=== PATIENT | male | born 1945 | race Caucasian/White ===

== ENCOUNTER 2016-10-17 07:16 | Day surgery (SDC) | payer MEDICARE, BC ==
[~2016-10-17 07:16] MED LIST: BUPIVACAINE HCL 0.75% INJ/PF (7.5 MG/1 ML) 10 ML SDV OD PRN; KETOROLAC TROMETHAMINE 0.45% 4 DROP/0.4 ML DROPERETTE OD PRN
[2016-10-17] MEDS ORDERED: EPINEPHRINE INJ/PF 1 MG/1 ML AMPULE ONE (07:52)
[2016-10-17] MEDS ORDERED: LIDOCAINE 1% INJ-PF (10 MG/ML) 30 ML SDV ONE (07:53)
[2016-10-17] MEDS ORDERED: CHONDR SU A NA/HYALUR INTRAOC KIT (SURGICARE) ONE (07:53)
[2016-10-17] MEDS ORDERED: TOBRAMYCIN SULFATE/DEXAMETH OPH OINTMENT 3.5 GM ONE (07:53)
[2016-10-17] MEDS: BESIFLOXACIN HCL 0.6% OPH SUSP 5 ML BOTTLE OD PRN ×3 (08:02→09:03)
[2016-10-17] MEDS: TETRACAINE HCL 0.5% OPH SOLN 0.6 ML DROPERETTE OD PRN ×3 (08:02→08:40)
[2016-10-17] MEDS: TROPICAMIDE 1% OPH SOLN 3 ML OD PRN ×3 (08:03→08:22)
[2016-10-17] MEDS: CYCLOPENTOLATE 0.2%/PHENYLEPHRINE 1% OPH SOLN 2 ML OD PRN ×3 (08:03→08:22)
[2016-10-17] MEDS ORDERED: FENTANYL CITRATE INJ/PF 100 MCG/2 ML AMPUL ONE (08:24)
[2016-10-17] MEDS ORDERED: MIDAZOLAM 2 MG/2 ML INJ ONE (08:24)
== END 2016-10-17 09:36 | disposition home or self-care (01) ==
LOC: SC 07:16
PROVIDERS: ATTEND Ophthalmology
PROC: 089230Z Drainage of Right Anterior Chamber with Drainage Device, Percutaneous Approach (ICD-10-PCS; 2016-10-17)
PROC: 08RJ3JZ Replacement of Right Lens with Synthetic Substitute, Percutaneous Approach (ICD-10-PCS; principal; 2016-10-17 08:30)
DX: H25.11 Age-related nuclear cataract, right eye (principal); H40.10X1 Unspecified open-angle glaucoma, mild stage; I10 Essential (primary) hypertension; K21.9 Gastro-esophageal reflux disease without esophagitis; Z79.82 Long term (current) use of aspirin; Z79.899 Other long term (current) drug therapy
CPT/HCPCS: 0191T; 66984; 142; C1783; J0171; J2250; J3010; J3490; V2632

== ENCOUNTER 2016-12-07 08:10 | Day surgery (SDC) | payer MEDICARE, BC ==
[~2016-12-07 08:10] MED LIST changes: -BUPIVACAINE HCL 0.75% INJ/PF (7.5 MG/1 ML) 10 ML SDV OD PRN; +DIPHENHYDRAMINE HCL 50 MG/ML VIAL ONE; +EPINEPHRINE INJ 1 MG/10 ML DISP.SYRIN ONE; +FLUMAZENIL INJ 0.5 MG/5 ML VIAL IV ONE; +GLUCAGON,HUMAN RECOMB 1 MG INJ ONE; -KETOROLAC TROMETHAMINE 0.45% 4 DROP/0.4 ML DROPERETTE OD PRN; +NALOXONE HCL INJ/PF 0.4 MG/1 ML SDV ONE; +ONDANSETRON HCL INJ/PF 4 MG/2 ML SDV ONE
[2016-12-07] MEDS: MIDAZOLAM 2 MG/2 ML INJ ONE ×2 (09:06→09:13)
[2016-12-07] MEDS: FENTANYL CITRATE INJ/PF 100 MCG/2 ML AMPUL ONE ×3 (09:08→09:16)
--- NOTE | 2016-12-07 09:26 | Operative Report ---
Operative Report DATE OF SURGERY: 12/07/16 Operative Report: The risks benefits and alternatives of the procedure explained to the patient in detail and informed consent is obtained. A GIF Olympus video scope was inserted into the patient's mouth and hypopharynx ,the esophagus is identified intubated and insufflated, the scope was then advanced through the esophagus stomach and duodenum ,retroflexion maneuver is done, the esophagus stomach and first and second portions of the duodenum examined PREOPERATIVE DIAGNOSIS: History of Terrell's esophagus for ablation POSTOPERATIVE DIAGNOSIS: Terrell's esophagus status post ablation OPERATION: EGD with ablation SURGEON: JANELLE SALES ANESTHESIA: Moderate Sedation - 6 mg of Versed, 100 mcg of fentanyl. Conscious sedation monitoring time 30 minutes. TISSUE REMOVED OR ALTERED: None. COMPLICATIONS: None. ESTIMATED BLOOD LOSS: None. INTRAOPERATIVE FINDINGS: As noted above. PROCEDURE: Patient tolerated the procedure well. No immediate postprocedure complications are noted. Patient discharged in good condition. Discharge date 12/07/2016. Discharge diet: Regular. Discharge activity: Regular. 2-3 week follow-up to discuss findings. Patient will need repeat EGD with ablation in 6 weeks. Patient is instructed to call the office or proceed to the emergency room should there be any further problems or questions.
[2016-12-07 11:04] VITALS: BP 113/57
== END 2016-12-07 10:35 | disposition home or self-care (01) ==
LOC: END 08:10
PROVIDERS: ATTEND Internal Medicine Gastroenterology
PROC: 0D558ZZ Destruction of Esophagus, Via Natural or Artificial Opening Endoscopic (ICD-10-PCS; principal; 2016-12-07 09:00)
DX: K22.70 Barrett's esophagus without dysplasia (principal); I10 Essential (primary) hypertension
CPT/HCPCS: 43270; J2250; J3010; J0171; J1200; J1610; J2310; J2405; J3490

== ENCOUNTER 2017-12-19 11:34 | Day surgery (SDC) | payer MEDICARE, BC ==
[~2017-12-19 11:34] MED LIST changes: -EPINEPHRINE INJ 1 MG/10 ML DISP.SYRIN ONE; -FLUMAZENIL INJ 0.5 MG/5 ML VIAL IV ONE; -GLUCAGON,HUMAN RECOMB 1 MG INJ ONE
[2017-12-19] MEDS ORDERED: EPINEPHRINE INJ 1 MG/10 ML DISP.SYRIN ONE (11:35)
[2017-12-19] MEDS ORDERED: GLUCAGON,HUMAN RECOMB 1 MG INJ ONE (11:35)
[2017-12-19] MEDS ORDERED: FLUMAZENIL INJ 0.5 MG/5 ML VIAL ONE (11:35)
[2017-12-19] MEDS: MIDAZOLAM 2 MG/2 ML INJ ONE ×3 (12:59→13:13)
[2017-12-19] MEDS: FENTANYL CITRATE INJ/PF 100 MCG/2 ML AMPUL ONE ×2 (13:01→13:03)
--- NOTE | 2017-12-19 13:19 | Operative Report ---
Operative Report DATE OF SURGERY: 12/19/17 Operative Report: The risks benefits and alternatives of the procedure explained to the patient in detail and informed consent is obtained.A GIF Olympus video scope was inserted into the patient's mouth and hypopharynx, the esophagus is identified intubated and insufflated ,the scope was then advanced through the esophagus stomach and duodenum. retroflexion maneuver is done, the esophagus stomach and first and second portions of the duodenum examined PREOPERATIVE DIAGNOSIS: History of Terrell's esophagus POSTOPERATIVE DIAGNOSIS: Several islands of Terrell's esophagus repeat ablation done OPERATION: EGD with radiofrequency ablation SURGEON: JANELLE SALES ANESTHESIA: Moderate Sedation - 5 mg of Versed, 75 mcg of fentanyl. Conscious sedation monitoring time 30 minutes. TISSUE REMOVED OR ALTERED: None. COMPLICATIONS: None. ESTIMATED BLOOD LOSS: None. INTRAOPERATIVE FINDINGS: As noted above. PROCEDURE: Patient tolerated procedure well. No immediate postprocedure complications are noted. Patient discharged in good condition. Discharge date 12/19/2017. Discharge diet: Regular. Discharge activity: Regular. 2-3 week follow-up to discuss findings. Patient is instructed to call the office or proceed to the emergency room should there be any further problems or questions.
[2017-12-19 14:30] VITALS: BP 125/60
== END 2017-12-19 14:30 | disposition home or self-care (01) ==
LOC: END 11:34
PROVIDERS: ATTEND Internal Medicine Gastroenterology
DX: K22.719 Barrett's esophagus with dysplasia, unspecified (principal); I51.9 Heart disease, unspecified; K21.9 Gastro-esophageal reflux disease without esophagitis; Z79.899 Other long term (current) drug therapy
CPT/HCPCS: 43270; J2250; J3010; J0171; J1200; J1610; J2310; J2405; J3490

== ENCOUNTER 2018-11-20 09:24 | Inpatient (IN) | payer MEDICARE, BC ==
[2018-11-20] MEDS ORDERED: PROPOFOL INJ 200 MG/20 ML VIAL IV ONE ×3 (10:31→17:46)
[2018-11-20] MEDS ORDERED: EPINEPHRINE INJ/PF 1 MG/1 ML AMPULE ONE (12:19)
[2018-11-20] MEDS ORDERED: EPINEPHRINE INJ 1 MG/10 ML DISP.SYRIN ONE (12:21)
--- NOTE | 2018-11-20 13:15 | Operative Report ---
Operative Report DATE OF SURGERY: 11/20/18 Operative Report: The risks benefits and alternatives of the procedure explained to the patient in detail and informed consent is obtained.A GIF Olympus video scope was inserted into the patient's mouth and hypopharynx, the esophagus is identified intubated and insufflated ,the scope was then advanced through the esophagus stomach and duodenum, retroflexion maneuver is done, the esophagus stomach and first and second portions of the duodenum examined. PREOPERATIVE DIAGNOSIS: Melena POSTOPERATIVE DIAGNOSIS: There is a clot in the second portion of the duodenum. When this was washed away there did appear to be an underlying AVM that was ablated. 4 cc of epinephrine I injected into the area as well. Terrell's esophagus that is ablated in situ OPERATION: EGD with submucosal injection and control of hemorrhage. EGD with ablation SURGEON: JANELLE SALES ANESTHESIA: LMAC TISSUE REMOVED OR ALTERED: None. COMPLICATIONS: None. ESTIMATED BLOOD LOSS: As noted above. INTRAOPERATIVE FINDINGS: As noted above. PROCEDURE: Patient tolerated the procedure well. No immediate postprocedure complications are noted. Patient is discharged in good condition. Discharge date 11/20/2018. Discharge diet: Regular. Discharge activity: Regular. 2 to 3-week follow-up to discuss findings. Patient is instructed to call the office or proceed to the emergency room should there be any further questions.
[2018-11-20] MEDS ORDERED: SIMETHICONE 80 MG TAB.CHEW ONE (13:22)
[2018-11-20] MEDS: SIMETHICONE 80 MG TAB.CHEW ONE ×2 (13:25→13:50)
[2018-11-20] MEDS ORDERED: ROCURONIUM BROMIDE INJ 50 MG/5 ML VIAL IV ONE (13:31)
[2018-11-20] MEDS ORDERED: SUCCINYLCHOLINE CHLORIDE INJ 200 MG/10 ML VIAL ONE (13:31)
[2018-11-20 14:06] LABS: HEMATOCRIT 31.5 % (37.9-51.0); HEMOGLOBIN 10.8 g/dL (13.5-17.0); MEAN CORPUSCULAR HGB CONC 34.3 g/dL (32.0-36.0); MEAN CORPUSCULAR VOLUME 88 fl (80-97); PLATELET COUNT 283 10^3/uL (150-450); RED CELL DISTRIBUTION WIDTH 14.4 % (11.5-14.0); WHITE BLOOD COUNT 10.8 10^3/uL (4.0-10.5)
[2018-11-20] MEDS ORDERED: ONDANSETRON HCL INJ/PF 4 MG/2 ML SDV ONE ×2 (14:10→17:46)
[2018-11-20 14:29] LABS: ANION GAP 11 (5-19); BLOOD UREA NITROGEN 45 mg/dL (7-20); CALCIUM 9.2 mg/dL (8.4-10.2); CARBON DIOXIDE 20 mmol/L (22-30); CHLORIDE 107 mmol/L (98-107); GLUCOSE 168 mg/dL (75-110); POTASSIUM 4.1 mmol/L (3.6-5.0); SODIUM 138.2 mmol/L (137-145)
--- NOTE | 2018-11-20 15:25 | RADIOLOGY REPORT (SQ) ---
EXAM DESCRIPTION: ABDOMEN 2 VIEWS COMPLETED DATE/TIME: 11/20/2018 3:04 pm REASON FOR STUDY: post op K92.1 MELENA COMPARISON: 04/01/2013. NUMBER OF VIEWS: Three views. TECHNIQUE: Frontal chest, supine abdomen and upright/decubitus abdomen radiographic images acquired. LIMITATIONS: None. FINDINGS: CHEST: There is pneumomediastinum outlining the right cardiac border and right side of the trachea. There is also subcutaneous gas in the right supraclavicular soft tissues. FREE AIR: There is an unusual collection of gas along the right side of the abdomen, outlining the in ferior margin of the liver and along the right flank as well as in the right paraspinal soft tissues. No free air under the diaphragm. BOWEL GAS PATTERN: Nonobstructive pattern. No dilated loops or air fluid levels. The stomach is dist ended with gas secondary to recent endoscopy. CALCIFICATIONS: No suspicious calcifications. HARDWARE: Surgical clips. Coronary artery bypass hardware in the chest. SOFT TISSUES: No gross mass or suggestion of organomegaly. BONES: No acute fracture. No worrisome bone lesions. OTHER: No other significant finding. IMPRESSION: ABNORMAL COLLECTION OF GAS IN THE ABDOMEN WHICH IS PROBABLY RETROPERITONEAL. THIS EXTEN DS INTO THE CHEST WITH RIGHT-SIDED PNEUMOMEDIASTINUM WELL EXTENSION INTO THE LOWER RIGHT SIDE O F THE NECK WITH SUBCUTANEOUS EMPHYSEMA IN THE RIGHT SUPRACLAVICULAR TISSUES. COMMENT: Pertinent findings on the imaging study reported as a CRITICAL RESULT to JANELLE SALES MD at1 5:10 on 11/20/2018. Category of Critical Result: Abnormal abdominal gas pattern, likely retroperitoneal, with extension i nto the mediastinum and supraclavicular soft tissues. TECHNICAL DOCUMENTATION: JOB ID: [id number] [employer]- All Rights Reserved Reading location - IP/workstation name: [email or web address]
--- NOTE | 2018-11-20 16:32 | PDOC CONSULTATION ---
Consultation Consult Date: 11/20/18 Provider Consulted: FAIZA VILLEDA Consult reason:: upper gastrointestinal perforation History of Present Illness Admission Date/PCP: ESTER ENCINAS MD History of Present Illness: INOCENTE MIJARES is a 73 year old male with hx of Chandler fundoplication, duodenal AVM, Terrell's esophagus, who is s/p EGD with Terrell's ablation and epinephrin duodenal (second portion) injection. The procedure was without complications, lasted about 25 min. Patient was transferred to PACU [postoperatively where he suddenly c/o lower abdominal pain and abdominal, distention. He was given antiemetics and Simethicone witjhout improvement. Because of the lack of improvement, a chest Xray was done and it demonstrated neck subcutaneous emphysema with pneumomediastinum down to the cardiac silhuette. Patient appears to be very uncomfortable. Vitals: 97/57, HR 85, 110 % sat at RA, RR 14) 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 Hematology: Denies: Anemia, Sickle Cell Disease Past Surgical History Past Surgical History: Denies: Pacemaker Social History Smoking Status: Former Smoker Frequency of Alcohol Use: None Hx Recreational Drug Use: No Hx Prescription Drug Abuse: No Family History Family History: Reviewed & Not Pertinent Parental Family History Reviewed: No Children Family History Reviewed: No Sibling(s) Family History Reviewed.: No Medication/Allergy Home Medications: Aspirin [Aspirin 81 mg Chewable Tablet] 81 mg PO DAILY 11/20/18 Cyanocobalamin (Vitamin B-12) [Vitamin B-12] 1,000 mcg PO DAILY 11/20/18 Dorzolamide HCl/Pf [Dorzolamide 2% Eye Drop] 10 ml OP ASDIR PRN 11/20/18 Fenofibrate 150 mg PO DAILY 11/20/18 Latanoprost [Xalatan] 2.5 ml OP DAILY 11/20/18 Losartan Potassium 100 mg PO DAILY 11/20/18 Metoprolol Succinate [Toprol Xl] 25 mg PO DAILY 11/20/18 Omeprazole 40 mg PO DAILY 11/20/18 Simvastatin 80 mg PO DAILY 11/20/18 Trazodone HCl 50 mg PO TID 11/20/18 Allergies/Adverse Reactions: No Known Allergies Allergy (Verified 12/19/17 11:49) Physical Exam Vital Signs: Temp Pulse Resp BP Pulse Ox 98.3 F 80 12 117/70 95 11/20/18 13:35 11/20/18 15:05 11/20/18 15:05 11/20/18 15:05 11/20/18 15:05 Intake & Output 11/19/18 11/20/18 11/21/18 06:59 06:59 06:59 Intake Total 675 Balance 675 Weight 93.44 kg General appearance: PRESENT: severe distress, other - pale, cooperative and uncomfortable Head exam: PRESENT: atraumatic Eye exam: PRESENT: EOMI Mouth exam: PRESENT: moist, neck supple, other - bilateral subcutaneous emphysema Neck exam: PRESENT: full ROM Respiratory exam: PRESENT: clear to auscultation yoana, decreased breath sounds - bilaterally Cardiovascular exam: PRESENT: RRR GI/Abdominal exam: PRESENT: distended, hypoactive bowel sounds, tenderness - mild, lower abdomen Rectal exam: PRESENT: deferred Extremities exam: PRESENT: full ROM Musculoskeletal exam: PRESENT: full ROM Neurological exam: PRESENT: awake, oriented to person, oriented to place Psychiatric exam: PRESENT: anxious Focused psych exam: PRESENT: restlessness Skin exam: PRESENT: warm Results Laboratory Results: 11/20/18 13:58 11/20/18 13:58 11/20/18 11/20/18 11/20/18 10:05 13:58 13:58 WBC 10.8 H RBC 3.60 L Hgb 10.8 L Hct 31.5 L MCV 88 MCH 30.0 MCHC 34.3 RDW 14.4 H Plt Count 283 Sodium 138.2 Potassium 4.1 4.1 Chloride 107 Carbon Dioxide 20 L Anion Gap 11 BUN 45 H Creatinine 1.19 Est GFR ( Amer) > 60 Est GFR (Non-Af Amer) > 60 Glucose 168 H Calcium 9.2 Impressions: Abdomen X-Ray 11/20/18 00:00 IMPRESSION: ABNORMAL COLLECTION OF GAS IN THE ABDOMEN WHICH IS PROBABLY RETROPERITONEAL. THIS EXTENDS INTO THE CHEST WITH RIGHT-SIDED PNEUMOMEDIASTINUM WELL EXTENSION INTO THE LOWER RIGHT SIDE OF THE NECK WITH SUBCUTANEOUS EMPHYSEMA IN THE RIGHT SUPRACLAVICULAR TISSUES. Assessment & Plan - Diagnosis (1) Bowel perforation Is this a current diagnosis for this admission?: Yes (2) Terrell esophagus Is this a current diagnosis for this admission?: Yes (3) AVM (arteriovenous malformation) of duodenum, acquired with hemorrhage Is this a current diagnosis for this admission?: Yes - Plan Summary Plan Summary: A/ S/P EGD with duodenal AVM neosynephrin injection today S/P EGD with Terrell's esophagus ablation today S/p Chandler fundoplication S/p multiple surgeries (CABG, cardiac stent, lap brigette, right TKA) Post-endoscopy right neck subcutaneuos emphysema, right pneumomediastinum, and right sided intraabdominal air without air under the diaphragm. According to the radiologist, this last finding could represent either retroperitoneal air or dissecting subcutaneous emphysema P/ Case discussed with endoscopic (Dr. Albarran) and Dr. Harvey Plan: Obtain gastrografin esophageal swallow with limited UGI; if no perforation is seen, will proceed with CT Chest/Abdomen/pelvis STAT ICU admission to follow Decision of disposition will depend on the location of the perforation, contained vs. free, and availability of services at this institution.
[2018-11-20] MEDS ORDERED: MORPHINE SULFATE 10 MG/ML INJ ONE ×2 (17:08→22:29)
--- NOTE | 2018-11-20 17:12 | RADIOLOGY REPORT (SQ) ---
EXAM DESCRIPTION: BARIUM SWALLOW ESOPHAGUS; UPPER GI/SM BOWEL COMPLETED DATE/TIME: 11/20/2018 4:52 pm REASON FOR STUDY: abdominal pain; abdomin pain K92.1 MELENA COMPARISON: None. TECHNIQUE: Under fluoroscopic guidance, patient ingested water soluble contrast. Fluoroscopic spot i mages and routine radiographic images acquired and stored on PACS. 12 MM BARIUM TABLET GIVEN: No. LIMITATIONS: None. FLUOROSCOPY TIME: FLUORO TIME: 3 minutes 37 seconds. 23 images saved to PACS. FINDINGS: NEUROMUSCULAR COORDINATION OF SWALLOW: Normal. No aspiration. ESOPHAGEAL MOTILITY: Normal peristalsis. No esophageal spasm. ESOPHAGEAL MUCOSA: Normal mucosa without masses or ulceration. No contrast extravasation. GASTRO-ESOPHAGEAL JUNCTION: No hiatal hernia or reflux. STOMACH: Distended with gas from recent endoscopy. No contrast extravasation. GASTRIC OUTLET: No delay in emptying. Normal pylorus. DUODENAL BULB: Normal distention. No spasm or ulceration. DUODENUM: There is contrast extravasation from the second portion of the duodenum. There is also a p robable duodenal diverticulum as well. PROXIMAL JEJUNUM: Normal mucosal pattern. No dilatation, segmentation, strictures or masses. NON-GI TRACT STRUCTURES: No significant finding. OTHER: No other significant finding. IMPRESSION: CONTRAST EXTRAVASATION FROM THE SECOND PORTION OF THE DUODENUM CONSISTENT WITH PERFORATI ON. NO EVIDENCE OF ESOPHAGEAL OR GASTRIC PERFORATION. OTHER INCIDENTAL FINDING IS A PROBABLE DUODEN AL DIVERTICULUM. COMMENT: The images were reviewed with Dr. Das. Quality ID [id number]: Final reports for procedures using fluoroscopy that document radiation exposure norman reno, or exposure time and number of fluorographic images (if radiation exposure indices are not avail able) TECHNICAL DOCUMENTATION: JOB ID: [id number] [employer]- All Rights Reserved Reading location - IP/workstation name: [email or web address]-
--- NOTE | 2018-11-20 17:12 | RADIOLOGY REPORT (SQ) ---
EXAM DESCRIPTION: BARIUM SWALLOW ESOPHAGUS; UPPER GI/SM BOWEL COMPLETED DATE/TIME: 11/20/2018 4:52 pm REASON FOR STUDY: abdominal pain; abdomin pain K92.1 MELENA COMPARISON: None. TECHNIQUE: Under fluoroscopic guidance, patient ingested water soluble contrast. Fluoroscopic spot i mages and routine radiographic images acquired and stored on PACS. 12 MM BARIUM TABLET GIVEN: No. LIMITATIONS: None. FLUOROSCOPY TIME: FLUORO TIME: 3 minutes 37 seconds. 23 images saved to PACS. FINDINGS: NEUROMUSCULAR COORDINATION OF SWALLOW: Normal. No aspiration. ESOPHAGEAL MOTILITY: Normal peristalsis. No esophageal spasm. ESOPHAGEAL MUCOSA: Normal mucosa without masses or ulceration. No contrast extravasation. GASTRO-ESOPHAGEAL JUNCTION: No hiatal hernia or reflux. STOMACH: Distended with gas from recent endoscopy. No contrast extravasation. GASTRIC OUTLET: No delay in emptying. Normal pylorus. DUODENAL BULB: Normal distention. No spasm or ulceration. DUODENUM: There is contrast extravasation from the second portion of the duodenum. There is also a p robable duodenal diverticulum as well. PROXIMAL JEJUNUM: Normal mucosal pattern. No dilatation, segmentation, strictures or masses. NON-GI TRACT STRUCTURES: No significant finding. OTHER: No other significant finding. IMPRESSION: CONTRAST EXTRAVASATION FROM THE SECOND PORTION OF THE DUODENUM CONSISTENT WITH PERFORATI ON. NO EVIDENCE OF ESOPHAGEAL OR GASTRIC PERFORATION. OTHER INCIDENTAL FINDING IS A PROBABLE DUODEN AL DIVERTICULUM. COMMENT: The images were reviewed with Dr. Das. Quality ID [id number]: Final reports for procedures using fluoroscopy that document radiation exposure norman reno, or exposure time and number of fluorographic images (if radiation exposure indices are not avail able) TECHNICAL DOCUMENTATION: JOB ID: [id number] [employer]- All Rights Reserved Reading location - IP/workstation name: [facility]-
--- NOTE | 2018-11-20 17:27 | Progress Note ---
Provider Note Provider Note: Events noted Gastrografin swallow and limited UGI demonstrated intact esophagus and perforation of the second portion of the duodenum with flowing contrast. PE: patient in moderate distress Abdomen distended Plan: emergent laparotomy, repair of duodenal perforation, piloric vs. duodenal exclusion, gastrojeunosotmy, feeding jejunostomy., and central venous line placement. Procedure, risks, benefitrs, alternatives explained to the patient and family (/daughter). The risks of this surgery, including leak of anastomosis, pneumonia, prolonged intubation, wound infection, cardiac events, stroke, and even were openly discussed with the family, their questions were answered to their satisfaction, and they decided to proceed with the above. NPO T&C 2 Units PRBC NS 2 L bolus then 150 ml/hr Zosyn 4.5 gr IV abx stat ICU admission to follow
[2018-11-20] MEDS: PIPERACILLIN SODIUM/TAZOBACTAM 4.5 GM in NORMAL SALINE 100 ML IV SCH ×2 (17:42→23:05)
[2018-11-20] MEDS ORDERED: NORMAL SALINE 1000 ML 1,000 ML IV ONE (17:45)
[2018-11-20] MEDS ORDERED: KETOROLAC TROMETHAMINE 60 MG/2 ML SDV ONE (17:46)
[2018-11-20] MEDS ORDERED: ACETAMINOPHEN 1,000 MG/100 ML RTUPB IV ONE (17:46)
[2018-11-20] MEDS ORDERED: FENTANYL CITRATE INJ/PF 100 MCG/2 ML AMPUL ONE (17:46)
[2018-11-20] MEDS ORDERED: EPHEDRINE SULFATE INJ 50 MG/1 ML AMPULE ONE (17:46)
[2018-11-20] MEDS ORDERED: MIDAZOLAM 2 MG/2 ML INJ ONE (17:46)
[2018-11-20] MEDS ORDERED: DEXAMETHASONE SOD PHOSPHATE INJ 4 MG/1 ML VIAL ONE (17:46)
[2018-11-20] MEDS ORDERED: LIDOCAINE 1% INJ-PF (10 MG/ML) 30 ML SDV ONE (17:47)
[2018-11-20] MEDS ORDERED: PIPERACILLIN/TAZOBACTAM 4.5 GM VIAL IV SCH (18:00)
--- NOTE | 2018-11-20 19:31 | PDOC CONSULTATION ---
Consultation Consult Date: 11/20/18 Provider Consulted: THERESA PIZANO History of Present Illness Admission Date/PCP: 11/20/18 18:10 ESTER ENCINAS MD History of Present Illness: INOCENTE MIJARES is a 73 year old male with hx of Chandler fundoplication, duodenal AVM, Terrell's esophagus, who is s/p EGD with Terrell's ablation and epinephrin duodenal (second portion) injection who underwent EGD today. Patient unfortunately sustained a possible perforated viscus. A chest x-ray done which showed significant subcutaneous emphysema with pneumomediastinum. Patient was promptly brought to the ER yesterday afternoon and was noted to have a perforated duodenum. He underwent repair of the perforation and was transferred to the ICU. Hospitalist service was consulted for medical co-management. 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 Hematology: Denies: Anemia, Sickle Cell Disease Past Surgical History Past Surgical History: Denies: Pacemaker Social History Smoking Status: Former Smoker Frequency of Alcohol Use: None Hx Recreational Drug Use: No Hx Prescription Drug Abuse: No - Advance Directive Resuscitation Status: Full Code Family History Family History: Reviewed & Not Pertinent Parental Family History Reviewed: Yes Children Family History Reviewed: Yes Sibling(s) Family History Reviewed.: Yes Medication/Allergy Home Medications: Aspirin [Aspirin 81 mg Chewable Tablet] 81 mg PO DAILY 11/20/18 Latanoprost [Xalatan] 2.5 ml OP DAILY 11/20/18 Losartan Potassium 100 mg PO DAILY 11/20/18 Omeprazole 40 mg PO DAILY 11/20/18 Simvastatin 80 mg PO DAILY 11/20/18 Trazodone HCl 50 mg PO HSP PRN 11/20/18 Fenofibrate Nanocrystallized [Tricor 145 mg Tablet] 145 mg PO DAILY 11/21/18 Hydrochlorothiazide [Hydrodiuril 25 mg Tablet] 25 mg PO QAM 11/21/18 Metoprolol Succinate [Toprol Xl 50 mg Tab.sr] 50 mg PO DAILY 11/21/18 Multivitamin [Tab-A-Dharmesh (Multiple Vitamin) Tablet] 1 tab PO DAILY 11/21/18 Nitroglycerin [Nitrostat 0.4 mg (1/150 Gr) Tabs 25/Bottle] 1 tab SL Q5MP PRN 11/21/18 [place]-3 Fatty Acids/Fish Oil [Fish Oil 1,000 Mg Capsule] 1 each PO QID 11/21/18 Allergies/Adverse Reactions: No Known Allergies Allergy (Verified 12/19/17 11:49) Physical Exam Vital Signs: Temp Pulse Resp BP Pulse Ox 97.8 F 89 0 L 118/60 98 11/20/18 17:27 11/20/18 17:27 11/20/18 17:31 11/20/18 17:31 11/20/18 17:31 Intake & Output 11/19/18 11/20/18 11/21/18 06:59 06:59 06:59 Intake Total 2100 Balance 2100 Weight 96.6 kg General appearance: PRESENT: mild distress Head exam: PRESENT: atraumatic, normocephalic Respiratory exam: PRESENT: clear to auscultation yoana, tachypnea. ABSENT: rales, rhonchi, wheezes Cardiovascular exam: PRESENT: RRR. ABSENT: diastolic murmur, rubs, systolic murmur GI/Abdominal exam: PRESENT: distended, guarding, hypoactive bowel sounds, tenderness. ABSENT: mass, organolmegaly, rebound Neurological exam: PRESENT: alert, awake, oriented to person, oriented to place, oriented to time, oriented to situation, CN II-XII grossly intact. ABSENT: motor sensory deficit Results Laboratory Results: 11/20/18 13:58 11/20/18 13:58 11/20/18 11/20/18 11/20/18 10:05 13:58 13:58 WBC 10.8 H RBC 3.60 L Hgb 10.8 L Hct 31.5 L MCV 88 MCH 30.0 MCHC 34.3 RDW 14.4 H Plt Count 283 Sodium 138.2 Potassium 4.1 4.1 Chloride 107 Carbon Dioxide 20 L Anion Gap 11 BUN 45 H Creatinine 1.19 Est GFR ( Amer) > 60 Est GFR (Non-Af Amer) > 60 Glucose 168 H Calcium 9.2 Blood Type Antibody Screen 11/20/18 17:43 WBC RBC Hgb Hct MCV MCH MCHC RDW Plt Count Sodium Potassium Chloride Carbon Dioxide Anion Gap BUN Creatinine Est GFR ( Amer) Est GFR (Non-Af Amer) Glucose Calcium Blood Type A POSITIVE Antibody Screen NEGATIVE Impressions: Abdomen X-Ray 11/20/18 00:00 IMPRESSION: ABNORMAL COLLECTION OF GAS IN THE ABDOMEN WHICH IS PROBABLY RETROPERITONEAL. THIS EXTENDS INTO THE CHEST WITH RIGHT-SIDED PNEUMOMEDIASTINUM WELL EXTENSION INTO THE LOWER RIGHT SIDE OF THE NECK WITH SUBCUTANEOUS EMPHYSEMA IN THE RIGHT SUPRACLAVICULAR TISSUES. Esophagus X-Ray 11/20/18 00:00 IMPRESSION: CONTRAST EXTRAVASATION FROM THE SECOND PORTION OF THE DUODENUM CONSISTENT WITH PERFORATION. NO EVIDENCE OF ESOPHAGEAL OR GASTRIC PERFORATION. OTHER INCIDENTAL FINDING IS A PROBABLE DUODENAL DIVERTICULUM. Upper GI and Small Bowel X-Ray 11/20/18 00:00 IMPRESSION: CONTRAST EXTRAVASATION FROM THE SECOND PORTION OF THE DUODENUM CONSISTENT WITH PERFORATION. NO EVIDENCE OF ESOPHAGEAL OR GASTRIC PERFORATION. OTHER INCIDENTAL FINDING IS A PROBABLE DUODENAL DIVERTICULUM. Assessment and Plan - Diagnosis (1) Essential hypertension Is this a current diagnosis for this admission?: No Plan: Restart home meds. Monitor vitals. Adjust meds as needed. (2) Dyslipidemia Is this a current diagnosis for this admission?: No Plan: Restart home meds. (3) History of TIA (transient ischemic attack) Is this a current diagnosis for this admission?: No Plan: Continue antiplatelets, high intensity statins. (4) Depression Is this a current diagnosis for this admission?: No Plan: Restart home meds.
[2018-11-20] MEDS ORDERED: PROPOFOL 1,000 MG/100 ML INFUS..BTL IV ONE (21:07)
[2018-11-20] MEDS: PROPOFOL 1,000 MG/100 ML INFUS..BTL IV PRN (21:30)
[2018-11-20] MEDS: NORMAL SALINE 1000 ML 1,000 ML IV PRN (21:30)
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
--- NOTE | 2018-11-20 21:57 | RADIOLOGY REPORT (SQ) ---
EXAM DESCRIPTION: XR CHEST 1 VIEW COMPLETED DATE/TME: 11/20/2018 00:00 CLINICAL HISTORY: 73 years, Male, ETT and CVC and NGT placement COMPARISON: Prior chest radiograph from earlier the same day NUMBER OF VIEWS: One TECHNIQUE: Single frontal view of the chest was obtained portably LIMITATIONS: None. FINDINGS: Status post median sternotomy. Enteric drainage tube tip is located within the gastric body. Left subclavian approach central venous catheter tip is located in the upper SVC. Endotracheal tube tip is located in the trachea, approximately 3.8 cm above the pinky. Cardiac and mediastinal contours are stable. Gas density is again evident about the mediastinum extending inferiorly into the upper abdomen, similar in configuration to the previous exam performed earlier the same day. Additional gas density is noted about the base of the neck, indicating subcutaneous emphysema. Otherwise, there is confluent left basilar opacity. No obvious pneumothorax. Surgical skin rachel are noted about the upper mid abdomen. IMPRESSION: Unchanged appearance of pneumomediastinum which extends into the upper abdomen as well as into the base of the neck. Confluent left basilar airspace disease. Consider atelectasis or pneumonia to include aspiration. Interval placement of endotracheal tube with its tip located 3.8 cm above the pinky. Left subclavian approach central venous catheter tip is located in the upper SVC. Enteric drainage tube tip is located within the gastric body. copyright 2010 [employer]- All Rights Reserved
[2018-11-20 22:01] LABS: ARTERIAL BLOOD BASE EXCESS -11.7 mmol/L; ARTERIAL BLOOD H2CO3 1.72 mmol/L (1.05-1.35); ARTERIAL BLOOD HCO3 17.8 mmol/L (20-24); ARTERIAL BLOOD O2 SATURATION 94.3 % (94-98); ARTERIAL BLOOD PCO2 57.2 mmHg (35-45); ARTERIAL BLOOD PO2 94.4 mmHg (80-100); ARTERIAL BLOOD TOTAL CO2 19.6 mmol/L (23-27)
[2018-11-20 22:02] LABS: ABSOLUTE LYMPHOCYTES (AUTO) 0.6 10^3/uL (0.5-4.7); ABSOLUTE MONOCYTES (AUTO) 0.3 10^3/uL (0.1-1.4); BASOPHILS % (AUTO) 0.3 % (0-2); EOSINOPHILS % (AUTO) 0.1 % (0-6); HEMATOCRIT 33.6 % (37.9-51.0); HEMOGLOBIN 11.2 g/dL (13.5-17.0); LYMPHOCYTES % (AUTO) 5.7 % (13-45); MEAN CORPUSCULAR HEMOGLOBIN 29.7 pg (27.0-33.4); MEAN CORPUSCULAR HGB CONC 33.2 g/dL (32.0-36.0); MEAN CORPUSCULAR VOLUME 90 fl (80-97); MONOCYTES % (AUTO) 3.4 % (3-13); PLATELET COUNT 294 10^3/uL (150-450); RED BLOOD COUNT 3.76 10^6/uL (4.35-5.55); RED CELL DISTRIBUTION WIDTH 14.4 % (11.5-14.0); SEGMENTED NEUTROPHILS % (AUTO) 90.5 % (42-78); TOTAL CELLS COUNTED % (AUTO) 100 %
[2018-11-20 22:15] LABS: ARTERIAL BLOOD FIO2 40%; ARTERIAL BLOOD PH 7.11 (7.35-7.45)
[2018-11-20 22:24] LABS: ALANINE AMINOTRANSFERASE 62 U/L (21-72); ALBUMIN 2.7 g/dL (3.5-5.0); ALKALINE PHOSPHATASE 30 U/L (38-126); ANION GAP 8 (5-19); ASPARTATE AMINO TRANSFERASE 68 U/L (17-59); BILIRUBIN,DIRECT 0.4 mg/dL (0.0-0.4); BILIRUBIN,TOTAL 0.7 mg/dL (0.2-1.3); BLOOD UREA NITROGEN 46 mg/dL (7-20); CARBON DIOXIDE 20 mmol/L (22-30); CHLORIDE 112 mmol/L (98-107); GLUCOSE 175 mg/dL (75-110); SODIUM 140.1 mmol/L (137-145); TOTAL PROTEIN 4.8 g/dL (6.3-8.2)
[2018-11-20] MEDS ORDERED: ENOXAPARIN SODIUM INJ 40 MG/0.4 ML DISP.SYRIN SUBCUT ONE (22:30)
[2018-11-20] MEDS ORDERED: PANTOPRAZOLE SODIUM 40 MG VIAL IV ONE (22:30)
[2018-11-20 22:36] LABS: LIPASE 2053.8 U/L (23-300)
[2018-11-20 22:41] LABS: CALCIUM 6.9 mg/dL (8.4-10.2); POTASSIUM 5.6 mmol/L (3.6-5.0)
[2018-11-20] MEDS: SIMVASTATIN 40 MG TABLET PO SCH (22:54)
[2018-11-20] MEDS: TRAZODONE HCL 50 MG TABLET PO SCH (22:54)
[2018-11-20] MEDS: MORPHINE SULFATE 10 MG/ML INJ IV PRN (22:58)
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
[2018-11-21] MEDS ORDERED: MIDAZOLAM HCL 50 MG/100 ML RTUINJ ONE (00:05)
[2018-11-21] MEDS: MIDAZOLAM HCL 50 MG/100 ML RTUINJ IV PRN ×4 (00:05→20:34)
[2018-11-21] MEDS ORDERED: NORMAL SALINE 1000 ML 1,000 ML IV ONE (00:30)
[2018-11-21 00:56] LABS: ARTERIAL BLOOD BASE EXCESS -10.7 mmol/L; ARTERIAL BLOOD H2CO3 0.98 mmol/L (1.05-1.35); ARTERIAL BLOOD O2 SATURATION 98.6 % (94-98); ARTERIAL BLOOD PCO2 32.7 mmHg (35-45); ARTERIAL BLOOD PH 7.28 (7.35-7.45); ARTERIAL BLOOD PO2 141.5 mmHg (80-100)
[2018-11-21 01:07] LABS: ARTERIAL BLOOD FIO2 40%
[2018-11-21] MEDS: NORMAL SALINE 1000 ML 1,000 ML IV PRN ×4 (02:11→16:47)
[2018-11-21] MEDS: MAGNESIUM SULFATE/D5W 1 GM/100 ML RTUPB IV SCH ×3 (02:18→04:41)
[2018-11-21] MEDS: PROPOFOL 1,000 MG/100 ML INFUS..BTL IV PRN (04:17)
[2018-11-21] MEDS: TRAZODONE HCL 50 MG TABLET PO SCH ×3 (05:32→21:13)
[2018-11-21] MEDS: PIPERACILLIN SODIUM/TAZOBACTAM 4.5 GM in NORMAL SALINE 100 ML IV SCH ×4 (05:32→23:05)
[2018-11-21 05:51] LABS: ABSOLUTE LYMPHOCYTES (AUTO) 0.3 10^3/uL (0.5-4.7); ABSOLUTE MONOCYTES (AUTO) 0.2 10^3/uL (0.1-1.4); ABSOLUTE NEUT (AUTO) 6.1 10^3/uL (1.7-8.2); BASOPHILS % (AUTO) 0.1 % (0-2); HEMATOCRIT 29.8 % (37.9-51.0); LYMPHOCYTES % (AUTO) 5.1 % (13-45); MEAN CORPUSCULAR HEMOGLOBIN 29.8 pg (27.0-33.4); MEAN CORPUSCULAR HGB CONC 33.5 g/dL (32.0-36.0); MEAN CORPUSCULAR VOLUME 89 fl (80-97); MONOCYTES % (AUTO) 3.4 % (3-13); PLATELET COUNT 238 10^3/uL (150-450); RED BLOOD COUNT 3.35 10^6/uL (4.35-5.55); RED CELL DISTRIBUTION WIDTH 14.7 % (11.5-14.0); SEGMENTED NEUTROPHILS % (AUTO) 91.4 % (42-78); TOTAL CELLS COUNTED % (AUTO) 100 %; WHITE BLOOD COUNT 6.6 10^3/uL (4.0-10.5)
[2018-11-21 05:57] LABS: ARTERIAL BLOOD BASE EXCESS -10.9 mmol/L; ARTERIAL BLOOD H2CO3 0.82 mmol/L (1.05-1.35); ARTERIAL BLOOD HCO3 13.7 mmol/L (20-24); ARTERIAL BLOOD O2 SATURATION 96.6 % (94-98); ARTERIAL BLOOD PCO2 27.1 mmHg (35-45); ARTERIAL BLOOD PH 7.32 (7.35-7.45); ARTERIAL BLOOD PO2 91.8 mmHg (80-100); ARTERIAL BLOOD TOTAL CO2 14.6 mmol/L (23-27)
[2018-11-21 05:58] LABS: ARTERIAL BLOOD FIO2 30%
[2018-11-21] MEDS: MORPHINE SULFATE 10 MG/ML INJ IV PRN ×5 (06:00→22:42)
[2018-11-21 06:01] LABS: ALANINE AMINOTRANSFERASE 49 U/L (21-72); ALBUMIN 2.3 g/dL (3.5-5.0); ALKALINE PHOSPHATASE 21 U/L (38-126); ANION GAP 10 (5-19); ASPARTATE AMINO TRANSFERASE 78 U/L (17-59); BILIRUBIN,DIRECT 0.3 mg/dL (0.0-0.4); BILIRUBIN,TOTAL 0.8 mg/dL (0.2-1.3); BLOOD UREA NITROGEN 44 mg/dL (7-20); CARBON DIOXIDE 16 mmol/L (22-30); CHLORIDE 115 mmol/L (98-107); GLUCOSE 161 mg/dL (75-110); SODIUM 140.8 mmol/L (137-145); TOTAL PROTEIN 4.3 g/dL (6.3-8.2)
[2018-11-21 06:07] LABS: POTASSIUM 4.2 mmol/L (3.6-5.0)
[2018-11-21 06:08] LABS: CALCIUM 6.5 mg/dL (8.4-10.2)
--- NOTE | 2018-11-21 07:24 | PDOC PROGRESS REPORT ---
Subjective Progress Note for:: 11/21/18 Reason For Visit: MELENA K92.1 duodenal perforation Physical Exam Vital Signs: Temp Pulse Resp BP Pulse Ox 99.5 F 89 19 139/47 H 98 11/21/18 06:01 11/20/18 17:27 11/21/18 06:01 11/21/18 06:01 11/21/18 06:01 Intake & Output 11/20/18 11/21/18 11/22/18 06:59 06:59 06:59 Intake Total 11155 Output Total 5605 Balance 5068 Weight 96.6 kg General appearance: PRESENT: no acute distress, other - intubated, sedated Head exam: PRESENT: atraumatic, normocephalic Eye exam: PRESENT: conjunctiva pink Ear exam: PRESENT: normal external ear exam Mouth exam: PRESENT: moist Respiratory exam: PRESENT: clear to auscultation yoana, symmetrical Cardiovascular exam: PRESENT: RRR Pulses: PRESENT: normal radial pulses, normal femoral pulses Vascular exam: PRESENT: normal capillary refill GI/Abdominal exam: PRESENT: soft, other - isabella's serous/sanguenious Rectal exam: PRESENT: deferred Gentrourinary exam: PRESENT: indwelling catheter Skin exam: PRESENT: dry Results Laboratory Results: 11/21/18 05:40 11/21/18 05:40 11/20/18 11/20/18 11/20/18 10:05 13:58 13:58 WBC 10.8 H RBC 3.60 L Hgb 10.8 L Hct 31.5 L MCV 88 MCH 30.0 MCHC 34.3 RDW 14.4 H Plt Count 283 Seg Neutrophils % Lymphocytes % Monocytes % Eosinophils % Basophils % Absolute Neutrophils Absolute Lymphocytes Absolute Monocytes Absolute Eosinophils Absolute Basophils Carbonic Acid HCO3/H2CO3 Ratio ABG pH ABG pCO2 ABG pO2 ABG HCO3 ABG O2 Saturation ABG Base Excess FiO2 Sodium 138.2 Potassium 4.1 4.1 Chloride 107 Carbon Dioxide 20 L Anion Gap 11 BUN 45 H Creatinine 1.19 Est GFR ( Amer) > 60 Est GFR (Non-Af Amer) > 60 Glucose 168 H Lactic Acid Calcium 9.2 Ionized Calcium Alpesh Magnesium Total Bilirubin AST ALT Alkaline Phosphatase Total Protein Albumin Lipase Blood Type Antibody Screen 11/20/18 11/20/18 11/20/18 17:43 21:45 21:45 WBC 10.0 RBC 3.76 L Hgb 11.2 L Hct 33.6 L MCV 90 MCH 29.7 MCHC 33.2 RDW 14.4 H Plt Count 294 Seg Neutrophils % 90.5 H Lymphocytes % 5.7 L Monocytes % 3.4 Eosinophils % 0.1 Basophils % 0.3 Absolute Neutrophils 9.0 H Absolute Lymphocytes 0.6 Absolute Monocytes 0.3 Absolute Eosinophils 0.0 Absolute Basophils 0.0 Carbonic Acid HCO3/H2CO3 Ratio ABG pH ABG pCO2 ABG pO2 ABG HCO3 ABG O2 Saturation ABG Base Excess FiO2 Sodium 140.1 Potassium 5.6 H D Chloride 112 H Carbon Dioxide 20 L Anion Gap 8 BUN 46 H Creatinine 1.37 H Est GFR ( Amer) > 60 Est GFR (Non-Af Amer) 51 L Glucose 175 H Lactic Acid Calcium 6.9 L* Ionized Calcium Alpesh Magnesium 1.2 L* Total Bilirubin 0.7 AST 68 H ALT 62 Alkaline Phosphatase 30 L Total Protein 4.8 L Albumin 2.7 L Lipase 2053.8 H Blood Type A POSITIVE Antibody Screen NEGATIVE 11/20/18 11/20/18 11/21/18 21:55 22:52 00:50 WBC RBC Hgb Hct MCV MCH MCHC RDW Plt Count Seg Neutrophils % Lymphocytes % Monocytes % Eosinophils % Basophils % Absolute Neutrophils Absolute Lymphocytes Absolute Monocytes Absolute Eosinophils Absolute Basophils Carbonic Acid 1.72 H 0.98 L HCO3/H2CO3 Ratio 10:1 15:1 ABG pH 7.11 L* 7.28 L ABG pCO2 57.2 H 32.7 L ABG pO2 94.4 141.5 H ABG HCO3 17.8 L 15.0 L ABG O2 Saturation 94.3 98.6 H ABG Base Excess -11.7 -10.7 FiO2 40% 40% Sodium Potassium Chloride Carbon Dioxide Anion Gap BUN Creatinine Est GFR ( Amer) Est GFR (Non-Af Amer) Glucose Lactic Acid 1.9 Calcium Ionized Calcium Alpesh Magnesium Total Bilirubin AST ALT Alkaline Phosphatase Total Protein Albumin Lipase Blood Type Antibody Screen 11/21/18 11/21/18 11/21/18 05:40 05:40 05:50 WBC 6.6 RBC 3.35 L Hgb 10.0 L Hct 29.8 L MCV 89 MCH 29.8 MCHC 33.5 RDW 14.7 H Plt Count 238 Seg Neutrophils % 91.4 H Lymphocytes % 5.1 L Monocytes % 3.4 Eosinophils % 0.0 Basophils % 0.1 Absolute Neutrophils 6.1 Absolute Lymphocytes 0.3 L Absolute Monocytes 0.2 Absolute Eosinophils 0.0 Absolute Basophils 0.0 Carbonic Acid 0.82 L HCO3/H2CO3 Ratio 16:1 ABG pH 7.32 L ABG pCO2 27.1 L ABG pO2 91.8 ABG HCO3 13.7 L ABG O2 Saturation 96.6 ABG Base Excess -10.9 FiO2 30% Sodium 140.8 Potassium 4.2 D Chloride 115 H Carbon Dioxide 16 L Anion Gap 10 BUN 44 H Creatinine 1.47 H Est GFR ( Amer) 57 L Est GFR (Non-Af Amer) 47 L Glucose 161 H Lactic Acid Calcium 6.5 L* Ionized Calcium Lapesh Magnesium 2.1 Total Bilirubin 0.8 AST 78 H ALT 49 Alkaline Phosphatase 21 L Total Protein 4.3 L Albumin 2.3 L Lipase Blood Type Antibody Screen 11/21/18 06:20 WBC RBC Hgb Hct MCV MCH MCHC RDW Plt Count Seg Neutrophils % Lymphocytes % Monocytes % Eosinophils % Basophils % Absolute Neutrophils Absolute Lymphocytes Absolute Monocytes Absolute Eosinophils Absolute Basophils Carbonic Acid HCO3/H2CO3 Ratio ABG pH ABG pCO2 ABG pO2 ABG HCO3 ABG O2 Saturation ABG Base Excess FiO2 Sodium Potassium Chloride Carbon Dioxide Anion Gap BUN Creatinine Est GFR ( Amer) Est GFR (Non-Af Amer) Glucose Lactic Acid Calcium Ionized Calcium Alpesh 0.96 L Magnesium Total Bilirubin AST ALT Alkaline Phosphatase Total Protein Albumin Lipase Blood Type Antibody Screen 11/20/18 21:45 NT-Pro-B Natriuret Pep 52 Impressions: Abdomen X-Ray 11/20/18 00:00 IMPRESSION: ABNORMAL COLLECTION OF GAS IN THE ABDOMEN WHICH IS PROBABLY RETROPERITONEAL. THIS EXTENDS INTO THE CHEST WITH RIGHT-SIDED PNEUMOMEDIASTINUM WELL EXTENSION INTO THE LOWER RIGHT SIDE OF THE NECK WITH SUBCUTANEOUS EMPHYSEMA IN THE RIGHT SUPRACLAVICULAR TISSUES. Esophagus X-Ray 11/20/18 00:00 IMPRESSION: CONTRAST EXTRAVASATION FROM THE SECOND PORTION OF THE DUODENUM CONSISTENT WITH PERFORATION. NO EVIDENCE OF ESOPHAGEAL OR GASTRIC PERFORATION. OTHER INCIDENTAL FINDING IS A PROBABLE DUODENAL DIVERTICULUM. Upper GI and Small Bowel X-Ray 11/20/18 00:00 IMPRESSION: CONTRAST EXTRAVASATION FROM THE SECOND PORTION OF THE DUODENUM CONSISTENT WITH PERFORATION. NO EVIDENCE OF ESOPHAGEAL OR GASTRIC PERFORATION. OTHER INCIDENTAL FINDING IS A PROBABLE DUODENAL DIVERTICULUM. Status: Image reviewed by me Assessment & Plan - Diagnosis (1) Bowel perforation Is this a current diagnosis for this admission?: Yes - Plan Summary Plan Summary: remains stable overnight acidosis improved with hydration bp remains stable off propofol now with versed for sedation on ventilator serum mag corrected calcium will be replaced per electrolyte protocol wbc and h/h stable lipase elevated. remains comfortable on vent plan- will decrease ivf rate to 150cc/hr cont vent support today will work towards extubation later this afternoon or in am trend lipase.
--- NOTE | 2018-11-21 07:35 | RADIOLOGY REPORT (SQ) ---
EXAM DESCRIPTION: XR CHEST 1 VIEW COMPLETED DATE/TME: 11/21/2018 06:00 CLINICAL HISTORY: 73 years Male, Resp Failure COMPARISON: One day prior. NUMBER OF VIEWS/TECHNIQUE: 1/AP FINDINGS: Moderate mixed interstitial and airspace opacity centrally. Moderate opacity-effusion of the left lower hemithorax. Moderate pneumomediastinum.Soft tissue emphysema of the thoracic wall and neck. Adequate appearing endotracheal tube. Adequate appearing enteric tube partially obscured. Sternotomy. Adequate appearing left subclavian central line. Cardiac/mediastinal hardware/clips. Mildly enlarged cardiac silhouette. No pneumothorax. Stable bony thorax. IMPRESSION: No significant change.
[2018-11-21] MEDS: ENOXAPARIN SODIUM INJ 40 MG/0.4 ML DISP.SYRIN SUBCUT SCH ×2 (09:20→21:14)
[2018-11-21] MEDS: PANTOPRAZOLE SODIUM 40 MG VIAL IV SCH ×2 (09:20→21:14)
[2018-11-21 09:23] LABS: ABSOLUTE LYMPHOCYTES (AUTO) 0.4 10^3/uL (0.5-4.7); ABSOLUTE MONOCYTES (AUTO) 0.3 10^3/uL (0.1-1.4); ABSOLUTE NEUT (AUTO) 6.6 10^3/uL (1.7-8.2); BASOPHILS % (AUTO) 0.1 % (0-2); HEMATOCRIT 29.8 % (37.9-51.0); HEMOGLOBIN 10.1 g/dL (13.5-17.0); LYMPHOCYTES % (AUTO) 5.6 % (13-45); MEAN CORPUSCULAR HEMOGLOBIN 30.1 pg (27.0-33.4); MEAN CORPUSCULAR HGB CONC 33.8 g/dL (32.0-36.0); MEAN CORPUSCULAR VOLUME 89 fl (80-97); MONOCYTES % (AUTO) 4.5 % (3-13); PLATELET COUNT 242 10^3/uL (150-450); RED BLOOD COUNT 3.34 10^6/uL (4.35-5.55); RED CELL DISTRIBUTION WIDTH 14.6 % (11.5-14.0); SEGMENTED NEUTROPHILS % (AUTO) 89.8 % (42-78); TOTAL CELLS COUNTED % (AUTO) 100 %; WHITE BLOOD COUNT 7.4 10^3/uL (4.0-10.5)
[2018-11-21 09:45] LABS: ANION GAP 8 (5-19); BLOOD UREA NITROGEN 45 mg/dL (7-20); CARBON DIOXIDE 17 mmol/L (22-30); CHLORIDE 115 mmol/L (98-107); GLUCOSE 131 mg/dL (75-110); POTASSIUM 4.2 mmol/L (3.6-5.0); SODIUM 139.8 mmol/L (137-145)
[2018-11-21] MEDS ORDERED: (PENDING PHARMACY ID) (Losartan Potassium [Losartan Potassium] 100 MG) PO SCH (10:00)
[2018-11-21] MEDS ORDERED: SIMVASTATIN 80 MG PO SCH (10:00)
[2018-11-21] MEDS ORDERED: FENOFIBRATE 150 MG PO SCH (10:00)
[2018-11-21 10:02] LABS: CALCIUM 6.6 mg/dL (8.4-10.2)
[2018-11-21] MEDS: ASPIRIN 81 MG TABLET, CHEWABLE PO SCH (10:56)
[2018-11-21] MEDS: METOPROLOL SUCCINATE 25 MG TAB.SR.24H PO SCH (10:56)
[2018-11-21] MEDS: LOSARTAN POTASSIUM 50 MG TABLET PO SCH (10:56)
[2018-11-21] MEDS: FENOFIBRATE NANOCRYSTALLIZED 145 MG TABLET PO SCH (10:56)
[2018-11-21] MEDS: CALCIUM GLUCONATE 1000 MG/10 ML INJ IV SCH ×5 (11:56→20:47)
[2018-11-21 17:39] LABS: ANION GAP 8 (5-19); BLOOD UREA NITROGEN 52 mg/dL (7-20); CALCIUM 7.2 mg/dL (8.4-10.2); CARBON DIOXIDE 17 mmol/L (22-30); CHLORIDE 115 mmol/L (98-107); GLUCOSE 117 mg/dL (75-110); POTASSIUM 4.6 mmol/L (3.6-5.0); SODIUM 139.8 mmol/L (137-145)
--- NOTE | 2018-11-21 17:40 | PDOC PROGRESS REPORT ---
Subjective Progress Note for:: 11/21/18 Subjective:: This is a 73 yr old male with a PMH of Chandler fundoplication, duodenal AVM, Terrell's esophagus who underwent EGD yesterday. Patient unfortunately sustained a possible perforated viscus. A chest x-ray done which showed significant subcutaneous emphysema with pneumomediastinum. Patient was promptly brought to the ER yesterday afternoon and was noted to have a perforated duodenum. He underwent repair of the perforation and was transferred to the ICU. Hospitalist service was consulted for medical co-management. Patient is currently intubated and sedated on Versed and propofol. He is saturating well on minimal vent settings. Currently getting IV fluids. S erosanguineous output on the surgical drains. Reason For Visit: MELENA K92.1 Physical Exam Vital Signs: Temp Pulse Resp BP Pulse Ox 99.3 F 77 15 95/50 L 95 11/21/18 14:31 11/21/18 14:00 11/21/18 14:31 11/21/18 14:31 11/21/18 16:18 Intake & Output 11/20/18 11/21/18 11/22/18 06:59 06:59 06:59 Intake Total 94394 1229 Output Total 5605 455 Balance 5068 774 Weight 212 lb 15.465 oz General appearance: PRESENT: other - Intubated sedated Head exam: PRESENT: atraumatic, normocephalic Eye exam: PRESENT: conjunctiva pink, EOMI, PERRLA. ABSENT: scleral icterus Ear exam: PRESENT: normal external ear exam Mouth exam: PRESENT: moist, tongue midline Neck exam: ABSENT: carotid bruit, JVD, lymphadenopathy, thyromegaly Respiratory exam: PRESENT: clear to auscultation yoana. ABSENT: rales, rhonchi, wheezes Cardiovascular exam: PRESENT: RRR. ABSENT: diastolic murmur, rubs, systolic murmur Pulses: PRESENT: normal dorsalis pedis pul GI/Abdominal exam: PRESENT: normal bowel sounds, soft, other - Serosanguineous discharge noted on surgical drains. ABSENT: distended, guarding, mass, organolmegaly, rebound, tenderness Rectal exam: PRESENT: deferred Neurological exam: PRESENT: other - Intubated sedated Results Laboratory Results: 11/21/18 09:08 11/21/18 09:08 11/20/18 11/20/18 11/20/18 17:43 21:45 21:45 WBC 10.0 RBC 3.76 L Hgb 11.2 L Hct 33.6 L MCV 90 MCH 29.7 MCHC 33.2 RDW 14.4 H Plt Count 294 Seg Neutrophils % 90.5 H Lymphocytes % 5.7 L Monocytes % 3.4 Eosinophils % 0.1 Basophils % 0.3 Absolute Neutrophils 9.0 H Absolute Lymphocytes 0.6 Absolute Monocytes 0.3 Absolute Eosinophils 0.0 Absolute Basophils 0.0 Carbonic Acid HCO3/H2CO3 Ratio ABG pH ABG pCO2 ABG pO2 ABG HCO3 ABG O2 Saturation ABG Base Excess FiO2 Sodium 140.1 Potassium 5.6 H D Chloride 112 H Carbon Dioxide 20 L Anion Gap 8 BUN 46 H Creatinine 1.37 H Est GFR ( Amer) > 60 Est GFR (Non-Af Amer) 51 L Glucose 175 H Lactic Acid Calcium 6.9 L* Ionized Calcium Alpesh Magnesium 1.2 L* Total Bilirubin 0.7 AST 68 H ALT 62 Alkaline Phosphatase 30 L Total Protein 4.8 L Albumin 2.7 L Lipase 2053.8 H Blood Type A POSITIVE Antibody Screen NEGATIVE 11/20/18 11/20/18 11/21/18 21:55 22:52 00:50 WBC RBC Hgb Hct MCV MCH MCHC RDW Plt Count Seg Neutrophils % Lymphocytes % Monocytes % Eosinophils % Basophils % Absolute Neutrophils Absolute Lymphocytes Absolute Monocytes Absolute Eosinophils Absolute Basophils Carbonic Acid 1.72 H 0.98 L HCO3/H2CO3 Ratio 10:1 15:1 ABG pH 7.11 L* 7.28 L ABG pCO2 57.2 H 32.7 L ABG pO2 94.4 141.5 H ABG HCO3 17.8 L 15.0 L ABG O2 Saturation 94.3 98.6 H ABG Base Excess -11.7 -10.7 FiO2 40% 40% Sodium Potassium Chloride Carbon Dioxide Anion Gap BUN Creatinine Est GFR ( Amer) Est GFR (Non-Af Amer) Glucose Lactic Acid 1.9 Calcium Ionized Calcium Alpesh Magnesium Total Bilirubin AST ALT Alkaline Phosphatase Total Protein Albumin Lipase Blood Type Antibody Screen 11/21/18 11/21/18 11/21/18 05:40 05:40 05:50 WBC 6.6 RBC 3.35 L Hgb 10.0 L Hct 29.8 L MCV 89 MCH 29.8 MCHC 33.5 RDW 14.7 H Plt Count 238 Seg Neutrophils % 91.4 H Lymphocytes % 5.1 L Monocytes % 3.4 Eosinophils % 0.0 Basophils % 0.1 Absolute Neutrophils 6.1 Absolute Lymphocytes 0.3 L Absolute Monocytes 0.2 Absolute Eosinophils 0.0 Absolute Basophils 0.0 Carbonic Acid 0.82 L HCO3/H2CO3 Ratio 16:1 ABG pH 7.32 L ABG pCO2 27.1 L ABG pO2 91.8 ABG HCO3 13.7 L ABG O2 Saturation 96.6 ABG Base Excess -10.9 FiO2 30% Sodium 140.8 Potassium 4.2 D Chloride 115 H Carbon Dioxide 16 L Anion Gap 10 BUN 44 H Creatinine 1.47 H Est GFR ( Amer) 57 L Est GFR (Non-Af Amer) 47 L Glucose 161 H Lactic Acid Calcium 6.5 L* Ionized Calcium Alpesh Magnesium 2.1 Total Bilirubin 0.8 AST 78 H ALT 49 Alkaline Phosphatase 21 L Total Protein 4.3 L Albumin 2.3 L Lipase Blood Type Antibody Screen 11/21/18 11/21/18 11/21/18 06:20 09:08 09:08 WBC 7.4 RBC 3.34 L Hgb 10.1 L Hct 29.8 L MCV 89 MCH 30.1 MCHC 33.8 RDW 14.6 H Plt Count 242 Seg Neutrophils % 89.8 H Lymphocytes % 5.6 L Monocytes % 4.5 Eosinophils % 0.0 Basophils % 0.1 Absolute Neutrophils 6.6 Absolute Lymphocytes 0.4 L Absolute Monocytes 0.3 Absolute Eosinophils 0.0 Absolute Basophils 0.0 Carbonic Acid HCO3/H2CO3 Ratio ABG pH ABG pCO2 ABG pO2 ABG HCO3 ABG O2 Saturation ABG Base Excess FiO2 Sodium 139.8 Potassium 4.2 Chloride 115 H Carbon Dioxide 17 L Anion Gap 8 BUN 45 H Creatinine 1.57 H Est GFR ( Amer) 53 L Est GFR (Non-Af Amer) 44 L Glucose 131 H Lactic Acid Calcium 6.6 L* Ionized Calcium Alpesh 0.96 L Magnesium Total Bilirubin AST ALT Alkaline Phosphatase Total Protein Albumin Lipase Blood Type Antibody Screen 11/20/18 21:45 NT-Pro-B Natriuret Pep 52 Impressions: Abdomen X-Ray 11/20/18 00:00 IMPRESSION: ABNORMAL COLLECTION OF GAS IN THE ABDOMEN WHICH IS PROBABLY RETROPERITONEAL. THIS EXTENDS INTO THE CHEST WITH RIGHT-SIDED PNEUMOMEDIASTINUM WELL EXTENSION INTO THE LOWER RIGHT SIDE OF THE NECK WITH SUBCUTANEOUS EMPHYSEMA IN THE RIGHT SUPRACLAVICULAR TISSUES. Esophagus X-Ray 11/20/18 00:00 IMPRESSION: CONTRAST EXTRAVASATION FROM THE SECOND PORTION OF THE DUODENUM CONSISTENT WITH PERFORATION. NO EVIDENCE OF ESOPHAGEAL OR GASTRIC PERFORATION. OTHER INCIDENTAL FINDING IS A PROBABLE DUODENAL DIVERTICULUM. Upper GI and Small Bowel X-Ray 11/20/18 00:00 IMPRESSION: CONTRAST EXTRAVASATION FROM THE SECOND PORTION OF THE DUODENUM CONSISTENT WITH PERFORATION. NO EVIDENCE OF ESOPHAGEAL OR GASTRIC PERFORATION. OTHER INCIDENTAL FINDING IS A PROBABLE DUODENAL DIVERTICULUM. Chest X-Ray 11/21/18 06:00 IMPRESSION: No significant change. Assessment and Plan - Diagnosis (1) Acute respiratory failure with hypoxia Is this a current diagnosis for this admission?: Yes Plan: Saturating well on minimal vent settings. Possible extubation tomorrow. Repeat ABG and chest x-ray tomorrow morning. (2) Duodenal perforation Is this a current diagnosis for this admission?: Yes Plan: Related to recent EGD. Status post surgical repair. (3) Essential hypertension Is this a current diagnosis for this admission?: Yes Plan: Blood pressures well controlled. (4) Acute kidney injury Is this a current diagnosis for this admission?: Yes Plan: Currently getting IV fluids. Repeat BMP tomorrow. - Time Time Spent with patient: 15-24 minutes
[2018-11-21] MEDS: SIMVASTATIN 40 MG TABLET PO SCH (21:13)
[2018-11-22] MEDS: MIDAZOLAM HCL 50 MG/100 ML RTUINJ IV PRN ×3 (00:28→09:30)
[2018-11-22] MEDS: NORMAL SALINE 1000 ML 1,000 ML IV PRN ×3 (00:30→21:28)
[2018-11-22] MEDS ORDERED: CALCIUM GLUCONATE 1000 MG/10 ML INJ IV ONE ×2 (03:43→03:57)
[2018-11-22] MEDS: CALCIUM GLUCONATE 1,000 MG in DEXTROSE 5%-WATER 50 ML IV SCH ×2 (03:48→04:38)
[2018-11-22 04:41] LABS: ANION GAP 7 (5-19); BLOOD UREA NITROGEN 56 mg/dL (7-20); CALCIUM 7.7 mg/dL (8.4-10.2); CARBON DIOXIDE 15 mmol/L (22-30); CHLORIDE 118 mmol/L (98-107); GLUCOSE 132 mg/dL (75-110); POTASSIUM 4.3 mmol/L (3.6-5.0); SODIUM 140.4 mmol/L (137-145)
[2018-11-22] MEDS: PIPERACILLIN SODIUM/TAZOBACTAM 4.5 GM in NORMAL SALINE 100 ML IV SCH ×3 (05:04→19:05)
[2018-11-22] MEDS: TRAZODONE HCL 50 MG TABLET PO SCH ×4 (05:04→21:27)
[2018-11-22 05:09] LABS: ARTERIAL BLOOD BASE EXCESS -10.6 mmol/L; ARTERIAL BLOOD H2CO3 0.89 mmol/L (1.05-1.35); ARTERIAL BLOOD HCO3 14.5 mmol/L (20-24); ARTERIAL BLOOD O2 SATURATION 94.9 % (94-98); ARTERIAL BLOOD PCO2 29.7 mmHg (35-45); ARTERIAL BLOOD PH 7.31 (7.35-7.45); ARTERIAL BLOOD PO2 79.9 mmHg (80-100); ARTERIAL BLOOD TOTAL CO2 15.4 mmol/L (23-27)
[2018-11-22 05:10] LABS: ARTERIAL BLOOD FIO2 30%
--- NOTE | 2018-11-22 07:20 | RADIOLOGY REPORT (SQ) ---
EXAM DESCRIPTION: XR CHEST 1 VIEW COMPLETED DATE/TME: 11/22/2018 06:00 CLINICAL HISTORY: Respiratory Distress. 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 NUMBER OF VIEWS/TECHNIQUE: 1/AP FINDINGS: Moderate patchy and streaky opacity of the left lower lung field. Moderate lung volume. Moderate pneumomediastinum.Soft tissue emphysema of the thoracic wall and neck. Sternotomy. Cardiac/mediastinal hardware/clips. Adequate appearing left subclavian central line. Normal cardiac silhouette size. No pneumothorax. Stable bony thorax. IMPRESSION: No significant change.
[2018-11-22 08:21] LABS: ABSOLUTE LYMPHOCYTES (AUTO) 0.4 10^3/uL (0.5-4.7); ABSOLUTE MONOCYTES (AUTO) 0.3 10^3/uL (0.1-1.4); ABSOLUTE NEUT (AUTO) 4.6 10^3/uL (1.7-8.2); BASOPHILS % (AUTO) 0.2 % (0-2); EOSINOPHILS % (AUTO) 0.2 % (0-6); HEMOGLOBIN 8.4 g/dL (13.5-17.0); LYMPHOCYTES % (AUTO) 7.4 % (13-45); MEAN CORPUSCULAR HEMOGLOBIN 29.8 pg (27.0-33.4); MEAN CORPUSCULAR HGB CONC 33.5 g/dL (32.0-36.0); MEAN CORPUSCULAR VOLUME 89 fl (80-97); MONOCYTES % (AUTO) 4.8 % (3-13); PLATELET COUNT 222 10^3/uL (150-450); RED BLOOD COUNT 2.82 10^6/uL (4.35-5.55); RED CELL DISTRIBUTION WIDTH 14.7 % (11.5-14.0); SEGMENTED NEUTROPHILS % (AUTO) 87.4 % (42-78); TOTAL CELLS COUNTED % (AUTO) 100 %; WHITE BLOOD COUNT 5.3 10^3/uL (4.0-10.5)
--- NOTE | 2018-11-22 08:43 | PDOC PROGRESS REPORT ---
Subjective Progress Note for:: 11/22/18 Subjective:: versed drip Reason For Visit: MELENA K92.1 Physical Exam Vital Signs: Temp Pulse Resp BP Pulse Ox 37.5 F L 85 10 L 138/41 H 96 11/22/18 08:00 11/22/18 08:00 11/22/18 08:00 11/22/18 08:00 11/22/18 08:00 Intake & Output 11/21/18 11/22/18 11/23/18 06:59 06:59 06:59 Intake Total 07622 3527 1018 Output Total 4462 1400 55 Balance 5065 0574 963 Weight 96.6 kg 106.7 kg General appearance: PRESENT: no acute distress Head exam: PRESENT: normocephalic Ear exam: PRESENT: normal external ear exam Mouth exam: PRESENT: moist Respiratory exam: PRESENT: clear to auscultation yoana Cardiovascular exam: PRESENT: RRR GI/Abdominal exam: PRESENT: hypoactive bowel sounds, soft, other - isabella's still sanguinous, non bilous Rectal exam: PRESENT: deferred Gentrourinary exam: PRESENT: indwelling catheter Extremities exam: PRESENT: +1 edema Neurological exam: PRESENT: other - sedated Results Laboratory Results: 11/22/18 08:12 11/21/18 11/21/18 11/21/18 09:08 09:08 16:51 WBC 7.4 RBC 3.34 L Hgb 10.1 L Hct 29.8 L MCV 89 MCH 30.1 MCHC 33.8 RDW 14.6 H Plt Count 242 Seg Neutrophils % 89.8 H Lymphocytes % 5.6 L Monocytes % 4.5 Eosinophils % 0.0 Basophils % 0.1 Absolute Neutrophils 6.6 Absolute Lymphocytes 0.4 L Absolute Monocytes 0.3 Absolute Eosinophils 0.0 Absolute Basophils 0.0 Carbonic Acid HCO3/H2CO3 Ratio ABG pH ABG pCO2 ABG pO2 ABG HCO3 ABG O2 Saturation ABG Base Excess FiO2 Sodium 139.8 139.8 Potassium 4.2 4.6 Chloride 115 H 115 H Carbon Dioxide 17 L 17 L Anion Gap 8 8 BUN 45 H 52 H Creatinine 1.57 H 2.10 H Est GFR ( Amer) 53 L 38 L Est GFR (Non-Af Amer) 44 L 31 L Glucose 131 H 117 H Calcium 6.6 L* 7.2 L Ionized Calcium Alpesh Magnesium 06/07/19 06/07/19 06/08/19 16:51 22:35 04:15 WBC RBC Hgb Hct MCV MCH MCHC RDW Plt Count Seg Neutrophils % Lymphocytes % Monocytes % Eosinophils % Basophils % Absolute Neutrophils Absolute Lymphocytes Absolute Monocytes Absolute Eosinophils Absolute Basophils Carbonic Acid Cancelled HCO3/H2CO3 Ratio Cancelled ABG pH Cancelled ABG pCO2 Cancelled ABG pO2 Cancelled ABG HCO3 Cancelled ABG O2 Saturation Cancelled ABG Base Excess Cancelled FiO2 Cancelled Sodium Potassium Chloride Carbon Dioxide Anion Gap BUN Creatinine Est GFR ( Amer) Est GFR (Non-Af Amer) Glucose Calcium Ionized Calcium Alpesh 1.04 L 1.06 L Magnesium 11/22/18 11/22/18 11/22/18 04:15 05:02 08:12 WBC 5.3 RBC 2.82 L Hgb 8.4 L Hct 25.0 L MCV 89 MCH 29.8 MCHC 33.5 RDW 14.7 H Plt Count 222 Seg Neutrophils % 87.4 H Lymphocytes % 7.4 L Monocytes % 4.8 Eosinophils % 0.2 Basophils % 0.2 Absolute Neutrophils 4.6 Absolute Lymphocytes 0.4 L Absolute Monocytes 0.3 Absolute Eosinophils 0.0 Absolute Basophils 0.0 Carbonic Acid 0.89 L HCO3/H2CO3 Ratio 16:1 ABG pH 7.31 L ABG pCO2 29.7 L ABG pO2 79.9 L ABG HCO3 14.5 L ABG O2 Saturation 94.9 ABG Base Excess -10.6 FiO2 30% Sodium 140.4 Potassium 4.3 Chloride 118 H Carbon Dioxide 15 L Anion Gap 7 BUN 56 H Creatinine 2.03 H Est GFR ( Amer) 39 L Est GFR (Non-Af Amer) 33 L Glucose 132 H Calcium 7.7 L Ionized Calcium Alpesh Magnesium 2.0 11/20/18 21:45 NT-Pro-B Natriuret Pep 52 Impressions: Abdomen X-Ray 11/20/18 00:00 IMPRESSION: ABNORMAL COLLECTION OF GAS IN THE ABDOMEN WHICH IS PROBABLY RETROPERITONEAL. THIS EXTENDS INTO THE CHEST WITH RIGHT-SIDED PNEUMOMEDIASTINUM WELL EXTENSION INTO THE LOWER RIGHT SIDE OF THE NECK WITH SUBCUTANEOUS EMPHYSEMA IN THE RIGHT SUPRACLAVICULAR TISSUES. Esophagus X-Ray 11/20/18 00:00 IMPRESSION: CONTRAST EXTRAVASATION FROM THE SECOND PORTION OF THE DUODENUM CONSISTENT WITH PERFORATION. NO EVIDENCE OF ESOPHAGEAL OR GASTRIC PERFORATION. OTHER INCIDENTAL FINDING IS A PROBABLE DUODENAL DIVERTICULUM. Upper GI and Small Bowel X-Ray 11/20/18 00:00 IMPRESSION: CONTRAST EXTRAVASATION FROM THE SECOND PORTION OF THE DUODENUM CONSISTENT WITH PERFORATION. NO EVIDENCE OF ESOPHAGEAL OR GASTRIC PERFORATION. OTHER INCIDENTAL FINDING IS A PROBABLE DUODENAL DIVERTICULUM. Chest X-Ray 11/22/18 06:00 IMPRESSION: No significant change. Assessment & Plan - Diagnosis (1) Bowel perforation Is this a current diagnosis for this admission?: Yes - Plan Summary Plan Summary: remains stable on versed drip still sl acidotic (metabolic) ph 7.31 pco2 -29 urine op adeq\ wbc wnl cvp 10-12 bp stable wbc wnl plan cont iv hydration awaiting lipase stll needs rehydration\ wheen off versed consider extubation later today or am fluid bolus.
[2018-11-22 08:45] LABS: ANION GAP 7 (5-19); BLOOD UREA NITROGEN 54 mg/dL (7-20); CALCIUM 7.9 mg/dL (8.4-10.2); CARBON DIOXIDE 16 mmol/L (22-30); CHLORIDE 118 mmol/L (98-107); GLUCOSE 123 mg/dL (75-110); LIPASE 210.6 U/L (23-300); POTASSIUM 4.2 mmol/L (3.6-5.0); SODIUM 140.8 mmol/L (137-145)
[2018-11-22] MEDS ORDERED: 1/2 NORMAL SALINE 1,000 ML IV ONE (09:30)
[2018-11-22] MEDS: LOSARTAN POTASSIUM 50 MG TABLET PO SCH (10:31)
[2018-11-22] MEDS: ASPIRIN 81 MG TABLET, CHEWABLE PO SCH (10:31)
[2018-11-22] MEDS: PANTOPRAZOLE SODIUM 40 MG VIAL IV SCH ×2 (10:32→21:26)
[2018-11-22] MEDS: METOPROLOL SUCCINATE 25 MG TAB.SR.24H PO SCH (10:32)
[2018-11-22] MEDS: FENOFIBRATE NANOCRYSTALLIZED 145 MG TABLET PO SCH (10:32)
[2018-11-22] MEDS: ENOXAPARIN SODIUM INJ 40 MG/0.4 ML DISP.SYRIN SUBCUT SCH ×3 (10:34→22:15)
--- NOTE | 2018-11-22 12:03 | PDOC PROGRESS REPORT ---
Subjective Progress Note for:: 11/22/18 Subjective:: This is a 73 yr old male with a PMH of [place] fundoplication, duodenal AVM, Terrell's esophagus who underwent EGD yesterday. Patient unfortunately sustained a possible perforated viscus. A chest x-ray done which showed significant subcutaneous emphysema with pneumomediastinum. Patient was promptly brought to the ER yesterday afternoon and was noted to have a perforated duodenum. He underwent repair of the perforation and was transferred to the ICU. Hospitalist service was consulted for medical co-management. 11/21: Patient is currently intubated and sedated on Versed and propofol. He is saturating well on minimal vent settings. Currently getting IV fluids. Serosanguineous output on the surgical drains. 11/22: No acute event overnight. On minimal dose of Versed drip. Saturating well on minimal vent settings. PO2 from ABG this morning slightly low at 79.9. Continue to wean off Versed drip. Will proceed with weaning trial. Reason For Visit: MELENA K92.1 Physical Exam Vital Signs: Temp Pulse Resp BP Pulse Ox 37.5 F L 81 10 L 138/41 H 94 11/22/18 08:00 11/22/18 08:00 11/22/18 08:00 11/22/18 08:00 11/22/18 09:02 Intake & Output 11/21/18 11/22/18 11/23/18 06:59 06:59 06:59 Intake Total 86106 3527 1043 Output Total 5605 1400 75 Balance 5068 2127 968 Weight 212 lb 15.465 oz 235 lb 3.732 oz General appearance: PRESENT: other - Intubated, sedated Head exam: PRESENT: atraumatic, normocephalic Eye exam: PRESENT: conjunctiva pink, EOMI, PERRLA. ABSENT: scleral icterus Ear exam: PRESENT: normal external ear exam Mouth exam: PRESENT: moist, tongue midline Neck exam: ABSENT: carotid bruit, JVD, lymphadenopathy, thyromegaly Respiratory exam: PRESENT: rhonchi. ABSENT: rales, wheezes Cardiovascular exam: PRESENT: RRR. ABSENT: diastolic murmur, rubs, systolic murmur Pulses: PRESENT: normal dorsalis pedis pul GI/Abdominal exam: PRESENT: normal bowel sounds, soft, other - Surgical drains in place. ABSENT: distended, guarding, mass, organolmegaly, rebound, tenderness Rectal exam: PRESENT: deferred Extremities exam: PRESENT: full ROM. ABSENT: calf tenderness, clubbing, pedal edema Neurological exam: PRESENT: other - Intubated, sedated Results Laboratory Results: 11/22/18 08:12 11/22/18 08:12 11/21/18 11/21/18 11/21/18 16:51 16:51 22:35 WBC RBC Hgb Hct MCV MCH MCHC RDW Plt Count Seg Neutrophils % Lymphocytes % Monocytes % Eosinophils % Basophils % Absolute Neutrophils Absolute Lymphocytes Absolute Monocytes Absolute Eosinophils Absolute Basophils Carbonic Acid HCO3/H2CO3 Ratio ABG pH ABG pCO2 ABG pO2 ABG HCO3 ABG O2 Saturation ABG Base Excess FiO2 Sodium 139.8 Potassium 4.6 Chloride 115 H Carbon Dioxide 17 L Anion Gap 8 BUN 52 H Creatinine 2.10 H Est GFR ( Amer) 38 L Est GFR (Non-Af Amer) 31 L Glucose 117 H Calcium 7.2 L Ionized Calcium Alpesh 1.04 L 1.06 L Magnesium Lipase 11/22/18 11/22/18 11/22/18 04:15 04:15 05:02 WBC RBC Hgb Hct MCV MCH MCHC RDW Plt Count Seg Neutrophils % Lymphocytes % Monocytes % Eosinophils % Basophils % Absolute Neutrophils Absolute Lymphocytes Absolute Monocytes Absolute Eosinophils Absolute Basophils Carbonic Acid Cancelled 0.89 L HCO3/H2CO3 Ratio Cancelled 16:1 ABG pH Cancelled 7.31 L ABG pCO2 Cancelled 29.7 L ABG pO2 Cancelled 79.9 L ABG HCO3 Cancelled 14.5 L ABG O2 Saturation Cancelled 94.9 ABG Base Excess Cancelled -10.6 FiO2 Cancelled 30% Sodium 140.4 Potassium 4.3 Chloride 118 H Carbon Dioxide 15 L Anion Gap 7 BUN 56 H Creatinine 2.03 H Est GFR ( Amer) 39 L Est GFR (Non-Af Amer) 33 L Glucose 132 H Calcium 7.7 L Ionized Calcium Alpesh Magnesium 2.0 Lipase 11/22/18 11/22/18 08:12 08:12 WBC 5.3 RBC 2.82 L Hgb 8.4 L Hct 25.0 L MCV 89 MCH 29.8 MCHC 33.5 RDW 14.7 H Plt Count 222 Seg Neutrophils % 87.4 H Lymphocytes % 7.4 L Monocytes % 4.8 Eosinophils % 0.2 Basophils % 0.2 Absolute Neutrophils 4.6 Absolute Lymphocytes 0.4 L Absolute Monocytes 0.3 Absolute Eosinophils 0.0 Absolute Basophils 0.0 Carbonic Acid HCO3/H2CO3 Ratio ABG pH ABG pCO2 ABG pO2 ABG HCO3 ABG O2 Saturation ABG Base Excess FiO2 Sodium 140.8 Potassium 4.2 Chloride 118 H Carbon Dioxide 16 L Anion Gap 7 BUN 54 H Creatinine 1.88 H Est GFR ( Amer) 43 L Est GFR (Non-Af Amer) 36 L Glucose 123 H Calcium 7.9 L Ionized Calcium Alpesh Magnesium Lipase 210.6 11/20/18 21:45 NT-Pro-B Natriuret Pep 52 Impressions: Abdomen X-Ray 11/20/18 00:00 IMPRESSION: ABNORMAL COLLECTION OF GAS IN THE ABDOMEN WHICH IS PROBABLY RETROPERITONEAL. THIS EXTENDS INTO THE CHEST WITH RIGHT-SIDED PNEUMOMEDIASTINUM WELL EXTENSION INTO THE LOWER RIGHT SIDE OF THE NECK WITH SUBCUTANEOUS EMPHYSEMA IN THE RIGHT SUPRACLAVICULAR TISSUES. Esophagus X-Ray 11/20/18 00:00 IMPRESSION: CONTRAST EXTRAVASATION FROM THE SECOND PORTION OF THE DUODENUM CONSISTENT WITH PERFORATION. NO EVIDENCE OF ESOPHAGEAL OR GASTRIC PERFORATION. OTHER INCIDENTAL FINDING IS A PROBABLE DUODENAL DIVERTICULUM. Upper GI and Small Bowel X-Ray 11/20/18 00:00 IMPRESSION: CONTRAST EXTRAVASATION FROM THE SECOND PORTION OF THE DUODENUM CONSISTENT WITH PERFORATION. NO EVIDENCE OF ESOPHAGEAL OR GASTRIC PERFORATION. OTHER INCIDENTAL FINDING IS A PROBABLE DUODENAL DIVERTICULUM. Chest X-Ray 11/22/18 06:00 IMPRESSION: No significant change. Assessment and Plan - Diagnosis (1) Acute respiratory failure with hypoxia Is this a current diagnosis for this admission?: Yes Plan: 11/22: On minimal dose of Versed drip. Saturating well on minimal vent settings. PO2 from ABG this morning slightly low at 79.9. Continue to wean off Versed drip. Will proceed with weaning trial. (2) Duodenal perforation Is this a current diagnosis for this admission?: Yes Plan: Related to recent EGD. Status post surgical repair. (3) Essential hypertension Is this a current diagnosis for this admission?: Yes Plan: Blood pressures well controlled. (4) Acute kidney injury Is this a current diagnosis for this admission?: Yes Plan: Currently getting IV fluids. Repeat BMP tomorrow. 11/22: Creatinine slightly better at 1.8. - Time Time Spent with patient: 25-34 minutes
[2018-11-22 12:23] LABS: ARTERIAL BLOOD BASE EXCESS -9.7 mmol/L; ARTERIAL BLOOD H2CO3 0.82 mmol/L (1.05-1.35); ARTERIAL BLOOD HCO3 14.4 mmol/L (20-24); ARTERIAL BLOOD PCO2 27.2 mmHg (35-45); ARTERIAL BLOOD PH 7.34 (7.35-7.45); ARTERIAL BLOOD PO2 84.1 mmHg (80-100); ARTERIAL BLOOD TOTAL CO2 15.2 mmol/L (23-27)
[2018-11-22 12:25] LABS: ARTERIAL BLOOD FIO2 30%
[2018-11-22] MEDS: MORPHINE SULFATE 10 MG/ML INJ IV PRN ×2 (13:05→19:45)
[2018-11-22] MEDS ORDERED: METOPROLOL TARTRATE PF/INJ 5 MG/5 ML SDV IV ONE ×2 (13:47→14:30)
[2018-11-22] MEDS ORDERED: DEXMEDETOMIDINE IN 0.9 % NACL 400 MCG/100 ML RTUPB IV PRN (14:02)
--- NOTE | 2018-11-22 16:20 | RADIOLOGY REPORT (SQ) ---
EXAM DESCRIPTION: CHEST SINGLE VIEW COMPLETED DATE/TIME: 11/22/2018 4:00 pm REASON FOR STUDY: ETT placement respiratory failure K92.1 MELENA COMPARISON: Earlier exam same date NUMBER OF VIEWS: One view. TECHNIQUE: Single frontal radiographic image of the chest acquired. LIMITATIONS: None. FINDINGS: ENDOTRACHEAL TUBE: Appropriate location. OTHER SUPPORT DEVICES: Left subclavian central venous catheter tip overlies the SVC above the level o f the pinky. CHANGES IN RADIOGRAPHIC FINDINGS: Similar appearing left basilar airspace disease-effusion. Similar postoperative appearance. HARDWARE: CABG. OTHER: Postsurgical changes over the upper abdomen. IMPRESSION: STABLE APPEARANCE OF THE CHEST. TECHNICAL DOCUMENTATION: JOB ID: [id number] [employer]- All Rights Reserved Reading location - IP/workstation name: [email or web address]
[2018-11-22 18:10] LABS: ABSOLUTE EOSINOPHILS # (AUTO) 0.1 10^3/uL (0.0-0.6); ABSOLUTE LYMPHOCYTES (AUTO) 0.4 10^3/uL (0.5-4.7); ABSOLUTE MONOCYTES (AUTO) 0.3 10^3/uL (0.1-1.4); ABSOLUTE NEUT (AUTO) 4.2 10^3/uL (1.7-8.2); BASOPHILS % (AUTO) 0.2 % (0-2); EOSINOPHILS % (AUTO) 1.1 % (0-6); HEMATOCRIT 22.5 % (37.9-51.0); LYMPHOCYTES % (AUTO) 7.9 % (13-45); MEAN CORPUSCULAR HGB CONC 33.8 g/dL (32.0-36.0); MEAN CORPUSCULAR VOLUME 89 fl (80-97); MONOCYTES % (AUTO) 5.4 % (3-13); PLATELET COUNT 218 10^3/uL (150-450); RED BLOOD COUNT 2.53 10^6/uL (4.35-5.55); RED CELL DISTRIBUTION WIDTH 15.1 % (11.5-14.0); SEGMENTED NEUTROPHILS % (AUTO) 85.4 % (42-78); TOTAL CELLS COUNTED % (AUTO) 100 %; WHITE BLOOD COUNT 4.9 10^3/uL (4.0-10.5)
[2018-11-22 18:14] LABS: HEMOGLOBIN 7.6 g/dL (13.5-17.0)
[2018-11-22 18:21] LABS: ANION GAP 6 (5-19); BLOOD UREA NITROGEN 47 mg/dL (7-20); CALCIUM 7.8 mg/dL (8.4-10.2); CARBON DIOXIDE 17 mmol/L (22-30); CHLORIDE 119 mmol/L (98-107); GLUCOSE 118 mg/dL (75-110); POTASSIUM 4.2 mmol/L (3.6-5.0)
[2018-11-22] MEDS: SIMVASTATIN 40 MG TABLET PO SCH ×2 (21:27→22:18)
[2018-11-23] MEDS: MORPHINE SULFATE 10 MG/ML INJ IV PRN ×7 (00:03→23:59)
[2018-11-23] MEDS: PIPERACILLIN SODIUM/TAZOBACTAM 4.5 GM in NORMAL SALINE 100 ML IV SCH ×4 (00:04→17:48)
[2018-11-23] MEDS: TRAZODONE HCL 50 MG TABLET PO SCH ×3 (05:02→21:58)
[2018-11-23 05:17] LABS: MEAN CORPUSCULAR HEMOGLOBIN 30.1 pg (27.0-33.4); MEAN CORPUSCULAR HGB CONC 33.8 g/dL (32.0-36.0); MEAN CORPUSCULAR VOLUME 89 fl (80-97); PLATELET COUNT 235 10^3/uL (150-450); RED BLOOD COUNT 2.48 10^6/uL (4.35-5.55); RED CELL DISTRIBUTION WIDTH 14.8 % (11.5-14.0); WHITE BLOOD COUNT 5.6 10^3/uL (4.0-10.5)
[2018-11-23 05:34] LABS: HEMOGLOBIN 7.5 g/dL (13.5-17.0)
[2018-11-23 05:50] LABS: ABSOLUTE LYMPHOCYTES# (MANUAL) 0.3 10^3/uL (0.5-4.7); ABSOLUTE MONOCYTES # (MANUAL) 0.3 10^3/uL (0.1-1.4); BAND NEUTROPHILS % (MANUAL) 4 % (3-5); BASOPHILS % (MANUAL) 0 % (0-2); EOSINOPHILS % (MANUAL) 0 % (0-6); LYMPHOCYTES % (MANUAL) 5 % (13-45); MONOCYTES % (MANUAL) 6 % (3-13); SEGMENTED NEUTROPHILS % (MAN) 85 % (42-78); TOTAL CELLS COUNTED 100
[2018-11-23 05:51] LABS: PLATELET CLUMPS PRESENT
[2018-11-23 05:52] LABS: HYPOCHROMASIA 1+; POLYCHROMASIA SLIGHT
[2018-11-23 05:53] LABS: ANISOCYTOSIS SLIGHT
[2018-11-23] MEDS: NORMAL SALINE 1000 ML 1,000 ML IV PRN ×3 (06:14→21:31)
[2018-11-23 07:10] LABS: ANION GAP 6 (5-19); BLOOD UREA NITROGEN 38 mg/dL (7-20); CALCIUM 7.8 mg/dL (8.4-10.2); CARBON DIOXIDE 18 mmol/L (22-30); CHLORIDE 121 mmol/L (98-107); GLUCOSE 112 mg/dL (75-110); POTASSIUM 3.9 mmol/L (3.6-5.0); SODIUM 145.4 mmol/L (137-145)
--- NOTE | 2018-11-23 08:16 | PDOC PROGRESS REPORT ---
Subjective Progress Note for:: 11/23/18 Subjective:: still sedated Reason For Visit: MELENA K92.1 Physical Exam Vital Signs: Temp Pulse Resp BP Pulse Ox 100.6 F H 124 H 16 120/58 L 97 11/23/18 07:50 11/23/18 07:50 11/23/18 07:50 11/23/18 07:50 11/23/18 07:50 Intake & Output 11/22/18 11/23/18 11/24/18 06:59 06:59 06:59 Intake Total 3527 3592 0 Output Total 1400 1765 220 Balance 2127 1827 -220 Weight 106.7 kg 110.8 kg General appearance: PRESENT: mild distress Head exam: PRESENT: normocephalic Eye exam: PRESENT: EOMI Ear exam: PRESENT: normal external ear exam Mouth exam: PRESENT: moist Neck exam: PRESENT: full ROM Respiratory exam: PRESENT: clear to auscultation yoana Pulses: PRESENT: +2 pedal pulses bilateral GI/Abdominal exam: PRESENT: hypoactive bowel sounds, soft, other - feeding tube clogged Rectal exam: PRESENT: deferred Gentrourinary exam: PRESENT: indwelling catheter Extremities exam: PRESENT: +1 edema Musculoskeletal exam: PRESENT: full ROM Results Laboratory Results: 11/23/18 05:00 11/23/18 05:00 11/20/18 11/22/18 11/22/18 17:43 08:12 08:12 WBC 5.3 RBC 2.82 L Hgb 8.4 L Hct 25.0 L MCV 89 MCH 29.8 MCHC 33.5 RDW 14.7 H Plt Count 222 Seg Neutrophils % 87.4 H Lymphocytes % 7.4 L Monocytes % 4.8 Eosinophils % 0.2 Basophils % 0.2 Absolute Neutrophils 4.6 Absolute Lymphocytes 0.4 L Absolute Monocytes 0.3 Absolute Eosinophils 0.0 Absolute Basophils 0.0 Carbonic Acid HCO3/H2CO3 Ratio ABG pH ABG pCO2 ABG pO2 ABG HCO3 ABG O2 Saturation ABG Base Excess FiO2 Sodium 140.8 Potassium 4.2 Chloride 118 H Carbon Dioxide 16 L Anion Gap 7 BUN 54 H Creatinine 1.88 H Est GFR ( Amer) 43 L Est GFR (Non-Af Amer) 36 L Glucose 123 H Lactic Acid Calcium 7.9 L Lipase 210.6 Blood Type A POSITIVE Antibody Screen NEGATIVE 11/22/18 11/22/18 11/22/18 11:58 17:45 17:45 WBC 4.9 RBC 2.53 L Hgb 7.6 L Hct 22.5 L MCV 89 MCH 30.0 MCHC 33.8 RDW 15.1 H Plt Count 218 Seg Neutrophils % 85.4 H Lymphocytes % 7.9 L Monocytes % 5.4 Eosinophils % 1.1 Basophils % 0.2 Absolute Neutrophils 4.2 Absolute Lymphocytes 0.4 L Absolute Monocytes 0.3 Absolute Eosinophils 0.1 Absolute Basophils 0.0 Carbonic Acid 0.82 L HCO3/H2CO3 Ratio 17:1 ABG pH 7.34 L ABG pCO2 27.2 L ABG pO2 84.1 ABG HCO3 14.4 L ABG O2 Saturation 96.0 ABG Base Excess -9.7 FiO2 30% Sodium Potassium Chloride Carbon Dioxide Anion Gap BUN Creatinine Est GFR ( Amer) Est GFR (Non-Af Amer) Glucose Lactic Acid 1.5 Calcium Lipase Blood Type Antibody Screen 11/22/18 11/23/18 11/23/18 17:45 05:00 05:00 WBC 5.6 RBC 2.48 L Hgb 7.5 L Hct 22.0 L MCV 89 MCH 30.1 MCHC 33.8 RDW 14.8 H Plt Count 235 Seg Neutrophils % Not Reportable Lymphocytes % Not Reportable Monocytes % Not Reportable Eosinophils % Not Reportable Basophils % Not Reportable Absolute Neutrophils Not Reportable Absolute Lymphocytes Not Reportable Absolute Monocytes Not Reportable Absolute Eosinophils Not Reportable Absolute Basophils Not Reportable Carbonic Acid HCO3/H2CO3 Ratio ABG pH ABG pCO2 ABG pO2 ABG HCO3 ABG O2 Saturation ABG Base Excess FiO2 Sodium 142.0 Potassium 4.2 Chloride 119 H Carbon Dioxide 17 L Anion Gap 6 BUN 47 H Creatinine 1.77 H Est GFR ( Amer) 46 L Est GFR (Non-Af Amer) 38 L Glucose 118 H Lactic Acid Calcium 7.8 L Lipase 97.9 Blood Type Antibody Screen 11/23/18 05:00 WBC RBC Hgb Hct MCV MCH MCHC RDW Plt Count Seg Neutrophils % Lymphocytes % Monocytes % Eosinophils % Basophils % Absolute Neutrophils Absolute Lymphocytes Absolute Monocytes Absolute Eosinophils Absolute Basophils Carbonic Acid HCO3/H2CO3 Ratio ABG pH ABG pCO2 ABG pO2 ABG HCO3 ABG O2 Saturation ABG Base Excess FiO2 Sodium 145.4 H Potassium 3.9 Chloride 121 H Carbon Dioxide 18 L Anion Gap 6 BUN 38 H Creatinine 1.46 H Est GFR ( Amer) 58 L Est GFR (Non-Af Amer) 48 L Glucose 112 H Lactic Acid Calcium 7.8 L Lipase Blood Type Antibody Screen 11/20/18 21:45 NT-Pro-B Natriuret Pep 52 Impressions: Abdomen X-Ray 11/20/18 00:00 IMPRESSION: ABNORMAL COLLECTION OF GAS IN THE ABDOMEN WHICH IS PROBABLY RETROPERITONEAL. THIS EXTENDS INTO THE CHEST WITH RIGHT-SIDED PNEUMOMEDIASTINUM WELL EXTENSION INTO THE LOWER RIGHT SIDE OF THE NECK WITH SUBCUTANEOUS EMPHYSEMA IN THE RIGHT SUPRACLAVICULAR TISSUES. Esophagus X-Ray 11/20/18 00:00 IMPRESSION: CONTRAST EXTRAVASATION FROM THE SECOND PORTION OF THE DUODENUM CONSISTENT WITH PERFORATION. NO EVIDENCE OF ESOPHAGEAL OR GASTRIC PERFORATION. OTHER INCIDENTAL FINDING IS A PROBABLE DUODENAL DIVERTICULUM. Upper GI and Small Bowel X-Ray 11/20/18 00:00 IMPRESSION: CONTRAST EXTRAVASATION FROM THE SECOND PORTION OF THE DUODENUM CONSISTENT WITH PERFORATION. NO EVIDENCE OF ESOPHAGEAL OR GASTRIC PERFORATION. OTHER INCIDENTAL FINDING IS A PROBABLE DUODENAL DIVERTICULUM. Chest X-Ray 11/22/18 15:39 IMPRESSION: STABLE APPEARANCE OF THE CHEST. Assessment & Plan - Diagnosis (1) Bowel perforation Is this a current diagnosis for this admission?: Yes - Plan Summary Plan Summary: still sedated labs reviewed hct decreased to 22 will tx 1 uprbc j-tube clogged, will attempt clearance cont to ween off sedation
--- NOTE | 2018-11-23 09:28 | RADIOLOGY REPORT (SQ) ---
EXAM DESCRIPTION: CHEST SINGLE VIEW COMPLETED DATE/TIME: 11/23/2018 8:40 am REASON FOR STUDY: ett placement COMPARISON: 11/22/2018 NUMBER OF VIEWS: One view. TECHNIQUE: Single frontal radiographic image of the chest acquired. LIMITATIONS: Low lung volumes. FINDINGS: LUNGS AND PLEURA: Small left effusion. No pneumothorax. MEDIASTINUM AND HEART: Stable heart size and mediastinal structures. SUPPORT DEVICES: Appropriate location without change. BONY STRUCTURES: No acute findings. HARDWARE: None. OTHER: No other significant finding. IMPRESSION: No significant change. No pneumothorax. Reading location - IP/workstation name: [email or web address]
[2018-11-23] MEDS ORDERED: FUROSEMIDE INJ/PF 20 MG/2 ML SDV IV ONE (10:00)
[2018-11-23] MEDS: ENOXAPARIN SODIUM INJ 40 MG/0.4 ML DISP.SYRIN SUBCUT SCH ×2 (10:04→21:57)
[2018-11-23] MEDS: METOPROLOL SUCCINATE 25 MG TAB.SR.24H PO SCH (10:04)
[2018-11-23] MEDS: ASPIRIN 81 MG TABLET, CHEWABLE PO SCH (10:04)
[2018-11-23] MEDS: FENOFIBRATE NANOCRYSTALLIZED 145 MG TABLET PO SCH (10:04)
[2018-11-23] MEDS: PANTOPRAZOLE SODIUM 40 MG VIAL IV SCH ×2 (10:04→21:57)
--- NOTE | 2018-11-23 11:27 | RADIOLOGY REPORT (SQ) ---
EXAM DESCRIPTION: CT CHEST WITHOUT COMPLETED DATE/TIME: 11/23/2018 11:14 am REASON FOR STUDY: reassess infiltrates,effusion,pnuemo K92.1 MELENA COMPARISON: None. TECHNIQUE: CT scan performed of the chest without intravenous contrast. Images reviewed with lung, soft tissue and bone windows. Reconstructed coronal and sagittal MPR images reviewed. All images st ored on PACS. All CT scanners at this facility use dose modulation, iterative reconstruction, and/or weight based d osing when appropriate to reduce radiation dose to as low as reasonably achievable (ALARA). [facility]: Dose Right [facility]: CareDose [facility]: Dose Right [facility]: Teradose 4D [facility]: Smart Polar RADIATION DOSE: CT Rad equipment meets quality standard of care and radiation dose reduction techniq ues were employed. CTDIvol: 14.4 mGy. DLP: 466 mGy-cm. mGy. LIMITATIONS: No technical limitations. FINDINGS: LUNGS AND PLEURA: Pneumomediastinum. No pneumothorax. Dependent airspace disease in both lower lobes, right greater than left. Small right pleural effusion. HILAR AND MEDIASTINAL STRUCTURES: No identified masses or abnormal nodes. No obvious aneurysm. HEART AND VASCULAR STRUCTURES: Prior CABG. No aneurysm. No pericardial effusion. UPPER ABDOMEN: Nasogastric tube in the stomach. THYROID AND OTHER SOFT TISSUES: Gas extends into the cervical soft tissues. Satisfactory position of endotracheal tube. Left-sided central line tip in the SVC. BONES: Old right posterior rib fractures. Nothing acute. HARDWARE: None in the chest. OTHER: No other significant findings. IMPRESSION: Pneumomediastinum. No significant pneumothorax. Bilateral lower lobe airspace disease, right greater than left consistent with pneumonia. TECHNICAL DOCUMENTATION: JOB ID: [id number] Quality ID # [id number]: Final reports with documentation of one or more dose reduction techniques (e.g., Au tomated exposure control, adjustment of the mA and/or kV according to patient size, use of iterative reconstruction technique) 2010 [employer]- All Rights Reserved Reading location - IP/workstation name: [email or web address]
--- NOTE | 2018-11-23 11:41 | RADIOLOGY REPORT (SQ) ---
EXAM DESCRIPTION: CT HEAD WITHOUT COMPLETED DATE/TIME: 11/23/2018 11:15 am REASON FOR STUDY: AMS K92.1 MELENA COMPARISON: None. TECHNIQUE: Axial images acquired through the brain without intravenous contrast. Images reviewed wi th bone, brain and subdural windows. Additional sagittal and coronal reconstructions were generated. Images stored on PACS. All CT scanners at this facility use dose modulation, iterative reconstruction, and/or weight based d osing when appropriate to reduce radiation dose to as low as reasonably achievable (ALARA). [facility]: Dose Right [facility]: CareDose [facility]: Dose Right [facility]: Teradose 4D [facility]: Smart 2Checkout RADIATION DOSE: CT Rad equipment meets quality standard of care and radiation dose reduction techniq ues were employed. CTDIvol: 53.2 mGy. DLP: 1044 mGy-cm. mGy. LIMITATIONS: None. FINDINGS: VENTRICLES: Normal size and contour. CEREBRUM: No masses. No hemorrhage. No midline shift. No evidence for acute infarction. Normal gra y/white matter differentiation. No areas of low density in the white matter. CEREBELLUM: No masses. No hemorrhage. No alteration of density. No evidence for acute infarction. EXTRAAXIAL SPACES: No fluid collections. No masses. ORBITS AND GLOBE: No intra- or extraconal masses. Normal contour of globe without masses. CALVARIUM: No fracture. PARANASAL SINUSES: No fluid or mucosal thickening. SOFT TISSUES: No mass or hematoma. OTHER: No other significant finding. IMPRESSION: NORMAL BRAIN CT WITHOUT CONTRAST. EVIDENCE OF ACUTE STROKE: NO. COMMENT: Quality ID # [id number]: Final reports with documentation of one or more dose reduction techniques (e.g., Automated exposure control, adjustment of the mA and/or kV according to patient size, use of iterative reconstruction technique) TECHNICAL DOCUMENTATION: JOB ID: [id number] [employer]- All Rights Reserved Reading location - IP/workstation name: [email or web address]
--- NOTE | 2018-11-23 17:36 | PDOC PROGRESS REPORT ---
Subjective Progress Note for:: 11/23/18 Subjective:: This is a 73 yr old male with a PMH of [place] fundoplication, duodenal AVM, Terrell's esophagus who underwent EGD yesterday. Patient unfortunately sustained a possible perforated viscus. A chest x-ray done which showed significant subcutaneous emphysema with pneumomediastinum. Patient was promptly brought to the ER yesterday afternoon and was noted to have a perforated duodenum. He underwent repair of the perforation and was transferred to the ICU. Hospitalist service was consulted for medical co-management. 11/22: Patient is currently intubated and sedated on Versed and propofol. He is saturating well on minimal vent settings. Currently getting IV fluids. Serosanguineous output on the surgical drains. 11/23: No acute event overnight. He is currently intubated and is saturating well on minimal vent settings. He is running fever with T-max at 100.6. Patient has been off Versed since 3 AM but is not easily arousable and is not following commands. CT of the head was done and came back negative. We will try to keep him off sedation today and see if there is any improvement in his mentation. Reason For Visit: MELENA K92.1 Physical Exam Vital Signs: Temp Pulse Resp BP Pulse Ox 100.2 F 121 H 20 142/65 H 96 11/23/18 16:00 11/23/18 16:00 11/23/18 16:00 11/23/18 16:00 11/23/18 17:08 Intake & Output 11/22/18 11/23/18 11/24/18 06:59 06:59 06:59 Intake Total 3527 3592 1700 Output Total 1400 1765 1395 Balance 2127 1827 305 Weight 235 lb 3.732 oz 244 lb 4.355 oz General appearance: PRESENT: no acute distress, other - Intubated Head exam: PRESENT: atraumatic, normocephalic Eye exam: PRESENT: conjunctiva pink, EOMI, PERRLA. ABSENT: scleral icterus Ear exam: PRESENT: normal external ear exam Mouth exam: PRESENT: moist, tongue midline Neck exam: ABSENT: carotid bruit, JVD, lymphadenopathy, thyromegaly Respiratory exam: PRESENT: decreased breath sounds, rhonchi. ABSENT: rales, wheezes Pulses: PRESENT: normal dorsalis pedis pul GI/Abdominal exam: PRESENT: normal bowel sounds, soft. ABSENT: distended, guarding, mass, organolmegaly, rebound, tenderness Rectal exam: PRESENT: deferred Extremities exam: PRESENT: full ROM. ABSENT: calf tenderness, clubbing, pedal edema Neurological exam: PRESENT: other - Intubated Results Laboratory Results: 11/23/18 05:00 11/23/18 05:00 11/20/18 11/22/18 11/22/18 17:43 17:45 17:45 WBC 4.9 RBC 2.53 L Hgb 7.6 L Hct 22.5 L MCV 89 MCH 30.0 MCHC 33.8 RDW 15.1 H Plt Count 218 Seg Neutrophils % 85.4 H Lymphocytes % 7.9 L Monocytes % 5.4 Eosinophils % 1.1 Basophils % 0.2 Absolute Neutrophils 4.2 Absolute Lymphocytes 0.4 L Absolute Monocytes 0.3 Absolute Eosinophils 0.1 Absolute Basophils 0.0 Sodium Potassium Chloride Carbon Dioxide Anion Gap BUN Creatinine Est GFR ( Amer) Est GFR (Non-Af Amer) Glucose Lactic Acid 1.5 Calcium Lipase Blood Type A POSITIVE Antibody Screen NEGATIVE 11/22/18 11/23/18 11/23/18 17:45 05:00 05:00 WBC 5.6 RBC 2.48 L Hgb 7.5 L Hct 22.0 L MCV 89 MCH 30.1 MCHC 33.8 RDW 14.8 H Plt Count 235 Seg Neutrophils % Not Reportable Lymphocytes % Not Reportable Monocytes % Not Reportable Eosinophils % Not Reportable Basophils % Not Reportable Absolute Neutrophils Not Reportable Absolute Lymphocytes Not Reportable Absolute Monocytes Not Reportable Absolute Eosinophils Not Reportable Absolute Basophils Not Reportable Sodium 142.0 Potassium 4.2 Chloride 119 H Carbon Dioxide 17 L Anion Gap 6 BUN 47 H Creatinine 1.77 H Est GFR ( Amer) 46 L Est GFR (Non-Af Amer) 38 L Glucose 118 H Lactic Acid Calcium 7.8 L Lipase 97.9 Blood Type Antibody Screen 11/23/18 05:00 WBC RBC Hgb Hct MCV MCH MCHC RDW Plt Count Seg Neutrophils % Lymphocytes % Monocytes % Eosinophils % Basophils % Absolute Neutrophils Absolute Lymphocytes Absolute Monocytes Absolute Eosinophils Absolute Basophils Sodium 145.4 H Potassium 3.9 Chloride 121 H Carbon Dioxide 18 L Anion Gap 6 BUN 38 H Creatinine 1.46 H Est GFR ( Amer) 58 L Est GFR (Non-Af Amer) 48 L Glucose 112 H Lactic Acid Calcium 7.8 L Lipase Blood Type Antibody Screen 11/20/18 19:10 Abdomen - Specimen From Or Gram Stain - Final 11/20/18 21:45 NT-Pro-B Natriuret Pep 52 Impressions: Abdomen X-Ray 11/20/18 00:00 IMPRESSION: ABNORMAL COLLECTION OF GAS IN THE ABDOMEN WHICH IS PROBABLY RETROPERITONEAL. THIS EXTENDS INTO THE CHEST WITH RIGHT-SIDED PNEUMOMEDIASTINUM WELL EXTENSION INTO THE LOWER RIGHT SIDE OF THE NECK WITH SUBCUTANEOUS EMPHYSEMA IN THE RIGHT SUPRACLAVICULAR TISSUES. Esophagus X-Ray 11/20/18 00:00 IMPRESSION: CONTRAST EXTRAVASATION FROM THE SECOND PORTION OF THE DUODENUM CONSISTENT WITH PERFORATION. NO EVIDENCE OF ESOPHAGEAL OR GASTRIC PERFORATION. OTHER INCIDENTAL FINDING IS A PROBABLE DUODENAL DIVERTICULUM. Upper GI and Small Bowel X-Ray 11/20/18 00:00 IMPRESSION: CONTRAST EXTRAVASATION FROM THE SECOND PORTION OF THE DUODENUM CONSISTENT WITH PERFORATION. NO EVIDENCE OF ESOPHAGEAL OR GASTRIC PERFORATION. OTHER INCIDENTAL FINDING IS A PROBABLE DUODENAL DIVERTICULUM. Chest X-Ray 11/23/18 06:00 IMPRESSION: No significant change. No pneumothorax. Head CT 11/23/18 09:33 IMPRESSION: NORMAL BRAIN CT WITHOUT CONTRAST. EVIDENCE OF ACUTE STROKE: NO. Chest CT 11/23/18 09:34 IMPRESSION: Pneumomediastinum. No significant pneumothorax. Bilateral lower lobe airspace disease, right greater than left consistent with pneumonia. Assessment and Plan - Diagnosis (1) Acute respiratory failure with hypoxia Is this a current diagnosis for this admission?: Yes Plan: Saturating well on minimal vent settings. 11/23: He is currently intubated and is saturating well on minimal vent settings. Patient has been off Versed since 3 AM but is not easily arousable and is not following commands. CT of the head was done and came back negative. We will try to keep him off sedation today and see if there is any improvement in his mentation. (2) Duodenal perforation Is this a current diagnosis for this admission?: Yes Plan: Related to recent EGD. Status post surgical repair. (3) Essential hypertension Is this a current diagnosis for this admission?: Yes Plan: Blood pressures well controlled. (4) Acute kidney injury Is this a current diagnosis for this admission?: Yes Plan: Currently getting IV fluids. Repeat BMP tomorrow. (5) Acute blood loss anemia Is this a current diagnosis for this admission?: Yes Plan: Possibly perioperative related. He is getting his second unit of packed RBC. - Time Time Spent with patient: 25-34 minutes
[2018-11-23 18:06] LABS: ABSOLUTE EOSINOPHILS # (AUTO) 0.1 10^3/uL (0.0-0.6); ABSOLUTE LYMPHOCYTES (AUTO) 0.4 10^3/uL (0.5-4.7); HEMOGLOBIN 9.5 g/dL (13.5-17.0); TOTAL CELLS COUNTED % (AUTO) 100 %; WHITE BLOOD COUNT 7.5 10^3/uL (4.0-10.5)
[2018-11-23 18:14] LABS: ABSOLUTE MONOCYTES (AUTO) 0.5 10^3/uL (0.1-1.4); ABSOLUTE NEUT (AUTO) 6.5 10^3/uL (1.7-8.2); BASOPHILS % (AUTO) 0.2 % (0-2); EOSINOPHILS % (AUTO) 1.6 % (0-6); HEMATOCRIT 27.4 % (37.9-51.0); LYMPHOCYTES % (AUTO) 5.6 % (13-45); MEAN CORPUSCULAR HEMOGLOBIN 30.5 pg (27.0-33.4); MEAN CORPUSCULAR HGB CONC 34.7 g/dL (32.0-36.0); MEAN CORPUSCULAR VOLUME 88 fl (80-97); MONOCYTES % (AUTO) 6.1 % (3-13); PLATELET COUNT 228 10^3/uL (150-450); RED BLOOD COUNT 3.12 10^6/uL (4.35-5.55); RED CELL DISTRIBUTION WIDTH 14.4 % (11.5-14.0); SEGMENTED NEUTROPHILS % (AUTO) 86.5 % (42-78)
[2018-11-23] MEDS: SIMVASTATIN 40 MG TABLET PO SCH (21:57)
[2018-11-24] MEDS: PIPERACILLIN SODIUM/TAZOBACTAM 4.5 GM in NORMAL SALINE 100 ML IV SCH ×5 (00:02→23:20)
[2018-11-24] MEDS: METOPROLOL TARTRATE PF/INJ 5 MG/5 ML SDV IV SCH ×6 (01:51→21:23)
[2018-11-24 04:40] LABS: HEMATOCRIT 27.2 % (37.9-51.0); HEMOGLOBIN 9.3 g/dL (13.5-17.0); MEAN CORPUSCULAR HGB CONC 34.3 g/dL (32.0-36.0); MEAN CORPUSCULAR VOLUME 88 fl (80-97); PLATELET COUNT 259 10^3/uL (150-450); RED BLOOD COUNT 3.11 10^6/uL (4.35-5.55); RED CELL DISTRIBUTION WIDTH 14.4 % (11.5-14.0); WHITE BLOOD COUNT 8.8 10^3/uL (4.0-10.5)
[2018-11-24 04:44] LABS: ARTERIAL BLOOD BASE EXCESS -6.4 mmol/L; ARTERIAL BLOOD H2CO3 0.93 mmol/L (1.05-1.35); ARTERIAL BLOOD HCO3 17.8 mmol/L (20-24); ARTERIAL BLOOD O2 SATURATION 96.8 % (94-98); ARTERIAL BLOOD PCO2 30.8 mmHg (35-45); ARTERIAL BLOOD PH 7.38 (7.35-7.45); ARTERIAL BLOOD PO2 89.7 mmHg (80-100); ARTERIAL BLOOD TOTAL CO2 18.8 mmol/L (23-27)
[2018-11-24 04:46] LABS: ARTERIAL BLOOD FIO2 30%
[2018-11-24 04:53] LABS: ABSOLUTE LYMPHOCYTES# (MANUAL) 0.4 10^3/uL (0.5-4.7); ABSOLUTE MONOCYTES # (MANUAL) 0.5 10^3/uL (0.1-1.4); BAND NEUTROPHILS % (MANUAL) 5 % (3-5); BASOPHILS % (MANUAL) 0 % (0-2); EOSINOPHILS % (MANUAL) 0 % (0-6); LYMPHOCYTES % (MANUAL) 5 % (13-45); MONOCYTES % (MANUAL) 6 % (3-13); PLATELET COMMENT ADEQUATE; SEGMENTED NEUTROPHILS % (MAN) 84 % (42-78); TOTAL CELLS COUNTED 100
[2018-11-24 04:55] LABS: ANISOCYTOSIS 1+; HYPOCHROMASIA SLIGHT; POLYCHROMASIA SLIGHT
[2018-11-24 05:08] LABS: ALANINE AMINOTRANSFERASE 35 U/L (21-72); ALBUMIN 2.2 g/dL (3.5-5.0); ALKALINE PHOSPHATASE 31 U/L (38-126); ANION GAP 6 (5-19); ASPARTATE AMINO TRANSFERASE 37 U/L (17-59); BILIRUBIN,DIRECT 0.5 mg/dL (0.0-0.4); BILIRUBIN,TOTAL 0.7 mg/dL (0.2-1.3); BLOOD UREA NITROGEN 23 mg/dL (7-20); CALCIUM 8.1 mg/dL (8.4-10.2); CARBON DIOXIDE 20 mmol/L (22-30); CHLORIDE 121 mmol/L (98-107); GLUCOSE 92 mg/dL (75-110); LIPASE 359.6 U/L (23-300); POTASSIUM 3.8 mmol/L (3.6-5.0); TOTAL PROTEIN 4.4 g/dL (6.3-8.2)
[2018-11-24] MEDS: NORMAL SALINE 1000 ML 1,000 ML IV PRN ×3 (05:41→21:24)
[2018-11-24] MEDS: TRAZODONE HCL 50 MG TABLET PO SCH ×2 (05:44→13:02)
--- NOTE | 2018-11-24 07:20 | RADIOLOGY REPORT (SQ) ---
EXAM DESCRIPTION: XR CHEST 1 VIEW COMPLETED DATE/TME: 11/24/2018 06:00 CLINICAL HISTORY: 73 years Male, ett placement COMPARISON: One day prior. NUMBER OF VIEWS/TECHNIQUE: 1/AP FINDINGS: Moderate mixed interstitial and airspace opacity centrally. Small obscuration/effusion of the left costophrenic angle. Adequate appearing endotracheal tube. Adequate appearing enteric tube partially obscured. Adequate appearing left subclavian central line. Soft tissue emphysema of the thoracic wall and neck. Small pneumomediastinum. Normal cardiac silhouette size. Low lung volume.Sternotomy. Cardiac/mediastinal hardware/clips. No pneumothorax. Stable bony thorax. IMPRESSION: No significant change.
--- NOTE | 2018-11-24 08:22 | PDOC PROGRESS REPORT ---
Subjective Progress Note for:: 11/24/18 Subjective:: still not responsive will not open eyes or follow commands moving all 4 ext no sedation since yesterday. Reason For Visit: MELENA K92.1 Physical Exam Vital Signs: Temp Pulse Resp BP Pulse Ox 100.9 F H 95 19 132/69 H 96 11/24/18 06:01 11/24/18 06:00 11/24/18 06:01 11/24/18 06:01 11/24/18 06:01 Intake & Output 11/23/18 11/24/18 11/25/18 06:59 06:59 06:59 Intake Total 3592 3900 100 Output Total 1765 3185 Balance 1827 715 100 Weight 110.8 kg 107.2 kg General appearance: PRESENT: no acute distress Head exam: PRESENT: normocephalic Eye exam: PRESENT: EOMI Mouth exam: PRESENT: dry mucosa, moist Neck exam: PRESENT: full ROM Respiratory exam: PRESENT: clear to auscultation yoana Cardiovascular exam: PRESENT: RRR Pulses: PRESENT: normal radial pulses, normal femoral pulses GI/Abdominal exam: PRESENT: hypoactive bowel sounds, soft Rectal exam: PRESENT: deferred Gentrourinary exam: PRESENT: indwelling catheter Extremities exam: PRESENT: full ROM Musculoskeletal exam: PRESENT: full ROM Neurological exam: PRESENT: other - does not follow commands Psychiatric exam: PRESENT: agitated Skin exam: PRESENT: dry Results Laboratory Results: 11/24/18 04:15 11/24/18 04:15 11/20/18 11/23/18 11/24/18 17:43 17:59 04:15 WBC 7.5 8.8 RBC 3.12 L 3.11 L Hgb 9.5 L 9.3 L Hct 27.4 L 27.2 L MCV 88 88 MCH 30.5 30.0 MCHC 34.7 34.3 RDW 14.4 H 14.4 H Plt Count 228 259 Seg Neutrophils % 86.5 H Not Reportable Lymphocytes % 5.6 L Not Reportable Monocytes % 6.1 Not Reportable Eosinophils % 1.6 Not Reportable Basophils % 0.2 Not Reportable Absolute Neutrophils 6.5 Not Reportable Absolute Lymphocytes 0.4 L Not Reportable Absolute Monocytes 0.5 Not Reportable Absolute Eosinophils 0.1 Not Reportable Absolute Basophils 0.0 Not Reportable Carbonic Acid HCO3/H2CO3 Ratio ABG pH ABG pCO2 ABG pO2 ABG HCO3 ABG O2 Saturation ABG Base Excess FiO2 Sodium Potassium Chloride Carbon Dioxide Anion Gap BUN Creatinine Est GFR ( Amer) Est GFR (Non-Af Amer) Glucose Calcium Total Bilirubin AST ALT Alkaline Phosphatase Total Protein Albumin Lipase Blood Type A POSITIVE Antibody Screen NEGATIVE 11/24/18 11/24/18 04:15 04:30 WBC RBC Hgb Hct MCV MCH MCHC RDW Plt Count Seg Neutrophils % Lymphocytes % Monocytes % Eosinophils % Basophils % Absolute Neutrophils Absolute Lymphocytes Absolute Monocytes Absolute Eosinophils Absolute Basophils Carbonic Acid 0.93 L HCO3/H2CO3 Ratio 19:1 ABG pH 7.38 ABG pCO2 30.8 L ABG pO2 89.7 ABG HCO3 17.8 L ABG O2 Saturation 96.8 ABG Base Excess -6.4 FiO2 30% Sodium 147.0 H Potassium 3.8 Chloride 121 H Carbon Dioxide 20 L Anion Gap 6 BUN 23 H Creatinine 1.08 Est GFR ( Amer) > 60 Est GFR (Non-Af Amer) > 60 Glucose 92 Calcium 8.1 L Total Bilirubin 0.7 AST 37 ALT 35 Alkaline Phosphatase 31 L Total Protein 4.4 L Albumin 2.2 L Lipase 359.6 H Blood Type Antibody Screen 11/20/18 19:10 Abdomen - Specimen From Or Gram Stain - Final 11/20/18 21:45 NT-Pro-B Natriuret Pep 52 Impressions: Abdomen X-Ray 11/20/18 00:00 IMPRESSION: ABNORMAL COLLECTION OF GAS IN THE ABDOMEN WHICH IS PROBABLY RETROPERITONEAL. THIS EXTENDS INTO THE CHEST WITH RIGHT-SIDED PNEUMOMEDIASTINUM WELL EXTENSION INTO THE LOWER RIGHT SIDE OF THE NECK WITH SUBCUTANEOUS EMPHYSEMA IN THE RIGHT SUPRACLAVICULAR TISSUES. Esophagus X-Ray 11/20/18 00:00 IMPRESSION: CONTRAST EXTRAVASATION FROM THE SECOND PORTION OF THE DUODENUM CONSISTENT WITH PERFORATION. NO EVIDENCE OF ESOPHAGEAL OR GASTRIC PERFORATION. OTHER INCIDENTAL FINDING IS A PROBABLE DUODENAL DIVERTICULUM. Upper GI and Small Bowel X-Ray 11/20/18 00:00 IMPRESSION: CONTRAST EXTRAVASATION FROM THE SECOND PORTION OF THE DUODENUM CONSISTENT WITH PERFORATION. NO EVIDENCE OF ESOPHAGEAL OR GASTRIC PERFORATION. OTHER INCIDENTAL FINDING IS A PROBABLE DUODENAL DIVERTICULUM. Head CT 11/23/18 09:33 IMPRESSION: NORMAL BRAIN CT WITHOUT CONTRAST. EVIDENCE OF ACUTE STROKE: NO. Chest CT 11/23/18 09:34 IMPRESSION: Pneumomediastinum. No significant pneumothorax. Bilateral lower lobe airspace disease, right greater than left consistent with pneumonia. Chest X-Ray 11/24/18 06:00 IMPRESSION: No significant change. Assessment & Plan - Diagnosis (1) Bowel perforation Is this a current diagnosis for this admission?: Yes - Plan Summary Plan Summary: eeg today will start tpn will discuss neuro status with internal medicine may need neurology consult.
[2018-11-24] MEDS: ASPIRIN 81 MG TABLET, CHEWABLE PO SCH (09:10)
[2018-11-24] MEDS: METOPROLOL SUCCINATE 25 MG TAB.SR.24H PO SCH (09:10)
[2018-11-24] MEDS: ENOXAPARIN SODIUM INJ 40 MG/0.4 ML DISP.SYRIN SUBCUT SCH ×2 (09:10→21:21)
[2018-11-24] MEDS: FENOFIBRATE NANOCRYSTALLIZED 145 MG TABLET PO SCH (09:10)
[2018-11-24] MEDS ORDERED: NALOXONE HCL INJ/PF 0.4 MG/1 ML SDV IV ONE (11:04)
[2018-11-24] MEDS: MORPHINE SULFATE 10 MG/ML INJ IV PRN (13:02)
--- NOTE | 2018-11-24 13:13 | NEURO WORKBENCH EEG REPORT ---
EEG Report Patient: Filiberto Campo ID: [id number] Referring Doctor: Jonathan Melgar Date: 11/24/2018 Reason for study: Evaluate for encephalopathy Medications: Lovenox, Tricor, Toprol XL, Lopressor, Morphine, Protonix, Piperacillin/Tazobactam, Zocor, Trazodone History: This is a 73 year old male with a history of glaucoma, CAD with stenting, CABG, HTN, prostate cancer who was intubated November 20, 2018. The patient was taken off of propofol November 23, 2018 at 3 AM and last morphine was November 23, 2018 at 23:59. This EEG was requested for evaluation of encephalopathy. EEG Interpretation This EEG was recorded in the ICU and patient is intubated. There were no spontaneous eye openings or closings, but the interventional tech manually opened and closed the patients eyes multiple times. The backgound EEG shows diffuse polymorphic 4-7 Hz theta activity with intermixed polymorphic 1-3 Hz delta activity. There were alternating periods lasting several seconds of global amplitude attenuation but this is not a burst- suppression pattern. With eye closure there is no occipital dominant rhythm present. There were no asymmetries in amplitude or frequencies. Photic stimulation was done and photic driving was not noted. There were very frequent Generalized Periodic Discharges (GPDs) with a frontal predominance and an anterior to posterior lag (consistent with triphasic waves). There was no normal sleep architecture present. There was frequent artifact from the C4 electrode prohibiting interpretation in that region. There was no epileptiform activity (meaning no sharp waves or spikes), and there were no seizures noted. The EKG showed a regular rhythm with rates typically in the 75-85 range. EEG Impression This is a markedly abnormal EEG due to the diffuse background slowing and the presence of GPDs, which are both non-specific findings. Diffuse background slowing is commonly seen with encephalopathies but is non-specific for etiology. GPDs are commonly seen in diffuse encephalopathy from various etiologies including (but not limited to) hypoxic-ischemic injury, drug intoxication, metabolic derangements (such as hepatic or renal encephalopathy), central nervous system infections, and rarely as the terminal EEG sign of generalized convulsive status epilepticus. Note that no seizures were noted on this EEG. Clinical correlation is needed. INTERPRETING NEUROLOGIST: Regulo Cuenca MD Board certified by the [place] in Neurology, Clinical Neurophysiology, and Sleep Medicine [facility]
--- NOTE | 2018-11-24 15:06 | PDOC PROGRESS REPORT ---
Subjective Progress Note for:: 11/24/18 Subjective:: This is a 73 yr old male with a PMH of [place] fundoplication, duodenal AVM, Terrell's esophagus who underwent EGD yesterday. Patient unfortunately sustained a possible perforated viscus. A chest x-ray done which showed significant subcutaneous emphysema with pneumomediastinum. Patient was promptly brought to the ER yesterday afternoon and was noted to have a perforated duodenum. He underwent repair of the perforation and was transferred to the ICU. Hospitalist service was consulted for medical co-management. 11/22: Patient is currently intubated and sedated on Versed and propofol. He is saturating well on minimal vent settings. Currently getting IV fluids. Serosanguineous output on the surgical drains. 11/23: He is currently intubated and is saturating well on minimal vent settings. He is running fever with T-max at 100.6. Patient has been off Versed since 3 AM but is not easily arousable and is not following commands. CT of the head was done and came back negative. We will try to keep him off sedation today and see if there is any improvement in his mentation. 11/24: No acute event overnight. Patient has been off sedation for 36 hrs now but still does not have spontaneous eye opening. He does have spontaneous movement and withdraws to pain equally with no noticeable gross weakness. Await EEG report. Will consult [facility] neurology for further recommendations. Discussed case, labs and diagnostic testing done so far in length with [place] neurologist, Dr. Gill recommended pursuing an MRI to rule out small CVAs although this will not significantly change current management. No other further neurodiagnostic testing recommended at this time. Also discussed with [facility] neurologist in length, Dr. Bhakta who has the same recommendation and insight. He did recommend repeating a plain head CT if MRI is not feasible at this time. No significant improvement with 2 doses of Narcan. See response with Flumazenil. Reason For Visit: MELENA K92.1 Physical Exam Vital Signs: Temp Pulse Resp BP Pulse Ox 100.9 F H 93 19 148/65 H 96 11/24/18 10:00 11/24/18 10:00 11/24/18 10:00 11/24/18 10:00 11/24/18 10:00 Intake & Output 11/23/18 11/24/18 11/25/18 06:59 06:59 06:59 Intake Total 3592 3900 100 Output Total 1765 3185 420 Balance 1827 715 -320 Weight 244 lb 4.355 oz 236 lb 5.369 oz General appearance: PRESENT: other - Intubated, off sedation Head exam: PRESENT: atraumatic, normocephalic Eye exam: PRESENT: conjunctiva pink, EOMI, PERRLA. ABSENT: scleral icterus Ear exam: PRESENT: normal external ear exam Mouth exam: PRESENT: moist, tongue midline Neck exam: ABSENT: carotid bruit, JVD, lymphadenopathy, thyromegaly Respiratory exam: PRESENT: decreased breath sounds. ABSENT: rales, rhonchi, wheezes Cardiovascular exam: PRESENT: RRR. ABSENT: diastolic murmur, rubs, systolic murmur Pulses: PRESENT: normal dorsalis pedis pul GI/Abdominal exam: PRESENT: normal bowel sounds, soft. ABSENT: distended, guarding, mass, organolmegaly, rebound, tenderness Rectal exam: PRESENT: deferred Neurological exam: PRESENT: other - Intubated, has spontaneous movement and withdraws to pain equally with no noticeable gross weakness. Results Laboratory Results: 11/24/18 04:15 11/24/18 04:15 11/20/18 11/23/18 11/24/18 17:43 17:59 04:15 WBC 7.5 8.8 RBC 3.12 L 3.11 L Hgb 9.5 L 9.3 L Hct 27.4 L 27.2 L MCV 88 88 MCH 30.5 30.0 MCHC 34.7 34.3 RDW 14.4 H 14.4 H Plt Count 228 259 Seg Neutrophils % 86.5 H Not Reportable Lymphocytes % 5.6 L Not Reportable Monocytes % 6.1 Not Reportable Eosinophils % 1.6 Not Reportable Basophils % 0.2 Not Reportable Absolute Neutrophils 6.5 Not Reportable Absolute Lymphocytes 0.4 L Not Reportable Absolute Monocytes 0.5 Not Reportable Absolute Eosinophils 0.1 Not Reportable Absolute Basophils 0.0 Not Reportable Carbonic Acid HCO3/H2CO3 Ratio ABG pH ABG pCO2 ABG pO2 ABG HCO3 ABG O2 Saturation ABG Base Excess FiO2 Sodium Potassium Chloride Carbon Dioxide Anion Gap BUN Creatinine Est GFR ( Amer) Est GFR (Non-Af Amer) Glucose Serum Osmolality Calcium Total Bilirubin AST ALT Alkaline Phosphatase Total Protein Albumin Lipase Blood Type A POSITIVE Antibody Screen NEGATIVE 11/24/18 11/24/18 11/24/18 04:15 04:30 09:53 WBC RBC Hgb Hct MCV MCH MCHC RDW Plt Count Seg Neutrophils % Lymphocytes % Monocytes % Eosinophils % Basophils % Absolute Neutrophils Absolute Lymphocytes Absolute Monocytes Absolute Eosinophils Absolute Basophils Carbonic Acid 0.93 L HCO3/H2CO3 Ratio 19:1 ABG pH 7.38 ABG pCO2 30.8 L ABG pO2 89.7 ABG HCO3 17.8 L ABG O2 Saturation 96.8 ABG Base Excess -6.4 FiO2 30% Sodium 147.0 H Potassium 3.8 Chloride 121 H Carbon Dioxide 20 L Anion Gap 6 BUN 23 H Creatinine 1.08 Est GFR ( Amer) > 60 Est GFR (Non-Af Amer) > 60 Glucose 92 Serum Osmolality 305 H Calcium 8.1 L Total Bilirubin 0.7 AST 37 ALT 35 Alkaline Phosphatase 31 L Total Protein 4.4 L Albumin 2.2 L Lipase 359.6 H Blood Type Antibody Screen 11/20/18 19:10 Abdomen - Specimen From Or Gram Stain - Final 11/20/18 19:10 Abdomen - Specimen From Or Wound Culture - Final Escherichia Coli Streptococcus Mitis Streptococcus Bovis Grp Peptostreptococcus Species 11/20/18 11/24/18 21:45 09:53 Creatine Kinase 224 H NT-Pro-B Natriuret Pep 52 Impressions: Abdomen X-Ray 11/20/18 00:00 IMPRESSION: ABNORMAL COLLECTION OF GAS IN THE ABDOMEN WHICH IS PROBABLY RETROPERITONEAL. THIS EXTENDS INTO THE CHEST WITH RIGHT-SIDED PNEUMOMEDIASTINUM WELL EXTENSION INTO THE LOWER RIGHT SIDE OF THE NECK WITH SUBCUTANEOUS EMPHYSEMA IN THE RIGHT SUPRACLAVICULAR TISSUES. Esophagus X-Ray 11/20/18 00:00 IMPRESSION: CONTRAST EXTRAVASATION FROM THE SECOND PORTION OF THE DUODENUM CONSISTENT WITH PERFORATION. NO EVIDENCE OF ESOPHAGEAL OR GASTRIC PERFORATION. OTHER INCIDENTAL FINDING IS A PROBABLE DUODENAL DIVERTICULUM. Upper GI and Small Bowel X-Ray 11/20/18 00:00 IMPRESSION: CONTRAST EXTRAVASATION FROM THE SECOND PORTION OF THE DUODENUM CONSISTENT WITH PERFORATION. NO EVIDENCE OF ESOPHAGEAL OR GASTRIC PERFORATION. OTHER INCIDENTAL FINDING IS A PROBABLE DUODENAL DIVERTICULUM. Head CT 11/23/18 09:33 IMPRESSION: NORMAL BRAIN CT WITHOUT CONTRAST. EVIDENCE OF ACUTE STROKE: NO. Chest CT 11/23/18 09:34 IMPRESSION: Pneumomediastinum. No significant pneumothorax. Bilateral lower lobe airspace disease, right greater than left consistent with pneumonia. Chest X-Ray 11/24/18 06:00 IMPRESSION: No significant change. Assessment and Plan - Diagnosis (1) Acute respiratory failure with hypoxia Is this a current diagnosis for this admission?: Yes Plan: Saturating well on minimal vent settings. 11/23: He is currently intubated and is saturating well on minimal vent settings. Patient has been off Versed since 3 AM but is not easily arousable and is not following commands. CT of the head was done and came back negative. We will try to keep him off sedation today and see if there is any improvement in his mentation. EEG ordered. 11/24: Patient has been off sedation for 36 hrs now but still does not have spontaneous eye opening. He does have spontaneous movement and withdraws to pain equally with no noticeable gross weakness. Await EEG report. Will consult [facility] neurology for further recommendations. (2) Duodenal perforation Is this a current diagnosis for this admission?: Yes Plan: Related to recent EGD. Status post surgical repair. (3) Essential hypertension Is this a current diagnosis for this admission?: Yes Plan: Blood pressures well controlled. (4) Acute kidney injury Is this a current diagnosis for this admission?: Yes Plan: Resolved. (5) Acute blood loss anemia Is this a current diagnosis for this admission?: Yes Plan: Possibly perioperative related. S/P 2 units of packed RBC. - Time Time Spent with patient: 25-34 minutes
[2018-11-24] MEDS ORDERED: FLUMAZENIL INJ 0.5 MG/5 ML VIAL IV ONE (17:02)
[2018-11-24] MEDS: FENTANYL CITRATE INJ/PF 100 MCG/2 ML AMPUL IV PRN (21:23)
[2018-11-24] MEDS: SIMVASTATIN 40 MG TABLET PO SCH (21:23)
[2018-11-25] MEDS: ACETAMINOPHEN 650 MG SUPP.RECT PR PRN (00:13)
[2018-11-25] MEDS: METOPROLOL TARTRATE PF/INJ 5 MG/5 ML SDV IV SCH ×6 (01:35→21:16)
[2018-11-25] MEDS: NORMAL SALINE 1000 ML 1,000 ML IV PRN ×3 (04:05→18:36)
[2018-11-25 04:20] LABS: ABSOLUTE EOSINOPHILS # (AUTO) 0.1 10^3/uL (0.0-0.6); ABSOLUTE LYMPHOCYTES (AUTO) 0.4 10^3/uL (0.5-4.7); ABSOLUTE MONOCYTES (AUTO) 0.8 10^3/uL (0.1-1.4); BASOPHILS % (AUTO) 0.2 % (0-2); EOSINOPHILS % (AUTO) 1.7 % (0-6); HEMATOCRIT 24.8 % (37.9-51.0); HEMOGLOBIN 8.3 g/dL (13.5-17.0); LYMPHOCYTES % (AUTO) 5.2 % (13-45); MEAN CORPUSCULAR HEMOGLOBIN 29.2 pg (27.0-33.4); MEAN CORPUSCULAR HGB CONC 33.5 g/dL (32.0-36.0); MEAN CORPUSCULAR VOLUME 87 fl (80-97); PLATELET COUNT 262 10^3/uL (150-450); RED BLOOD COUNT 2.84 10^6/uL (4.35-5.55); RED CELL DISTRIBUTION WIDTH 14.4 % (11.5-14.0); SEGMENTED NEUTROPHILS % (AUTO) 83.9 % (42-78); TOTAL CELLS COUNTED % (AUTO) 100 %; WHITE BLOOD COUNT 8.4 10^3/uL (4.0-10.5)
[2018-11-25 04:34] LABS: ARTERIAL BLOOD BASE EXCESS -3.8 mmol/L; ARTERIAL BLOOD H2CO3 0.91 mmol/L (1.05-1.35); ARTERIAL BLOOD HCO3 19.8 mmol/L (20-24); ARTERIAL BLOOD O2 SATURATION 96.1 % (94-98); ARTERIAL BLOOD PCO2 30.3 mmHg (35-45); ARTERIAL BLOOD PH 7.43 (7.35-7.45); ARTERIAL BLOOD PO2 78.1 mmHg (80-100); ARTERIAL BLOOD TOTAL CO2 20.7 mmol/L (23-27)
[2018-11-25 04:40] LABS: ANION GAP 5 (5-19); BLOOD UREA NITROGEN 21 mg/dL (7-20); CARBON DIOXIDE 21 mmol/L (22-30); CHLORIDE 122 mmol/L (98-107); GLUCOSE 96 mg/dL (75-110); POTASSIUM 3.3 mmol/L (3.6-5.0); SODIUM 147.9 mmol/L (137-145)
[2018-11-25 04:42] LABS: ARTERIAL BLOOD FIO2 30%
[2018-11-25] MEDS: PIPERACILLIN SODIUM/TAZOBACTAM 4.5 GM in NORMAL SALINE 100 ML IV SCH ×4 (05:15→23:32)
[2018-11-25] MEDS: POTASSIUM CHLORIDE 20 MEQ/50 ML RTU IV SCH ×2 (05:16→07:00)
--- NOTE | 2018-11-25 08:12 | PDOC PROGRESS REPORT ---
Subjective Progress Note for:: 11/25/18 Subjective:: min neuro changes reviewd discussion with neurology reviewd eeg Reason For Visit: MELENA K92.1 Physical Exam Vital Signs: Temp Pulse Resp BP Pulse Ox 100.0 F 83 20 141/65 H 96 11/25/18 06:02 11/24/18 20:00 11/25/18 06:02 11/25/18 06:02 11/25/18 08:06 Intake & Output 11/24/18 11/25/18 11/26/18 06:59 06:59 06:59 Intake Total 3900 3375 100 Output Total 3185 1535 Balance 715 1840 100 Weight 107.2 kg 107.5 kg General appearance: PRESENT: no acute distress Head exam: PRESENT: atraumatic Eye exam: PRESENT: PERRLA, other Ear exam: PRESENT: normal external ear exam Mouth exam: PRESENT: moist Neck exam: PRESENT: carotid bruit, full ROM Respiratory exam: PRESENT: clear to auscultation yoana Cardiovascular exam: PRESENT: RRR Pulses: PRESENT: normal radial pulses, normal femoral pulses Vascular exam: PRESENT: normal capillary refill GI/Abdominal exam: PRESENT: soft Rectal exam: PRESENT: deferred Gentrourinary exam: PRESENT: indwelling catheter Extremities exam: PRESENT: full ROM Musculoskeletal exam: PRESENT: full ROM Neurological exam: PRESENT: other - no response to commands now with spont eye opening. min sedation Skin exam: PRESENT: dry Results Laboratory Results: 11/25/18 04:03 11/25/18 04:03 11/24/18 11/24/18 11/25/18 09:53 11:35 04:03 WBC RBC Hgb Hct MCV MCH MCHC RDW Plt Count Seg Neutrophils % Lymphocytes % Monocytes % Eosinophils % Basophils % Absolute Neutrophils Absolute Lymphocytes Absolute Monocytes Absolute Eosinophils Absolute Basophils Carbonic Acid 0.91 L HCO3/H2CO3 Ratio 21:1 ABG pH 7.43 ABG pCO2 30.3 L ABG pO2 78.1 L ABG HCO3 19.8 L ABG O2 Saturation 96.1 ABG Base Excess -3.8 FiO2 30% Sodium Potassium Chloride Carbon Dioxide Anion Gap BUN Creatinine Est GFR ( Amer) Est GFR (Non-Af Amer) Glucose Serum Osmolality 305 H Calcium Ammonia < 8.7 L 11/25/18 11/25/18 04:03 04:03 WBC 8.4 RBC 2.84 L Hgb 8.3 L Hct 24.8 L MCV 87 MCH 29.2 MCHC 33.5 RDW 14.4 H Plt Count 262 Seg Neutrophils % 83.9 H Lymphocytes % 5.2 L Monocytes % 9.0 Eosinophils % 1.7 Basophils % 0.2 Absolute Neutrophils 7.0 Absolute Lymphocytes 0.4 L Absolute Monocytes 0.8 Absolute Eosinophils 0.1 Absolute Basophils 0.0 Carbonic Acid HCO3/H2CO3 Ratio ABG pH ABG pCO2 ABG pO2 ABG HCO3 ABG O2 Saturation ABG Base Excess FiO2 Sodium 147.9 H Potassium 3.3 L Chloride 122 H Carbon Dioxide 21 L Anion Gap 5 BUN 21 H Creatinine 0.94 Est GFR ( Amer) > 60 Est GFR (Non-Af Amer) > 60 Glucose 96 Serum Osmolality Calcium 8.0 L Ammonia 11/20/18 19:10 Abdomen - Specimen From Or Gram Stain - Final 11/20/18 19:10 Abdomen - Specimen From Or Wound Culture - Final Escherichia Coli Streptococcus Mitis Streptococcus Bovis Grp Peptostreptococcus Species 11/20/18 11/24/18 21:45 09:53 Creatine Kinase 224 H NT-Pro-B Natriuret Pep 52 Impressions: Abdomen X-Ray 11/20/18 00:00 IMPRESSION: ABNORMAL COLLECTION OF GAS IN THE ABDOMEN WHICH IS PROBABLY RETROPERITONEAL. THIS EXTENDS INTO THE CHEST WITH RIGHT-SIDED PNEUMOMEDIASTINUM WELL EXTENSION INTO THE LOWER RIGHT SIDE OF THE NECK WITH SUBCUTANEOUS EMPHYSEMA IN THE RIGHT SUPRACLAVICULAR TISSUES. Esophagus X-Ray 11/20/18 00:00 IMPRESSION: CONTRAST EXTRAVASATION FROM THE SECOND PORTION OF THE DUODENUM C ONSISTENT WITH PERFORATION. NO EVIDENCE OF ESOPHAGEAL OR GASTRIC PERFORATION. OTHER INCIDENTAL FINDING IS A PROBABLE DUODENAL DIVERTICULUM. Upper GI and Small Bowel X-Ray 11/20/18 00:00 IMPRESSION: CONTRAST EXTRAVASATION FROM THE SECOND PORTION OF THE DUODENUM CONSISTENT WITH PERFORATION. NO EVIDENCE OF ESOPHAGEAL OR GASTRIC PERFORATION. OTHER INCIDENTAL FINDING IS A PROBABLE DUODENAL DIVERTICULUM. Head CT 11/23/18 09:33 IMPRESSION: NORMAL BRAIN CT WITHOUT CONTRAST. EVIDENCE OF ACUTE STROKE: NO. Chest CT 11/23/18 09:34 IMPRESSION: Pneumomediastinum. No significant pneumothorax. Bilateral lower lobe airspace disease, right greater than left consistent with pneumonia. Chest X-Ray 11/24/18 06:00 IMPRESSION: No significant change. Assessment & Plan - Diagnosis (1) Bowel perforation Is this a current diagnosis for this admission?: Yes - Plan Summary Plan Summary: remains physiologically stable on vent nl vitals wbc and lytes remain normal I reviewed eeg and neuro recommendation will start tpn today repeat ct brain.
[2018-11-25 08:56] LABS: HEMATOCRIT 24.8 % (37.9-51.0); HEMOGLOBIN 8.5 g/dL (13.5-17.0); MEAN CORPUSCULAR HEMOGLOBIN 29.8 pg (27.0-33.4); MEAN CORPUSCULAR HGB CONC 34.3 g/dL (32.0-36.0); MEAN CORPUSCULAR VOLUME 87 fl (80-97); PLATELET COUNT 272 10^3/uL (150-450); RED BLOOD COUNT 2.85 10^6/uL (4.35-5.55); RED CELL DISTRIBUTION WIDTH 14.8 % (11.5-14.0); WHITE BLOOD COUNT 8.8 10^3/uL (4.0-10.5)
[2018-11-25 09:19] LABS: INTERNATIONAL RATION (INR) 1.48; PROTHROMBIN TIME 18.6 SEC (11.4-15.4)
[2018-11-25] MEDS ORDERED: DEXTROSE 40% GEL 15 GM TUBE PO PRN (09:30)
[2018-11-25] MEDS ORDERED: DEXTROSE 50%-WATER SYRINGE 12.5 GM/25 ML DOSE IV PRN (09:30)
[2018-11-25] MEDS ORDERED: DEXTROSE 40% GEL 15 GM TUBE X 2 PO PRN (09:30)
[2018-11-25] MEDS ORDERED: GLUCAGON,HUMAN RECOMB 1 MG INJ IM PRN (09:30)
[2018-11-25] MEDS ORDERED: DEXTROSE 50%-WATER SYRINGE 25 GM/50 ML DOSE IV PRN (09:30)
--- NOTE | 2018-11-25 10:34 | RADIOLOGY REPORT (SQ) ---
EXAM DESCRIPTION: CT HEAD WITHOUT COMPLETED DATE/TIME: 11/25/2018 10:17 am REASON FOR STUDY: AMS K92.1 MELENA altered level of consciousness COMPARISON: CT brain 11/23/2018 TECHNIQUE: Axial images acquired through the brain without intravenous contrast. Images reviewed wi th bone, brain and subdural windows. Additional sagittal and coronal reconstructions were generated. Images stored on PACS. All CT scanners at this facility use dose modulation, iterative reconstruction, and/or weight based d osing when appropriate to reduce radiation dose to as low as reasonably achievable (ALARA). [facility]: Dose Right [facility]: CareDose [facility]: Dose Right [facility]: Teradose 4D [facility]: Cognitive Security RADIATION DOSE: CT Rad equipment meets quality standard of care and radiation dose reduction techniq ues were employed. CTDIvol: 48.6 - 48.6 mGy. DLP: 2789 mGy-cm. mGy. LIMITATIONS: Patient was scanned 3 times, right occipital region partially cropped from the field of view on the initial scans. FINDINGS: VENTRICLES: Normal size and contour. CEREBRUM: No masses. No hemorrhage. No midline shift. No evidence for acute infarction. Normal gra y/white matter differentiation. No areas of low density in the white matter. CEREBELLUM: No masses. No hemorrhage. No alteration of density. No evidence for acute infarction. EXTRAAXIAL SPACES: No fluid collections. No masses. ORBITS AND GLOBE: No intra- or extraconal masses. Normal contour of globe without masses. CALVARIUM: No fracture. PARANASAL SINUSES: No fluid or mucosal thickening. SOFT TISSUES: No mass or hematoma. OTHER: Report discussed with Dr. Harvey IMPRESSION: No acute intracranial changes. Findings discussed with Dr Harvey EVIDENCE OF ACUTE STROKE: NO. COMMENT: Quality ID # [id number]: Final reports with documentation of one or more dose reduction techniques (e.g., Automated exposure control, adjustment of the mA and/or kV according to patient size, use of iterative reconstruction technique) TECHNICAL DOCUMENTATION: JOB ID: [id number] [employer]- All Rights Reserved Reading location - IP/workstation name: [email or web address]
[2018-11-25] MEDS: FENOFIBRATE NANOCRYSTALLIZED 145 MG TABLET PO SCH (10:59)
[2018-11-25] MEDS: ENOXAPARIN SODIUM INJ 40 MG/0.4 ML DISP.SYRIN SUBCUT SCH ×2 (10:59→21:16)
[2018-11-25] MEDS: METOPROLOL SUCCINATE 25 MG TAB.SR.24H PO SCH (10:59)
[2018-11-25] MEDS: ASPIRIN 81 MG TABLET, CHEWABLE PO SCH (10:59)
[2018-11-25] MEDS: FENTANYL CITRATE INJ/PF 100 MCG/2 ML AMPUL IV PRN ×2 (11:09→15:47)
[2018-11-25 12:03] LABS: ANION GAP 8 (5-19); BLOOD UREA NITROGEN 22 mg/dL (7-20); CARBON DIOXIDE 22 mmol/L (22-30); CHLORIDE 121 mmol/L (98-107); GLUCOSE 101 mg/dL (75-110); POTASSIUM 3.5 mmol/L (3.6-5.0); SODIUM 150.9 mmol/L (137-145)
[2018-11-25] MEDS: INSULIN REG, HUMAN 100 UNIT/ML 3 ML VIAL (PYX) SUBCUT SCH ×3 (12:07→23:40)
--- NOTE | 2018-11-25 14:22 | PDOC PROGRESS REPORT ---
Subjective Progress Note for:: 11/25/18 Subjective:: 73 yr old male with a PMH of Chandler fundoplication, duodenal AVM, Terrell's esophagus who underwent EGD yesterday. Patient unfortunately sustained a possible perforated viscus. A chest x-ray done which showed significant subcutaneous emphysema with pneumomediastinum. Patient was promptly brought to the ER yesterday afternoon and was noted to have a perforated duodenum. He underwent repair of the perforation and was transferred to the ICU. Hospitalist service was consulted for medical co-management. 11/22: Patient is currently intubated and sedated on Versed and propofol. He is saturating well on minimal vent settings. Currently getting IV fluids. Seros anguineous output on the surgical drains. 11/23: He is currently intubated and is saturating well on minimal vent settings. He is running fever with T-max at 100.6. Patient has been off Versed since 3 AM but is not easily arousable and is not following commands. CT of the head was done and came back negative. We will try to keep him off sedation today and see if there is any improvement in his mentation. 11/24: No acute event overnight. Patient has been off sedation for 36 hrs now but still does not have spontaneous eye opening. He does have spontaneous movement and withdraws to pain equally with no noticeable gross weakness. Await EEG report. Will consult [facility] neurology for further recommendations. Discussed case, labs and diagnostic testing done so far in length with [facility] neurologist, Dr. Gill recommended pursuing an MRI to rule out small CVAs although this will not significantly change current management. No other further neurodiagnostic testing recommended at this time. Also discussed with [facility] neurologist in length, Dr. Bhakta who has the same recommendation and insight. He did recommend repeating a plain head CT if MRI is not feasible at this time. 11/25/[id number]-vaws-old male with past medical history of Chandler fundoplication, duodenal AV malformations, Terrell's esophagus underwent EGD on 11/21/2018 unfortunately sustained a possible perforated viscus. Chest x-ray done suggestive of subcutaneous emphysema with pneumomediastinum. Status post repair of the perforation and patient was transferred to ICU. Presently he was intubated off the sedation for the last 48 hours. Today he responding to verbal commands by wiggling his toes and nodding his head. He is only on pressure support. Reason For Visit: MELENA K92.1 Physical Exam Vital Signs: Temp Pulse Resp BP Pulse Ox 100.6 F H 82 18 133/73 H 96 11/25/18 14:01 11/25/18 13:18 11/25/18 14:01 11/25/18 14:01 11/25/18 14:01 Intake & Output 11/24/18 11/25/18 11/26/18 06:59 06:59 06:59 Intake Total 3900 3375 1200 Output Total 3185 1535 500 Balance 715 1840 700 Weight 107.2 kg 107.5 kg General appearance: PRESENT: no acute distress, other - Patient off the sedation but still on mechanical ventilation. Head exam: PRESENT: atraumatic Eye exam: PRESENT: PERRLA Mouth exam: PRESENT: moist, tongue midline Neck exam: ABSENT: carotid bruit, JVD, lymphadenopathy, thyromegaly Respiratory exam: PRESENT: decreased breath sounds Cardiovascular exam: PRESENT: RRR. ABSENT: diastolic murmur, rubs, systolic murmur GI/Abdominal exam: PRESENT: normal bowel sounds, soft. ABSENT: distended, guarding, mass, organolmegaly, rebound, tenderness Rectal exam: PRESENT: deferred Extremities exam: PRESENT: full ROM. ABSENT: calf tenderness, clubbing, pedal edema Neurological exam: PRESENT: other - Patient is off the sedation responding to verbal commands by nodding his head and wiggling his toes. Psychiatric exam: PRESENT: appropriate affect, normal mood. ABSENT: homicidal ideation, suicidal ideation Results Laboratory Results: 11/25/18 08:45 11/25/18 11:33 11/25/18 11/25/18 11/25/18 04:03 04:03 04:03 WBC 8.4 RBC 2.84 L Hgb 8.3 L Hct 24.8 L MCV 87 MCH 29.2 MCHC 33.5 RDW 14.4 H Plt Count 262 Seg Neutrophils % 83.9 H Lymphocytes % 5.2 L Monocytes % 9.0 Eosinophils % 1.7 Basophils % 0.2 Absolute Neutrophils 7.0 Absolute Lymphocytes 0.4 L Absolute Monocytes 0.8 Absolute Eosinophils 0.1 Absolute Basophils 0.0 Carbonic Acid 0.91 L HCO3/H2CO3 Ratio 21:1 ABG pH 7.43 ABG pCO2 30.3 L ABG pO2 78.1 L ABG HCO3 19.8 L ABG O2 Saturation 96.1 ABG Base Excess -3.8 FiO2 30% Sodium 147.9 H Potassium 3.3 L Chloride 122 H Carbon Dioxide 21 L Anion Gap 5 BUN 21 H Creatinine 0.94 Est GFR ( Amer) > 60 Est GFR (Non-Af Amer) > 60 Glucose 96 Calcium 8.0 L Magnesium 11/25/18 11/25/18 11/25/18 08:45 08:45 11:33 WBC 8.8 RBC 2.85 L Hgb 8.5 L Hct 24.8 L MCV 87 MCH 29.8 MCHC 34.3 RDW 14.8 H Plt Count 272 Seg Neutrophils % Lymphocytes % Monocytes % Eosinophils % Basophils % Absolute Neutrophils Absolute Lymphocytes Absolute Monocytes Absolute Eosinophils Absolute Basophils Carbonic Acid HCO3/H2CO3 Ratio ABG pH ABG pCO2 ABG pO2 ABG HCO3 ABG O2 Saturation ABG Base Excess FiO2 Sodium 150.9 H Potassium 3.5 L Chloride 121 H Carbon Dioxide 22 Anion Gap 8 BUN 22 H Creatinine 0.95 Est GFR ( Amer) > 60 Est GFR (Non-Af Amer) > 60 Glucose 101 Calcium 8.0 L Magnesium 2.0 11/23/18 15:25 Tracheal Aspirate Gram Stain - Final 11/23/18 15:25 Tracheal Aspirate Sputum Culture - Final C.albicans/C.dubliniensis Normal Kira Absent 11/20/18 11/24/18 21:45 09:53 Creatine Kinase 224 H NT-Pro-B Natriuret Pep 52 Impressions: Abdomen X-Ray 11/20/18 00:00 IMPRESSION: ABNORMAL COLLECTION OF GAS IN THE ABDOMEN WHICH IS PROBABLY RETROPERITONEAL. THIS EXTENDS INTO THE CHEST WITH RIGHT-SIDED PNEUMOMEDIASTINUM WELL EXTENSION INTO THE LOWER RIGHT SIDE OF THE NECK WITH SUBCUTANEOUS EMPHYSEMA IN THE RIGHT SUPRACLAVICULAR TISSUES. Esophagus X-Ray 11/20/18 00:00 IMPRESSION: CONTRAST EXTRAVASATION FROM THE SECOND PORTION OF THE DUODENUM CONSISTENT WITH PERFORATION. NO EVIDENCE OF ESOPHAGEAL OR GASTRIC PERFORATION. OTHER INCIDENTAL FINDING IS A PROBABLE DUODENAL DIVERTICULUM. Upper GI and Small Bowel X-Ray 11/20/18 00:00 IMPRESSION: CONTRAST EXTRAVASATION FROM THE SECOND PORTION OF THE DUODENUM CONSISTENT WITH PERFORATION. NO EVIDENCE OF ESOPHAGEAL OR GASTRIC PERFORATION. OTHER INCIDENTAL FINDING IS A PROBABLE DUODENAL DIVERTICULUM. Chest CT 11/23/18 09:34 IMPRESSION: Pneumomediastinum. No significant pneumothorax. Bilateral lower lobe airspace disease, right greater than left consistent with pneumonia. Chest X-Ray 11/24/18 06:00 IMPRESSION: No significant change. Head CT 11/25/18 08:37 IMPRESSION: No acute intracranial changes. Findings discussed with Dr Harvey EVIDENCE OF ACUTE STROKE: NO. Assessment and Plan - Diagnosis (1) Acute respiratory failure with hypoxia Is this a current diagnosis for this admission?: Yes Plan: Saturating well on minimal vent settings. 11/23: He is currently intubated and is saturating well on minimal vent settings. Patient has been off Versed since 3 AM but is not easily arousable and is not following commands. CT of the head was done and came back negative. We will try to keep him off sedation today and see if there is any improvement in his me ntation. EEG ordered. 11/24: Patient has been off sedation for 36 hrs now but still does not have sp ontaneous eye opening. He does have spontaneous movement and withdraws to pain equally with no noticeable gross weakness. Await EEG report. Will consult [facility] neurology for further recommendations. 11/25/2018-patient is off the sedation for the last 48 hours now is responding to verbal commands by nodding his head and reaching his toes opening his eyes. No focal neurological deficits. Spontaneous movement and withdrawal to pain is present. EKG is nonspecific. CT head done this morning acute you for stroke. Patient is presently on pressure support only. Pulse ox is around 96%. (2) Duodenal perforation Is this a current diagnosis for this admission?: Yes Plan: Related to recent EGD. Status post surgical repair. 11/25/2018-duodenal perforation after EGD. Status post surgical repair. Surgical team is following the patient. (3) Essential hypertension Is this a current diagnosis for this admission?: Yes Plan: Blood pressures well controlled. 11/25/2018-patient has history of essential hypertension blood pressure today's 133/73. Plan is to continue the present management. (4) Acute kidney injury Is this a current diagnosis for this admission?: Yes Plan: Resolved. 11/25/2018-patient admitted with a CHRISTIANO which was resolved. Admission creatinine is 1.37 and it peaked to 2.1 came down to 0.95 now. CHRISTIANO due to prerenal causes resolved. Patient's baseline creatinine is around 0.88. (5) Acute blood loss anemia Is this a current diagnosis for this admission?: Yes Plan: Possibly perioperative related. S/P 2 units of packed RBC. 11/25/2018-patient has acute blood loss anemia most likely related to perioperative state status post 2 units of blood transfusion during the hospital stay latest hemoglobin is 8.5 stable. - Time Time Spent with patient: 35 or more minutes Medications reviewed and adjusted accordingly: Yes Anticipated discharge: Home
--- NOTE | 2018-11-25 15:44 | Progress Note ---
Provider Note Provider Note: I have been in contact with family. they relate to me that patient had a previous procedure, TKR done in [place] t 2017 while there were no reported problems with sedation, there appeared to be a prolonged issue with recovery ofr neurological sensation, bilaterally in the lower extremities for a few days following the surgery which apparently resolved Also of note he has had multiple surgeries up to now and his requirement for sedation has increased in the past few years I have asked MICU RN to get copy of of the previous anesthesia records to see if there is anything that will give us a clue to his present problem. hopefully will be received soon, will review and perhaps have anesthesia review as well.
[2018-11-25] MEDS: AMINO ACIDS 5 %/DEXTROSE 20 % 1,000 ML IV PRN (18:36)
[2018-11-25] MEDS: SIMVASTATIN 40 MG TABLET PO SCH (21:15)
[2018-11-26] MEDS: METOPROLOL TARTRATE PF/INJ 5 MG/5 ML SDV IV SCH ×6 (01:50→21:36)
[2018-11-26] MEDS: ACETAMINOPHEN 650 MG SUPP.RECT PR PRN ×2 (02:42→23:00)
[2018-11-26] MEDS: NORMAL SALINE 1000 ML 1,000 ML IV PRN ×3 (02:42→23:00)
[2018-11-26] MEDS: FENTANYL CITRATE INJ/PF 100 MCG/2 ML AMPUL IV PRN ×4 (03:28→21:37)
[2018-11-26] MEDS ORDERED: METOPROLOL TARTRATE PF/INJ 5 MG/5 ML SDV IV ONE (03:43)
[2018-11-26 05:09] LABS: ARTERIAL BLOOD BASE EXCESS -2.4 mmol/L; ARTERIAL BLOOD H2CO3 0.82 mmol/L (1.05-1.35); ARTERIAL BLOOD HCO3 20.2 mmol/L (20-24); ARTERIAL BLOOD O2 SATURATION 95.3 % (94-98); ARTERIAL BLOOD PCO2 27.4 mmHg (35-45); ARTERIAL BLOOD PH 7.49 (7.35-7.45); ARTERIAL BLOOD PO2 69.2 mmHg (80-100)
[2018-11-26 05:14] LABS: ABSOLUTE EOSINOPHILS # (AUTO) 0.2 10^3/uL (0.0-0.6); ABSOLUTE LYMPHOCYTES (AUTO) 0.5 10^3/uL (0.5-4.7); ABSOLUTE MONOCYTES (AUTO) 0.8 10^3/uL (0.1-1.4); ABSOLUTE NEUT (AUTO) 8.2 10^3/uL (1.7-8.2); BASOPHILS % (AUTO) 0.2 % (0-2); EOSINOPHILS % (AUTO) 1.6 % (0-6); HEMATOCRIT 25.6 % (37.9-51.0); HEMOGLOBIN 8.8 g/dL (13.5-17.0); LYMPHOCYTES % (AUTO) 5.2 % (13-45); MEAN CORPUSCULAR HEMOGLOBIN 29.8 pg (27.0-33.4); MEAN CORPUSCULAR HGB CONC 34.3 g/dL (32.0-36.0); MEAN CORPUSCULAR VOLUME 87 fl (80-97); MONOCYTES % (AUTO) 8.3 % (3-13); PLATELET COUNT 301 10^3/uL (150-450); RED BLOOD COUNT 2.94 10^6/uL (4.35-5.55); SEGMENTED NEUTROPHILS % (AUTO) 84.7 % (42-78); TOTAL CELLS COUNTED % (AUTO) 100 %; WHITE BLOOD COUNT 9.7 10^3/uL (4.0-10.5)
[2018-11-26] MEDS: PIPERACILLIN SODIUM/TAZOBACTAM 4.5 GM in NORMAL SALINE 100 ML IV SCH ×3 (05:20→17:04)
[2018-11-26 05:21] LABS: ARTERIAL BLOOD FIO2 21%
[2018-11-26 05:37] LABS: ALANINE AMINOTRANSFERASE 27 U/L (21-72); ALKALINE PHOSPHATASE 37 U/L (38-126); ASPARTATE AMINO TRANSFERASE 29 U/L (17-59); BILIRUBIN,DIRECT 0.3 mg/dL (0.0-0.4); BILIRUBIN,TOTAL 0.5 mg/dL (0.2-1.3); BLOOD UREA NITROGEN 23 mg/dL (7-20); CALCIUM 8.1 mg/dL (8.4-10.2); CARBON DIOXIDE 23 mmol/L (22-30); CHLORIDE 122 mmol/L (98-107); GLUCOSE 158 mg/dL (75-110); PHOSPHORUS 1.9 mg/dL (2.5-4.5); POTASSIUM 3.4 mmol/L (3.6-5.0); TOTAL PROTEIN 4.2 g/dL (6.3-8.2)
[2018-11-26 05:42] LABS: SODIUM 148.7 mmol/L (137-145)
[2018-11-26 05:44] LABS: PREALBUMIN 4.3 mg/dL (17.6-36.0)
[2018-11-26 05:45] LABS: ANION GAP 4 (5-19)
[2018-11-26] MEDS: INSULIN REG, HUMAN 100 UNIT/ML 3 ML VIAL (PYX) SUBCUT SCH ×3 (06:20→17:05)
[2018-11-26] MEDS: POTASSIUM CHLORIDE 20 MEQ/50 ML RTU IV SCH ×2 (06:21→08:26)
--- NOTE | 2018-11-26 07:47 | PDOC PROGRESS REPORT ---
Subjective Progress Note for:: 11/26/18 Subjective:: now following simple commands still appears sedated Reason For Visit: MELENA K92.1 Physical Exam Vital Signs: Temp Pulse Resp BP Pulse Ox 100.6 F H 78 0 L 122/70 94 11/26/18 06:01 11/25/18 20:00 11/26/18 06:01 11/26/18 06:01 11/26/18 06:01 Intake & Output 11/25/18 11/26/18 11/27/18 06:59 06:59 06:59 Intake Total 3375 3400 847 Output Total 1535 2540 Balance 1840 860 847 Weight 107.5 kg 108.3 kg General appearance: PRESENT: no acute distress Head exam: PRESENT: normocephalic Eye exam: PRESENT: EOMI Ear exam: PRESENT: normal external ear exam Mouth exam: PRESENT: moist Neck exam: PRESENT: full ROM Respiratory exam: PRESENT: clear to auscultation yoana, other - ventilator Cardiovascular exam: PRESENT: RRR Pulses: PRESENT: normal radial pulses, normal femoral pulses Vascular exam: PRESENT: normal capillary refill GI/Abdominal exam: PRESENT: soft Rectal exam: PRESENT: deferred, other - passing stool Gentrourinary exam: PRESENT: indwelling catheter Extremities exam: PRESENT: full ROM Musculoskeletal exam: PRESENT: full ROM Neurological exam: PRESENT: other - still intubated Psychiatric exam: PRESENT: other Focused psych exam: PRESENT: other - sedated on vent Results Laboratory Results: 11/26/18 04:37 11/26/18 04:37 11/25/18 11/25/18 11/25/18 08:45 08:45 11:33 WBC 8.8 RBC 2.85 L Hgb 8.5 L Hct 24.8 L MCV 87 MCH 29.8 MCHC 34.3 RDW 14.8 H Plt Count 272 Seg Neutrophils % Lymphocytes % Monocytes % Eosinophils % Basophils % Absolute Neutrophils Absolute Lymphocytes Absolute Monocytes Absolute Eosinophils Absolute Basophils Carbonic Acid HCO3/H2CO3 Ratio ABG pH ABG pCO2 ABG pO2 ABG HCO3 ABG O2 Saturation ABG Base Excess FiO2 Sodium 150.9 H Potassium 3.5 L Chloride 121 H Carbon Dioxide 22 Anion Gap 8 BUN 22 H Creatinine 0.95 Est GFR ( Amer) > 60 Est GFR (Non-Af Amer) > 60 Glucose 101 Calcium 8.0 L Phosphorus Magnesium 2.0 Total Bilirubin AST ALT Alkaline Phosphatase Total Protein Albumin Prealbumin 11/26/18 11/26/18 11/26/18 04:37 04:37 04:37 WBC RBC Hgb Hct MCV MCH MCHC RDW Plt Count Seg Neutrophils % Lymphocytes % Monocytes % Eosinophils % Basophils % Absolute Neutrophils Absolute Lymphocytes Absolute Monocytes Absolute Eosinophils Absolute Basophils Carbonic Acid 0.82 L HCO3/H2CO3 Ratio 24:1 ABG pH 7.49 H ABG pCO2 27.4 L ABG pO2 69.2 L ABG HCO3 20.2 ABG O2 Saturation 95.3 ABG Base Excess -2.4 FiO2 21% Sodium Cancelled 148.7 H Potassium Cancelled 3.4 L Chloride Cancelled 122 H Carbon Dioxide Cancelled 23 Anion Gap Cancelled 4 L BUN Cancelled 23 H Creatinine Cancelled 0.84 Est GFR ( Amer) Cancelled > 60 Est GFR (Non-Af Amer) Cancelled > 60 Glucose Cancelled 158 H Calcium Cancelled 8.1 L Phosphorus 1.9 L Magnesium Total Bilirubin 0.5 AST 29 ALT 27 Alkaline Phosphatase 37 L Total Protein 4.2 L Albumin 2.0 L Prealbumin 4.3 L 11/26/18 04:37 WBC 9.7 RBC 2.94 L Hgb 8.8 L Hct 25.6 L MCV 87 MCH 29.8 MCHC 34.3 RDW 15.0 H Plt Count 301 Seg Neutrophils % 84.7 H Lymphocytes % 5.2 L Monocytes % 8.3 Eosinophils % 1.6 Basophils % 0.2 Absolute Neutrophils 8.2 Absolute Lymphocytes 0.5 Absolute Monocytes 0.8 Absolute Eosinophils 0.2 Absolute Basophils 0.0 Carbonic Acid HCO3/H2CO3 Ratio ABG pH ABG pCO2 ABG pO2 ABG HCO3 ABG O2 Saturation ABG Base Excess FiO2 Sodium Potassium Chloride Carbon Dioxide Anion Gap BUN Creatinine Est GFR ( Amer) Est GFR (Non-Af Amer) Glucose Calcium Phosphorus Magnesium Total Bilirubin AST ALT Alkaline Phosphatase Total Protein Albumin Prealbumin 11/23/18 15:25 Tracheal Aspirate Gram Stain - Final 11/23/18 15:25 Tracheal Aspirate Sputum Culture - Final C.albicans/C.dubliniensis Normal Kira Absent 11/20/18 11/24/18 21:45 09:53 Creatine Kinase 224 H NT-Pro-B Natriuret Pep 52 Impressions: Abdomen X-Ray 11/20/18 00:00 IMPRESSION: ABNORMAL COLLECTION OF GAS IN THE ABDOMEN WHICH IS PROBABLY RETROPERITONEAL. THIS EXTENDS INTO THE CHEST WITH RIGHT-SIDED PNEUMOMEDIASTINUM WELL EXTENSION INTO THE LOWER RIGHT SIDE OF THE NECK WITH SUBCUTANEOUS EMPHYSEMA IN THE RIGHT SUPRACLAVICULAR TISSUES. Esophagus X-Ray 11/20/18 00:00 IMPRESSION: CONTRAST EXTRAVASATION FROM THE SECOND PORTION OF THE DUODENUM CONSISTENT WITH PERFORATION. NO EVIDENCE OF ESOPHAGEAL OR GASTRIC PERFORATION. OTHER INCIDENTAL FINDING IS A PROBABLE DUODENAL DIVERTICULUM. Upper GI and Small Bowel X-Ray 11/20/18 00:00 IMPRESSION: CONTRAST EXTRAVASATION FROM THE SECOND PORTION OF THE DUODENUM CONSISTENT WITH PERFORATION. NO EVIDENCE OF ESOPHAGEAL OR GASTRIC PERFORATION. OTHER INCIDENTAL FINDING IS A PROBABLE DUODENAL DIVERTICULUM. Chest CT 11/23/18 09:34 IMPRESSION: Pneumomediastinum. No significant pneumothorax. Bilateral lower lobe airspace disease, right greater than left consistent with pneumonia. Chest X-Ray 11/24/18 06:00 IMPRESSION: No significant change. Head CT 11/25/18 08:37 IMPRESSION: No acute intracranial changes. Findings discussed with Dr Harvey EVIDENCE OF ACUTE STROKE: NO. Assessment & Plan - Diagnosis (1) Bowel perforation Is this a current diagnosis for this admission?: Yes - Plan Summary Plan Summary: pt now with improved mental status now following commands passing stool wbc remains stable lytes ok will cont vent management as he improves his mental status, will begin \ wheening vent. cont tpn for now.
[2018-11-26] MEDS ORDERED: POTASSI CL 20 MEQ/50 ML RIDER 20 MEQ/50 ML RTUPB IV SCH (08:11)
--- NOTE | 2018-11-26 09:32 | RADIOLOGY REPORT (SQ) ---
EXAM DESCRIPTION: CHEST SINGLE VIEW COMPLETED DATE/TIME: 11/26/2018 8:59 am REASON FOR STUDY: resp failure COMPARISON: 11/24/2018 NUMBER OF VIEWS: One view. TECHNIQUE: Single frontal radiographic image of the chest acquired. LIMITATIONS: None. FINDINGS: LUNGS AND PLEURA: Low lung volumes. Improved aeration in the left base. No pneumothorax. MEDIASTINUM AND HEART: Stable heart size and mediastinal structures. SUPPORT DEVICES: Appropriate location without change. BONY STRUCTURES: No acute findings. HARDWARE: None. OTHER: No other significant finding. IMPRESSION: Improved aeration left lower lobe. No pneumothorax. Reading location - IP/workstation name: [email or web address]
[2018-11-26] MEDS: FENOFIBRATE NANOCRYSTALLIZED 145 MG TABLET PO SCH (09:39)
[2018-11-26] MEDS: ENOXAPARIN SODIUM INJ 40 MG/0.4 ML DISP.SYRIN SUBCUT SCH ×2 (09:39→21:36)
[2018-11-26] MEDS: ASPIRIN 81 MG TABLET, CHEWABLE PO SCH (09:39)
[2018-11-26] MEDS: METOPROLOL SUCCINATE 25 MG TAB.SR.24H PO SCH (09:41)
--- NOTE | 2018-11-26 10:39 | PDOC PROGRESS REPORT ---
Subjective Progress Note for:: 11/26/18 Subjective:: 73 yr old male with a PMH of Chandler fundoplication, duodenal AVM, Terrell's esophagus who underwent EGD yesterday. Patient unfortunately sustained a possible perforated viscus. A chest x-ray done which showed significant subcutaneous emphysema with pneumomediastinum. Patient was promptly brought to the ER yesterday afternoon and was noted to have a perforated duodenum. He underwent repair of the perforation and was transferred to the ICU. Hospitalist service was consulted for medical co-management. 11/22: Patient is currently intubated and sedated on Versed and propofol. He is saturating well on minimal vent settings. Currently getting IV fluids. Seros anguineous output on the surgical drains. 11/23: He is currently intubated and is saturating well on minimal vent settings. He is running fever with T-max at 100.6. Patient has been off Versed since 3 AM but is not easily arousable and is not following commands. CT of the head was done and came back negative. We will try to keep him off sedation today and see if there is any improvement in his mentation. 11/24: No acute event overnight. Patient has been off sedation for 36 hrs now but still does not have spontaneous eye opening. He does have spontaneous movement and withdraws to pain equally with no noticeable gross weakness. Await EEG report. Will consult [facility] neurology for further recommendations. Discussed case, labs and diagnostic testing done so far in length with [facility] neurologist, Dr. Gill recommended pursuing an MRI to rule out small CVAs although this will not significantly change current management. No other further neurodiagnostic testing recommended at this time. Also discussed with [facility] neurologist in length, Dr. Bhakta who has the same recommendation and insight. He did recommend repeating a plain head CT if MRI is not feasible at this time. 11/25/[id number]-vhfm-old male with past medical history of Chandler fundoplication, duodenal AV malformations, Terrell's esophagus underwent EGD on 11/21/2018 unfortunately sustained a possible perforated viscus. Chest x-ray done suggestive of subcutaneous emphysema with pneumomediastinum. Status post repair of the perforation and patient was transferred to ICU. Presently he was intubated off the sedation for the last 48 hours. Today he responding to verbal commands by wiggling his toes and nodding his head. He is only on pressure support. 11/26/2018-no acute events in the last 24 hours. T-max is 100.6. Patient is presently on Zosyn. Chest x-ray done this morning shows improvement in the left lower lobe aeration. Patient is off the sedation for the last several days presently on 30% oxygen PEEP of 5 with pressure support of 22 above PEEP. Oxygen saturation is 96 to 98%. Reason For Visit: MELENA K92.1 Physical Exam Vital Signs: Temp Pulse Resp BP Pulse Ox 100.4 F 65 20 143/71 H 99 11/26/18 10:01 11/26/18 10:00 11/26/18 10:01 11/26/18 10:01 11/26/18 10:01 Intake & Output 11/25/18 11/26/18 11/27/18 06:59 06:59 06:59 Intake Total 3375 3400 847 Output Total 1535 2540 100 Balance 1840 860 747 Weight 107.5 kg 108.3 kg General appearance: PRESENT: no acute distress, obese Head exam: PRESENT: atraumatic Eye exam: PRESENT: PERRLA Neck exam: ABSENT: carotid bruit, JVD, lymphadenopathy, thyromegaly Respiratory exam: PRESENT: decreased breath sounds Cardiovascular exam: PRESENT: RRR. ABSENT: diastolic murmur, rubs, systolic murmur GI/Abdominal exam: PRESENT: normal bowel sounds, soft, other Rectal exam: PRESENT: deferred Gentrourinary exam: PRESENT: indwelling catheter Extremities exam: PRESENT: full ROM. ABSENT: calf tenderness, clubbing, pedal edema Neurological exam: PRESENT: alert, awake, other - Is not responding better today nodding his head on calling his name and voluntarily moving his arms and legs. Psychiatric exam: PRESENT: appropriate affect, normal mood. ABSENT: homicidal ideation, suicidal ideation Results Laboratory Results: 11/26/18 04:37 11/26/18 04:37 11/25/18 11/26/18 11/26/18 11:33 04:37 04:37 WBC RBC Hgb Hct MCV MCH MCHC RDW Plt Count Seg Neutrophils % Lymphocytes % Monocytes % Eosinophils % Basophils % Absolute Neutrophils Absolute Lymphocytes Absolute Monocytes Absolute Eosinophils Absolute Basophils Carbonic Acid 0.82 L HCO3/H2CO3 Ratio 24:1 ABG pH 7.49 H ABG pCO2 27.4 L ABG pO2 69.2 L ABG HCO3 20.2 ABG O2 Saturation 95.3 ABG Base Excess -2.4 FiO2 21% Sodium 150.9 H Cancelled Potassium 3.5 L Cancelled Chloride 121 H Cancelled Carbon Dioxide 22 Cancelled Anion Gap 8 Cancelled BUN 22 H Cancelled Creatinine 0.95 Cancelled Est GFR ( Amer) > 60 Cancelled Est GFR (Non-Af Amer) > 60 Cancelled Glucose 101 Cancelled Calcium 8.0 L Cancelled Phosphorus Total Bilirubin AST ALT Alkaline Phosphatase Total Protein Albumin Prealbumin 11/26/18 11/26/18 04:37 04:37 WBC 9.7 RBC 2.94 L Hgb 8.8 L Hct 25.6 L MCV 87 MCH 29.8 MCHC 34.3 RDW 15.0 H Plt Count 301 Seg Neutrophils % 84.7 H Lymphocytes % 5.2 L Monocytes % 8.3 Eosinophils % 1.6 Basophils % 0.2 Absolute Neutrophils 8.2 Absolute Lymphocytes 0.5 Absolute Monocytes 0.8 Absolute Eosinophils 0.2 Absolute Basophils 0.0 Carbonic Acid HCO3/H2CO3 Ratio ABG pH ABG pCO2 ABG pO2 ABG HCO3 ABG O2 Saturation ABG Base Excess FiO2 Sodium 148.7 H Potassium 3.4 L Chloride 122 H Carbon Dioxide 23 Anion Gap 4 L BUN 23 H Creatinine 0.84 Est GFR ( Amer) > 60 Est GFR (Non-Af Amer) > 60 Glucose 158 H Calcium 8.1 L Phosphorus 1.9 L Total Bilirubin 0.5 AST 29 ALT 27 Alkaline Phosphatase 37 L Total Protein 4.2 L Albumin 2.0 L Prealbumin 4.3 L 11/23/18 15:25 Tracheal Aspirate Gram Stain - Final 11/23/18 15:25 Tracheal Aspirate Sputum Culture - Final C.albicans/C.dubliniensis Normal Kira Absent 11/20/18 11/24/18 21:45 09:53 Creatine Kinase 224 H NT-Pro-B Natriuret Pep 52 Impressions: Abdomen X-Ray 11/20/18 00:00 IMPRESSION: ABNORMAL COLLECTION OF GAS IN THE ABDOMEN WHICH IS PROBABLY RETROPERITONEAL. THIS EXTENDS INTO THE CHEST WITH RIGHT-SIDED PNEUMOMEDIASTINUM WELL EXTENSION INTO THE LOWER RIGHT SIDE OF THE NECK WITH SUBCUTANEOUS EMPHYSEMA IN THE RIGHT SUPRACLAVICULAR TISSUES. Esophagus X-Ray 11/20/18 00:00 IMPRESSION: CONTRAST EXTRAVASATION FROM THE SECOND PORTION OF THE DUODENUM CONSISTENT WITH PERFORATION. NO EVIDENCE OF ESOPHAGEAL OR GASTRIC PERFORATION. OTHER INCIDENTAL FINDING IS A PROBABLE DUODENAL DIVERTICULUM. Upper GI and Small Bowel X-Ray 11/20/18 00:00 IMPRESSION: CONTRAST EXTRAVASATION FROM THE SECOND PORTION OF THE DUODENUM CONSISTENT WITH PERFORATION. NO EVIDENCE OF ESOPHAGEAL OR GASTRIC PERFORATION. OTHER INCIDENTAL FINDING IS A PROBABLE DUODENAL DIVERTICULUM. Chest CT 11/23/18 09:34 IMPRESSION: Pneumomediastinum. No significant pneumothorax. Bilateral lower lobe airspace disease, right greater than left consistent with pneumonia. Head CT 11/25/18 08:37 IMPRESSION: No acute intracranial changes. Findings discussed with Dr Harvey EVIDENCE OF ACUTE STROKE: NO. Chest X-Ray 11/26/18 00:00 IMPRESSION: Improved aeration left lower lobe. No pneumothorax. Assessment and Plan - Diagnosis (1) Acute respiratory failure with hypoxia Is this a current diagnosis for this admission?: Yes Plan: Saturating well on minimal vent settings. 11/23: He is currently intubated and is saturating well on minimal vent settings. Patient has been off Versed since 3 AM but is not easily arousable and is not following commands. CT of the head was done and came back negative. We will try to keep him off sedation today and see if there is any improvement in his mentation. EEG ordered. 11/24: Patient has been off sedation for 36 hrs now but still does not have spontaneous eye opening. He does have spontaneous movement and withdraws to pain equally with no noticeable gross weakness. Await EEG report. Will consult da neurology for further recommendations. 11/25/2018-patient is off the sedation for the last 48 hours now is responding to verbal commands by nodding his head and reaching his toes opening his eyes. No focal neurological deficits. Spontaneous movement and withdrawal to pain is present. EKG is nonspecific. CT head done this morning acute you for stroke. Patient is presently on pressure support only. Pulse ox is around 96%. 11/26/2018-patient is off the sedation for the last [address] head was negative for acute changes. Presently on 30% oxygen with PEEP of 5 and pressure support of more than 22. Oxygen saturation is around 96%. Weaning process was initiated and if possible we may extubate him today. EEG done this morning on room air pH is 7.49/PCO2 27.4/PO2 69 oxygen saturation is 95%. presently on IV Zosyn. (2) Duodenal perforation Is this a current diagnosis for this admission?: Yes Plan: Related to recent EGD. Status post surgical repair. 11/25/2018-duodenal perforation after EGD. Status post surgical repair. Surgical team is following the patient. 11/26/2018-management as per the surgical recommendations. (3) Essential hypertension Is this a current diagnosis for this admission?: Yes Plan: Blood pressures well controlled. 11/25/2018-patient has history of essential hypertension blood pressure today's 133/73. Plan is to continue the present management. 11/26/2018-patient has history of hypertension latest blood pressure is 122/70. Relative control. Presently on normal saline at 100 cc/h plan is to discontinue IV fluids from today. (4) Acute kidney injury Is this a current diagnosis for this admission?: Yes Plan: Resolved. 11/25/2018-patient admitted with a CHRISTIANO which was resolved. Admission creatinine is 1.37 and it peaked to 2.1 came down to 0.95 now. CHRISTIANO due to prerenal causes resolved. Patient's baseline creatinine is around 0.88. 11/26/2018-patient was admitted with CHRISTIANO today's creatinine is 0.84 acute kidney injury is resolved. (5) Acute blood loss anemia Is this a current diagnosis for this admission?: Yes Plan: Possibly perioperative related. S/P 2 units of packed RBC. 11/25/2018-patient has acute blood loss anemia most likely related to perioperative state status post 2 units of blood transfusion during the hospital stay latest hemoglobin is 8.5 stable. 11/26/2018-patient's hemoglobin is 8.8 today stable. During this hospital stay he received 2 units of PRBC. - Time Time Spent with patient: 35 or more minutes Medications reviewed and adjusted accordingly: Yes Anticipated discharge: SNF
[2018-11-26] MEDS: POTASSI CL 20 MEQ/50 ML RIDER 20 MEQ/50 ML RTUPB IV SCH ×2 (15:08→16:34)
[2018-11-26] MEDS: AMINO ACIDS 5 %/DEXTROSE 20 % 1,000 ML IV PRN (16:38)
[2018-11-26] MEDS: SIMVASTATIN 40 MG TABLET PO SCH (21:36)
[2018-11-27] MEDS: INSULIN REG, HUMAN 100 UNIT/ML 3 ML VIAL (PYX) SUBCUT SCH ×4 (00:20→17:14)
[2018-11-27] MEDS: PIPERACILLIN SODIUM/TAZOBACTAM 4.5 GM in NORMAL SALINE 100 ML IV SCH ×5 (00:21→23:46)
[2018-11-27] MEDS: METOPROLOL TARTRATE PF/INJ 5 MG/5 ML SDV IV SCH ×6 (04:25→21:34)
[2018-11-27 04:55] LABS: ALANINE AMINOTRANSFERASE 46 U/L (21-72); ALBUMIN 1.9 g/dL (3.5-5.0); ALKALINE PHOSPHATASE 40 U/L (38-126); ASPARTATE AMINO TRANSFERASE 47 U/L (17-59); BILIRUBIN,DIRECT 0.4 mg/dL (0.0-0.4); BILIRUBIN,TOTAL 0.6 mg/dL (0.2-1.3); BLOOD UREA NITROGEN 20 mg/dL (7-20); CALCIUM 7.9 mg/dL (8.4-10.2); GLUCOSE 151 mg/dL (75-110); PHOSPHORUS 2.2 mg/dL (2.5-4.5); POTASSIUM 3.4 mmol/L (3.6-5.0)
[2018-11-27 05:01] LABS: CARBON DIOXIDE 22 mmol/L (22-30); CHLORIDE 123 mmol/L (98-107); SODIUM 148.9 mmol/L (137-145)
[2018-11-27 05:05] LABS: PREALBUMIN 4.8 mg/dL (17.6-36.0)
[2018-11-27 05:07] LABS: ANION GAP 4 (5-19)
[2018-11-27] MEDS: POTASSIUM CHLORIDE 20 MEQ/50 ML RTU IV SCH ×2 (06:12→07:59)
[2018-11-27] MEDS: MORPHINE SULFATE 10 MG/ML INJ IV PRN (06:56)
[2018-11-27] MEDS: NORMAL SALINE 1000 ML 1,000 ML IV PRN ×2 (07:59→10:12)
[2018-11-27 08:14] LABS: HEMATOCRIT 24.9 % (37.9-51.0); HEMOGLOBIN 8.4 g/dL (13.5-17.0); MEAN CORPUSCULAR HEMOGLOBIN 29.2 pg (27.0-33.4); MEAN CORPUSCULAR HGB CONC 33.6 g/dL (32.0-36.0); MEAN CORPUSCULAR VOLUME 87 fl (80-97); PLATELET COUNT 329 10^3/uL (150-450); RED BLOOD COUNT 2.86 10^6/uL (4.35-5.55); RED CELL DISTRIBUTION WIDTH 15.1 % (11.5-14.0); WHITE BLOOD COUNT 11.8 10^3/uL (4.0-10.5)
[2018-11-27] MEDS: ALBUMIN HUMAN 12.5 GM/50 ML RTUINJ IV SCH ×4 (08:18→10:10)
[2018-11-27 08:59] LABS: ABSOLUTE LYMPHOCYTES# (MANUAL) 0.7 10^3/uL (0.5-4.7); ABSOLUTE MONOCYTES # (MANUAL) 0.4 10^3/uL (0.1-1.4); BASOPHILS % (MANUAL) 0 % (0-2); EOSINOPHILS % (MANUAL) 1 % (0-6); LYMPHOCYTES % (MANUAL) 6 % (13-45); MONOCYTES % (MANUAL) 3 % (3-13); SEGMENTED NEUTROPHILS % (MAN) 90 % (42-78); TOTAL CELLS COUNTED 100
[2018-11-27 09:00] LABS: ANISOCYTOSIS SLIGHT; PLATELET COMMENT ADEQUATE; POLYCHROMASIA SLIGHT
[2018-11-27] MEDS: METOPROLOL SUCCINATE 25 MG TAB.SR.24H PO SCH (09:25)
[2018-11-27] MEDS: FAT EMULSIONS 250 ML IV SCH (09:25)
[2018-11-27] MEDS: LOSARTAN POTASSIUM 50 MG TABLET PO SCH (09:26)
[2018-11-27] MEDS: ENOXAPARIN SODIUM INJ 40 MG/0.4 ML DISP.SYRIN SUBCUT SCH ×2 (09:26→21:37)
[2018-11-27] MEDS: FENOFIBRATE NANOCRYSTALLIZED 145 MG TABLET PO SCH (09:26)
[2018-11-27] MEDS: ASPIRIN 81 MG TABLET, CHEWABLE PO SCH (09:26)
[2018-11-27] MEDS ORDERED: LEVOFLOXACIN 500 MG/D5W RTU 500 MG/100 ML RTUPB IV ONE (09:28)
--- NOTE | 2018-11-27 09:56 | PDOC PROGRESS REPORT ---
Subjective Progress Note for:: 11/27/18 Subjective:: 73 yr old male with a PMH of Chandler fundoplication, duodenal AVM, Terrell's esophagus who underwent EGD yesterday. Patient unfortunately sustained a possible perforated viscus. A chest x-ray done which showed significant subcutaneous emphysema with pneumomediastinum. Patient was promptly brought to the ER yesterday afternoon and was noted to have a perforated duodenum. He underwent repair of the perforation and was transferred to the ICU. Hospitalist service was consulted for medical co-management. 11/22: Patient is currently intubated and sedated on Versed and propofol. He is saturating well on minimal vent settings. Currently getting IV fluids. Seros anguineous output on the surgical drains. 11/23: He is currently intubated and is saturating well on minimal vent settings. He is running fever with T-max at 100.6. Patient has been off Versed since 3 AM but is not easily arousable and is not following commands. CT of the head was done and came back negative. We will try to keep him off sedation today and see if there is any improvement in his mentation. 11/24: No acute event overnight. Patient has been off sedation for 36 hrs now but still does not have spontaneous eye opening. He does have spontaneous movement and withdraws to pain equally with no noticeable gross weakness. Await EEG report. Will consult [facility] neurology for further recommendations. Discussed case, labs and diagnostic testing done so far in length with [facility] neurologist, Dr. Gill recommended pursuing an MRI to rule out small CVAs although this will not significantly change current management. No other further neurodiagnostic testing recommended at this time. Also discussed with [facility] neurologist in length, Dr. Bhakta who has the same recommendation and insight. He did recommend repeating a plain head CT if MRI is not feasible at this time. 11/25/[id number]-tpli-old male with past medical history of Chandler fundoplication, duodenal AV malformations, Terrell's esophagus underwent EGD on 11/21/2018 unfortunately sustained a possible perforated viscus. Chest x-ray done suggestive of subcutaneous emphysema with pneumomediastinum. Status post repair of the perforation and patient was transferred to ICU. Presently he was intubated off the sedation for the last 48 hours. Today he responding to verbal commands by wiggling his toes and nodding his head. He is only on pressure support. 11/26/2018-no acute events in the last 24 hours. T-max is 100.6. Patient is presently on Zosyn. Chest x-ray done this morning shows improvement in the left lower lobe aeration. Patient is off the sedation for the last several days presently on 30% oxygen PEEP of 5 with pressure support of 22 above PEEP. Oxygen saturation is 96 to 98%. 11/27/2018-patient was successfully extubated this morning. T-max is 100.8 today. Presently on IV Zosyn started on IV levo floxacillin. Culture from the abdomen at the time of surgery came back positive for E. coli and Peptostreptococcus. Patient is alert awake responding reasonably. Still slightly confused. Surgical team came this morning they want to continue TPN at this point. Reason For Visit: MELENA K92.1 Physical Exam Vital Signs: Temp Pulse Resp BP Pulse Ox 100.8 F H 69 16 129/59 H 99 11/27/18 06:01 11/27/18 08:00 11/27/18 06:01 11/27/18 06:01 11/27/18 08:04 Intake & Output 11/26/18 11/27/18 11/28/18 06:59 06:59 06:59 Intake Total 3400 2400 956 Output Total 2540 2375 175 Balance 860 25 781 Weight 108.3 kg 111.6 kg General appearance: PRESENT: no acute distress, obese Head exam: PRESENT: atraumatic Eye exam: PRESENT: PERRLA Teeth exam: PRESENT: poor dentation Neck exam: ABSENT: carotid bruit, JVD, lymphadenopathy, thyromegaly Respiratory exam: PRESENT: decreased breath sounds Cardiovascular exam: PRESENT: RRR. ABSENT: diastolic murmur, rubs, systolic murmur GI/Abdominal exam: PRESENT: normal bowel sounds, soft. ABSENT: distended, guarding, mass, organolmegaly, rebound, tenderness Rectal exam: PRESENT: deferred Gentrourinary exam: PRESENT: indwelling catheter Neurological exam: PRESENT: alert, awake, oriented to person, oriented to place, oriented to time, oriented to situation, CN II-XII grossly intact. ABSENT: motor sensory deficit Psychiatric exam: PRESENT: appropriate affect, normal mood. ABSENT: homicidal ideation, suicidal ideation Results Laboratory Results: 11/27/18 07:37 11/27/18 04:15 11/26/18 11/27/18 11/27/18 12:58 04:15 07:37 WBC 11.8 H RBC 2.86 L Hgb 8.4 L Hct 24.9 L MCV 87 MCH 29.2 MCHC 33.6 RDW 15.1 H Plt Count 329 Seg Neutrophils % Not Reportable Lymphocytes % Not Reportable Monocytes % Not Reportable Eosinophils % Not Reportable Basophils % Not Reportable Absolute Neutrophils Not Reportable Absolute Lymphocytes Not Reportable Absolute Monocytes Not Reportable Absolute Eosinophils Not Reportable Absolute Basophils Not Reportable Sodium 148.9 H Potassium 3.4 L 3.4 L Chloride 123 H Carbon Dioxide 22 Anion Gap 4 L BUN 20 Creatinine 0.84 Est GFR ( Amer) > 60 Est GFR (Non-Af Amer) > 60 Glucose 151 H Calcium 7.9 L Phosphorus 2.2 L Total Bilirubin 0.6 AST 47 ALT 46 Alkaline Phosphatase 40 Total Protein 4.0 L Albumin 1.9 L Prealbumin 4.8 L 11/20/18 11/24/18 21:45 09:53 Creatine Kinase 224 H NT-Pro-B Natriuret Pep 52 Impressions: Abdomen X-Ray 11/20/18 00:00 IMPRESSION: ABNORMAL COLLECTION OF GAS IN THE ABDOMEN WHICH IS PROBABLY RETROPERITONEAL. THIS EXTENDS INTO THE CHEST WITH RIGHT-SIDED PNEUMOMEDIASTINUM WELL EXTENSION INTO THE LOWER RIGHT SIDE OF THE NECK WITH SUBCUTANEOUS EMPHYSEMA IN THE RIGHT SUPRACLAVICULAR TISSUES. Esophagus X-Ray 11/20/18 00:00 IMPRESSION: CONTRAST EXTRAVASATION FROM THE SECOND PORTION OF THE DUODENUM CONSISTENT WITH PERFORATION. NO EVIDENCE OF ESOPHAGEAL OR GASTRIC PERFORATION. OTHER INCIDENTAL FINDING IS A PROBABLE DUODENAL DIVERTICULUM. Upper GI and Small Bowel X-Ray 11/20/18 00:00 IMPRESSION: CONTRAST EXTRAVASATION FROM THE SECOND PORTION OF THE DUODENUM CONSISTENT WITH PERFORATION. NO EVIDENCE OF ESOPHAGEAL OR GASTRIC PERFORATION. OTHER INCIDENTAL FINDING IS A PROBABLE DUODENAL DIVERTICULUM. Chest CT 11/23/18 09:34 IMPRESSION: Pneumomediastinum. No significant pneumothorax. Bilateral lower lobe airspace disease, right greater than left consistent with pneumonia. Head CT 11/25/18 08:37 IMPRESSION: No acute intracranial changes. Findings discussed with Dr Harvey EVIDENCE OF ACUTE STROKE: NO. Chest X-Ray 11/26/18 00:00 IMPRESSION: Improved aeration left lower lobe. No pneumothorax. Assessment and Plan - Diagnosis (1) Acute respiratory failure with hypoxia Is this a current diagnosis for this admission?: Yes Plan: Saturating well on minimal vent settings. 11/23: He is currently intubated and is saturating well on minimal vent settings. Patient has been off Versed since 3 AM but is not easily arousable and is not following commands. CT of the head was done and came back negative. We will try to keep him off sedation today and see if there is any improvement in his mentation. EEG ordered. 11/24: Patient has been off sedation for 36 hrs now but still does not have spontaneous eye opening. He does have spontaneous movement and withdraws to pain equally with no noticeable gross weakness. Await EEG report. Will consult [facility] neurology for further recommendations. 11/25/2018-patient is off the sedation for the last 48 hours now is responding to verbal commands by nodding his head and reaching his toes opening his eyes. No focal neurological deficits. Spontaneous movement and withdrawal to pain is present. EKG is nonspecific. CT head done this morning acute you for stroke. Patient is presently on pressure support only. Pulse ox is around 96%. 11/26/2018-patient is off the sedation for the last [address] head was negative for acute changes. Presently on 30% oxygen with PEEP of 5 and pressure support of more than 22. Oxygen saturation is around 96%. Weaning process was initiated and if possible we may extubate him today. EEG done this morning on room air pH is 7.49/PCO2 27.4/PO2 69 oxygen saturation is 95%. presently on IV Zosyn. 11/27/2018-patient was successfully extubated this morning. Still have a running low-grade fever 100.8. Presently on IV Zosyn and IV levo floxacillin added to the medication. Wound cultures came back positive for E. coli and Peptostreptococcus. Chest x-ray is pending today. Yesterday's chest x-ray suggestive of improving aeration in the left left lower lobe. (2) Duodenal perforation Is this a current diagnosis for this admission?: Yes Plan: Related to recent EGD. Status post surgical repair. 11/25/2018-duodenal perforation after EGD. Status post surgical repair. Surgical team is following the patient. 11/26/2018-management as per the surgical recommendations. 11/27/2018-management as per surgical team. Patient has NG tube to low bile colored drainage seen in the NG tube. (3) Essential hypertension Is this a current diagnosis for this admission?: Yes Plan: Blood pressures well controlled. 11/25/2018-patient has history of essential hypertension blood pressure today's 133/73. Plan is to continue the present management. 11/26/2018-patient has history of hypertension latest blood pressure is 122/70. Relative control. Presently on normal saline at 100 cc/h plan is to discontinue IV fluids from today. 11/27/2018-patient blood pressure today is 129/60. Relatively controlled. Presently on normal saline 100 cc/h plan is to cut it down to 50 from today. (4) Acute kidney injury Is this a current diagnosis for this admission?: Yes Plan: Resolved. 11/25/2018-patient admitted with a CHRISTIANO which was resolved. Admission creatinine is 1.37 and it peaked to 2.1 came down to 0.95 now. CHRISTIANO due to prerenal causes resolved. Patient's baseline creatinine is around 0.88. 11/26/2018-patient was admitted with CHRISTIANO today's creatinine is 0.84 acute kidney injury is resolved. 11/27/2018-this elderly male with a CHRISTIANO during the hospital stay latest creatinin e 0.84. Acute kidney injury is resolved. (5) Acute blood loss anemia Is this a current diagnosis for this admission?: Yes Plan: Possibly perioperative related. S/P 2 units of packed RBC. 11/25/2018-patient has acute blood loss anemia most likely related to perioperative state status post 2 units of blood transfusion during the hospital stay latest hemoglobin is 8.5 stable. 11/26/2018-patient's hemoglobin is 8.8 today stable. During this hospital stay he received 2 units of PRBC. 11/27/2018-patient hemoglobin is 8.4 stable. During the hospital stay he received 2 units of PRBC. - Time Time Spent with patient: 35 or more minutes Medications reviewed and adjusted accordingly: Yes Anticipated discharge: SNF
[2018-11-27] MEDS: LEVOFLOXACIN 500 MG/D5W RTU 500 MG/100 ML RTUPB IV SCH (10:09)
[2018-11-27 10:34] LABS: ARTERIAL BLOOD BASE EXCESS -3.1 mmol/L; ARTERIAL BLOOD FIO2 40%; ARTERIAL BLOOD H2CO3 0.85 mmol/L (1.05-1.35); ARTERIAL BLOOD O2 SATURATION 98.4 % (94-98); ARTERIAL BLOOD PCO2 28.4 mmHg (35-45); ARTERIAL BLOOD PH 7.47 (7.35-7.45); ARTERIAL BLOOD PO2 111.6 mmHg (80-100); ARTERIAL BLOOD TOTAL CO2 20.8 mmol/L (23-27)
[2018-11-27] MEDS: AMINO ACIDS 5 %/DEXTROSE 20 % 1,000 ML IV PRN (14:40)
--- NOTE | 2018-11-27 16:10 | RADIOLOGY REPORT (SQ) ---
EXAM DESCRIPTION: KNEE RIGHT 2 VIEWS COMPLETED DATE/TIME: 11/27/2018 10:17 am REASON FOR STUDY: knee pain K92.1 MELENA COMPARISON: AP chest 11/26/2018 NUMBER OF VIEWS: Portable two-view right knee TECHNIQUE: AP and lateral radiographic images acquired of the right knee. LIMITATIONS: None. FINDINGS: MINERALIZATION: Normal. BONES: No acute fracture. Right knee total knee replacement with patellar resurfacing. No lucency a round the hardware worrisome for loosening. JOINT: Moderate size suprapatellar knee joint effusion, nonspecific. SOFT TISSUES: Mild diffuse soft tissue swelling. Medial right calf vascular surgery clips. OTHER: Findings were discussed with Dr. Jhaveri IMPRESSION: Suprapatellar knee joint effusion. Mild diffuse soft tissue swelling. Correlate clinic ally for infection with cellulitis No acute fracture or malalignment. No lucency around the right knee prosthesis worrisome for looseni ng. TECHNICAL DOCUMENTATION: JOB ID: [id number] [employer]- All Rights Reserved Reading location - IP/workstation name: [email or web address]
[2018-11-27 16:17] LABS: FLUID SOURCE KNEE; FLUID TYPE SYNOVIAL
[2018-11-27 16:18] LABS: FLUID APPEARANCE SLIGHTLY HAZY; FLUID COLOR YELLOW; FLUID VISCOSITY SLIGHTLY VISCOUS
[2018-11-27] MEDS: ACETAMINOPHEN SOLN 325 MG/10.15 ML UDCUP ONE ×2 (17:21→18:20)
--- NOTE | 2018-11-27 17:34 | CONSULTATION REPORT E ---
Consultation Report NAME: INOCENTE MIJARES : 1945 AGE: 73Y DATE: 11/27/2018 610 A CONSULTING PHYSICIAN: VILMA RIVERA M.D. REFERRING PHYSICIAN: APRIL SALES M.D. Requesting Physician REASON FOR CONSULTATION: Evaluate for infected right total knee arthroplasty. HISTORY OF PRESENT ILLNESS: The patient is a pleasant 73-year-old man accompanied by his family in the intensive care unit. The patient had undergone an EGD, which was complicated by a perforated viscus requiring a return to the operating room for an emergent repair. He has been in the ICU since his surgery and was recently extubated. This morning on rounds, it was noted that his right knee appeared to be swollen and tender to palpation. PAST SURGICAL HISTORY: The patient had undergone a right total knee arthroplasty on 04/16/[address] Van at [facility]. Notes from the office have been reviewed. 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 PHYSICAL EXAMINATION: GENERAL: He is a pleasant man in no acute distress. He is answering questions appropriately. Family is at the bedside. VITAL SIGNS: Temperature 100.8, blood pressure 134/58, pulse 69, oxygen 98% on 40% O2. EXTREMITIES: To examination, the right knee is nonerythematous. It is not particularly swollen. The tissues are stiff, compatible with the prior diagnosis of arthrofibrosis. There is some discomfort with movement of the knee, but not a level consistent with an infection of a joint with a tense joint capsule. He is able to dorsiflex and plantar flex the foot. He has 2+ posterior tibial and dorsalis pedis pulses. MEDICATION HISTORY: Comprehensively reviewed. He is currently takin. Levofloxacin. 2. Piperacillin/tazobactam. LABORATORY RESULTS: Today, his white count is 11.8, hemoglobin 8.4, platelets 329 with 90% neutrophils. Microbiology is reviewed. The wound culture had grown out E. coli and multiple streptococcal species. Blood cultures obtained on 11/22/2018 have been negative to date. RADIOGRAPHS: Radiographs of the knee independently reviewed. Two views of the knee demonstrate a total knee arthroplasty with good alignment. There is no evidence of loosening. IMPRESSION: THE PATIENT IS STATUS POST KNEE ARTHROPLASTY. CONCERN IS FOR FOR POSSIBLE KNEE INFECTION, GIVEN THE CURRENT HISTORY OF SEPSIS DUE TO DUODENAL PERFORATION WELL PERSISTENT FEVERS. RECOMMENDATIONS: Clinically, this total knee arthroplasty does not appear infected. There is no significant joint effusion or erythema or warmth of the knee. I have discussed this with the family. I have also recommended a knee aspiration just to be cautious. The family agreed to this procedure. The knee was then sterilely prepped with Betadine preparatory solution and alcohol. An 18-gauge needle was placed through the knee and 5 mL of joint fluid was obtained. The joint fluid was completely clear with no evidence of purulence. The joint fluid was sent to the laboratory for gram stain, culture and cell count. I will follow the labs, although the index for suspicion for an infected total knee arthroplasty at this point is extremely low. DICTATING PHYSICIAN: VILMA RIVERA M.D. [id number] PHY#: [id number] ID: [id number] JOB#: [id number] ACCT: [id number] cc:VILMA RIVERA M.D. > MTDD
[2018-11-27] MEDS ORDERED: ACETAMINOPHEN SOLN 325 MG/10.15 ML UDCUP NG ONE (18:00)
[2018-11-27] MEDS: ACETAMINOPHEN 650 MG SUPP.RECT PR PRN (18:18)
[2018-11-27] MEDS: SIMVASTATIN 40 MG TABLET PO SCH (21:36)
[2018-11-28] MEDS: INSULIN REG, HUMAN 100 UNIT/ML 3 ML VIAL (PYX) SUBCUT SCH ×5 (00:14→23:00)
[2018-11-28] MEDS: ACETAMINOPHEN 650 MG SUPP.RECT PR PRN ×2 (00:23→22:40)
[2018-11-28] MEDS: METOPROLOL TARTRATE PF/INJ 5 MG/5 ML SDV IV SCH ×6 (02:09→21:20)
--- NOTE | 2018-11-28 02:40 | RADIOLOGY REPORT (SQ) ---
EXAM DESCRIPTION: XR CHEST 1 VIEW COMPLETED DATE/TME: 11/28/2018 00:00 CLINICAL HISTORY: 73 years, Male, NG tube placement COMPARISON: 11/26/2018 chest NUMBER OF VIEWS: 1 TECHNIQUE: Portable chest LIMITATIONS: None. FINDINGS: Cardiomegaly with sternotomy wires valve replacement in mediastinal clips. Central venous catheter with the tip in the SVC. Endotracheal tube with the tip at the level of the thoracic inlet. Enteric tube, the distal tip is near the GE junction. Advancement recommended. Subsegmental atelectasis left lung base. IMPRESSION: Tip of the enteric tube near the GE junction. Advancement recommended. copyright 2010 [employer]- All Rights Reserved
--- NOTE | 2018-11-28 04:04 | RADIOLOGY REPORT (SQ) ---
EXAM DESCRIPTION: XR CHEST 1 VIEW COMPLETED DATE/TME: 11/28/2018 00:00 CLINICAL HISTORY: 73 years, Male, NG tube placement COMPARISON: Prior chest x-ray from today's date NUMBER OF VIEWS: 1 TECHNIQUE: Portable chest LIMITATIONS: None. FINDINGS: The enteric tube tip is now in the left upper quadrant, likely body of the stomach. Other findings are stable IMPRESSION: Tip of the enteric tube now in the body of the stomach copyright 2010 [employer]- All Rights Reserved
[2018-11-28] MEDS: LEVALBUTEROL HCL NEB 1.25 MG/3 ML AMPUL NEB PRN ×2 (04:24→16:11)
[2018-11-28] MEDS: NORMAL SALINE 1000 ML 1,000 ML IV PRN (04:40)
[2018-11-28] MEDS: PIPERACILLIN SODIUM/TAZOBACTAM 4.5 GM in NORMAL SALINE 100 ML IV SCH ×4 (06:07→23:00)
[2018-11-28 06:45] LABS: HEMATOCRIT 24.9 % (37.9-51.0); HEMOGLOBIN 8.3 g/dL (13.5-17.0); MEAN CORPUSCULAR HEMOGLOBIN 29.3 pg (27.0-33.4); MEAN CORPUSCULAR HGB CONC 33.5 g/dL (32.0-36.0); MEAN CORPUSCULAR VOLUME 88 fl (80-97); PLATELET COUNT 332 10^3/uL (150-450); RED BLOOD COUNT 2.85 10^6/uL (4.35-5.55); RED CELL DISTRIBUTION WIDTH 15.3 % (11.5-14.0); WHITE BLOOD COUNT 13.9 10^3/uL (4.0-10.5)
[2018-11-28 07:00] LABS: ARTERIAL BLOOD BASE EXCESS -0.8 mmol/L; ARTERIAL BLOOD H2CO3 0.95 mmol/L (1.05-1.35); ARTERIAL BLOOD HCO3 22.3 mmol/L (20-24); ARTERIAL BLOOD O2 SATURATION 98.4 % (94-98); ARTERIAL BLOOD PCO2 31.4 mmHg (35-45); ARTERIAL BLOOD PH 7.47 (7.35-7.45); ARTERIAL BLOOD PO2 111.1 mmHg (80-100); ARTERIAL BLOOD TOTAL CO2 23.3 mmol/L (23-27)
[2018-11-28 07:05] LABS: ARTERIAL BLOOD FIO2 4L
[2018-11-28 07:08] LABS: ALANINE AMINOTRANSFERASE 70 U/L (21-72); ALBUMIN 2.1 g/dL (3.5-5.0); ALKALINE PHOSPHATASE 47 U/L (38-126); ANION GAP 6 (5-19); ASPARTATE AMINO TRANSFERASE 68 U/L (17-59); BILIRUBIN,DIRECT 0.6 mg/dL (0.0-0.4); BILIRUBIN,TOTAL 0.9 mg/dL (0.2-1.3); BLOOD UREA NITROGEN 18 mg/dL (7-20); CALCIUM 8.1 mg/dL (8.4-10.2); CARBON DIOXIDE 23 mmol/L (22-30); CHLORIDE 120 mmol/L (98-107); GLUCOSE 134 mg/dL (75-110); PHOSPHORUS 3.1 mg/dL (2.5-4.5); POTASSIUM 3.8 mmol/L (3.6-5.0); SODIUM 148.6 mmol/L (137-145); TOTAL PROTEIN 4.3 g/dL (6.3-8.2)
[2018-11-28 07:15] LABS: PREALBUMIN 5.4 mg/dL (17.6-36.0)
--- NOTE | 2018-11-28 07:49 | PDOC PROGRESS REPORT ---
Subjective Progress Note for:: 11/28/18 Subjective:: awake sl confused states he feels better min abd pain Reason For Visit: MELENA K92.1 Physical Exam Vital Signs: Temp Pulse Resp BP Pulse Ox 100.8 F H 83 25 H 129/52 H 99 11/28/18 06:01 11/28/18 04:27 11/28/18 06:01 11/28/18 06:01 11/28/18 06:01 Intake & Output 11/27/18 11/28/18 11/29/18 06:59 06:59 06:59 Intake Total 2400 2909 Output Total 3523 1335 Balance 25 524 Weight 111.6 kg 112.2 kg General appearance: PRESENT: no acute distress Head exam: PRESENT: normocephalic Eye exam: PRESENT: EOMI, periorbital swelling Ear exam: PRESENT: normal external ear exam Mouth exam: PRESENT: moist Neck exam: PRESENT: full ROM Respiratory exam: PRESENT: clear to auscultation yoana Cardiovascular exam: PRESENT: RRR Pulses: PRESENT: normal radial pulses, normal femoral pulses GI/Abdominal exam: PRESENT: hypoactive bowel sounds, soft, other - isabella's serous Gentrourinary exam: PRESENT: indwelling catheter Extremities exam: PRESENT: joint swelling, +2 edema Musculoskeletal exam: PRESENT: full ROM Neurological exam: PRESENT: alert, awake Psychiatric exam: PRESENT: appropriate affect Skin exam: PRESENT: dry Results Laboratory Results: 11/28/18 05:37 11/27/18 11/27/18 11/27/18 07:37 10:25 14:50 WBC 11.8 H RBC 2.86 L Hgb 8.4 L Hct 24.9 L MCV 87 MCH 29.2 MCHC 33.6 RDW 15.1 H Plt Count 329 Seg Neutrophils % Not Reportable Lymphocytes % Not Reportable Monocytes % Not Reportable Eosinophils % Not Reportable Basophils % Not Reportable Absolute Neutrophils Not Reportable Absolute Lymphocytes Not Reportable Absolute Monocytes Not Reportable Absolute Eosinophils Not Reportable Absolute Basophils Not Reportable Carbonic Acid 0.85 L HCO3/H2CO3 Ratio 23:1 ABG pH 7.47 H ABG pCO2 28.4 L ABG pO2 111.6 H ABG HCO3 20.0 ABG O2 Saturation 98.4 H ABG Base Excess -3.1 FiO2 40% Sodium Potassium 3.6 Chloride Carbon Dioxide Anion Gap BUN Creatinine Est GFR ( Amer) Est GFR (Non-Af Amer) Glucose Calcium Phosphorus Magnesium Total Bilirubin AST ALT Alkaline Phosphatase Total Protein Albumin Prealbumin Fluid Type Fluid Source Fluid Color Fluid Appearance Fluid Viscosity Fluid WBC Fluid RBC 11/27/18 11/28/18 11/28/18 15:51 05:37 05:37 WBC RBC Hgb Hct MCV MCH MCHC RDW Plt Count Seg Neutrophils % Not Reportable Lymphocytes % Not Reportable Monocytes % Not Reportable Eosinophils % Not Reportable Basophils % Not Reportable Absolute Neutrophils Not Reportable Absolute Lymphocytes Not Reportable Absolute Monocytes Not Reportable Absolute Eosinophils Not Reportable Absolute Basophils Not Reportable Carbonic Acid HCO3/H2CO3 Ratio ABG pH ABG pCO2 ABG pO2 ABG HCO3 ABG O2 Saturation ABG Base Excess FiO2 Sodium 148.6 H Potassium 3.8 Chloride 120 H Carbon Dioxide 23 Anion Gap 6 BUN 18 Creatinine 0.86 Est GFR ( Amer) > 60 Est GFR (Non-Af Amer) > 60 Glucose 134 H Calcium 8.1 L Phosphorus 3.1 Magnesium 2.2 Total Bilirubin 0.9 AST 68 H ALT 70 Alkaline Phosphatase 47 Total Protein 4.3 L Albumin 2.1 L Prealbumin 5.4 L Fluid Type SYNOVIAL Fluid Source KNEE Fluid Color YELLOW Fluid Appearance SLIGHTLY HAZY Fluid Viscosity SLIGHTLY VISCOUS Fluid WBC 2 Fluid RBC 1365 11/28/18 06:35 WBC RBC Hgb Hct MCV MCH MCHC RDW Plt Count Seg Neutrophils % Lymphocytes % Monocytes % Eosinophils % Basophils % Absolute Neutrophils Absolute Lymphocytes Absolute Monocytes Absolute Eosinophils Absolute Basophils Carbonic Acid 0.95 L HCO3/H2CO3 Ratio 23:1 ABG pH 7.47 H ABG pCO2 31.4 L ABG pO2 111.1 H ABG HCO3 22.3 ABG O2 Saturation 98.4 H ABG Base Excess -0.8 FiO2 4L Sodium Potassium Chloride Carbon Dioxide Anion Gap BUN Creatinine Est GFR ( Amer) Est GFR (Non-Af Amer) Glucose Calcium Phosphorus Magnesium Total Bilirubin AST ALT Alkaline Phosphatase Total Protein Albumin Prealbumin Fluid Type Fluid Source Fluid Color Fluid Appearance Fluid Viscosity Fluid WBC Fluid RBC 11/22/18 17:35 Blood Blood Culture - Final NO GROWTH IN 5 DAYS 11/22/18 17:45 Blood Blood Culture - Final NO GROWTH IN 5 DAYS 11/20/18 11/24/18 21:45 09:53 Creatine Kinase 224 H NT-Pro-B Natriuret Pep 52 Impressions: Abdomen X-Ray 11/20/18 00:00 IMPRESSION: ABNORMAL COLLECTION OF GAS IN THE ABDOMEN WHICH IS PROBABLY RETROPERITONEAL. THIS EXTENDS INTO THE CHEST WITH RIGHT-SIDED PNEUMOMEDIASTINUM WELL EXTENSION INTO THE LOWER RIGHT SIDE OF THE NECK WITH SUBCUTANEOUS EMPHYSEMA IN THE RIGHT SUPRACLAVICULAR TISSUES. Esophagus X-Ray 11/20/18 00:00 IMPRESSION: CONTRAST EXTRAVASATION FROM THE SECOND PORTION OF THE DUODENUM CONSISTENT WITH PERFORATION. NO EVIDENCE OF ESOPHAGEAL OR GASTRIC PERFORATION. OTHER INCIDENTAL FINDING IS A PROBABLE DUODENAL DIVERTICULUM. Upper GI and Small Bowel X-Ray 11/20/18 00:00 IMPRESSION: CONTRAST EXTRAVASATION FROM THE SECOND PORTION OF THE DUODENUM CONSISTENT WITH PERFORATION. NO EVIDENCE OF ESOPHAGEAL OR GASTRIC PERFORATION. OTHER INCIDENTAL FINDING IS A PROBABLE DUODENAL DIVERTICULUM. Chest CT 11/23/18 09:34 IMPRESSION: Pneumomediastinum. No significant pneumothorax. Bilateral lower lobe airspace disease, right greater than left consistent with pneumonia. Head CT 11/25/18 08:37 IMPRESSION: No acute intracranial changes. Findings discussed with Dr Harvey EVIDENCE OF ACUTE STROKE: NO. Knee X-Ray 11/27/18 00:00 IMPRESSION: Suprapatellar knee joint effusion. Mild diffuse soft tissue swelling. Correlate clinically for infection with cellulitis No acute fracture or malalignment. No lucency around the right knee prosthesis worrisome for loosening. Chest X-Ray 11/28/18 00:00 IMPRESSION: Tip of the enteric tube now in the body of the stomach copyright 2011 [email or web address]- All Rights Reserved Assessment & Plan - Diagnosis (1) Bowel perforation Is this a current diagnosis for this admission?: Yes - Plan Summary Plan Summary: low grade temp to 101 responded to tylenol rt knee was aspirated yesterdy,cults pending now extubated, sl confused but generally alert abd soft, isabella's serous ng functioning well with bilous op about 550 cc yesterday plan- start physical therapy, up to chair today lasix 20mg bid will start ng clamping trial today ice chips ok cont iv abx for now awaiting knee asp cultures
[2018-11-28 07:52] LABS: ABSOLUTE LYMPHOCYTES# (MANUAL) 0.3 10^3/uL (0.5-4.7); ABSOLUTE MONOCYTES # (MANUAL) 0.7 10^3/uL (0.1-1.4); BASOPHILS % (MANUAL) 0 % (0-2); EOSINOPHILS % (MANUAL) 1 % (0-6); LYMPHOCYTES % (MANUAL) 2 % (13-45); MONOCYTES % (MANUAL) 5 % (3-13); SEGMENTED NEUTROPHILS % (MAN) 92 % (42-78); TOTAL CELLS COUNTED 100
[2018-11-28 07:53] LABS: OVALOCYTES SLIGHT; PLATELET COMMENT ADEQUATE; POIKILOCYTOSIS SLIGHT
[2018-11-28] MEDS ORDERED: FUROSEMIDE INJ/PF 20 MG/2 ML SDV IV SCH (08:00)
--- NOTE | 2018-11-28 08:24 | RADIOLOGY REPORT (SQ) ---
EXAM DESCRIPTION: CHEST SINGLE VIEW COMPLETED DATE/TIME: 11/28/2018 8:12 am REASON FOR STUDY: r/o pneumonia K92.1 MELENA COMPARISON: Earlier the same day. NUMBER OF VIEWS: One view. TECHNIQUE: Single frontal radiographic image of the chest acquired. LIMITATIONS: None. FINDINGS: LUNGS AND PLEURA: Stable appearance. MEDIASTINUM AND HILAR STRUCTURES: Stable heart size and mediastinal structures. HEART AND VASCULAR STRUCTURES: Stable appearance. BONES: No acute findings. HARDWARE: Sternotomy wires in place. Central line and NG tube remain in place. OTHER: No other significant finding. IMPRESSION: STABLE APPEARANCE OF THE CHEST. TECHNICAL DOCUMENTATION: JOB ID: [id number] [employer]- All Rights Reserved Reading location - IP/workstation name: [email or web address]
--- NOTE | 2018-11-28 09:18 | PDOC PROGRESS REPORT ---
Subjective Progress Note for:: 11/28/18 Subjective:: 73 yr old male with a PMH of Chandler fundoplication, duodenal AVM, Terrell's esophagus who underwent EGD yesterday. Patient unfortunately sustained a possible perforated viscus. A chest x-ray done which showed significant subcutaneous emphysema with pneumomediastinum. Patient was promptly brought to the ER yesterday afternoon and was noted to have a perforated duodenum. He underwent repair of the perforation and was transferred to the ICU. Hospitalist service was consulted for medical co-management. 11/22: Patient is currently intubated and sedated on Versed and propofol. He is saturating well on minimal vent settings. Currently getting IV fluids. Seros anguineous output on the surgical drains. 11/23: He is currently intubated and is saturating well on minimal vent settings. He is running fever with T-max at 100.6. Patient has been off Versed since 3 AM but is not easily arousable and is not following commands. CT of the head was done and came back negative. We will try to keep him off sedation today and see if there is any improvement in his mentation. 11/24: No acute event overnight. Patient has been off sedation for 36 hrs now but still does not have spontaneous eye opening. He does have spontaneous movement and withdraws to pain equally with no noticeable gross weakness. Await EEG report. Will consult [facility] neurology for further recommendations. Discussed case, labs and diagnostic testing done so far in length with [facility] neurologist, Dr. Gill recommended pursuing an MRI to rule out small CVAs although this will not significantly change current management. No other further neurodiagnostic testing recommended at this time. Also discussed with [facility] neurologist in length, Dr. Bhakta who has the same recommendation and insight. He did recommend repeating a plain head CT if MRI is not feasible at this time. 11/25/[id number]-qcjd-old male with past medical history of Chandler fundoplication, duodenal AV malformations, Terrell's esophagus underwent EGD on 11/21/2018 unfortunately sustained a possible perforated viscus. Chest x-ray done suggestive of subcutaneous emphysema with pneumomediastinum. Status post repair of the perforation and patient was transferred to ICU. Presently he was intubated off the sedation for the last 48 hours. Today he responding to verbal commands by wiggling his toes and nodding his head. He is only on pressure support. 11/26/2018-no acute events in the last 24 hours. T-max is 100.6. Patient is presently on Zosyn. Chest x-ray done this morning shows improvement in the left lower lobe aeration. Patient is off the sedation for the last several days presently on 30% oxygen PEEP of 5 with pressure support of 22 above PEEP. Oxygen saturation is 96 to 98%. 11/27/2018-patient was successfully extubated this morning. T-max is 100.8 today. Presently on IV Zosyn started on IV levo floxacillin. Culture from the abdomen at the time of surgery came back positive for E. coli and Peptostreptococcus. Patient is alert awake responding reasonably. Still slightly confused. Surgical team came this morning they want to continue TPN at this point. 11/28/[id number]-lplm-old male admitted to ICU after EGD procedure leading to perforation of the viscus status post surgery closure of the perforation and he was intubated during the hospital stay successfully extubated 2 days ago. He mentation is slowly recovering. He is more alert more awake today compared to yesterday showing significant improvement on daily basis. Dr. Harvey saw the patient this morning he wants to clamp the NG tube and then make a decision either today or tomorrow for a NG tube feeds or oral feeds. Patient G-tube is still not working. Is having a low-grade fever of 100.8 and the cultures from t he abdomen shows Peptostreptococcus, E. coli. Presently on IV Zosyn and levo floxacillin. Plan to do the CT chest CT abdomen pelvis without contrast today to look for the reasons for persistent fever. in The opinion patient is stable enough to go to IMCU. Reason For Visit: MELENA K92.1 Physical Exam Vital Signs: Temp Pulse Resp BP Pulse Ox 100.9 F H 75 22 H 129/53 H 100 11/28/18 08:00 11/28/18 08:00 11/28/18 08:00 11/28/18 08:00 11/28/18 08:00 Intake & Output 11/27/18 11/28/18 11/29/18 06:59 06:59 06:59 Intake Total 2400 2909 Output Total 3764 0415 175 Balance 25 524 -175 Weight 111.6 kg 112.2 kg General appearance: PRESENT: no acute distress, obese Head exam: PRESENT: atraumatic Eye exam: PRESENT: PERRLA Mouth exam: PRESENT: moist, tongue midline Teeth exam: PRESENT: poor dentation Throat exam: PRESENT: other - NG tube in place draining dark brown material. Much better compared to the bilious drainage seen 2 days ago. Respiratory exam: PRESENT: decreased breath sounds Cardiovascular exam: PRESENT: tachycardia GI/Abdominal exam: PRESENT: other - Bowel sounds are present patient has a G- tube which was not working. Rectal exam: PRESENT: deferred Extremities exam: PRESENT: full ROM. ABSENT: calf tenderness, clubbing, pedal edema Musculoskeletal exam: PRESENT: other - Status post tapping of the right knee yesterday on touch there is no warmth there is no tenderness. Neurological exam: PRESENT: alert, awake, oriented to person, oriented to place, oriented to time, oriented to situation, CN II-XII grossly intact. ABSENT: motor sensory deficit Psychiatric exam: PRESENT: appropriate affect, normal mood. ABSENT: homicidal ideation, suicidal ideation Results Laboratory Results: 11/28/18 05:37 11/28/18 05:37 11/27/18 11/27/18 11/27/18 10:25 14:50 15:51 WBC RBC Hgb Hct MCV MCH MCHC RDW Plt Count Seg Neutrophils % Lymphocytes % Monocytes % Eosinophils % Basophils % Absolute Neutrophils Absolute Lymphocytes Absolute Monocytes Absolute Eosinophils Absolute Basophils Carbonic Acid 0.85 L HCO3/H2CO3 Ratio 23:1 ABG pH 7.47 H ABG pCO2 28.4 L ABG pO2 111.6 H ABG HCO3 20.0 ABG O2 Saturation 98.4 H ABG Base Excess -3.1 FiO2 40% Sodium Potassium 3.6 Chloride Carbon Dioxide Anion Gap BUN Creatinine Est GFR ( Amer) Est GFR (Non-Af Amer) Glucose Calcium Phosphorus Magnesium Total Bilirubin AST ALT Alkaline Phosphatase Total Protein Albumin Prealbumin Fluid Type SYNOVIAL Fluid Source KNEE Fluid Color YELLOW Fluid Appearance SLIGHTLY HAZY Fluid Viscosity SLIGHTLY VISCOUS Fluid WBC 2 Fluid RBC 1365 11/28/18 11/28/18 11/28/18 05:37 05:37 06:35 WBC 13.9 H RBC 2.85 L Hgb 8.3 L Hct 24.9 L MCV 88 MCH 29.3 MCHC 33.5 RDW 15.3 H Plt Count 332 Seg Neutrophils % Not Reportable Lymphocytes % Not Reportable Monocytes % Not Reportable Eosinophils % Not Reportable Basophils % Not Reportable Absolute Neutrophils Not Reportable Absolute Lymphocytes Not Reportable Absolute Monocytes Not Reportable Absolute Eosinophils Not Reportable Absolute Basophils Not Reportable Carbonic Acid 0.95 L HCO3/H2CO3 Ratio 23:1 ABG pH 7.47 H ABG pCO2 31.4 L ABG pO2 111.1 H ABG HCO3 22.3 ABG O2 Saturation 98.4 H ABG Base Excess -0.8 FiO2 4L Sodium 148.6 H Potassium 3.8 Chloride 120 H Carbon Dioxide 23 Anion Gap 6 BUN 18 Creatinine 0.86 Est GFR ( Amer) > 60 Est GFR (Non-Af Amer) > 60 Glucose 134 H Calcium 8.1 L Phosphorus 3.1 Magnesium 2.2 Total Bilirubin 0.9 AST 68 H ALT 70 Alkaline Phosphatase 47 Total Protein 4.3 L Albumin 2.1 L Prealbumin 5.4 L Fluid Type Fluid Source Fluid Color Fluid Appearance Fluid Viscosity Fluid WBC Fluid RBC 11/22/18 17:35 Blood Blood Culture - Final NO GROWTH IN 5 DAYS 11/22/18 17:45 Blood Blood Culture - Final NO GROWTH IN 5 DAYS 11/20/18 11/24/18 21:45 09:53 Creatine Kinase 224 H NT-Pro-B Natriuret Pep 52 Impressions: Abdomen X-Ray 11/20/18 00:00 IMPRESSION: ABNORMAL COLLECTION OF GAS IN THE ABDOMEN WHICH IS PROBABLY RETROPERITONEAL. THIS EXTENDS INTO THE CHEST WITH RIGHT-SIDED PNEUMOMEDIASTINUM WELL EXTENSION INTO THE LOWER RIGHT SIDE OF THE NECK WITH SUBCUTANEOUS EMPHYSEMA IN THE RIGHT SUPRACLAVICULAR TISSUES. Esophagus X-Ray 11/20/18 00:00 IMPRESSION: CONTRAST EXTRAVASATION FROM THE SECOND PORTION OF THE DUODENUM CONSISTENT WITH PERFORATION. NO EVIDENCE OF ESOPHAGEAL OR GASTRIC PERFORATION. OTHER INCIDENTAL FINDING IS A PROBABLE DUODENAL DIVERTICULUM. Upper GI and Small Bowel X-Ray 11/20/18 00:00 IMPRESSION: CONTRAST EXTRAVASATION FROM THE SECOND PORTION OF THE DUODENUM CONSISTENT WITH PERFORATION. NO EVIDENCE OF ESOPHAGEAL OR GASTRIC PERFORATION. OTHER INCIDENTAL FINDING IS A PROBABLE DUODENAL DIVERTICULUM. Chest CT 11/23/18 09:34 IMPRESSION: Pneumomediastinum. No significant pneumothorax. Bilateral lower lobe airspace disease, right greater than left consistent with pneumonia. Head CT 11/25/18 08:37 IMPRESSION: No acute intracranial changes. Findings discussed with Dr Harvey EVIDENCE OF ACUTE STROKE: NO. Knee X-Ray 11/27/18 00:00 IMPRESSION: Suprapatellar knee joint effusion. Mild diffuse soft tissue swelling. Correlate clinically for infection with cellulitis No acute fracture or malalignment. No lucency around the right knee prosthesis worrisome for loosening. Chest X-Ray 11/28/18 00:00 IMPRESSION: STABLE APPEARANCE OF THE CHEST. Assessment and Plan - Diagnosis (1) Acute respiratory failure with hypoxia Is this a current diagnosis for this admission?: Yes Plan: Saturating well on minimal vent settings. 11/23: He is currently intubated and is saturating well on minimal vent settings. Patient has been off Versed since 3 AM but is not easily arousable and is not following commands. CT of the head was done and came back negative. We will try to keep him off sedation today and see if there is any improvement in his mentation. EEG ordered. 11/24: Patient has been off sedation for 36 hrs now but still does not have spontaneous eye opening. He does have spontaneous movement and withdraws to pain equally with no noticeable gross weakness. Await EEG report. Will consult [facility] neurology for further recommendations. 11/25/2018-patient is off the sedation for the last 48 hours now is responding to verbal commands by nodding his head and reaching his toes opening his eyes. No focal neurological deficits. Spontaneous movement and withdrawal to pain is present. EKG is nonspecific. CT head done this morning acute you for stroke. Patient is presently on pressure support only. Pulse ox is around 96%. 11/26/2018-patient is off the sedation for the last [address] head was negative for acute changes. Presently on 30% oxygen with PEEP of 5 and pressure support of more than 22. Oxygen saturation is around 96%. Weaning process was initiated and if possible we may extubate him today. ABG done this morning on room air pH is 7.49/PCO2 27.4/PO2 69 oxygen saturation is 95%. presently on IV Zosyn. 11/27/2018-patient was successfully extubated this morning. Still have a running low-grade fever 100.8. Presently on IV Zosyn and IV levo floxacillin added to the medication. Wound cultures came back positive for E. coli and Peptos treptococcus. Chest x-ray is pending today. Yesterday's chest x-ray suggestive of improving aeration in the left left lower lobe. 11/28/[id number]-sutb-old male intubated for acute respiratory failure with hypoxia successfully extubated 2 days ago. His pulse ox is at 99% on room air today. Respiratory rate is 14-16 comfortably in the bed denies any problems. On examination chest bilateral it was decreased few crepitations are present at the bases. T-max is 100.6 presently on IV Zosyn and IV levo floxacillin. Sputum culture showing Niya albicans. (2) Duodenal perforation Is this a current diagnosis for this admission?: Yes Plan: Related to recent EGD. Status post surgical repair. 11/25/2018-duodenal perforation after EGD. Status post surgical repair. Surgical team is following the patient. 11/26/2018-management as per the surgical recommendations. 11/27/2018-management as per surgical team. Patient has NG tube to low bile colored drainage seen in the NG tube. 11/28/2018-patient is still on TPN NG tube in place. Dr. Harvey wants to clamp the tube today and go from there. Patient has a G-tube which is not working at the moment. (3) Essential hypertension Is this a current diagnosis for this admission?: Yes Plan: Blood pressures well controlled. 11/25/2018-patient has history of essential hypertension blood pressure today's 133/73. Plan is to continue the present management. 11/26/2018-patient has history of hypertension latest blood pressure is 122/70. Relative control. Presently on normal saline at 100 cc/h plan is to discontinue IV fluids from today. 11/27/2018-patient blood pressure today is 129/60. Relatively controlled. Presently on normal saline 100 cc/h plan is to cut it down to 50 from today. 11/28/2018-patient blood pressure today is 129/52. Blood pressure is relatively controlled presently on IV fluids normal saline 50 cc/h plan is to discontinue IV fluids today. (4) Acute kidney injury Is this a current diagnosis for this admission?: Yes Plan: Resolved. 11/25/2018-patient admitted with a CHRISTIANO which was resolved. Admission creatinine is 1.37 and it peaked to 2.1 came down to 0.95 now. CHRISTIANO due to prerenal causes resolved. Patient's baseline creatinine is around 0.88. 11/26/2018-patient was admitted with CHRISTIANO today's creatinine is 0.84 acute kidney injury is resolved. 11/27/2018-this elderly male with a CHRISTIANO during the hospital stay latest creatinine 0.84. Acute kidney injury is resolved. 11/28/2018 patient developed CHRISTIANO during the hospital stay his creatinine today is 0.86 it was peaked to 2.13 in the hospital stay. CHRISTIANO most likely secondary to prerenal causes resolving. (5) Acute blood loss anemia Is this a current diagnosis for this admission?: Yes Plan: Possibly perioperative related. S/P 2 units of packed RBC. 11/25/2018-patient has acute blood loss anemia most likely related to perioperative state status post 2 units of blood transfusion during the hospital stay latest hemoglobin is 8.5 stable. 11/26/2018-patient's hemoglobin is 8.8 today stable. During this hospital stay he received 2 units of PRBC. 11/27/2018-patient hemoglobin is 8.4 stable. During the hospital stay he received 2 units of PRBC. 11/28/2018-patient hemoglobin today is 8.3 stable. He received 2 units of blood transfusion during the hospital stay acute blood loss most likely happened during the perioperative phase. (6) Obesity (BMI 30-39.9) Is this a current diagnosis for this admission?: No Plan: 11/28/2018-patient BMI is more than 39. Diet exercise weight loss lifestyle modifications are discussed with the patient. dietary consult is going to be requested. - Time Time Spent with patient: 25-34 minutes Medications reviewed and adjusted accordingly: Yes Anticipated discharge: Home
[2018-11-28] MEDS: LEVOFLOXACIN 500 MG/D5W RTU 500 MG/100 ML RTUPB IV SCH (09:45)
[2018-11-28] MEDS: ASPIRIN 81 MG TABLET, CHEWABLE PO SCH (09:46)
[2018-11-28] MEDS: METOPROLOL SUCCINATE 25 MG TAB.SR.24H PO SCH (09:46)
[2018-11-28] MEDS: FENOFIBRATE NANOCRYSTALLIZED 145 MG TABLET PO SCH (09:46)
[2018-11-28] MEDS: ENOXAPARIN SODIUM INJ 40 MG/0.4 ML DISP.SYRIN SUBCUT SCH ×2 (09:46→21:18)
[2018-11-28] MEDS: LOSARTAN POTASSIUM 50 MG TABLET PO SCH (09:46)
[2018-11-28] MEDS: FLUCONAZOLE 200 MG/NS RTU 200 MG/100 ML RTUPB IV SCH (09:51)
--- NOTE | 2018-11-28 13:51 | RADIOLOGY REPORT (SQ) ---
EXAM DESCRIPTION: CT CHEST WITHOUT; CT ABD/PELVIS NO ORAL OR IV COMPLETED DATE/TIME: 11/28/2018 1:18 pm; 11/28/2018 1:17 pm REASON FOR STUDY: resp distress; abd pain K92.1 MELENA COMPARISON: 11/23/2018 TECHNIQUE: CT scan of the chest performed without intravenous contrast using helical scanning techni que. Images reviewed with lung, soft tissue and bone windows. Reconstructed coronal and sagittal MPR images reviewed. All images stored on PACS. All CT scanners at this facility use dose modulation, iterative reconstruction, and/or weight based d osing when appropriate to reduce radiation dose to as low as reasonably achievable (ALARA). [facility]: Dose Right [facility]: CareDose [facility]: Dose Right [facility]: [employer] 4D [facility]: ColdWatt RADIATION DOSE: CT Rad equipment meets quality standard of care and radiation dose reduction techniq ues were employed. CTDIvol: 11.6 - 23.5 mGy. DLP: 1752 mGy-cm. mGy. LIMITATIONS: No technical limitations. FINDINGS: AXILLAE: No adenopathy. CHEST WALL: There is persistent pneumomediastinum and subcutaneous air. This is improved from prior study. LUNGS: Bilateral pleural effusions and basilar atelectasis or pneumonia right greater than left. The effusions have increased since prior study. No pneumothorax. PLEURA: No effusions. No calcifications. THYROID: No masses or significant asymmetry. HILAR AND MEDIASTINAL STRUCTURES: No identified masses or abnormal nodes. AORTA AND GREAT VESSELS: No aneurysm. HEART: No pericardial effusion. HARDWARE AND LIFELINES: Sternotomy wires are in place along with NG tube. BONES: No significant finding. OTHER: No other significant finding. IMPRESSION: Decreasing pneumomediastinum. Increasing bilateral pleural effusions and basilar atelec tasis or pneumonia. COMPARISON: None. TECHNIQUE: CT scan of the abdomen and pelvis performed without intravenous contrast and withoutoral contrast using helical scanning technique with dynamic intravenous contrast injection. Images review ed with lung, soft tissue and bone windows. Reconstructed coronal and sagittal MPR images reviewed. All images stored on PACS. All CT scanners at this facility use dose modulation, iterative reconstruction, and/or weight based d osing when appropriate to reduce radiation dose to as low as reasonably achievable (ALARA). [facility]: Dose Right [facility]: SureCare [facility]: Dose Right [facility]: Teradose 4D [facility]: [employer]att RADIATION DOSE: CT Rad equipment meets quality standard of care and radiation dose reduction techniq ues were employed. CTDIvol: 11.6 - 23.5 mGy. DLP: 1752 mGy-cm. mGy. LIMITATIONS: None. FINDINGS: LIVER: Normal size. No masses. No dilated ducts. SPLEEN: Normal size. No focal lesions. PANCREAS: No masses. No significant calcifications. No adjacent inflammation or peripancreatic flui d collections. Pancreatic duct not dilated. GALLBLADDER: Surgically absent. ADRENAL GLANDS: No significant masses or asymmetry. RIGHT KIDNEY AND URETER: No solid masses. Assessment limited by lack of IV contrast. No significant calcifications. No hydronephrosis or hydroureter. LEFT KIDNEY AND URETER: No solid masses. Assessment limited by lack of IV contrast. No significant calcifications. No hydronephrosis or hydroureter. AORTA AND VESSELS: No aneurysm. RETROPERITONEUM: No retroperitoneal adenopathy, hemorrhage or masses. APPENDIX: Not identified. LARGE AND SMALL BOWEL: No dilatation. No masses. No wall thickening. ABDOMINAL WALL: There is diffuse subcutaneous edema. There is a small amount of free air in a right inguinal hernia which contains omental fat. PERITONEAL CAVITY: Small pockets of free air. There is a fluid collection in the lower mid abdomen. This extends inferiorly into the right lower quadrant along the ileo psoas. This could represent po stoperative seroma. Retroperitoneal hematoma cannot be excluded. No drainable collections on the cu rrent study. PELVIS: There is free fluid in the posterior aspect of the pelvis. BONES: No significant or acute findings. OTHER: No other significant finding. IMPRESSION: Fairly large collection of fluid in the lower mid abdomen extending along the ileo psoas margin into the pelvis. This could be postoperative in nature. Retroperitoneal hematoma cannot be excluded. Developing infectious or inflammatory process is thought to be less likely. There are no drainable collections at this time. Small pockets of free air remain consistent with recent surgery. TECHNICAL DOCUMENTATION: JOB ID: [id number] Quality ID # [id number]: Final reports with documentation of one or more dose reduction techniques (e.g., Au tomated exposure control, adjustment of the mA and/or kV according to patient size, use of iterative reconstruction technique) 2010 [employer]- All Rights Reserved Reading location - IP/workstation name: [facility]
--- NOTE | 2018-11-28 13:51 | RADIOLOGY REPORT (SQ) ---
EXAM DESCRIPTION: CT CHEST WITHOUT; CT ABD/PELVIS NO ORAL OR IV COMPLETED DATE/TIME: 11/28/2018 1:18 pm; 11/28/2018 1:17 pm REASON FOR STUDY: resp distress; abd pain K92.1 MELENA COMPARISON: 11/23/2018 TECHNIQUE: CT scan of the chest performed without intravenous contrast using helical scanning techni que. Images reviewed with lung, soft tissue and bone windows. Reconstructed coronal and sagittal MPR images reviewed. All images stored on PACS. All CT scanners at this facility use dose modulation, iterative reconstruction, and/or weight based d osing when appropriate to reduce radiation dose to as low as reasonably achievable (ALARA). [facility]: Dose Right [facility]: [employer] [facility]: Dose Right [facility]: [employer] 4D [facility]: [employer] RADIATION DOSE: CT Rad equipment meets quality standard of care and radiation dose reduction techniq ues were employed. CTDIvol: 11.6 - 23.5 mGy. DLP: 1752 mGy-cm. mGy. LIMITATIONS: No technical limitations. FINDINGS: AXILLAE: No adenopathy. CHEST WALL: There is persistent pneumomediastinum and subcutaneous air. This is improved from prior study. LUNGS: Bilateral pleural effusions and basilar atelectasis or pneumonia right greater than left. The effusions have increased since prior study. No pneumothorax. PLEURA: No effusions. No calcifications. THYROID: No masses or significant asymmetry. HILAR AND MEDIASTINAL STRUCTURES: No identified masses or abnormal nodes. AORTA AND GREAT VESSELS: No aneurysm. HEART: No pericardial effusion. HARDWARE AND LIFELINES: Sternotomy wires are in place along with NG tube. BONES: No significant finding. OTHER: No other significant finding. IMPRESSION: Decreasing pneumomediastinum. Increasing bilateral pleural effusions and basilar atelec tasis or pneumonia. COMPARISON: None. TECHNIQUE: CT scan of the abdomen and pelvis performed without intravenous contrast and withoutoral contrast using helical scanning technique with dynamic intravenous contrast injection. Images review ed with lung, soft tissue and bone windows. Reconstructed coronal and sagittal MPR images reviewed. All images stored on PACS. All CT scanners at this facility use dose modulation, iterative reconstruction, and/or weight based d osing when appropriate to reduce radiation dose to as low as reasonably achievable (ALARA). [facility]: Dose Right [facility]: [employer] [facility]: Dose Right [facility]: [employer] 4D [facility]: [employer] RADIATION DOSE: CT Rad equipment meets quality standard of care and radiation dose reduction techniq ues were employed. CTDIvol: 11.6 - 23.5 mGy. DLP: 1752 mGy-cm. mGy. LIMITATIONS: None. FINDINGS: LIVER: Normal size. No masses. No dilated ducts. SPLEEN: Normal size. No focal lesions. PANCREAS: No masses. No significant calcifications. No adjacent inflammation or peripancreatic flui d collections. Pancreatic duct not dilated. GALLBLADDER: Surgically absent. ADRENAL GLANDS: No significant masses or asymmetry. RIGHT KIDNEY AND URETER: No solid masses. Assessment limited by lack of IV contrast. No significant calcifications. No hydronephrosis or hydroureter. LEFT KIDNEY AND URETER: No solid masses. Assessment limited by lack of IV contrast. No significant calcifications. No hydronephrosis or hydroureter. AORTA AND VESSELS: No aneurysm. RETROPERITONEUM: No retroperitoneal adenopathy, hemorrhage or masses. APPENDIX: Not identified. LARGE AND SMALL BOWEL: No dilatation. No masses. No wall thickening. ABDOMINAL WALL: There is diffuse subcutaneous edema. There is a small amount of free air in a right inguinal hernia which contains omental fat. PERITONEAL CAVITY: Small pockets of free air. There is a fluid collection in the lower mid abdomen. This extends inferiorly into the right lower quadrant along the ileo psoas. This could represent po stoperative seroma. Retroperitoneal hematoma cannot be excluded. No drainable collections on the cu rrent study. PELVIS: There is free fluid in the posterior aspect of the pelvis. BONES: No significant or acute findings. OTHER: No other significant finding. IMPRESSION: Fairly large collection of fluid in the lower mid abdomen extending along the ileo psoas margin into the pelvis. This could be postoperative in nature. Retroperitoneal hematoma cannot be excluded. Developing infectious or inflammatory process is thought to be less likely. There are no drainable collections at this time. Small pockets of free air remain consistent with recent surgery. TECHNICAL DOCUMENTATION: JOB ID: [id number] Quality ID # [id number]: Final reports with documentation of one or more dose reduction techniques (e.g., Au tomated exposure control, adjustment of the mA and/or kV according to patient size, use of iterative reconstruction technique) 2010 [employer]- All Rights Reserved Reading location - IP/workstation name: [facility]
[2018-11-28] MEDS: AMINO ACIDS 5 %/DEXTROSE 20 % 1,000 ML IV PRN (14:16)
[2018-11-28] MEDS: DORZOLAMIDE HCL 2% OPH SOLN 10 ML OU SCH (18:29)
[2018-11-28] MEDS ORDERED: NORMAL SALINE 1000 ML 1,000 ML IV PRN (18:40)
[2018-11-28] MEDS ORDERED: FUROSEMIDE INJ/PF 20 MG/2 ML SDV IV ONE (21:15)
[2018-11-28] MEDS: FUROSEMIDE INJ/PF 20 MG/2 ML SDV IV SCH (21:17)
[2018-11-28] MEDS: SIMVASTATIN 40 MG TABLET PO SCH (21:18)
[2018-11-28] MEDS: LATANOPROST 0.005% OPH SOLN 2.5 ML OU SCH (21:19)
[2018-11-29] MEDS: METOPROLOL TARTRATE PF/INJ 5 MG/5 ML SDV IV SCH ×6 (01:55→22:31)
[2018-11-29] MEDS: LEVALBUTEROL HCL NEB 1.25 MG/3 ML AMPUL NEB PRN ×3 (04:20→19:56)
[2018-11-29 05:03] LABS: HEMATOCRIT 25.5 % (37.9-51.0); HEMOGLOBIN 8.5 g/dL (13.5-17.0); MEAN CORPUSCULAR HEMOGLOBIN 29.3 pg (27.0-33.4); MEAN CORPUSCULAR HGB CONC 33.4 g/dL (32.0-36.0); MEAN CORPUSCULAR VOLUME 88 fl (80-97); PLATELET COUNT 364 10^3/uL (150-450); RED CELL DISTRIBUTION WIDTH 15.4 % (11.5-14.0); WHITE BLOOD COUNT 14.3 10^3/uL (4.0-10.5)
[2018-11-29 05:12] LABS: ABSOLUTE LYMPHOCYTES# (MANUAL) 0.7 10^3/uL (0.5-4.7); ABSOLUTE MONOCYTES # (MANUAL) 0.7 10^3/uL (0.1-1.4); BASOPHILS % (MANUAL) 1 % (0-2); EOSINOPHILS % (MANUAL) 1 % (0-6); LYMPHOCYTES % (MANUAL) 5 % (13-45); MONOCYTES % (MANUAL) 5 % (3-13); SEGMENTED NEUTROPHILS % (MAN) 88 % (42-78); TOTAL CELLS COUNTED 100
[2018-11-29 05:13] LABS: TOXIC GRANULATION 1+; TOXIC VACUOLATION PRESENT
[2018-11-29] MEDS: PIPERACILLIN SODIUM/TAZOBACTAM 4.5 GM in NORMAL SALINE 100 ML IV SCH ×4 (05:14→23:38)
[2018-11-29 05:15] LABS: ANISOCYTOSIS SLIGHT; OVALOCYTES SLIGHT; PLATELET COMMENT ADEQUATE; POIKILOCYTOSIS 1+; TEAR DROP CELLS SLIGHT
[2018-11-29] MEDS: INSULIN REG, HUMAN 100 UNIT/ML 3 ML VIAL (PYX) SUBCUT SCH ×4 (05:38→23:37)
[2018-11-29] MEDS ORDERED: FUROSEMIDE INJ/PF 40 MG/4 ML SDV IV ONE (07:45)
--- NOTE | 2018-11-29 08:01 | PDOC PROGRESS REPORT ---
Subjective Progress Note for:: 11/29/18 Reason For Visit: MELENA K92.1 feels somewhat better has some wheezes passing flatus Physical Exam Vital Signs: Temp Pulse Resp BP Pulse Ox 98.0 F 69 20 143/56 H 99 11/29/18 03:32 11/29/18 04:22 11/29/18 04:22 11/29/18 03:32 11/29/18 04:22 Intake & Output 11/28/18 11/29/18 11/30/18 06:59 06:59 06:59 Intake Total 2909 923 Output Total 2384 3010 Balance 524 -6495 Weight 112.2 kg 111.1 kg General appearance: PRESENT: no acute distress Head exam: PRESENT: normocephalic Eye exam: PRESENT: EOMI Mouth exam: PRESENT: dry mucosa, moist Neck exam: PRESENT: full ROM Respiratory exam: PRESENT: decreased breath sounds, wheezes Cardiovascular exam: PRESENT: RRR Pulses: PRESENT: normal femoral pulses, normal dorsalis pedis pul, +2 pedal pulses bilateral Vascular exam: PRESENT: normal capillary refill GI/Abdominal exam: PRESENT: soft Rectal exam: PRESENT: deferred Gentrourinary exam: PRESENT: indwelling catheter Extremities exam: PRESENT: full ROM, +2 edema Musculoskeletal exam: PRESENT: full ROM Neurological exam: PRESENT: alert, awake, oriented to person Psychiatric exam: PRESENT: appropriate affect Skin exam: PRESENT: dry Results Laboratory Results: 11/29/18 04:29 11/28/18 05:37 11/28/18 11/28/18 11/29/18 05:37 05:37 04:29 WBC 13.9 H 14.3 H RBC 2.85 L 2.90 L Hgb 8.3 L 8.5 L Hct 24.9 L 25.5 L MCV 88 88 MCH 29.3 29.3 MCHC 33.5 33.4 RDW 15.3 H 15.4 H Plt Count 332 364 Seg Neutrophils % Not Reportable Lymphocytes % Not Reportable Monocytes % Not Reportable Eosinophils % Not Reportable Basophils % Not Reportable Absolute Neutrophils Not Reportable Absolute Lymphocytes Not Reportable Absolute Monocytes Not Reportable Absolute Eosinophils Not Reportable Absolute Basophils Not Reportable Sodium 148.6 H Potassium 3.8 Chloride 120 H Carbon Dioxide 23 Anion Gap 6 BUN 18 Creatinine 0.86 Est GFR ( Amer) > 60 Est GFR (Non-Af Amer) > 60 Glucose 134 H Calcium 8.1 L Phosphorus 3.1 Magnesium 2.2 Total Bilirubin 0.9 AST 68 H ALT 70 Alkaline Phosphatase 47 Total Protein 4.3 L Albumin 2.1 L Prealbumin 5.4 L 11/20/18 11/24/18 21:45 09:53 Creatine Kinase 224 H NT-Pro-B Natriuret Pep 52 Impressions: Abdomen X-Ray 11/20/18 00:00 IMPRESSION: ABNORMAL COLLECTION OF GAS IN THE ABDOMEN WHICH IS PROBABLY RETROPERITONEAL. THIS EXTENDS INTO THE CHEST WITH RIGHT-SIDED PNEUMOMEDIASTINUM WELL EXTENSION INTO THE LOWER RIGHT SIDE OF THE NECK WITH SUBCUTANEOUS EMPHYSEMA IN THE RIGHT SUPRACLAVICULAR TISSUES. Esophagus X-Ray 11/20/18 00:00 IMPRESSION: CONTRAST EXTRAVASATION FROM THE SECOND PORTION OF THE DUODENUM CONSISTENT WITH PERFORATION. NO EVIDENCE OF ESOPHAGEAL OR GASTRIC PERFORATION. OTHER INCIDENTAL FINDING IS A PROBABLE DUODENAL DIVERTICULUM. Upper GI and Small Bowel X-Ray 11/20/18 00:00 IMPRESSION: CONTRAST EXTRAVASATION FROM THE SECOND PORTION OF THE DUODENUM CONSISTENT WITH PERFORATION. NO EVIDENCE OF ESOPHAGEAL OR GASTRIC PERFORATION. OTHER INCIDENTAL FINDING IS A PROBABLE DUODENAL DIVERTICULUM. Head CT 11/25/18 08:37 IMPRESSION: No acute intracranial changes. Findings discussed with Dr Harvey EVIDENCE OF ACUTE STROKE: NO. Knee X-Ray 11/27/18 00:00 IMPRESSION: Suprapatellar knee joint effusion. Mild diffuse soft tissue swelling. Correlate clinically for infection with cellulitis No acute fracture or malalignment. No lucency around the right knee prosthesis worrisome for loosening. Abdomen/Pelvis CT 11/28/18 00:00 IMPRESSION: Decreasing pneumomediastinum. Increasing bilateral pleural effusions and basilar atelectasis or pneumonia. IMPRESSION: Fairly large collection of fluid in the lower mid abdomen extending along the ileo psoas margin into the pelvis. This could be postoperative in nature. Retroperitoneal hematoma cannot be excluded. Developing infectious or inflammatory process is thought to be less likely. There are no drainable collections at this time. Small pockets of free air remain consistent with rec ent surgery. Chest CT 11/28/18 00:00 IMPRESSION: Decreasing pneumomediastinum. Increasing bilateral pleural effusions and basilar atelectasis or pneumonia. IMPRESSION: Fairly large collection of fluid in the lower mid abdomen extending along the ileo psoas margin into the pelvis. This could be postoperative in nature. Retroperitoneal hematoma cannot be excluded. Developing infectious or inflammatory process is thought to be less likely. There are no drainable collections at this time. Small pockets of free air remain consistent with recent surgery. Chest X-Ray 11/28/18 00:00 IMPRESSION: STABLE APPEARANCE OF THE CHEST. Assessment & Plan - Diagnosis (1) Bowel perforation Is this a current diagnosis for this admission?: Yes - Plan Summary Plan Summary: pt tranferred to nursing floor last pm doing ok this am has some wheezes chest bilat rhonchi 2-3 + edema all 4 extremities plan- will dc ng start po clears dc all iv fluids except tpn cont landa till am resp rx
[2018-11-29] MEDS: ALBUMIN HUMAN 12.5 GM/50 ML RTUINJ IV SCH ×4 (10:04→13:57)
--- NOTE | 2018-11-29 10:24 | PDOC PROGRESS REPORT ---
Subjective Progress Note for:: 11/29/18 Subjective:: 73 yr old male with a PMH of Chandler fundoplication, duodenal AVM, Terrell's esophagus who underwent EGD yesterday. Patient unfortunately sustained a possible perforated viscus. A chest x-ray done which showed significant subcutaneous emphysema with pneumomediastinum. Patient was promptly brought to the ER yesterday afternoon and was noted to have a perforated duodenum. He underwent repair of the perforation and was transferred to the ICU. Hospitalist service was consulted for medical co-management. 11/22: Patient is currently intubated and sedated on Versed and propofol. He is saturating well on minimal vent settings. Currently getting IV fluids. Seros anguineous output on the surgical drains. 11/23: He is currently intubated and is saturating well on minimal vent settings. He is running fever with T-max at 100.6. Patient has been off Versed since 3 AM but is not easily arousable and is not following commands. CT of the head was done and came back negative. We will try to keep him off sedation today and see if there is any improvement in his mentation. 11/24: No acute event overnight. Patient has been off sedation for 36 hrs now but still does not have spontaneous eye opening. He does have spontaneous movement and withdraws to pain equally with no noticeable gross weakness. Await EEG report. Will consult [facility] neurology for further recommendations. Discussed case, labs and diagnostic testing done so far in length with [facility] neurologist, Dr. Gill recommended pursuing an MRI to rule out small CVAs although this will not significantly change current management. No other further neurodiagnostic testing recommended at this time. Also discussed with [facility] neurologist in length, Dr. Bhakta who has the same recommendation and insight. He did recommend repeating a plain head CT if MRI is not feasible at this time. 11/25/[id number]-nske-old male with past medical history of Chandler fundoplication, duodenal AV malformations, Terrell's esophagus underwent EGD on 11/21/2018 unfortunately sustained a possible perforated viscus. Chest x-ray done suggestive of subcutaneous emphysema with pneumomediastinum. Status post repair of the perforation and patient was transferred to ICU. Presently he was intubated off the sedation for the last 48 hours. Today he responding to verbal commands by wiggling his toes and nodding his head. He is only on pressure support. 11/26/2018-no acute events in the last 24 hours. T-max is 100.6. Patient is presently on Zosyn. Chest x-ray done this morning shows improvement in the left lower lobe aeration. Patient is off the sedation for the last several days presently on 30% oxygen PEEP of 5 with pressure support of 22 above PEEP. Oxygen saturation is 96 to 98%. 11/27/2018-patient was successfully extubated this morning. T-max is 100.8 today. Presently on IV Zosyn started on IV levo floxacillin. Culture from the abdomen at the time of surgery came back positive for E. coli and Peptostreptococcus. Patient is alert awake responding reasonably. Still slightly confused. Surgical team came this morning they want to continue TPN at this point. 11/28/[id number]-tuch-old male admitted to ICU after EGD procedure leading to perforation of the viscus status post surgery closure of the perforation and he was intubated during the hospital stay successfully extubated 2 days ago. He mentation is slowly recovering. He is more alert more awake today compared to yesterday showing significant improvement on daily basis. Dr. Harvey saw the patient this morning he wants to clamp the NG tube and then make a decision either today or tomorrow for a NG tube feeds or oral feeds. Patient G-tube is still not working. Is having a low-grade fever of 100.8 and the cultures from t he abdomen shows Peptostreptococcus, E. coli. Presently on IV Zosyn and levo floxacillin. Plan to do the CT chest CT abdomen pelvis without contrast today to look for the reasons for persistent fever. in The opinion patient is stable enough to go to [facility]. 11/29/2018 1 patient was transferred to [facility] yesterday. CT chest and abdomen was done yesterday CT abdomen shows large fluid collection and surgical team is following the patient. Patient has a T-max of 88. Presently on IV Zosyn and levo floxacillin. The cultures from the abdomen shows Peptostreptococcus, E. coli. He was able to tolerate the broth this morning. Patient need physical therapy. On examination chest bilateral mild wheezing is present and shortness of breath IV fluids are discontinued and started on Lasix 40 twice daily. Reason For Visit: MELENA K92.1 Physical Exam Vital Signs: Temp Pulse Resp BP Pulse Ox 98.6 F 74 22 H 135/49 H 99 11/29/18 07:52 11/29/18 07:52 11/29/18 07:52 11/29/18 07:52 11/29/18 07:52 Intake & Output 11/28/18 11/29/18 11/30/18 06:59 06:59 06:59 Intake Total 2909 923 Output Total 2385 3010 Balance 524 -2087 Weight 112.2 kg 111.1 kg General appearance: PRESENT: no acute distress, obese Head exam: PRESENT: atraumatic Eye exam: PRESENT: PERRLA Mouth exam: PRESENT: moist, tongue midline Teeth exam: PRESENT: poor dentation Neck exam: ABSENT: carotid bruit, JVD, lymphadenopathy, thyromegaly Respiratory exam: PRESENT: decreased breath sounds, wheezes Cardiovascular exam: PRESENT: RRR. ABSENT: diastolic murmur, rubs, systolic murmur GI/Abdominal exam: PRESENT: normal bowel sounds, soft. ABSENT: distended, guarding, mass, organolmegaly, rebound, tenderness Rectal exam: PRESENT: deferred Neurological exam: PRESENT: alert, awake, oriented to person, oriented to place, oriented to time, oriented to situation, CN II-XII grossly intact. ABSENT: motor sensory deficit Psychiatric exam: PRESENT: appropriate affect, normal mood. ABSENT: homicidal i deation, suicidal ideation Results Laboratory Results: 11/29/18 04:29 11/28/18 05:37 11/29/18 04:29 WBC 14.3 H RBC 2.90 L Hgb 8.5 L Hct 25.5 L MCV 88 MCH 29.3 MCHC 33.4 RDW 15.4 H Plt Count 364 Seg Neutrophils % Not Reportable Lymphocytes % Not Reportable Monocytes % Not Reportable Eosinophils % Not Reportable Basophils % Not Reportable Absolute Neutrophils Not Reportable Absolute Lymphocytes Not Reportable Absolute Monocytes Not Reportable Absolute Eosinophils Not Reportable Absolute Basophils Not Reportable 11/20/18 11/24/18 21:45 09:53 Creatine Kinase 224 H NT-Pro-B Natriuret Pep 52 Impressions: Abdomen X-Ray 11/20/18 00:00 IMPRESSION: ABNORMAL COLLECTION OF GAS IN THE ABDOMEN WHICH IS PROBABLY RETROPERITONEAL. THIS EXTENDS INTO THE CHEST WITH RIGHT-SIDED PNEUMOMEDIASTINUM WELL EXTENSION INTO THE LOWER RIGHT SIDE OF THE NECK WITH SUBCUTANEOUS EMPHYSEMA IN THE RIGHT SUPRACLAVICULAR TISSUES. Esophagus X-Ray 11/20/18 00:00 IMPRESSION: CONTRAST EXTRAVASATION FROM THE SECOND PORTION OF THE DUODENUM CONSISTENT WITH PERFORATION. NO EVIDENCE OF ESOPHAGEAL OR GASTRIC PERFORATION. OTHER INCIDENTAL FINDING IS A PROBABLE DUODENAL DIVERTICULUM. Upper GI and Small Bowel X-Ray 11/20/18 00:00 IMPRESSION: CONTRAST EXTRAVASATION FROM THE SECOND PORTION OF THE DUODENUM CONSISTENT WITH PERFORATION. NO EVIDENCE OF ESOPHAGEAL OR GASTRIC PERFORATION. OTHER INCIDENTAL FINDING IS A PROBABLE DUODENAL DIVERTICULUM. Head CT 11/25/18 08:37 IMPRESSION: No acute intracranial changes. Findings discussed with Dr Harvey EVIDENCE OF ACUTE STROKE: NO. Knee X-Ray 11/27/18 00:00 IMPRESSION: Suprapatellar knee joint effusion. Mild diffuse soft tissue swelling. Correlate clinically for infection with cellulitis No acute fracture or malalignment. No lucency around the right knee prosthesis worrisome for loosening. Abdomen/Pelvis CT 11/28/18 00:00 IMPRESSION: Decreasing pneumomediastinum. Increasing bilateral pleural effusions and basilar atelectasis or pneumonia. IMPRESSION: Fairly large collection of fluid in the lower mid abdomen extending along the ileo psoas margin into the pelvis. This could be postoperative in nature. Retroperitoneal hematoma cannot be excluded. Developing infectious or inflammatory process is thought to be less likely. There are no drainable collections at this time. Small pockets of free air remain consistent with recent surgery. Chest CT 11/28/18 00:00 IMPRESSION: Decreasing pneumomediastinum. Increasing bilateral pleural effusions and basilar atelectasis or pneumonia. IMPRESSION: Fairly large collection of fluid in the lower mid abdomen extending along the ileo psoas margin into the pelvis. This could be postoperative in nature. Retroperitoneal hematoma cannot be excluded. Developing infectious or inflammatory process is thought to be less likely. There are no drainable collections at this time. Small pockets of free air remain consistent with recent surgery. Chest X-Ray 11/28/18 00:00 IMPRESSION: STABLE APPEARANCE OF THE CHEST. Assessment and Plan - Diagnosis (1) Acute respiratory failure with hypoxia Is this a current diagnosis for this admission?: Yes Plan: Saturating well on minimal vent settings. 11/23: He is currently intubated and is saturating well on minimal vent settings. Patient has been off Versed since 3 AM but is not easily arousable and is not following commands. CT of the head was done and came back negative. We will try to keep him off sedation today and see if there is any improvement in his mentation. EEG ordered. 11/24: Patient has been off sedation for 36 hrs now but still does not have spontaneous eye opening. He does have spontaneous movement and withdraws to pain equally with no noticeable gross weakness. Await EEG report. Will consult [facility] neurology for further recommendations. 11/25/2018-patient is off the sedation for the last 48 hours now is responding to verbal commands by nodding his head and reaching his toes opening his eyes. No focal neurological deficits. Spontaneous movement and withdrawal to pain is present. EKG is nonspecific. CT head done this morning acute you for stroke. Patient is presently on pressure support only. Pulse ox is around 96%. 11/26/2018-patient is off the sedation for the last [address] head was negative for acute changes. Presently on 30% oxygen with PEEP of 5 and pressure support of more than 22. Oxygen saturation is around 96%. Weaning process was initiated and if possible we may extubate him today. ABG done this morning on room air pH is 7.49/PCO2 27.4/PO2 69 oxygen saturation is 95%. presently on IV Zosyn. 11/27/2018-patient was successfully extubated this morning. Still have a running low-grade fever 100.8. Presently on IV Zosyn and IV levo floxacillin added to the medication. Wound cultures came back positive for E. coli and Peptostreptococcus. Chest x-ray is pending today. Yesterday's chest x-ray suggestive of improving aeration in the left left lower lobe. 11/28/[id number]-upnv-old male intubated for acute respiratory failure with hypoxia successfully extubated 2 days ago. His pulse ox is at 99% on room air today. Respiratory rate is 14-16 comfortably in the bed denies any problems. On examination chest bilateral it was decreased few crepitations are present at the bases. T-max is 100.6 presently on IV Zosyn and IV levo floxacillin. Sputum culture showing Niya albicans. 11/29/2018-patient developed acute respiratory failure with hypoxia status post intubation and extubation during the hospital stay. Socks is 95% on 3 L today. On examination chest mild wheezing is present associated with decreased bilateral air entry. There is a concern about fluid overload and Dr. Harvey started him on Lasix 20 mg IV twice daily. Chest x-ray/CT chest done yesterday shows bilateral pleural effusions and decreasing pneumomediastinum. (2) Duodenal perforation Is this a current diagnosis for this admission?: Yes Plan: Related to recent EGD. Status post surgical repair. 11/25/2018-duodenal perforation after EGD. Status post surgical repair. Surgical team is following the patient. 11/26/2018-management as per the surgical recommendations. 11/27/2018-management as per surgical team. Patient has NG tube to low bile colored drainage seen in the NG tube. 11/28/2018-patient is still on TPN NG tube in place. Dr. Harvey wants to clamp the tube today and go from there. Patient has a G-tube which is not working at the moment. 11/29/2018-patient was started on broth today. CT abdomen shows fluid collection in the abdominal cavity. Dr. Harvey is aware of it and the surgical team is going to follow the the issue. (3) Essential hypertension Is this a current diagnosis for this admission?: Yes Plan: Blood pressures well controlled. 11/25/2018-patient has history of essential hypertension blood pressure today's 133/73. Plan is to continue the present management. 11/26/2018-patient has history of hypertension latest blood pressure is 122/70. Relative control. Presently on normal saline at 100 cc/h plan is to discontinue IV fluids from today. 11/27/2018-patient blood pressure today is 129/60. Relatively controlled. Presently on normal saline 100 cc/h plan is to cut it down to 50 from today. 11/28/2018-patient blood pressure today is 129/52. Blood pressure is relatively controlled presently on IV fluids normal saline 50 cc/h plan is to discontinue IV fluids today. 11/29/2018-patient blood pressure today is 143/58 stable. IV fluids are discontinued and he was started on Lasix 20 IV twice daily. (4) Acute kidney injury Is this a current diagnosis for this admission?: Yes Plan: Resolved. 11/25/2018-patient admitted with a CHRISTIANO which was resolved. Admission creatinine is 1.37 and it peaked to 2.1 came down to 0.95 now. CHRISTIANO due to prerenal causes resolved. Patient's baseline creatinine is around 0.88. 11/26/2018-patient was admitted with CHRISTIANO today's creatinine is 0.84 acute kidney injury is resolved. 11/27/2018-this elderly male with a CHRISTIANO during the hospital stay latest creatinine 0.84. Acute kidney injury is resolved. 11/28/2018 patient developed CHRISTIANO during the hospital stay his creatinine today is 0.86 it was peaked to 2.13 in the hospital stay. CHRISTIANO most likely secondary to prerenal causes resolving. 11/29/2018-latest creatinine is 0.86 acute kidney injury resolved. (5) Acute blood loss anemia Is this a current diagnosis for this admission?: Yes Plan: Possibly perioperative related. S/P 2 units of packed RBC. 11/25/2018-patient has acute blood loss anemia most likely related to perioperative state status post 2 units of blood transfusion during the hospital stay latest hemoglobin is 8.5 stable. 11/26/2018-patient's hemoglobin is 8.8 today stable. During this hospital stay he received 2 units of PRBC. 11/27/2018-patient hemoglobin is 8.4 stable. During the hospital stay he received 2 units of PRBC. 11/28/2018-patient hemoglobin today is 8.3 stable. He received 2 units of blood transfusion during the hospital stay acute blood loss most likely happened during the perioperative phase. 11/29/2018-patient's hemoglobin 8.3 stable. (6) Obesity (BMI 30-39.9) Is this a current diagnosis for this admission?: No - Time Time Spent with patient: 25-34 minutes Medications reviewed and adjusted accordingly: Yes Anticipated discharge: Home
[2018-11-29] MEDS: LOSARTAN POTASSIUM 50 MG TABLET PO SCH (10:39)
[2018-11-29] MEDS: FUROSEMIDE INJ/PF 20 MG/2 ML SDV IV SCH ×2 (10:39→18:18)
[2018-11-29] MEDS: LEVOFLOXACIN 500 MG/D5W RTU 500 MG/100 ML RTUPB IV SCH (10:39)
[2018-11-29] MEDS: ENOXAPARIN SODIUM INJ 40 MG/0.4 ML DISP.SYRIN SUBCUT SCH ×2 (10:39→22:31)
[2018-11-29] MEDS: METOPROLOL SUCCINATE 25 MG TAB.SR.24H PO SCH (10:40)
[2018-11-29] MEDS: ASPIRIN 81 MG TABLET, CHEWABLE PO SCH (10:40)
[2018-11-29] MEDS: AMINO ACIDS 5 %/DEXTROSE 20 % 1,000 ML IV PRN ×2 (11:16→11:39)
[2018-11-29] MEDS: DORZOLAMIDE HCL 2% OPH SOLN 10 ML OU SCH ×2 (11:54→18:18)
[2018-11-29] MEDS: FENOFIBRATE NANOCRYSTALLIZED 145 MG TABLET PO SCH (12:09)
[2018-11-29] MEDS: FLUCONAZOLE 200 MG/NS RTU 200 MG/100 ML RTUPB IV SCH (14:35)
[2018-11-29] MEDS: SIMVASTATIN 40 MG TABLET PO SCH (22:32)
[2018-11-29] MEDS: LATANOPROST 0.005% OPH SOLN 2.5 ML OU SCH (22:36)
[2018-11-30] MEDS: METOPROLOL TARTRATE PF/INJ 5 MG/5 ML SDV IV SCH ×6 (02:43→21:07)
[2018-11-30 05:46] LABS: HEMATOCRIT 23.9 % (37.9-51.0); MEAN CORPUSCULAR HEMOGLOBIN 28.5 pg (27.0-33.4); MEAN CORPUSCULAR HGB CONC 32.6 g/dL (32.0-36.0); MEAN CORPUSCULAR VOLUME 87 fl (80-97); PLATELET COUNT 362 10^3/uL (150-450); RED BLOOD COUNT 2.73 10^6/uL (4.35-5.55); RED CELL DISTRIBUTION WIDTH 15.1 % (11.5-14.0); WHITE BLOOD COUNT 12.3 10^3/uL (4.0-10.5)
[2018-11-30] MEDS: PIPERACILLIN SODIUM/TAZOBACTAM 4.5 GM in NORMAL SALINE 100 ML IV SCH ×3 (06:01→18:40)
[2018-11-30] MEDS: INSULIN REG, HUMAN 100 UNIT/ML 3 ML VIAL (PYX) SUBCUT SCH ×3 (06:01→18:55)
[2018-11-30 06:06] LABS: ALANINE AMINOTRANSFERASE 70 U/L (21-72); ALBUMIN 2.2 g/dL (3.5-5.0); ALKALINE PHOSPHATASE 51 U/L (38-126); ANION GAP 5 (5-19); ASPARTATE AMINO TRANSFERASE 67 U/L (17-59); BILIRUBIN,DIRECT 0.5 mg/dL (0.0-0.4); BILIRUBIN,TOTAL 0.9 mg/dL (0.2-1.3); BLOOD UREA NITROGEN 19 mg/dL (7-20); CALCIUM 7.9 mg/dL (8.4-10.2); CARBON DIOXIDE 26 mmol/L (22-30); CHLORIDE 109 mmol/L (98-107); GLUCOSE 170 mg/dL (75-110); POTASSIUM 3.5 mmol/L (3.6-5.0); SODIUM 140.4 mmol/L (137-145); TOTAL PROTEIN 4.6 g/dL (6.3-8.2)
[2018-11-30 06:26] LABS: HEMOGLOBIN 7.8 g/dL (13.5-17.0)
[2018-11-30 06:28] LABS: ABSOLUTE LYMPHOCYTES# (MANUAL) 0.2 10^3/uL (0.5-4.7); ABSOLUTE MONOCYTES # (MANUAL) 0.4 10^3/uL (0.1-1.4); BAND NEUTROPHILS % (MANUAL) 2 % (3-5); BASOPHILS % (MANUAL) 1 % (0-2); EOSINOPHILS % (MANUAL) 2 % (0-6); LYMPHOCYTES % (MANUAL) 2 % (13-45); METAMYELOCYTES % (MANUAL) 1 % (0); MONOCYTES % (MANUAL) 3 % (3-13); SEGMENTED NEUTROPHILS % (MAN) 89 % (42-78); TOTAL CELLS COUNTED 100
[2018-11-30 06:29] LABS: PLATELET CLUMPS PRESENT
[2018-11-30 06:30] LABS: TOXIC GRANULATION 2+
[2018-11-30] MEDS: AMINO ACIDS 5 %/DEXTROSE 20 % 1,000 ML IV PRN (07:51)
[2018-11-30] MEDS: LEVALBUTEROL HCL NEB 1.25 MG/3 ML AMPUL NEB PRN ×2 (08:03→17:09)
--- NOTE | 2018-11-30 09:19 | PDOC PROGRESS REPORT ---
Subjective Progress Note for:: 11/30/18 Subjective:: 73 yr old male with a PMH of Chandler fundoplication, duodenal AVM, Terrell's esophagus who underwent EGD yesterday. Patient unfortunately sustained a possible perforated viscus. A chest x-ray done which showed significant subcutaneous emphysema with pneumomediastinum. Patient was promptly brought to the ER yesterday afternoon and was noted to have a perforated duodenum. He underwent repair of the perforation and was transferred to the ICU. Hospitalist service was consulted for medical co-management. 11/22: Patient is currently intubated and sedated on Versed and propofol. He is saturating well on minimal vent settings. Currently getting IV fluids. Seros anguineous output on the surgical drains. 11/23: He is currently intubated and is saturating well on minimal vent settings. He is running fever with T-max at 100.6. Patient has been off Versed since 3 AM but is not easily arousable and is not following commands. CT of the head was done and came back negative. We will try to keep him off sedation today and see if there is any improvement in his mentation. 11/24: No acute event overnight. Patient has been off sedation for 36 hrs now but still does not have spontaneous eye opening. He does have spontaneous movement and withdraws to pain equally with no noticeable gross weakness. Await EEG report. Will consult [facility] neurology for further recommendations. Discussed case, labs and diagnostic testing done so far in length with [facility] neurologist, Dr. Gill recommended pursuing an MRI to rule out small CVAs although this will not significantly change current management. No other further neurodiagnostic testing recommended at this time. Also discussed with [facility] neurologist in length, Dr. Bhakta who has the same recommendation and insight. He did recommend repeating a plain head CT if MRI is not feasible at this time. 11/25/[id number]-cjkk-old male with past medical history of Chandler fundoplication, duodenal AV malformations, Terrell's esophagus underwent EGD on 11/21/2018 unfortunately sustained a possible perforated viscus. Chest x-ray done suggestive of subcutaneous emphysema with pneumomediastinum. Status post repair of the perforation and patient was transferred to ICU. Presently he was intubated off the sedation for the last 48 hours. Today he responding to verbal commands by wiggling his toes and nodding his head. He is only on pressure support. 11/26/2018-no acute events in the last 24 hours. T-max is 100.6. Patient is presently on Zosyn. Chest x-ray done this morning shows improvement in the left lower lobe aeration. Patient is off the sedation for the last several days presently on 30% oxygen PEEP of 5 with pressure support of 22 above PEEP. Oxygen saturation is 96 to 98%. 11/27/2018-patient was successfully extubated this morning. T-max is 100.8 today. Presently on IV Zosyn started on IV levo floxacillin. Culture from the abdomen at the time of surgery came back positive for E. coli and Peptostreptococcus. Patient is alert awake responding reasonably. Still slightly confused. Surgical team came this morning they want to continue TPN at this point. 11/28/[id number]-zlqv-old male admitted to ICU after EGD procedure leading to perforation of the viscus status post surgery closure of the perforation and he was intubated during the hospital stay successfully extubated 2 days ago. He mentation is slowly recovering. He is more alert more awake today compared to yesterday showing significant improvement on daily basis. Dr. Harvey saw the patient this morning he wants to clamp the NG tube and then make a decision either today or tomorrow for a NG tube feeds or oral feeds. Patient G-tube is still not working. Is having a low-grade fever of 100.8 and the cultures from t he abdomen shows Peptostreptococcus, E. coli. Presently on IV Zosyn and levo floxacillin. Plan to do the CT chest CT abdomen pelvis without contrast today to look for the reasons for persistent fever. in The opinion patient is stable enough to go to [facility]. 11/29/2018 patient was transferred to [facility] yesterday. CT chest and abdomen was done yesterday CT abdomen shows large fluid collection and surgical team is following the patient. Patient has a T-max of 88. Presently on IV Zosyn and levo floxacillin. The cultures from the abdomen shows Peptostreptococcus, E. coli. He was able to tolerate the broth this morning. Patient need physical therapy. On examination chest bilateral mild wheezing is present and shortness of breath IV fluids are discontinued and started on Lasix 40 twice daily. 11/30/2018-no acute events in the last 24 hrs. t max 99.7.family is concerned about rt side weakness. mri brain is requested. Discussed the plan with Dr. Harvey he is going to advance the diet to full liquid diet request to remove the Swan's catheter. Patient is comfortably in the bed communicating well. Reason For Visit: MELENA K92.1 Physical Exam Vital Signs: Temp Pulse Resp BP Pulse Ox 99.7 F 76 18 133/53 H 100 11/30/18 03:07 11/30/18 07:00 11/30/18 03:07 11/30/18 03:07 11/30/18 03:07 Intake & Output 11/29/18 11/30/18 12/01/18 06:59 06:59 06:59 Intake Total 923 1379 Output Total 3010 3300 Balance -2086 Weight 111.1 kg 110.4 kg General appearance: PRESENT: no acute distress, obese Head exam: PRESENT: atraumatic Eye exam: PRESENT: PERRLA Neck exam: ABSENT: carotid bruit, JVD, lymphadenopathy, thyromegaly Respiratory exam: PRESENT: decreased breath sounds Cardiovascular exam: PRESENT: RRR. ABSENT: diastolic murmur, rubs, systolic murmur GI/Abdominal exam: PRESENT: normal bowel sounds, soft. ABSENT: distended, guarding, mass, organolmegaly, rebound, tenderness Rectal exam: PRESENT: deferred Gentrourinary exam: PRESENT: indwelling catheter Extremities exam: PRESENT: full ROM. ABSENT: calf tenderness, clubbing, pedal edema Neurological exam: PRESENT: alert, awake, oriented to person, oriented to place, oriented to time, oriented to situation, CN II-XII grossly intact. ABSENT: motor sensory deficit Psychiatric exam: PRESENT: appropriate affect, normal mood. ABSENT: homicidal ideation, suicidal ideation Results Laboratory Results: 11/30/18 05:20 11/30/18 05:20 11/30/18 11/30/18 05:20 05:20 WBC 12.3 H RBC 2.73 L Hgb 7.8 L Hct 23.9 L MCV 87 MCH 28.5 MCHC 32.6 RDW 15.1 H Plt Count 362 Seg Neutrophils % Not Reportable Lymphocytes % Not Reportable Monocytes % Not Reportable Eosinophils % Not Reportable Basophils % Not Reportable Absolute Neutrophils Not Reportable Absolute Lymphocytes Not Reportable Absolute Monocytes Not Reportable Absolute Eosinophils Not Reportable Absolute Basophils Not Reportable Sodium 140.4 Potassium 3.5 L Chloride 109 H Carbon Dioxide 26 Anion Gap 5 BUN 19 Creatinine 1.00 Est GFR ( Amer) > 60 Est GFR (Non-Af Amer) > 60 Glucose 170 H Calcium 7.9 L Magnesium 2.2 Total Bilirubin 0.9 AST 67 H ALT 70 Alkaline Phosphatase 51 Total Protein 4.6 L Albumin 2.2 L 11/20/18 11/24/18 21:45 09:53 Creatine Kinase 224 H NT-Pro-B Natriuret Pep 52 Impressions: Abdomen X-Ray 11/20/18 00:00 IMPRESSION: ABNORMAL COLLECTION OF GAS IN THE ABDOMEN WHICH IS PROBABLY RETROPERITONEAL. THIS EXTENDS INTO THE CHEST WITH RIGHT-SIDED PNEUMOMEDIASTINUM WELL EXTENSION INTO THE LOWER RIGHT SIDE OF THE NECK WITH SUBCUTANEOUS EMPHYSEMA IN THE RIGHT SUPRACLAVICULAR TISSUES. Esophagus X-Ray 11/20/18 00:00 IMPRESSION: CONTRAST EXTRAVASATION FROM THE SECOND PORTION OF THE DUODENUM CONSISTENT WITH PERFORATION. NO EVIDENCE OF ESOPHAGEAL OR GASTRIC PERFORATION. OTHER INCIDENTAL FINDING IS A PROBABLE DUODENAL DIVERTICULUM. Upper GI and Small Bowel X-Ray 11/20/18 00:00 IMPRESSION: CONTRAST EXTRAVASATION FROM THE SECOND PORTION OF THE DUODENUM CONSISTENT WITH PERFORATION. NO EVIDENCE OF ESOPHAGEAL OR GASTRIC PERFORATION. OTHER INCIDENTAL FINDING IS A PROBABLE DUODENAL DIVERTICULUM. Head CT 11/25/18 08:37 IMPRESSION: No acute intracranial changes. Findings discussed with Dr Harvey EVIDENCE OF ACUTE STROKE: NO. Knee X-Ray 11/27/18 00:00 IMPRESSION: Suprapatellar knee joint effusion. Mild diffuse soft tissue swelling. Correlate clinically for infection with cellulitis No acute fracture or malalignment. No lucency around the right knee prosthesis worrisome for loosening. Abdomen/Pelvis CT 11/28/18 00:00 IMPRESSION: Decreasing pneumomediastinum. Increasing bilateral pleural effusions and basilar atelectasis or pneumonia. IMPRESSION: Fairly large collection of fluid in the lower mid abdomen extending along the ileo psoas margin into the pelvis. This could be postoperative in nature. Retroperitoneal hematoma cannot be excluded. Developing infectious or inflammatory process is thought to be less likely. There are no drainable collections at this time. Small pockets of free air remain consistent with recent surgery. Chest CT 11/28/18 00:00 IMPRESSION: Decreasing pneumomediastinum. Increasing bilateral pleural ef fusions and basilar atelectasis or pneumonia. IMPRESSION: Fairly large collection of fluid in the lower mid abdomen extending along the ileo psoas margin into the pelvis. This could be postoperative in nature. Retroperitoneal hematoma cannot be excluded. Developing infectious or inflammatory process is thought to be less likely. There are no drainable collections at this time. Small pockets of free air remain consistent with recent surgery. Chest X-Ray 11/28/18 00:00 IMPRESSION: STABLE APPEARANCE OF THE CHEST. Assessment and Plan - Diagnosis (1) Acute respiratory failure with hypoxia Is this a current diagnosis for this admission?: Yes Plan: Saturating well on minimal vent settings. 11/23: He is currently intubated and is saturating well on minimal vent settings. Patient has been off Versed since 3 AM but is not easily arousable and is not following commands. CT of the head was done and came back negative. We will try to keep him off sedation today and see if there is any improvement in his mentation. EEG ordered. 11/24: Patient has been off sedation for 36 hrs now but still does not have spontaneous eye opening. He does have spontaneous movement and withdraws to pain equally with no noticeable gross weakness. Await EEG report. Will consult [facility] neurology for further recommendations. 11/25/2018-patient is off the sedation for the last 48 hours now is responding to verbal commands by nodding his head and reaching his toes opening his eyes. No focal neurological deficits. Spontaneous movement and withdrawal to pain is present. EKG is nonspecific. CT head done this morning acute you for stroke. Patient is presently on pressure support only. Pulse ox is around 96%. 11/26/2018-patient is off the sedation for the last [address] head was negative for acute changes. Presently on 30% oxygen with PEEP of 5 and pressure support of more than 22. Oxygen saturation is around 96%. Weaning process was initiated and if possible we may extubate him today. ABG done this morning on room air pH is 7.49/PCO2 27.4/PO2 69 oxygen saturation is 95%. presently on IV Zosyn. 11/27/2018-patient was successfully extubated this morning. Still have a running low-grade fever 100.8. Presently on IV Zosyn and IV levo floxacillin added to the medication. Wound cultures came back positive for E. coli and Peptostr eptococcus. Chest x-ray is pending today. Yesterday's chest x-ray suggestive of improving aeration in the left left lower lobe. 11/28/[id number]-qxgh-old male intubated for acute respiratory failure with hypoxia successfully extubated 2 days ago. His pulse ox is at 99% on room air today. Respiratory rate is 14-16 comfortably in the bed denies any problems. On examination chest bilateral it was decreased few crepitations are present at the bases. T-max is 100.6 presently on IV Zosyn and IV levo floxacillin. Sputum culture showing Niya albicans. 11/29/2018-patient developed acute respiratory failure with hypoxia status post intubation and extubation during the hospital stay. Socks is 95% on 3 L today. On examination chest mild wheezing is present associated with decreased bilateral air entry. There is a concern about fluid overload and Dr. Harvey started him on Lasix 20 mg IV twice daily. Chest x-ray/CT chest done yesterday shows bilateral pleural effusions and decreasing pneumomediastinum. 11/30/2018-acute respiratory failure with hypoxia resolved. Pulse ox 100% on 3 L. On examination chest bilateral entry was good no wheezing no crepitations. (2) Duodenal perforation Is this a current diagnosis for this admission?: Yes Plan: Related to recent EGD. Status post surgical repair. 11/25/2018-duodenal perforation after EGD. Status post surgical repair. Surgical team is following the patient. 11/26/2018-management as per the surgical recommendations. 11/27/2018-management as per surgical team. Patient has NG tube to low bile colored drainage seen in the NG tube. 11/28/2018-patient is still on TPN NG tube in place. Dr. Harvey wants to clamp the tube today and go from there. Patient has a G-tube which is not working at the moment. 11/29/2018-patient was started on broth today. CT abdomen shows fluid collection in the abdominal cavity. Dr. Harvey is aware of it and the surgical team is going to follow the the issue. 11/30/2018-management as per surgical team. (3) Essential hypertension Is this a current diagnosis for this admission?: Yes Plan: Blood pressures well controlled. 11/25/2018-patient has history of essential hypertension blood pressure today's 133/73. Plan is to continue the present management. 11/26/2018-patient has history of hypertension latest blood pressure is 122/70. Relative control. Presently on normal saline at 100 cc/h plan is to discontinue IV fluids from today. 11/27/2018-patient blood pressure today is 129/60. Relatively controlled. Presently on normal saline 100 cc/h plan is to cut it down to 50 from today. 11/28/2018-patient blood pressure today is 129/52. Blood pressure is relatively controlled presently on IV fluids normal saline 50 cc/h plan is to discontinue I V fluids today. 11/29/2018-patient blood pressure today is 143/58 stable. IV fluids are discontinued and he was started on Lasix 20 IV twice daily. 11/30/2018-patient blood pressure today is 133/43 he still on Lasix 40 mg twice a day plan is to continue the diuretic for today. (4) Acute kidney injury Is this a current diagnosis for this admission?: Yes Plan: Resolved. 11/25/2018-patient admitted with a CHRISTAINO which was resolved. Admission creatinine is 1.37 and it peaked to 2.1 came down to 0.95 now. CHRISTIANO due to prerenal causes resolved. Patient's baseline creatinine is around 0.88. 11/26/2018-patient was admitted with CHRISTIANO today's creatinine is 0.84 acute kidney injury is resolved. 11/27/2018-this elderly male with a CHRISTIANO during the hospital stay latest creatinine 0.84. Acute kidney injury is resolved. 11/28/2018 patient developed CHRISTIANO during the hospital stay his creatinine today is 0.86 it was peaked to 2.13 in the hospital stay. CHRISTIANO most likely secondary to prerenal causes resolving. 11/29/2018-latest creatinine is 0.86 acute kidney injury resolved. 11/30/2018-latest serum creatinine is 1.0 acute kidney injury is resolved. (5) Acute blood loss anemia Is this a current diagnosis for this admission?: Yes Plan: Possibly perioperative related. S/P 2 units of packed RBC. 11/25/2018-patient has acute blood loss anemia most likely related to p erioperative state status post 2 units of blood transfusion during the hospital stay latest hemoglobin is 8.5 stable. 11/26/2018-patient's hemoglobin is 8.8 today stable. During this hospital stay he received 2 units of PRBC. 11/27/2018-patient hemoglobin is 8.4 stable. During the hospital stay he received 2 units of PRBC. 11/28/2018-patient hemoglobin today is 8.3 stable. He received 2 units of blood transfusion during the hospital stay acute blood loss most likely happened during the perioperative phase. 11/29/2018-patient's hemoglobin 8.3 stable. 11/30/2018-patient hemoglobin is 7.8 I discussed the plan with Dr. Harvey he thinks a dilutional plan is to repeat these CBC tomorrow. (6) Obesity (BMI 30-39.9) Is this a current diagnosis for this admission?: No - Time Time Spent with patient: 25-34 minutes Medications reviewed and adjusted accordingly: Yes Anticipated discharge: SNF
--- NOTE | 2018-11-30 09:37 | PDOC PROGRESS REPORT ---
Subjective Progress Note for:: 11/30/18 Subjective:: feels ok cj clears still at bedrest Reason For Visit: MELENA K92.1 Physical Exam Vital Signs: Temp Pulse Resp BP Pulse Ox 99.7 F 76 18 133/53 H 100 11/30/18 03:07 11/30/18 07:00 11/30/18 03:07 11/30/18 03:07 11/30/18 03:07 Intake & Output 11/29/18 11/30/18 12/01/18 06:59 06:59 06:59 Intake Total 923 1379 Output Total 3010 3300 Balance -2086 Weight 111.1 kg 110.4 kg General appearance: PRESENT: no acute distress Head exam: PRESENT: normocephalic Eye exam: PRESENT: EOMI Ear exam: PRESENT: normal external ear exam Mouth exam: PRESENT: moist Neck exam: PRESENT: full ROM Respiratory exam: PRESENT: wheezes Cardiovascular exam: PRESENT: RRR Pulses: PRESENT: normal radial pulses, normal femoral pulses Vascular exam: PRESENT: normal capillary refill, pallor GI/Abdominal exam: PRESENT: other - abd softly distended + bs isabella serous Rectal exam: PRESENT: deferred Gentrourinary exam: PRESENT: indwelling catheter Extremities exam: PRESENT: full ROM, other - 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 Neurological exam: PRESENT: alert, awake, oriented to person, oriented to place Psychiatric exam: PRESENT: appropriate affect Skin exam: PRESENT: dry Results Laboratory Results: 11/30/18 05:20 11/30/18 05:20 11/30/18 11/30/18 05:20 05:20 WBC 12.3 H RBC 2.73 L Hgb 7.8 L Hct 23.9 L MCV 87 MCH 28.5 MCHC 32.6 RDW 15.1 H Plt Count 362 Seg Neutrophils % Not Reportable Lymphocytes % Not Reportable Monocytes % Not Reportable Eosinophils % Not Reportable Basophils % Not Reportable Absolute Neutrophils Not Reportable Absolute Lymphocytes Not Reportable Absolute Monocytes Not Reportable Absolute Eosinophils Not Reportable Absolute Basophils Not Reportable Sodium 140.4 Potassium 3.5 L Chloride 109 H Carbon Dioxide 26 Anion Gap 5 BUN 19 Creatinine 1.00 Est GFR ( Amer) > 60 Est GFR (Non-Af Amer) > 60 Glucose 170 H Calcium 7.9 L Magnesium 2.2 Total Bilirubin 0.9 AST 67 H ALT 70 Alkaline Phosphatase 51 Total Protein 4.6 L Albumin 2.2 L 11/20/18 11/24/18 21:45 09:53 Creatine Kinase 224 H NT-Pro-B Natriuret Pep 52 Impressions: Abdomen X-Ray 11/20/18 00:00 IMPRESSION: ABNORMAL COLLECTION OF GAS IN THE ABDOMEN WHICH IS PROBABLY RETROPERITONEAL. THIS EXTENDS INTO THE CHEST WITH RIGHT-SIDED PNEUMOMEDIASTINUM WELL EXTENSION INTO THE LOWER RIGHT SIDE OF THE NECK WITH SUBCUTANEOUS EMPHYSEMA IN THE RIGHT SUPRACLAVICULAR TISSUES. Esophagus X-Ray 11/20/18 00:00 IMPRESSION: CONTRAST EXTRAVASATION FROM THE SECOND PORTION OF THE DUODENUM CONSISTENT WITH PERFORATION. NO EVIDENCE OF ESOPHAGEAL OR GASTRIC PERFORATION. OTHER INCIDENTAL FINDING IS A PROBABLE DUODENAL DIVERTICULUM. Upper GI and Small Bowel X-Ray 11/20/18 00:00 IMPRESSION: CONTRAST EXTRAVASATION FROM THE SECOND PORTION OF THE DUODENUM CONSISTENT WITH PERFORATION. NO EVIDENCE OF ESOPHAGEAL OR GASTRIC PERFORATION. OTHER INCIDENTAL FINDING IS A PROBABLE DUODENAL DIVERTICULUM. Head CT 11/25/18 08:37 IMPRESSION: No acute intracranial changes. Findings discussed with Dr Harvey EVIDENCE OF ACUTE STROKE: NO. Knee X-Ray 11/27/18 00:00 IMPRESSION: Suprapatellar knee joint effusion. Mild diffuse soft tissue swelling. Correlate clinically for infection with cellulitis No acute fracture or malalignment. No lucency around the right knee prosthesis worrisome for loosening. Abdomen/Pelvis CT 11/28/18 00:00 IMPRESSION: Decreasing pneumomediastinum. Increasing bilateral pleural effus ions and basilar atelectasis or pneumonia. IMPRESSION: Fairly large collection of fluid in the lower mid abdomen extending along the ileo psoas margin into the pelvis. This could be postoperative in nature. Retroperitoneal hematoma cannot be excluded. Developing infectious or inflammatory process is thought to be less likely. There are no drainable collections at this time. Small pockets of free air remain consistent with recent surgery. Chest CT 11/28/18 00:00 IMPRESSION: Decreasing pneumomediastinum. Increasing bilateral pleural effusions and basilar atelectasis or pneumonia. IMPRESSION: Fairly large collection of fluid in the lower mid abdomen extending along the ileo psoas margin into the pelvis. This could be postoperative in nature. Retroperitoneal hematoma cannot be excluded. Developing infectious or inflammatory process is thought to be less likely. There are no drainable collections at this time. Small pockets of free air remain consistent with recent surgery. Chest X-Ray 11/28/18 00:00 IMPRESSION: STABLE APPEARANCE OF THE CHEST. Assessment & Plan - Diagnosis (1) Bowel perforation Is this a current diagnosis for this admission?: Yes - Plan Summary Plan Summary: slowly improving good result iwth bid lasix still has anasarca cj clear liquids po yesterday still some weakness rt upper extremity wbc decreased hb 7.8 plan will advance to full liquids dc landa mri brain today plan on removing central line tomorrow
[2018-11-30] MEDS: METOPROLOL SUCCINATE 25 MG TAB.SR.24H PO SCH (10:17)
[2018-11-30] MEDS: LOSARTAN POTASSIUM 50 MG TABLET PO SCH (10:17)
[2018-11-30] MEDS: FUROSEMIDE INJ/PF 20 MG/2 ML SDV IV SCH ×2 (10:17→18:40)
[2018-11-30] MEDS: FENOFIBRATE NANOCRYSTALLIZED 145 MG TABLET PO SCH (10:17)
[2018-11-30] MEDS: ASPIRIN 81 MG TABLET, CHEWABLE PO SCH (10:18)
[2018-11-30] MEDS: DORZOLAMIDE HCL 2% OPH SOLN 10 ML OU SCH ×2 (10:18→18:40)
[2018-11-30] MEDS: ENOXAPARIN SODIUM INJ 40 MG/0.4 ML DISP.SYRIN SUBCUT SCH ×2 (10:18→21:07)
[2018-11-30] MEDS: FLUCONAZOLE 200 MG/NS RTU 200 MG/100 ML RTUPB IV SCH (10:18)
[2018-11-30] MEDS: LEVOFLOXACIN 500 MG/D5W RTU 500 MG/100 ML RTUPB IV SCH (11:41)
--- NOTE | 2018-11-30 17:30 | RADIOLOGY REPORT (SQ) ---
EXAM DESCRIPTION: MRI HEAD WITHOUT COMPLETED DATE/TIME: 11/30/2018 3:51 pm REASON FOR STUDY: stroke K92.1 MELENA COMPARISON: None. TECHNIQUE: Multiplanar imaging includes non-contrasted T1, T2, FLAIR, and diffusion with ADC map seq uences. Images stored on PACS. LIMITATIONS: None. FINDINGS: ANATOMY: No anomalies. Normal vascular flow voids. Pituitary fossa normal. CSF SPACES: Normal in size and contour. No hemorrhage. CEREBRUM: Sulci and gyri normal in size and contour. Age-appropriate white matter signal on FLAIR im aging. No evidence of hemorrhage, mass, or extraaxial fluid collection. POSTERIOR FOSSA: No signal alteration. No hemorrhage. No edema, masses or mass effect. Internal barb tory canals, cerebello-pontine angles, mastoids normal. DIFFUSION IMAGING: Negative for acute or sub-acute infarction. ORBITS: No masses. Globes normal. PARANASAL SINUSES: No fluid levels. Mucosa normal. OTHER: Small bilateral mastoid effusions. IMPRESSION: Negative for acute or sub-acute infarction.Small bilateral mastoid effusions. EVIDENCE OF ACUTE STROKE: NO. TECHNICAL DOCUMENTATION: JOB ID: [id number] [employer]- All Rights Reserved Reading location - IP/workstation name: [email or web address]
[2018-11-30] MEDS: SIMVASTATIN 40 MG TABLET PO SCH (21:06)
[2018-11-30] MEDS: LATANOPROST 0.005% OPH SOLN 2.5 ML OU SCH (23:58)
[2018-12-01] MEDS: INSULIN REG, HUMAN 100 UNIT/ML 3 ML VIAL (PYX) SUBCUT SCH ×4 (01:28→19:20)
[2018-12-01] MEDS: PIPERACILLIN SODIUM/TAZOBACTAM 4.5 GM in NORMAL SALINE 100 ML IV SCH ×4 (01:28→17:30)
[2018-12-01] MEDS: AMINO ACIDS 5 %/DEXTROSE 20 % 1,000 ML IV PRN ×2 (02:14→21:22)
[2018-12-01] MEDS: METOPROLOL TARTRATE PF/INJ 5 MG/5 ML SDV IV SCH ×6 (02:14→21:32)
--- NOTE | 2018-12-01 09:06 | RADIOLOGY REPORT (SQ) ---
EXAM DESCRIPTION: CHEST SINGLE VIEW COMPLETED DATE/TIME: 12/01/2018 8:24 am REASON FOR STUDY: sob COMPARISON: 11/28/2018 EXAM PARAMETERS: NUMBER OF VIEWS: One view. TECHNIQUE: Single frontal radiographic view of the chest acquired. RADIATION DOSE: NA LIMITATIONS: None. FINDINGS: LUNGS AND PLEURA: No opacities, masses or pneumothorax. No pleural effusion. MEDIASTINUM AND HILAR STRUCTURES: No masses. Contour normal. HEART AND VASCULAR STRUCTURES: Cardiomegaly status post median sternotomy. BONES: No acute findings. HARDWARE: None in the chest. OTHER: Left chest subclavian catheter. IMPRESSION: Cardiomegaly status post median sternotomy. TECHNICAL DOCUMENTATION: JOB ID: [id number] [employer]- All Rights Reserved Reading location - IP/workstation name: [email or web address]
--- NOTE | 2018-12-01 09:33 | PDOC PROGRESS REPORT ---
Subjective Progress Note for:: 12/01/18 Subjective:: feels ok, still with wheezes min out of bed Reason For Visit: MELENA K92.1 Physical Exam Vital Signs: Temp Pulse Resp BP Pulse Ox 97.8 F 84 18 128/48 H 100 12/01/18 08:23 12/01/18 08:23 12/01/18 08:23 12/01/18 08:23 12/01/18 08:23 Intake & Output 11/30/18 12/01/18 12/02/18 06:59 06:59 06:59 Intake Total 1379 800 100 Output Total 3300 1660 Balance -1921 -860 100 Weight 110.4 kg 110.8 kg General appearance: PRESENT: no acute distress Head exam: PRESENT: normocephalic Eye exam: PRESENT: EOMI Mouth exam: PRESENT: moist Neck exam: PRESENT: full ROM Respiratory exam: PRESENT: clear to auscultation yoana, wheezes Cardiovascular exam: PRESENT: RRR Pulses: PRESENT: normal radial pulses, normal femoral pulses GI/Abdominal exam: PRESENT: other - soft, but still distended, + bs isabella's serous Gentrourinary exam: PRESENT: scrotal swelling Extremities exam: PRESENT: full ROM Musculoskeletal exam: PRESENT: full ROM Neurological exam: PRESENT: alert, awake, oriented to person, oriented to place Results Laboratory Results: 11/30/18 05:20 11/30/18 05:20 11/27/18 15:51 Knee Fluid - Right Gram Stain - Final 11/27/18 15:51 Knee Fluid - Right Body Fluid Culture - Final NO AEROBIC OR ANAEROBIC ORGANISMS RECOVERED 11/20/18 11/24/18 21:45 09:53 Creatine Kinase 224 H NT-Pro-B Natriuret Pep 52 Impressions: Abdomen X-Ray 11/20/18 00:00 IMPRESSION: ABNORMAL COLLECTION OF GAS IN THE ABDOMEN WHICH IS PROBABLY RETROPERITONEAL. THIS EXTENDS INTO THE CHEST WITH RIGHT-SIDED PNEUMOMEDIASTINUM WELL EXTENSION INTO THE LOWER RIGHT SIDE OF THE NECK WITH SUBCUTANEOUS EMPHYSEMA IN THE RIGHT SUPRACLAVICULAR TISSUES. Esophagus X-Ray 11/20/18 00:00 IMPRESSION: CONTRAST EXTRAVASATION FROM THE SECOND PORTION OF THE DUODENUM CONSISTENT WITH PERFORATION. NO EVIDENCE OF ESOPHAGEAL OR GASTRIC PERFORATION. OTHER INCIDENTAL FINDING IS A PROBABLE DUODENAL DIVERTICULUM. Upper GI and Small Bowel X-Ray 11/20/18 00:00 IMPRESSION: CONTRAST EXTRAVASATION FROM THE SECOND PORTION OF THE DUODENUM CONSISTENT WITH PERFORATION. NO EVIDENCE OF ESOPHAGEAL OR GASTRIC PERFORATION. OTHER INCIDENTAL FINDING IS A PROBABLE DUODENAL DIVERTICULUM. Head CT 11/25/18 08:37 IMPRESSION: No acute intracranial changes. Findings discussed with Dr Harvey EVIDENCE OF ACUTE STROKE: NO. Knee X-Ray 11/27/18 00:00 IMPRESSION: Suprapatellar knee joint effusion. Mild diffuse soft tissue swelling. Correlate clinically for infection with cellulitis No acute fracture or malalignment. No lucency around the right knee prosthesis worrisome for loosening. Abdomen/Pelvis CT 11/28/18 00:00 IMPRESSION: Decreasing pneumomediastinum. Increasing bilateral pleural effusi ons and basilar atelectasis or pneumonia. IMPRESSION: Fairly large collection of fluid in the lower mid abdomen extending along the ileo psoas margin into the pelvis. This could be postoperative in nature. Retroperitoneal hematoma cannot be excluded. Developing infectious or inflammatory process is thought to be less likely. There are no drainable collections at this time. Small pockets of free air remain consistent with recent surgery. Chest CT 11/28/18 00:00 IMPRESSION: Decreasing pneumomediastinum. Increasing bilateral pleural effusions and basilar atelectasis or pneumonia. IMPRESSION: Fairly large collection of fluid in the lower mid abdomen extending along the ileo psoas margin into the pelvis. This could be postoperative in nature. Retroperitoneal hematoma cannot be excluded. Developing infectious or inflammatory process is thought to be less likely. There are no drainable collections at this time. Small pockets of free air remain consistent with recent surgery. Head MRI 11/30/18 00:00 IMPRESSION: Negative for acute or sub-acute infarction.Small bilateral mastoid effusions. EVIDENCE OF ACUTE STROKE: NO. Chest X-Ray 12/01/18 00:00 IMPRESSION: Cardiomegaly status post median sternotomy. Assessment & Plan - Diagnosis (1) Bowel perforation Is this a current diagnosis for this admission?: Yes - Plan Summary Plan Summary: picc line today dc central line cxr physical rx cont full liquids
[2018-12-01 09:51] LABS: HEMATOCRIT 23.3 % (37.9-51.0); MEAN CORPUSCULAR HEMOGLOBIN 29.2 pg (27.0-33.4); MEAN CORPUSCULAR HGB CONC 33.6 g/dL (32.0-36.0); MEAN CORPUSCULAR VOLUME 87 fl (80-97); PLATELET COUNT 431 10^3/uL (150-450); RED BLOOD COUNT 2.69 10^6/uL (4.35-5.55); RED CELL DISTRIBUTION WIDTH 15.2 % (11.5-14.0); WHITE BLOOD COUNT 9.8 10^3/uL (4.0-10.5)
[2018-12-01 09:56] LABS: INTERNATIONAL RATION (INR) 1.55; PROTHROMBIN TIME 19.3 SEC (11.4-15.4)
[2018-12-01 10:00] LABS: HEMOGLOBIN 7.9 g/dL (13.5-17.0)
[2018-12-01 10:10] LABS: ABSOLUTE LYMPHOCYTES# (MANUAL) 0.2 10^3/uL (0.5-4.7); ABSOLUTE MONOCYTES # (MANUAL) 0.6 10^3/uL (0.1-1.4); BASOPHILS % (MANUAL) 1 % (0-2); EOSINOPHILS % (MANUAL) 1 % (0-6); HYPERSEGMENTED NEUTROPHILS PRESENT; LYMPHOCYTES % (MANUAL) 2 % (13-45); MONOCYTES % (MANUAL) 6 % (3-13); SEGMENTED NEUTROPHILS % (MAN) 90 % (42-78); TOTAL CELLS COUNTED 100
[2018-12-01 10:12] LABS: ANISOCYTOSIS SLIGHT; HYPOCHROMASIA SLIGHT; PLATELET COMMENT ADEQUATE
[2018-12-01 10:18] LABS: ALANINE AMINOTRANSFERASE 72 U/L (21-72); ALBUMIN 2.2 g/dL (3.5-5.0); ALKALINE PHOSPHATASE 55 U/L (38-126); ANION GAP 7 (5-19); ASPARTATE AMINO TRANSFERASE 66 U/L (17-59); BILIRUBIN,DIRECT 0.5 mg/dL (0.0-0.4); BILIRUBIN,TOTAL 0.8 mg/dL (0.2-1.3); BLOOD UREA NITROGEN 19 mg/dL (7-20); CARBON DIOXIDE 26 mmol/L (22-30); CHLORIDE 106 mmol/L (98-107); GLUCOSE 201 mg/dL (75-110); PHOSPHORUS 2.7 mg/dL (2.5-4.5); POTASSIUM 3.7 mmol/L (3.6-5.0); SODIUM 139.2 mmol/L (137-145); TOTAL PROTEIN 4.6 g/dL (6.3-8.2)
[2018-12-01 10:25] LABS: PREALBUMIN 4.7 mg/dL (17.6-36.0)
[2018-12-01] MEDS: LEVALBUTEROL HCL NEB 1.25 MG/3 ML AMPUL NEB PRN ×3 (10:54→20:20)
--- NOTE | 2018-12-01 11:10 | RADIOLOGY REPORT (SQ) ---
EXAM DESCRIPTION: PICC INSERTION; FLUORO/CV PLACEMENT; U/S GUIDE FOR VASCULAR ACCESS COMPLETED DATE/TIME: 12/01/2018 10:33 am REASON FOR STUDY: sob; IV ABX; IV ACCESS K92.1 MELENA COMPARISON: AP chest 12/01/2018 FLUOROSCOPY TIME: 54 seconds 1 digital fluoroscopic image and 1 ultrasound image saved to PACS. TECHNIQUE: Fluoroscopic and ultrasound guided PICC placement. LIMITATIONS: None. PROCEDURE: After written consent and assessment were obtained, the patient was brought into the fluo roscopy room and placed supine on the table. Ultrasound evaluation of potential access sites were per formed. After successfully identifying a patent right basilic vein, the right arm was prepped and ivonne ped in a sterile fashion along with the ultrasound probe. The entry site was anesthetized with 1% lid ocaine. A 21 gauge 7 cm needle was advanced through the skin and into the basilic vein under live ult rasound guidance. An ultrasound image was saved to PACS confirming access site. A .018 guide wire w as then inserted through the needle and into the venous system. The needle was then removed and an 11 blade scalpel was used to make a 1cm skin incision. A 5 fr peel-away sheath was advanced over the w lesa and into the venous system. A measurement was then made using the existing wire and live fluorosc opic guidance. The wire was then removed and trimmed. The PICC was advanced through the peel-away she ath and into the venous system. The peel-away sheath was removed and the catheter was adhered to the patients arm with a stat lock. The catheter was then aspirated and flushed and a sterile bandage was placed over the access site. A fluoroscopic spot image was saved to PACS confirming the catheter tip within the superior vena cava. IMPRESSION: SUCCESSFUL PLACEMENT OF A 5 FR DUAL LUMEN 35 CM PICC IN THE RIGHT BASILIC VEIN. COMMENT: Patient medication list reviewed: Yes- Quality ID# 130:Eligible professional attests to doc umenting in the medical record they obtained, updated, or reviewed the patient's current medications. . Quality ID 145: Final reports for procedures using fluoroscopy that document radiation exposure norman reno, or exposure time and number of fluorographic images (if radiation exposure indices are not avail able) Quality ID #76: The patient was prepped and draped using maximum sterile barrier technique including cap, mask, sterile gown, sterile gloves, a large sterile sheet, hand hygiene, and 2% Chlorhexidine fo r cutaneous antisepsis. When ultrasound is used, sterile ultrasound techniques are followed requiring sterile gel and sterile probes. TECHNICAL DOCUMENTATION: JOB ID: [id number] [employer]- All Rights Reserved rev-11/01 Reading location - IP/workstation name: [facility]OSPITALArturo
[2018-12-01] MEDS: FUROSEMIDE INJ/PF 20 MG/2 ML SDV IV SCH ×2 (11:25→17:30)
[2018-12-01] MEDS: FENOFIBRATE NANOCRYSTALLIZED 145 MG TABLET PO SCH (11:25)
[2018-12-01] MEDS: LOSARTAN POTASSIUM 50 MG TABLET PO SCH (11:25)
[2018-12-01] MEDS: FLUCONAZOLE 200 MG/NS RTU 200 MG/100 ML RTUPB IV SCH (11:26)
[2018-12-01] MEDS: LEVOFLOXACIN 500 MG/D5W RTU 500 MG/100 ML RTUPB IV SCH (11:26)
[2018-12-01] MEDS: ASPIRIN 81 MG TABLET, CHEWABLE PO SCH (11:26)
[2018-12-01] MEDS: DORZOLAMIDE HCL 2% OPH SOLN 10 ML OU SCH ×2 (11:26→17:34)
[2018-12-01] MEDS: METOPROLOL SUCCINATE 25 MG TAB.SR.24H PO SCH (11:26)
--- NOTE | 2018-12-01 11:26 | PDOC PROGRESS REPORT ---
Subjective Progress Note for:: 12/01/18 Subjective:: 73 yr old male with a PMH of Chandler fundoplication, duodenal AVM, Terrell's esophagus who underwent EGD yesterday. Patient unfortunately sustained a possible perforated viscus. A chest x-ray done which showed significant subcutaneous emphysema with pneumomediastinum. Patient was promptly brought to the ER yesterday afternoon and was noted to have a perforated duodenum. He underwent repair of the perforation and was transferred to the ICU. Hospitalist service was consulted for medical co-management. 11/22: Patient is currently intubated and sedated on Versed and propofol. He is saturating well on minimal vent settings. Currently getting IV fluids. Seros anguineous output on the surgical drains. 11/23: He is currently intubated and is saturating well on minimal vent settings. He is running fever with T-max at 100.6. Patient has been off Versed since 3 AM but is not easily arousable and is not following commands. CT of the head was done and came back negative. We will try to keep him off sedation today and see if there is any improvement in his mentation. 11/24: No acute event overnight. Patient has been off sedation for 36 hrs now but still does not have spontaneous eye opening. He does have spontaneous movement and withdraws to pain equally with no noticeable gross weakness. Await EEG report. Will consult [facility] neurology for further recommendations. Discussed case, labs and diagnostic testing done so far in length with [facility] neurologist, Dr. Gill recommended pursuing an MRI to rule out small CVAs although this will not significantly change current management. No other further neurodiagnostic testing recommended at this time. Also discussed with [facility] neurologist in length, Dr. Bhakta who has the same recommendation and insight. He did recommend repeating a plain head CT if MRI is not feasible at this time. 11/25/[id number]-jwia-old male with past medical history of Chandler fundoplication, duodenal AV malformations, Terrell's esophagus underwent EGD on 11/21/2018 unfortunately sustained a possible perforated viscus. Chest x-ray done suggestive of subcutaneous emphysema with pneumomediastinum. Status post repair of the perforation and patient was transferred to ICU. Presently he was intubated off the sedation for the last 48 hours. Today he responding to verbal commands by wiggling his toes and nodding his head. He is only on pressure support. 11/26/2018-no acute events in the last 24 hours. T-max is 100.6. Patient is presently on Zosyn. Chest x-ray done this morning shows improvement in the left lower lobe aeration. Patient is off the sedation for the last several days presently on 30% oxygen PEEP of 5 with pressure support of 22 above PEEP. Oxygen saturation is 96 to 98%. 11/27/2018-patient was successfully extubated this morning. T-max is 100.8 today. Presently on IV Zosyn started on IV levo floxacillin. Culture from the abdomen at the time of surgery came back positive for E. coli and Peptostreptococcus. Patient is alert awake responding reasonably. Still slightly confused. Surgical team came this morning they want to continue TPN at this point. 11/28/[id number]-gglk-old male admitted to ICU after EGD procedure leading to perforation of the viscus status post surgery closure of the perforation and he was intubated during the hospital stay successfully extubated 2 days ago. He mentation is slowly recovering. He is more alert more awake today compared to yesterday showing significant improvement on daily basis. Dr. Harvey saw the patient this morning he wants to clamp the NG tube and then make a decision either today or tomorrow for a NG tube feeds or oral feeds. Patient G-tube is still not working. Is having a low-grade fever of 100.8 and the cultures from t he abdomen shows Peptostreptococcus, E. coli. Presently on IV Zosyn and levo floxacillin. Plan to do the CT chest CT abdomen pelvis without contrast today to look for the reasons for persistent fever. in The opinion patient is stable enough to go to [facility]. 11/29/2018 patient was transferred to [facility] yesterday. CT chest and abdomen was done yesterday CT abdomen shows large fluid collection and surgical team is following the patient. Patient has a T-max of 88. Presently on IV Zosyn and levo floxacillin. The cultures from the abdomen shows Peptostreptococcus, E. coli. He was able to tolerate the broth this morning. Patient need physical therapy. On examination chest bilateral mild wheezing is present and shortness of breath IV fluids are discontinued and started on Lasix 40 twice daily. 11/30/2018-no acute events in the last 24 hrs. t max 99.7.family is concerned about rt side weakness. mri brain is requested. Discussed the plan with Dr. Harvey he is going to advance the diet to full liquid diet request to remove the Swan's catheter. Patient is comfortably in the bed communicating well. 12/01/2018-no acute events in the last 24 hours. T-max is 99.1. Blood pressure is 122/50. Went for the PICC line placement this morning. Pulse ox is 98% on 2.5 L. Presently on fluconazole, Levaquin and Zosyn. X-ray this morning shows cardiomegaly and previous median sternotomy. On full liquid diet tolerated the diet very well. Reason For Visit: MELENA K92.1 Physical Exam Vital Signs: Temp Pulse Resp BP Pulse Ox 97.8 F 81 18 128/48 H 97 12/01/18 08:23 12/01/18 10:56 12/01/18 10:56 12/01/18 08:23 12/01/18 10:56 Intake & Output 11/30/18 12/01/18 12/02/18 06:59 06:59 06:59 Intake Total 1379 800 100 Output Total 3300 1660 80 Balance -1921 -860 20 Weight 110.4 kg 110.8 kg General appearance: PRESENT: no acute distress, obese Head exam: PRESENT: atraumatic Eye exam: PRESENT: PERRLA Mouth exam: PRESENT: moist, tongue midline Teeth exam: PRESENT: poor dentation Neck exam: ABSENT: carotid bruit, JVD, lymphadenopathy, thyromegaly Respiratory exam: PRESENT: decreased breath sounds, wheezes Cardiovascular exam: PRESENT: tachycardia Vascular exam: PRESENT: normal capillary refill GI/Abdominal exam: PRESENT: normal bowel sounds, soft. ABSENT: distended, guarding, mass, organolmegaly, rebound, tenderness Rectal exam: PRESENT: deferred Extremities exam: PRESENT: full ROM. ABSENT: calf tenderness, clubbing, pedal edema Neurological exam: PRESENT: alert, awake, oriented to person, oriented to place, oriented to time, oriented to situation, CN II-XII grossly intact. ABSENT: motor sensory deficit Psychiatric exam: PRESENT: appropriate affect, normal mood. ABSENT: homicidal ideation, suicidal ideation Results Laboratory Results: 12/01/18 09:10 12/01/18 09:10 12/01/18 12/01/18 09:10 09:10 WBC 9.8 RBC 2.69 L Hgb 7.9 L Hct 23.3 L MCV 87 MCH 29.2 MCHC 33.6 RDW 15.2 H Plt Count 431 Seg Neutrophils % Not Reportable Lymphocytes % Not Reportable Monocytes % Not Reportable Eosinophils % Not Reportable Basophils % Not Reportable Absolute Neutrophils Not Reportable Absolute Lymphocytes Not Reportable Absolute Monocytes Not Reportable Absolute Eosinophils Not Reportable Absolute Basophils Not Reportable Sodium 139.2 Potassium 3.7 Chloride 106 Carbon Dioxide 26 Anion Gap 7 BUN 19 Creatinine 1.03 Est GFR ( Amer) > 60 Est GFR (Non-Af Amer) > 60 Glucose 201 H Calcium 8.0 L Phosphorus 2.7 Magnesium 2.3 Total Bilirubin 0.8 AST 66 H ALT 72 Alkaline Phosphatase 55 Total Protein 4.6 L Albumin 2.2 L Prealbumin 4.7 L 11/27/18 15:51 Knee Fluid - Right Gram Stain - Final 11/27/18 15:51 Knee Fluid - Right Body Fluid Culture - Final NO AEROBIC OR ANAEROBIC ORGANISMS RECOVERED 11/20/18 11/24/18 21:45 09:53 Creatine Kinase 224 H NT-Pro-B Natriuret Pep 52 Impressions: Abdomen X-Ray 11/20/18 00:00 IMPRESSION: ABNORMAL COLLECTION OF GAS IN THE ABDOMEN WHICH IS PROBABLY RETROPERITONEAL. THIS EXTENDS INTO THE CHEST WITH RIGHT-SIDED PNEUMOMEDIASTINUM WELL EXTENSION INTO THE LOWER RIGHT SIDE OF THE NECK WITH SUBCUTANEOUS EMPHYSEMA IN THE RIGHT SUPRACLAVICULAR TISSUES. Esophagus X-Ray 11/20/18 00:00 IMPRESSION: CONTRAST EXTRAVASATION FROM THE SECOND PORTION OF THE DUODENUM CONSISTENT WITH PERFORATION. NO EVIDENCE OF ESOPHAGEAL OR GASTRIC PERFORATION. OTHER INCIDENTAL FINDING IS A PROBABLE DUODENAL DIVERTICULUM. Upper GI and Small Bowel X-Ray 11/20/18 00:00 IMPRESSION: CONTRAST EXTRAVASATION FROM THE SECOND PORTION OF THE DUODENUM CONSISTENT WITH PERFORATION. NO EVIDENCE OF ESOPHAGEAL OR GASTRIC PERFORATION. OTHER INCIDENTAL FINDING IS A PROBABLE DUODENAL DIVERTICULUM. Head CT 11/25/18 08:37 IMPRESSION: No acute intracranial changes. Findings discussed with Dr Harvey EVIDENCE OF ACUTE STROKE: NO. Knee X-Ray 11/27/18 00:00 IMPRESSION: Suprapatellar knee joint effusion. Mild diffuse soft tissue swelling. Correlate clinically for infection with cellulitis No acute fracture or malalignment. No lucency around the right knee prosthesis worrisome for loosening. Abdomen/Pelvis CT 11/28/18 00:00 IMPRESSION: Decreasing pneumomediastinum. Increasing bilateral pleural effusions and basilar atelectasis or pneumonia. IMPRESSION: Fairly large collection of fluid in the lower mid abdomen extending along the ileo psoas margin into the pelvis. This could be postoperative in nature. Retroperitoneal hematoma cannot be excluded. Developing infectious or inflammatory process is thought to be less likely. There are no drainable collections at this time. Small pockets of free air remain consistent with recent surgery. Chest CT 11/28/18 00:00 IMPRESSION: Decreasing pneumomediastinum. Increasing bilateral pleural effusions and basilar atelectasis or pneumonia. IMPRESSION: Fairly large collection of fluid in the lower mid abdomen extending along the ileo psoas margin into the pelvis. This could be postoperative in nature. Retroperitoneal hematoma cannot be excluded. Developing infectious or inflammatory process is thought to be less likely. There are no drainable collections at this time. Small pockets of free air remain consistent with recent surgery. Head MRI 11/30/18 00:00 IMPRESSION: Negative for acute or sub-acute infarction.Small bilateral mastoid effusions. EVIDENCE OF ACUTE STROKE: NO. Chest X-Ray 12/01/18 00:00 IMPRESSION: Cardiomegaly status post median sternotomy. Guidance Fluoroscopy 12/01/18 00:00 IMPRESSION: SUCCESSFUL PLACEMENT OF A 5 FR DUAL LUMEN 35 CM PICC IN THE RIGHT BASILIC VEIN. Interventional Vascular Procedure 12/01/18 00:00 IMPRESSION: SUCCESSFUL PLACEMENT OF A 5 FR DUAL LUMEN 35 CM PICC IN THE RIGHT BASILIC VEIN. PICC Line Insertion 12/01/18 00:00 IMPRESSION: SUCCESSFUL PLACEMENT OF A 5 FR DUAL LUMEN 35 CM PICC IN THE RIGHT BASILIC VEIN. Assessment and Plan - Diagnosis (1) Acute respiratory failure with hypoxia Is this a current diagnosis for this admission?: Yes Plan: Saturating well on minimal vent settings. 11/23: He is currently intubated and is saturating well on minimal vent settings. Patient has been off Versed since 3 AM but is not easily arousable and is not following commands. CT of the head was done and came back negative. We will try to keep him off sedation today and see if there is any improvement in his mentation. EEG ordered. 11/24: Patient has been off sedation for 36 hrs now but still does not have spontaneous eye opening. He does have spontaneous movement and withdraws to pain equally with no noticeable gross weakness. Await EEG report. Will consult [facility] neurology for further recommendations. 11/25/2018-patient is off the sedation for the last 48 hours now is responding to verbal commands by nodding his head and reaching his toes opening his eyes. No focal neurological deficits. Spontaneous movement and withdrawal to pain is present. EKG is nonspecific. CT head done this morning acute you for stroke. Patient is presently on pressure support only. Pulse ox is around 96%. 11/26/2018-patient is off the sedation for the last [address] head was negative for acute changes. Presently on 30% oxygen with PEEP of 5 and pressure support of more than 22. Oxygen saturation is around 96%. Weaning process was initiated and if possible we may extubate him today. ABG done this morning on room air pH is 7.49/PCO2 27.4/PO2 69 oxygen saturation is 95%. presently on IV Zosyn. 11/27/2018-patient was successfully extubated this morning. Still have a running low-grade fever 100.8. Presently on IV Zosyn and IV levo floxacillin added to the medication. Wound cultures came back positive for E. coli and Peptostreptococcus. Chest x-ray is pending today. Yesterday's chest x-ray suggestive of improving aeration in the left left lower lobe. 11/28/[id number]-fmom-old male intubated for acute respiratory failure with hypoxia successfully extubated 2 days ago. His pulse ox is at 99% on room air today. Respiratory rate is 14-16 comfortably in the bed denies any problems. On examination chest bilateral it was decreased few crepitations are present at the bases. T-max is 100.6 presently on IV Zosyn and IV levo floxacillin. Sputum culture showing Niya albicans. 11/29/2018-patient developed acute respiratory failure with hypoxia status post intubation and extubation during the hospital stay. Socks is 95% on 3 L today. On examination chest mild wheezing is present associated with decreased bilateral air entry. There is a concern about fluid overload and Dr. Harvey started him on Lasix 20 mg IV twice daily. Chest x-ray/CT chest done yesterday shows bilateral pleural effusions and decreasing pneumomediastinum. 11/30/2018-acute respiratory failure with hypoxia resolved. Pulse ox 100% on 3 L. On examination chest bilateral entry was good no wheezing no crepitations. 12/01/2018-acute respiratory failure with hypoxia resolved. Pulse ox is 98% on 2 .5 L. On examination chest bilateral entry was decreased mild wheezing is present in both lung baker. (2) Duodenal perforation Is this a current diagnosis for this admission?: Yes Plan: Related to recent EGD. Status post surgical repair. 11/25/2018-duodenal perforation after EGD. Status post surgical repair. Surgical team is following the patient. 11/26/2018-management as per the surgical recommendations. 11/27/2018-management as per surgical team. Patient has NG tube to low bile colored drainage seen in the NG tube. 11/28/2018-patient is still on TPN NG tube in place. Dr. Harvey wants to clamp the tube today and go from there. Patient has a G-tube which is not working at the moment. 11/29/2018-patient was started on broth today. CT abdomen shows fluid collection in the abdominal cavity. Dr. Harvey is aware of it and the surgical team is going to follow the the issue. 11/30/2018-management as per surgical team. 12/01/2018-status post EGD leading to duodenal perforation and perforation was closed by surgical procedure. For further management as per surgical team. (3) Essential hypertension Is this a current diagnosis for this admission?: Yes Plan: Blood pressures well controlled. 11/25/2018-patient has history of essential hypertension blood pressure today's 133/73. Plan is to continue the present management. 11/26/2018-patient has history of hypertension latest blood pressure is 122/70. Relative control. Presently on normal saline at 100 cc/h plan is to discontinue IV fluids from today. 11/27/2018-patient blood pressure today is 129/60. Relatively controlled. Presently on normal saline 100 cc/h plan is to cut it down to 50 from today. 11/28/2018-patient blood pressure today is 129/52. Blood pressure is relatively controlled presently on IV fluids normal saline 50 cc/h plan is to discontinue IV fluids today. 11/29/2018-patient blood pressure today is 143/58 stable. IV fluids are discontinued and he was started on Lasix 20 IV twice daily. 11/30/2018-patient blood pressure today is 133/43 he still on Lasix 40 mg twice a day plan is to continue the diuretic for today. 12/01/2018-patient's latest blood pressure is 122/50. Stable. Plan is to continue the present management. (4) Acute kidney injury Is this a current diagnosis for this admission?: Yes Plan: Resolved. 11/25/2018-patient admitted with a CHRISTIANO which was resolved. Admission creatinine is 1.37 and it peaked to 2.1 came down to 0.95 now. CHRISTIANO due to prerenal causes resolved. Patient's baseline creatinine is around 0.88. 11/26/2018-patient was admitted with CHRISTIANO today's creatinine is 0.84 acute kidney injury is resolved. 11/27/2018-this elderly male with a CHRISTIANO during the hospital stay latest creatinine 0.84. Acute kidney injury is resolved. 11/28/2018 patient developed CHRISTIANO during the hospital stay his creatinine today is 0.86 it was peaked to 2.13 in the hospital stay. CHRISTIANO most likely secondary to prerenal causes resolving. 11/29/2018-latest creatinine is 0.86 acute kidney injury resolved. 11/30/2018-latest serum creatinine is 1.0 acute kidney injury is resolved. 12/01/2018-CHRISTIANO is resolved. Latest serum creatinine is 1.03. (5) Acute blood loss anemia Is this a current diagnosis for this admission?: Yes Plan: Possibly perioperative related. S/P 2 units of packed RBC. 11/25/2018-patient has acute blood loss anemia most likely related to perioperative state status post 2 units of blood transfusion during the hospital stay latest hemoglobin is 8.5 stable. 11/26/2018-patient's hemoglobin is 8.8 today stable. During this hospital stay he received 2 units of PRBC. 11/27/2018-patient hemoglobin is 8.4 stable. During the hospital stay he received 2 units of PRBC. 11/28/2018-patient hemoglobin today is 8.3 stable. He received 2 units of blood transfusion during the hospital stay acute blood loss most likely happened during the perioperative phase. 11/29/2018-patient's hemoglobin 8.3 stable. 11/30/2018-patient hemoglobin is 7.8 I discussed the plan with Dr. Harvey he thinks a dilutional plan is to repeat these CBC tomorrow. 17 2019-patient's latest hemoglobin is 7.9. Stable. (6) Obesity (BMI 30-39.9) Is this a current diagnosis for this admission?: No - Time Time Spent with patient: 25-34 minutes Medications reviewed and adjusted accordingly: Yes Anticipated discharge: SNF
[2018-12-01] MEDS: ENOXAPARIN SODIUM INJ 40 MG/0.4 ML DISP.SYRIN SUBCUT SCH ×2 (11:27→21:34)
[2018-12-01] MEDS: FAT EMULSIONS 250 ML IV SCH (11:27)
[2018-12-01] MEDS ORDERED: NORMAL SALINE 10 ML SDV (AFTER EACH USE) IV PRN ×2 (14:00→16:30)
[2018-12-01] MEDS: LATANOPROST 0.005% OPH SOLN 2.5 ML OU SCH (21:32)
[2018-12-01] MEDS: SIMVASTATIN 40 MG TABLET PO SCH (21:33)
[2018-12-01] MEDS: NORMAL SALINE 10 ML SDV (SCHEDULED) IV SCH (21:39)
[2018-12-01] MEDS ORDERED: NORMAL SALINE 10 ML SDV (SCHEDULED) IV SCH (22:00)
[2018-12-02] MEDS: PIPERACILLIN SODIUM/TAZOBACTAM 4.5 GM in NORMAL SALINE 100 ML IV SCH ×4 (00:18→17:49)
[2018-12-02] MEDS: INSULIN REG, HUMAN 100 UNIT/ML 3 ML VIAL (PYX) SUBCUT SCH ×4 (00:25→17:50)
[2018-12-02] MEDS: METOPROLOL TARTRATE PF/INJ 5 MG/5 ML SDV IV SCH ×6 (01:50→21:16)
--- NOTE | 2018-12-02 07:55 | PDOC PROGRESS REPORT ---
Subjective Progress Note for:: 12/02/18 Subjective:: sitting up in chair worked with pt yesterday able to stand at bedside Reason For Visit: MELENA K92.1 Physical Exam Vital Signs: Temp Pulse Resp BP Pulse Ox 98.0 F 85 24 H 118/48 L 98 12/02/18 03:42 12/02/18 03:42 12/02/18 03:42 12/02/18 03:42 12/02/18 05:17 Intake & Output 12/01/18 12/02/18 12/03/18 06:59 06:59 06:59 Intake Total 800 1767 Output Total 1660 150 Balance -860 1617 Weight 110.8 kg 112 kg General appearance: PRESENT: no acute distress Head exam: PRESENT: normocephalic Eye exam: PRESENT: EOMI Mouth exam: PRESENT: moist Neck exam: PRESENT: full ROM Respiratory exam: PRESENT: clear to auscultation yoana Cardiovascular exam: PRESENT: RRR Pulses: PRESENT: normal radial pulses, normal femoral pulses Vascular exam: PRESENT: pallor GI/Abdominal exam: PRESENT: soft Rectal exam: PRESENT: deferred Gentrourinary exam: PRESENT: scrotal swelling Extremities exam: PRESENT: +2 edema Musculoskeletal exam: PRESENT: full ROM Neurological exam: PRESENT: alert, awake, oriented to person, oriented to place Psychiatric exam: PRESENT: appropriate affect Skin exam: PRESENT: dry Results Laboratory Results: 12/01/18 09:10 12/01/18 09:10 12/01/18 12/01/18 09:10 09:10 WBC 9.8 RBC 2.69 L Hgb 7.9 L Hct 23.3 L MCV 87 MCH 29.2 MCHC 33.6 RDW 15.2 H Plt Count 431 Seg Neutrophils % Not Reportable Lymphocytes % Not Reportable Monocytes % Not Reportable Eosinophils % Not Reportable Basophils % Not Reportable Absolute Neutrophils Not Reportable Absolute Lymphocytes Not Reportable Absolute Monocytes Not Reportable Absolute Eosinophils Not Reportable Absolute Basophils Not Reportable Sodium 139.2 Potassium 3.7 Chloride 106 Carbon Dioxide 26 Anion Gap 7 BUN 19 Creatinine 1.03 Est GFR ( Amer) > 60 Est GFR (Non-Af Amer) > 60 Glucose 201 H Calcium 8.0 L Phosphorus 2.7 Magnesium 2.3 Total Bilirubin 0.8 AST 66 H ALT 72 Alkaline Phosphatase 55 Total Protein 4.6 L Albumin 2.2 L Prealbumin 4.7 L 11/27/18 15:51 Knee Fluid - Right Gram Stain - Final 11/27/18 15:51 Knee Fluid - Right Body Fluid Culture - Final NO AEROBIC OR ANAEROBIC ORGANISMS RECOVERED 11/20/18 11/24/18 21:45 09:53 Creatine Kinase 224 H NT-Pro-B Natriuret Pep 52 Impressions: Abdomen X-Ray 11/20/18 00:00 IMPRESSION: ABNORMAL COLLECTION OF GAS IN THE ABDOMEN WHICH IS PROBABLY RETROPERITONEAL. THIS EXTENDS INTO THE CHEST WITH RIGHT-SIDED PNEUMOMEDIASTINUM WELL EXTENSION INTO THE LOWER RIGHT SIDE OF THE NECK WITH SUBCUTANEOUS EMPHYSEMA IN THE RIGHT SUPRACLAVICULAR TISSUES. Esophagus X-Ray 11/20/18 00:00 IMPRESSION: CONTRAST EXTRAVASATION FROM THE SECOND PORTION OF THE DUODENUM CONSISTENT WITH PERFORATION. NO EVIDENCE OF ESOPHAGEAL OR GASTRIC PERFORATION. OTHER INCIDENTAL FINDING IS A PROBABLE DUODENAL DIVERTICULUM. Upper GI and Small Bowel X-Ray 11/20/18 00:00 IMPRESSION: CONTRAST EXTRAVASATION FROM THE SECOND PORTION OF THE DUODENUM CON SISTENT WITH PERFORATION. NO EVIDENCE OF ESOPHAGEAL OR GASTRIC PERFORATION. OTHER INCIDENTAL FINDING IS A PROBABLE DUODENAL DIVERTICULUM. Head CT 11/25/18 08:37 IMPRESSION: No acute intracranial changes. Findings discussed with Dr Harvey EVIDENCE OF ACUTE STROKE: NO. Knee X-Ray 11/27/18 00:00 IMPRESSION: Suprapatellar knee joint effusion. Mild diffuse soft tissue swelling. Correlate clinically for infection with cellulitis No acute fracture or malalignment. No lucency around the right knee prosthesis worrisome for loosening. Abdomen/Pelvis CT 11/28/18 00:00 IMPRESSION: Decreasing pneumomediastinum. Increasing bilateral pleural effusions and basilar atelectasis or pneumonia. IMPRESSION: Fairly large collection of fluid in the lower mid abdomen extending along the ileo psoas margin into the pelvis. This could be postoperative in nature. Retroperitoneal hematoma cannot be excluded. Developing infectious or inflammatory process is thought to be less likely. There are no drainable collections at this time. Small pockets of free air remain consistent with recent surgery. Chest CT 11/28/18 00:00 IMPRESSION: Decreasing pneumomediastinum. Increasing bilateral pleural effusions and basilar atelectasis or pneumonia. IMPRESSION: Fairly large collection of fluid in the lower mid abdomen extending along the ileo psoas margin into the pelvis. This could be postoperative in nature. Retroperitoneal hematoma cannot be excluded. Developing infectious or inflammatory process is thought to be less likely. There are no drainable collections at this time. Small pockets of free air remain consistent with recent surgery. Head MRI 11/30/18 00:00 IMPRESSION: Negative for acute or sub-acute infarction.Small bilateral mastoid effusions. EVIDENCE OF ACUTE STROKE: NO. Chest X-Ray 12/01/18 00:00 IMPRESSION: Cardiomegaly status post median sternotomy. Guidance Fluoroscopy 12/01/18 00:00 IMPRESSION: SUCCESSFUL PLACEMENT OF A 5 FR DUAL LUMEN 35 CM PICC IN THE RIGHT BASILIC VEIN. Interventional Vascular Procedure 12/01/18 00:00 IMPRESSION: SUCCESSFUL PLACEMENT OF A 5 FR DUAL LUMEN 35 CM PICC IN THE RIGHT BASILIC VEIN. PICC Line Insertion 12/01/18 00:00 IMPRESSION: SUCCESSFUL PLACEMENT OF A 5 FR DUAL LUMEN 35 CM PICC IN THE RIGHT BASILIC VEIN. Assessment & Plan - Diagnosis (1) Bowel perforation Is this a current diagnosis for this admission?: Yes - Plan Summary Plan Summary: cj full liquid diet central line removed yesteday picc line in passing soft liquid stool still very weak plan cont tpn cont iv abx, stop tomorrow if wbc ok advance diet to soft discharge planning cont with pt
[2018-12-02] MEDS: LEVALBUTEROL HCL NEB 1.25 MG/3 ML AMPUL NEB PRN (09:26)
[2018-12-02] MEDS: FUROSEMIDE INJ/PF 20 MG/2 ML SDV IV SCH ×2 (09:30→17:49)
[2018-12-02] MEDS: ASPIRIN 81 MG TABLET, CHEWABLE PO SCH (09:30)
[2018-12-02] MEDS: METOPROLOL SUCCINATE 25 MG TAB.SR.24H PO SCH (09:30)
[2018-12-02] MEDS: LOSARTAN POTASSIUM 50 MG TABLET PO SCH (09:31)
[2018-12-02] MEDS: FENOFIBRATE NANOCRYSTALLIZED 145 MG TABLET PO SCH (09:31)
[2018-12-02] MEDS: ENOXAPARIN SODIUM INJ 40 MG/0.4 ML DISP.SYRIN SUBCUT SCH ×2 (09:31→21:15)
[2018-12-02] MEDS: FLUCONAZOLE 200 MG/NS RTU 200 MG/100 ML RTUPB IV SCH (09:31)
[2018-12-02] MEDS: LEVOFLOXACIN 500 MG/D5W RTU 500 MG/100 ML RTUPB IV SCH (09:31)
[2018-12-02] MEDS: NORMAL SALINE 10 ML SDV (SCHEDULED) IV SCH ×2 (09:32→21:16)
[2018-12-02] MEDS: DORZOLAMIDE HCL 2% OPH SOLN 10 ML OU SCH ×2 (09:32→17:51)
[2018-12-02] MEDS: DEXTROSE 10%-WATER 1,000 ML IV PRN (14:14)
[2018-12-02] MEDS: AMINO ACIDS 5 %/DEXTROSE 20 % 1,000 ML IV PRN (14:36)
--- NOTE | 2018-12-02 18:53 | PDOC PROGRESS REPORT ---
Subjective Progress Note for:: 12/02/18 Subjective:: 73 yr old male with a PMH of [place] fundoplication, duodenal AVM, Terrell's esophagus who underwent EGD. Patient unfortunately sustained a possible perforated viscus. A chest x-ray done which showed significant subcutaneous emphysema with pneumomediastinum. Patient was promptly brought to the ER and was noted to have a perforated duodenum. He underwent repair of the perforation and was transferred to the ICU. Hospitalist service was consulted for medical co-management. The patient was seen on afternoon rounds with his present. He was downgraded to IMCU 4 days ago. Time of my visit he is noted to be eating a turkey sandwich; reports that he was advanced to a cardiac diet today. She reports that Dr. Harvey was by this morning and had indicated that the patient would likely discharge "at the end of the week." Overall, patient reports that he is very fatigued; was able to get up to bedside commode with 1 person max assist for bowel movement. He notes that the day prior he was able to work with physical therapy; whiteboard indicates the patient was able to take 6 sidesteps. Otherwise, he denies fever, chills, chest pain, palpitations, dyspnea, orthopnea, abdominal discomfort, nausea, vomiting, diarrhea. He does report that he has had successful bowel movements and is continuing to pass gas. He had no specific questions or concerns at this time. Did discuss with the patient's recommendations for discharge to home with intensive home health services. She was quite anxious about this option and stated that she would like to discuss this with Dr. Harvey and have him make a final decision as to patient's disposition. Discharge planning and the patient navigator were both notified that the patient and family member will likely require additional support in making discharge plans. No concerns per nursing. Reason For Visit: MELENA K92.1 Physical Exam Vital Signs: Temp Pulse Resp BP Pulse Ox 98.9 F 89 18 114/38 L 99 12/02/18 16:36 12/02/18 16:36 12/02/18 16:36 12/02/18 16:36 12/02/18 16:36 Intake & Output 12/01/18 12/02/18 12/03/18 06:59 06:59 06:59 Intake Total 800 1767 1430 Output Total 1660 150 280 Balance -860 1617 1150 Weight 110.8 kg 112 kg General appearance: PRESENT: no acute distress, cooperative, obese, well- developed, well-nourished Head exam: PRESENT: atraumatic, normocephalic Eye exam: PRESENT: conjunctiva pink, EOMI, PERRLA. ABSENT: scleral icterus Ear exam: PRESENT: normal external ear exam Mouth exam: PRESENT: moist, tongue midline Teeth exam: PRESENT: poor dentation Neck exam: ABSENT: carotid bruit, JVD, lymphadenopathy, thyromegaly Respiratory exam: PRESENT: clear to auscultation yoana, symmetrical, unlabored. ABSENT: rales, rhonchi, wheezes Cardiovascular exam: PRESENT: RRR, +S1, +S2. ABSENT: diastolic murmur, rubs, systolic murmur Pulses: PRESENT: normal dorsalis pedis pul Vascular exam: PRESENT: normal capillary refill GI/Abdominal exam: PRESENT: distended, normal bowel sounds, soft. ABSENT: guarding, mass, organolmegaly, rebound, tenderness Rectal exam: PRESENT: deferred Extremities exam: PRESENT: full ROM. ABSENT: calf tenderness, clubbing, pedal edema Neurological exam: PRESENT: alert, awake, oriented to person, oriented to place, oriented to time, oriented to situation, CN II-XII grossly intact. ABSENT: motor sensory deficit Psychiatric exam: PRESENT: appropriate affect, normal mood. ABSENT: homicidal ideation, suicidal ideation Skin exam: PRESENT: dry, intact, warm. ABSENT: cyanosis, rash Results Laboratory Results: 12/01/18 09:10 12/01/18 09:10 11/20/18 11/24/18 21:45 09:53 Creatine Kinase 224 H NT-Pro-B Natriuret Pep 52 Impressions: Abdomen X-Ray 11/20/18 00:00 IMPRESSION: ABNORMAL COLLECTION OF GAS IN THE ABDOMEN WHICH IS PROBABLY RETROPERITONEAL. THIS EXTENDS INTO THE CHEST WITH RIGHT-SIDED PNEUMOMEDIASTINUM WELL EXTENSION INTO THE LOWER RIGHT SIDE OF THE NECK WITH SUBCUTANEOUS EMPHYSEMA IN THE RIGHT SUPRACLAVICULAR TISSUES. Esophagus X-Ray 11/20/18 00:00 IMPRESSION: CONTRAST EXTRAVASATION FROM THE SECOND PORTION OF THE DUODENUM CONSISTENT WITH PERFORATION. NO EVIDENCE OF ESOPHAGEAL OR GASTRIC PERFORATION. OTHER INCIDENTAL FINDING IS A PROBABLE DUODENAL DIVERTICULUM. Upper GI and Small Bowel X-Ray 11/20/18 00:00 IMPRESSION: CONTRAST EXTRAVASATION FROM THE SECOND PORTION OF THE DUODENUM CONSISTENT WITH PERFORATION. NO EVIDENCE OF ESOPHAGEAL OR GASTRIC PERFORATION. OTHER INCIDENTAL FINDING IS A PROBABLE DUODENAL DIVERTICULUM. Head CT 11/25/18 08:37 IMPRESSION: No acute intracranial changes. Findings discussed with Dr Harvey EVIDENCE OF ACUTE STROKE: NO. Knee X-Ray 11/27/18 00:00 IMPRESSION: Suprapatellar knee joint effusion. Mild diffuse soft tissue swelling. Correlate clinically for infection with cellulitis No acute fracture or malalignment. No lucency around the right knee prosthesis worrisome for loosening. Abdomen/Pelvis CT 11/28/18 00:00 IMPRESSION: Decreasing pneumomediastinum. Increasing bilateral pleural effusions and basilar atelectasis or pneumonia. IMPRESSION: Fairly large collection of fluid in the lower mid abdomen extending along the ileo psoas margin into the pelvis. This could be postoperative in nature. Retroperitoneal hematoma cannot be excluded. Developing infectious or inflammatory process is thought to be less likely. There are no drainable collections at this time. Small pockets of free air remain consistent with recent surgery. Chest CT 11/28/18 00:00 IMPRESSION: Decreasing pneumomediastinum. Increasing bilateral pleural effusions and basilar atelectasis or pneumonia. IMPRESSION: Fairly large collection of fluid in the lower mid abdomen extending along the ileo psoas margin into the pelvis. This could be postoperative in nature. Retroperitoneal hematoma cannot be excluded. Developing infectious or inflammatory process is thought to be less likely. There are no drainable collections at this time. Small pockets of free air remain consistent with recent surgery. Head MRI 11/30/18 00:00 IMPRESSION: Negative for acute or sub-acute infarction.Small bilateral mastoid effusions. EVIDENCE OF ACUTE STROKE: NO. Chest X-Ray 12/01/18 00:00 IMPRESSION: Cardiomegaly status post median sternotomy. Guidance Fluoroscopy 12/01/18 00:00 IMPRESSION: SUCCESSFUL PLACEMENT OF A 5 FR DUAL LUMEN 35 CM PICC IN THE RIGHT BASILIC VEIN. Interventional Vascular Procedure 12/01/18 00:00 IMPRESSION: SUCCESSFUL PLACEMENT OF A 5 FR DUAL LUMEN 35 CM PICC IN THE RIGHT BASILIC VEIN. PICC Line Insertion 12/01/18 00:00 IMPRESSION: SUCCESSFUL PLACEMENT OF A 5 FR DUAL LUMEN 35 CM PICC IN THE RIGHT BASILIC VEIN. Assessment and Plan - Diagnosis (1) Acute respiratory failure with hypoxia Is this a current diagnosis for this admission?: Yes Plan: Resolved. Patient currently is maintaining oxygen saturations on supplemental oxygen via nasal cannula at 2 L/min. He was intubated 11/22/2018 and extubated 11/27/2018. Continue supplemental oxygen as needed to maintain saturations >89% Continue as needed nebulizer treatments. Incentive spirometer and flutter valve to bedside. Currently on IV Zosyn, levofloxacin, and fluconazole; surgical note indicates that they plan to discontinue all antibiotics tomorrow if patient's WBCs remain normal. (2) Acute blood loss anemia Is this a current diagnosis for this admission?: Yes Plan: Resolved. Acute blood loss anemia during perioperative period. Now s/p 2 units PRBC No indications of continued bleeding. Hemoglobin currently stable at 7.9. (3) Acute kidney injury Is this a current diagnosis for this admission?: Yes Plan: Resolved; admission creatinine is 1.37 and it peaked to 2.1 CHRISTIANO due to prerenal causes resolved. Patient's baseline creatinine is around 0.88. Creatinine currently 1.03 Recommend avoiding nephrotoxic medications as able. (4) Duodenal perforation Is this a current diagnosis for this admission?: Yes Plan: Related to recent EGD. Status post surgical repair. Further management per surgical team. (5) Essential hypertension Is this a current diagnosis for this admission?: Yes Plan: Currently normotensive. Continue cardiac diet. Continue home medication regiment of losartan and metoprolol. (6) Obesity (BMI 30-39.9) Is this a current diagnosis for this admission?: No Plan: BMI is 39.9. Diet exercise weight loss lifestyle modifications are discussed with the patient. Currently on TPN for prealbumin of 4.7 and prolonged NPO status; TPN per Surgical team. protection consultant has been consulted. - Time Time Spent with patient: 25-34 minutes Medications reviewed and adjusted accordingly: Yes Anticipated discharge: Home with Homehealth Within: within 72 hours - Plan Summary Plan Summary: Patient's chronic medical conditions are stable and acute issues have resolved. Anticipate Surgery will proceed with discharging patient within the next few days. Will sign off at this time. Please re-consult if the Hospitalist service can be of any further assistance.
[2018-12-02] MEDS: LATANOPROST 0.005% OPH SOLN 2.5 ML OU SCH (21:15)
[2018-12-02] MEDS: SIMVASTATIN 40 MG TABLET PO SCH (21:16)
[2018-12-03] MEDS: INSULIN REG, HUMAN 100 UNIT/ML 3 ML VIAL (PYX) SUBCUT SCH ×5 (00:05→23:20)
[2018-12-03] MEDS: PIPERACILLIN SODIUM/TAZOBACTAM 4.5 GM in NORMAL SALINE 100 ML IV SCH ×2 (00:05→05:40)
[2018-12-03] MEDS: METOPROLOL TARTRATE PF/INJ 5 MG/5 ML SDV IV SCH ×6 (02:48→21:50)
[2018-12-03] MEDS: AMINO ACIDS 5 %/DEXTROSE 20 % 1,000 ML IV PRN ×2 (05:40→22:26)
[2018-12-03] MEDS: LEVALBUTEROL HCL NEB 1.25 MG/3 ML AMPUL NEB PRN ×3 (08:15→18:29)
--- NOTE | 2018-12-03 08:24 | PDOC PROGRESS REPORT ---
Subjective Progress Note for:: 12/03/18 Subjective:: taking min po still weak worked with pt yesterday still swollen Reason For Visit: MELENA K92.1 Physical Exam Vital Signs: Temp Pulse Resp BP Pulse Ox 98.0 F 76 22 H 111/42 L 100 12/03/18 03:27 12/03/18 07:00 12/03/18 03:27 12/03/18 03:27 12/03/18 03:27 Intake & Output 12/02/18 12/03/18 12/04/18 06:59 06:59 06:59 Intake Total 1767 1630 Output Total 150 290 Balance 1617 1340 Weight 112 kg 111.4 kg General appearance: PRESENT: no acute distress Head exam: PRESENT: normocephalic Eye exam: PRESENT: EOMI Ear exam: PRESENT: normal external ear exam Mouth exam: PRESENT: moist Neck exam: PRESENT: full ROM Respiratory exam: PRESENT: clear to auscultation yoana Cardiovascular exam: PRESENT: RRR Pulses: PRESENT: normal radial pulses, normal femoral pulses Vascular exam: PRESENT: pallor GI/Abdominal exam: PRESENT: other - soft, non tender sl distended Rectal exam: PRESENT: deferred Extremities exam: PRESENT: +2 edema Musculoskeletal exam: PRESENT: ambulatory Neurological exam: PRESENT: alert, awake, oriented to person, oriented to place Psychiatric exam: PRESENT: appropriate affect Skin exam: PRESENT: dry Results Laboratory Results: 12/01/18 09:10 12/01/18 09:10 11/20/18 11/24/18 21:45 09:53 Creatine Kinase 224 H NT-Pro-B Natriuret Pep 52 Impressions: Abdomen X-Ray 11/20/18 00:00 IMPRESSION: ABNORMAL COLLECTION OF GAS IN THE ABDOMEN WHICH IS PROBABLY RETROPERITONEAL. THIS EXTENDS INTO THE CHEST WITH RIGHT-SIDED PNEUMOMEDIASTINUM WELL EXTENSION INTO THE LOWER RIGHT SIDE OF THE NECK WITH SUBCUTANEOUS EMP HYSEMA IN THE RIGHT SUPRACLAVICULAR TISSUES. Esophagus X-Ray 11/20/18 00:00 IMPRESSION: CONTRAST EXTRAVASATION FROM THE SECOND PORTION OF THE DUODENUM CONSISTENT WITH PERFORATION. NO EVIDENCE OF ESOPHAGEAL OR GASTRIC PERFORATION. OTHER INCIDENTAL FINDING IS A PROBABLE DUODENAL DIVERTICULUM. Upper GI and Small Bowel X-Ray 11/20/18 00:00 IMPRESSION: CONTRAST EXTRAVASATION FROM THE SECOND PORTION OF THE DUODENUM CONSISTENT WITH PERFORATION. NO EVIDENCE OF ESOPHAGEAL OR GASTRIC PERFORATION. OTHER INCIDENTAL FINDING IS A PROBABLE DUODENAL DIVERTICULUM. Head CT 11/25/18 08:37 IMPRESSION: No acute intracranial changes. Findings discussed with Dr Harvey EVIDENCE OF ACUTE STROKE: NO. Knee X-Ray 11/27/18 00:00 IMPRESSION: Suprapatellar knee joint effusion. Mild diffuse soft tissue swelling. Correlate clinically for infection with cellulitis No acute fracture or malalignment. No lucency around the right knee prosthesis worrisome for loosening. Abdomen/Pelvis CT 11/28/18 00:00 IMPRESSION: Decreasing pneumomediastinum. Increasing bilateral pleural effusions and basilar atelectasis or pneumonia. IMPRESSION: Fairly large collection of fluid in the lower mid abdomen extending along the ileo psoas margin into the pelvis. This could be postoperative in nature. Retroperitoneal hematoma cannot be excluded. Developing infectious or inflammatory process is thought to be less likely. There are no drainable collections at this time. Small pockets of free air remain consistent with recent surgery. Chest CT 11/28/18 00:00 IMPRESSION: Decreasing pneumomediastinum. Increasing bilateral pleural e ffusions and basilar atelectasis or pneumonia. IMPRESSION: Fairly large collection of fluid in the lower mid abdomen extending along the ileo psoas margin into the pelvis. This could be postoperative in nature. Retroperitoneal hematoma cannot be excluded. Developing infectious or inflammatory process is thought to be less likely. There are no drainable collections at this time. Small pockets of free air remain consistent with recent surgery. Head MRI 11/30/18 00:00 IMPRESSION: Negative for acute or sub-acute infarction.Small bilateral mastoid effusions. EVIDENCE OF ACUTE STROKE: NO. Chest X-Ray 12/01/18 00:00 IMPRESSION: Cardiomegaly status post median sternotomy. Guidance Fluoroscopy 12/01/18 00:00 IMPRESSION: SUCCESSFUL PLACEMENT OF A 5 FR DUAL LUMEN 35 CM PICC IN THE RIGHT BASILIC VEIN. Interventional Vascular Procedure 12/01/18 00:00 IMPRESSION: SUCCESSFUL PLACEMENT OF A 5 FR DUAL LUMEN 35 CM PICC IN THE RIGHT BASILIC VEIN. PICC Line Insertion 12/01/18 00:00 IMPRESSION: SUCCESSFUL PLACEMENT OF A 5 FR DUAL LUMEN 35 CM PICC IN THE RIGHT BASILIC VEIN. Assessment & Plan - Diagnosis (1) Bowel perforation Is this a current diagnosis for this admission?: Yes - Plan Summary Plan Summary: still very weak still with generalized edema, anasarca cj some po intake has return of bowel function plan will discuss total body anasarca with medicine may try albumin/lasix infusion cont tpn for now cont with pt home vs rehab in next couple of days
[2018-12-03] MEDS: ASPIRIN 81 MG TABLET, CHEWABLE PO SCH (09:43)
[2018-12-03] MEDS: FENOFIBRATE NANOCRYSTALLIZED 145 MG TABLET PO SCH (09:43)
[2018-12-03] MEDS: LOSARTAN POTASSIUM 50 MG TABLET PO SCH (09:43)
[2018-12-03] MEDS: FLUCONAZOLE 200 MG/NS RTU 200 MG/100 ML RTUPB IV SCH (09:43)
[2018-12-03] MEDS: METOPROLOL SUCCINATE 25 MG TAB.SR.24H PO SCH (09:43)
[2018-12-03] MEDS: ENOXAPARIN SODIUM INJ 40 MG/0.4 ML DISP.SYRIN SUBCUT SCH ×2 (09:44→21:50)
[2018-12-03] MEDS: FUROSEMIDE INJ/PF 20 MG/2 ML SDV IV SCH ×2 (09:44→17:27)
[2018-12-03] MEDS: DORZOLAMIDE HCL 2% OPH SOLN 10 ML OU SCH ×2 (09:45→17:28)
[2018-12-03] MEDS: NORMAL SALINE 10 ML SDV (SCHEDULED) IV SCH ×2 (09:45→21:51)
[2018-12-03] MEDS: LEVOFLOXACIN 500 MG/D5W RTU 500 MG/100 ML RTUPB IV SCH (09:45)
[2018-12-03 21:28] LABS: HEMATOCRIT 21.2 % (37.9-51.0); MEAN CORPUSCULAR HEMOGLOBIN 29.4 pg (27.0-33.4); MEAN CORPUSCULAR HGB CONC 33.9 g/dL (32.0-36.0); MEAN CORPUSCULAR VOLUME 87 fl (80-97); PLATELET COUNT 552 10^3/uL (150-450); RED BLOOD COUNT 2.44 10^6/uL (4.35-5.55); RED CELL DISTRIBUTION WIDTH 15.1 % (11.5-14.0); WHITE BLOOD COUNT 9.5 10^3/uL (4.0-10.5)
[2018-12-03 21:34] LABS: HEMOGLOBIN 7.2 g/dL (13.5-17.0)
[2018-12-03 21:45] LABS: ALANINE AMINOTRANSFERASE 44 U/L (21-72); ALBUMIN 2.1 g/dL (3.5-5.0); ALKALINE PHOSPHATASE 62 U/L (38-126); ANION GAP 8 (5-19); ASPARTATE AMINO TRANSFERASE 35 U/L (17-59); BILIRUBIN,DIRECT 0.2 mg/dL (0.0-0.4); BILIRUBIN,TOTAL 0.3 mg/dL (0.2-1.3); BLOOD UREA NITROGEN 21 mg/dL (7-20); CARBON DIOXIDE 25 mmol/L (22-30); CHLORIDE 105 mmol/L (98-107); GLUCOSE 256 mg/dL (75-110); PHOSPHORUS 2.5 mg/dL (2.5-4.5); POTASSIUM 3.8 mmol/L (3.6-5.0); SODIUM 137.9 mmol/L (137-145); TOTAL PROTEIN 4.6 g/dL (6.3-8.2)
[2018-12-03] MEDS: SIMVASTATIN 40 MG TABLET PO SCH (21:49)
[2018-12-03] MEDS: LATANOPROST 0.005% OPH SOLN 2.5 ML OU SCH (21:50)
[2018-12-03 21:53] LABS: PREALBUMIN 5.6 mg/dL (17.6-36.0)
[2018-12-04] MEDS: METOPROLOL TARTRATE PF/INJ 5 MG/5 ML SDV IV SCH ×6 (01:09→21:26)
[2018-12-04] MEDS: INSULIN REG, HUMAN 100 UNIT/ML 3 ML VIAL (PYX) SUBCUT SCH ×4 (05:51→23:43)
[2018-12-04] MEDS ORDERED: NORMAL SALINE 250 ML IV PRN ×2 (07:58)
[2018-12-04] MEDS ORDERED: FUROSEMIDE INJ/PF 20 MG/2 ML SDV IV PRN (07:58)
--- NOTE | 2018-12-04 08:11 | PDOC PROGRESS REPORT ---
Subjective Progress Note for:: 12/04/18 Subjective:: FEELS BETTER, EATING OK ]STILL WEAK SLEEPS MOST OF DAY Reason For Visit: MELENA K92.1 Physical Exam Vital Signs: Temp Pulse Resp BP Pulse Ox 97.9 F 86 24 H 122/36 L 100 12/04/18 04:03 12/04/18 04:03 12/04/18 04:03 12/04/18 04:03 12/04/18 04:03 Intake & Output 12/03/18 12/04/18 12/05/18 06:59 06:59 06:59 Intake Total 1630 1060 Output Total 360 40 Balance 1270 1020 Weight 111.4 kg 110.8 kg General appearance: PRESENT: no acute distress Eye exam: PRESENT: EOMI Ear exam: PRESENT: normal external ear exam Mouth exam: PRESENT: moist Neck exam: PRESENT: full ROM Respiratory exam: PRESENT: clear to auscultation yoana Cardiovascular exam: PRESENT: RRR Pulses: PRESENT: +2 pedal pulses bilateral GI/Abdominal exam: PRESENT: soft Rectal exam: PRESENT: deferred Gentrourinary exam: PRESENT: scrotal swelling Extremities exam: PRESENT: pedal edema, +2 edema Musculoskeletal exam: PRESENT: full ROM Neurological exam: PRESENT: alert, awake, oriented to person, oriented to place Psychiatric exam: PRESENT: appropriate affect Skin exam: PRESENT: dry Results Laboratory Results: 12/03/18 21:19 12/03/18 21:19 12/03/18 12/03/18 21:19 21:19 WBC 9.5 RBC 2.44 L Hgb 7.2 L Hct 21.2 L MCV 87 MCH 29.4 MCHC 33.9 RDW 15.1 H Plt Count 552 H Sodium 137.9 Potassium 3.8 Chloride 105 Carbon Dioxide 25 Anion Gap 8 BUN 21 H Creatinine 1.02 Est GFR ( Amer) > 60 Est GFR (Non-Af Amer) > 60 Glucose 256 H Calcium 8.0 L Phosphorus 2.5 Magnesium 2.1 Total Bilirubin 0.3 AST 35 ALT 44 Alkaline Phosphatase 62 Total Protein 4.6 L Albumin 2.1 L Prealbumin 5.6 L 11/20/18 11/24/18 21:45 09:53 Creatine Kinase 224 H NT-Pro-B Natriuret Pep 52 Impressions: Abdomen X-Ray 11/20/18 00:00 IMPRESSION: ABNORMAL COLLECTION OF GAS IN THE ABDOMEN WHICH IS PROBABLY RETROPERITONEAL. THIS EXTENDS INTO THE CHEST WITH RIGHT-SIDED PNEUMOMEDIASTINUM WELL EXTENSION INTO THE LOWER RIGHT SIDE OF THE NECK WITH SUBCUTANEOUS EMP HYSEMA IN THE RIGHT SUPRACLAVICULAR TISSUES. Esophagus X-Ray 11/20/18 00:00 IMPRESSION: CONTRAST EXTRAVASATION FROM THE SECOND PORTION OF THE DUODENUM CONSISTENT WITH PERFORATION. NO EVIDENCE OF ESOPHAGEAL OR GASTRIC PERFORATION. OTHER INCIDENTAL FINDING IS A PROBABLE DUODENAL DIVERTICULUM. Upper GI and Small Bowel X-Ray 11/20/18 00:00 IMPRESSION: CONTRAST EXTRAVASATION FROM THE SECOND PORTION OF THE DUODENUM CONSISTENT WITH PERFORATION. NO EVIDENCE OF ESOPHAGEAL OR GASTRIC PERFORATION. OTHER INCIDENTAL FINDING IS A PROBABLE DUODENAL DIVERTICULUM. Head CT 11/25/18 08:37 IMPRESSION: No acute intracranial changes. Findings discussed with Dr Harvey EVIDENCE OF ACUTE STROKE: NO. Knee X-Ray 11/27/18 00:00 IMPRESSION: Suprapatellar knee joint effusion. Mild diffuse soft tissue swelling. Correlate clinically for infection with cellulitis No acute fracture or malalignment. No lucency around the right knee prosthesis worrisome for loosening. Abdomen/Pelvis CT 11/28/18 00:00 IMPRESSION: Decreasing pneumomediastinum. Increasing bilateral pleural effusions and basilar atelectasis or pneumonia. IMPRESSION: Fairly large collection of fluid in the lower mid abdomen extending along the ileo psoas margin into the pelvis. This could be postoperative in nature. Retroperitoneal hematoma cannot be excluded. Developing infectious or inflammatory process is thought to be less likely. There are no drainable collections at this time. Small pockets of free air remain consistent with recent surgery. Chest CT 11/28/18 00:00 IMPRESSION: Decreasing pneumomediastinum. Increasing bilateral pleural e ffusions and basilar atelectasis or pneumonia. IMPRESSION: Fairly large collection of fluid in the lower mid abdomen extending along the ileo psoas margin into the pelvis. This could be postoperative in nature. Retroperitoneal hematoma cannot be excluded. Developing infectious or inflammatory process is thought to be less likely. There are no drainable collections at this time. Small pockets of free air remain consistent with recent surgery. Head MRI 11/30/18 00:00 IMPRESSION: Negative for acute or sub-acute infarction.Small bilateral mastoid effusions. EVIDENCE OF ACUTE STROKE: NO. Chest X-Ray 12/01/18 00:00 IMPRESSION: Cardiomegaly status post median sternotomy. Guidance Fluoroscopy 12/01/18 00:00 IMPRESSION: SUCCESSFUL PLACEMENT OF A 5 FR DUAL LUMEN 35 CM PICC IN THE RIGHT BASILIC VEIN. Interventional Vascular Procedure 12/01/18 00:00 IMPRESSION: SUCCESSFUL PLACEMENT OF A 5 FR DUAL LUMEN 35 CM PICC IN THE RIGHT BASILIC VEIN. PICC Line Insertion 12/01/18 00:00 IMPRESSION: SUCCESSFUL PLACEMENT OF A 5 FR DUAL LUMEN 35 CM PICC IN THE RIGHT BASILIC VEIN. Assessment & Plan - Diagnosis (1) Bowel perforation Is this a current diagnosis for this admission?: Yes - Plan Summary Plan Summary: STILL WEAK HB 7.2 THIS AM PT USHA SOFT DIET PASSING STOOL WBC WNL OFF ABX PLAN TXN 2 UNITS PRBC FOR "ANEMIA OF CHRONIC ILLNESS" WEAN OFF TPN
[2018-12-04] MEDS: FLUCONAZOLE 200 MG/NS RTU 200 MG/100 ML RTUPB IV SCH (10:01)
[2018-12-04] MEDS: FUROSEMIDE INJ/PF 20 MG/2 ML SDV IV SCH ×2 (10:02→18:54)
[2018-12-04] MEDS: ASPIRIN 81 MG TABLET, CHEWABLE PO SCH (10:02)
[2018-12-04] MEDS: LOSARTAN POTASSIUM 50 MG TABLET PO SCH (10:02)
[2018-12-04] MEDS: FENOFIBRATE NANOCRYSTALLIZED 145 MG TABLET PO SCH (10:02)
[2018-12-04] MEDS: METOPROLOL SUCCINATE 25 MG TAB.SR.24H PO SCH (10:02)
[2018-12-04] MEDS: NORMAL SALINE 10 ML SDV (SCHEDULED) IV SCH ×2 (10:03→21:26)
[2018-12-04] MEDS: DORZOLAMIDE HCL 2% OPH SOLN 10 ML OU SCH ×2 (10:03→18:54)
[2018-12-04] MEDS: ENOXAPARIN SODIUM INJ 40 MG/0.4 ML DISP.SYRIN SUBCUT SCH ×2 (10:03→21:26)
[2018-12-04] MEDS: FAT EMULSIONS 250 ML IV SCH (10:43)
[2018-12-04] MEDS: LEVALBUTEROL HCL NEB 1.25 MG/3 ML AMPUL NEB PRN (14:32)
[2018-12-04] MEDS: AMINO ACIDS 5 %/DEXTROSE 20 % 1,000 ML IV PRN (16:30)
[2018-12-04 20:57] LABS: ABSOLUTE BASOPHILS # (AUTO) 0.1 10^3/uL (0.0-0.2); ABSOLUTE EOSINOPHILS # (AUTO) 0.4 10^3/uL (0.0-0.6); ABSOLUTE LYMPHOCYTES (AUTO) 0.8 10^3/uL (0.5-4.7); ABSOLUTE MONOCYTES (AUTO) 0.7 10^3/uL (0.1-1.4); ABSOLUTE NEUT (AUTO) 8.3 10^3/uL (1.7-8.2); BASOPHILS % (AUTO) 1.2 % (0-2); EOSINOPHILS % (AUTO) 3.6 % (0-6); LYMPHOCYTES % (AUTO) 7.8 % (13-45); MEAN CORPUSCULAR HEMOGLOBIN 28.3 pg (27.0-33.4); MEAN CORPUSCULAR HGB CONC 33.5 g/dL (32.0-36.0); MEAN CORPUSCULAR VOLUME 84 fl (80-97); MONOCYTES % (AUTO) 7.1 % (3-13); PLATELET COUNT 657 10^3/uL (150-450); RED BLOOD COUNT 3.44 10^6/uL (4.35-5.55); RED CELL DISTRIBUTION WIDTH 15.7 % (11.5-14.0); SEGMENTED NEUTROPHILS % (AUTO) 80.3 % (42-78); TOTAL CELLS COUNTED % (AUTO) 100 %; WHITE BLOOD COUNT 10.3 10^3/uL (4.0-10.5)
[2018-12-04 20:59] LABS: HEMOGLOBIN 9.7 g/dL (13.5-17.0)
[2018-12-04] MEDS: SIMVASTATIN 40 MG TABLET PO SCH (21:27)
[2018-12-04] MEDS: LATANOPROST 0.005% OPH SOLN 2.5 ML OU SCH (21:34)
[2018-12-05] MEDS: METOPROLOL TARTRATE PF/INJ 5 MG/5 ML SDV IV SCH ×6 (02:27→22:25)
[2018-12-05] MEDS: INSULIN REG, HUMAN 100 UNIT/ML 3 ML VIAL (PYX) SUBCUT SCH ×2 (06:22→12:58)
--- NOTE | 2018-12-05 08:40 | PDOC PROGRESS REPORT ---
Subjective Progress Note for:: 12/05/18 Subjective:: feels better after blood tnx cj reg diet having bm's Reason For Visit: MELENA K92.1 Physical Exam Vital Signs: Temp Pulse Resp BP Pulse Ox 97.6 F 76 20 126/52 H 100 12/05/18 03:59 12/05/18 07:00 12/05/18 03:59 12/05/18 03:59 12/05/18 03:59 Intake & Output 12/04/18 12/05/18 12/06/18 06:59 06:59 06:59 Intake Total 1060 3264 Output Total 40 750 Balance 1020 2514 Weight 110.8 kg 108.9 kg General appearance: PRESENT: no acute distress Head exam: PRESENT: normocephalic Eye exam: PRESENT: EOMI Ear exam: PRESENT: normal external ear exam Mouth exam: PRESENT: moist Neck exam: PRESENT: full ROM Respiratory exam: PRESENT: clear to auscultation yoana, wheezes Cardiovascular exam: PRESENT: RRR Pulses: PRESENT: normal radial pulses, normal femoral pulses GI/Abdominal exam: PRESENT: soft Rectal exam: PRESENT: deferred Extremities exam: PRESENT: full ROM Neurological exam: PRESENT: alert, awake, oriented to person, oriented to place Psychiatric exam: PRESENT: appropriate affect Skin exam: PRESENT: dry Results Laboratory Results: 12/04/18 20:38 12/03/18 21:19 12/04/18 12/04/18 12/04/18 08:37 20:38 20:38 WBC 10.3 RBC 3.44 L Hgb 9.7 L D Hct 29.0 L MCV 84 MCH 28.3 MCHC 33.5 RDW 15.7 H Plt Count 657 H Seg Neutrophils % 80.3 H Lymphocytes % 7.8 L Monocytes % 7.1 Eosinophils % 3.6 Basophils % 1.2 Absolute Neutrophils 8.3 H Absolute Lymphocytes 0.8 Absolute Monocytes 0.7 Absolute Eosinophils 0.4 Absolute Basophils 0.1 Triglycerides 123 Blood Type A POSITIVE Antibody Screen NEGATIVE 11/20/18 11/24/18 21:45 09:53 Creatine Kinase 224 H NT-Pro-B Natriuret Pep 52 Impressions: Abdomen X-Ray 11/20/18 00:00 IMPRESSION: ABNORMAL COLLECTION OF GAS IN THE ABDOMEN WHICH IS PROBABLY RETROPERITONEAL. THIS EXTENDS INTO THE CHEST WITH RIGHT-SIDED PNEUMOMEDIASTINUM WELL EXTENSION INTO THE LOWER RIGHT SIDE OF THE NECK WITH SUBCUTANEOUS EMPHYSEMA IN THE RIGHT SUPRACLAVICULAR TISSUES. Esophagus X-Ray 11/20/18 00:00 IMPRESSION: CONTRAST EXTRAVASATION FROM THE SECOND PORTION OF THE DUODENUM CONS ISTENT WITH PERFORATION. NO EVIDENCE OF ESOPHAGEAL OR GASTRIC PERFORATION. OTHER INCIDENTAL FINDING IS A PROBABLE DUODENAL DIVERTICULUM. Upper GI and Small Bowel X-Ray 11/20/18 00:00 IMPRESSION: CONTRAST EXTRAVASATION FROM THE SECOND PORTION OF THE DUODENUM CONSISTENT WITH PERFORATION. NO EVIDENCE OF ESOPHAGEAL OR GASTRIC PERFORATION. OTHER INCIDENTAL FINDING IS A PROBABLE DUODENAL DIVERTICULUM. Head CT 11/25/18 08:37 IMPRESSION: No acute intracranial changes. Findings discussed with Dr Harvey EVIDENCE OF ACUTE STROKE: NO. Knee X-Ray 11/27/18 00:00 IMPRESSION: Suprapatellar knee joint effusion. Mild diffuse soft tissue swelling. Correlate clinically for infection with cellulitis No acute fracture or malalignment. No lucency around the right knee prosthesis worrisome for loosening. Abdomen/Pelvis CT 11/28/18 00:00 IMPRESSION: Decreasing pneumomediastinum. Increasing bilateral pleural effusions and basilar atelectasis or pneumonia. IMPRESSION: Fairly large collection of fluid in the lower mid abdomen extending along the ileo psoas margin into the pelvis. This could be postoperative in nature. Retroperitoneal hematoma cannot be excluded. Developing infectious or inflammatory process is thought to be less likely. There are no drainable collections at this time. Small pockets of free air remain consistent with recent surgery. Chest CT 11/28/18 00:00 IMPRESSION: Decreasing pneumomediastinum. Increasing bilateral pleural effusions and basilar atelectasis or pneumonia. IMPRESSION: Fairly large collection of fluid in the lower mid abdomen extending along the ileo psoas margin into the pelvis. This could be postoperative in nature. Retroperitoneal hematoma cannot be excluded. Developing infectious or inflammatory process is thought to be less likely. There are no drainable collections at this time. Small pockets of free air remain consistent with recent surgery. Head MRI 11/30/18 00:00 IMPRESSION: Negative for acute or sub-acute infarction.Small bilateral mastoid effusions. EVIDENCE OF ACUTE STROKE: NO. Chest X-Ray 12/01/18 00:00 IMPRESSION: Cardiomegaly status post median sternotomy. Guidance Fluoroscopy 12/01/18 00:00 IMPRESSION: SUCCESSFUL PLACEMENT OF A 5 FR DUAL LUMEN 35 CM PICC IN THE RIGHT BASILIC VEIN. Interventional Vascular Procedure 12/01/18 00:00 IMPRESSION: SUCCESSFUL PLACEMENT OF A 5 FR DUAL LUMEN 35 CM PICC IN THE RIGHT BASILIC VEIN. PICC Line Insertion 12/01/18 00:00 IMPRESSION: SUCCESSFUL PLACEMENT OF A 5 FR DUAL LUMEN 35 CM PICC IN THE RIGHT BASILIC VEIN. Assessment & Plan - Diagnosis (1) Bowel perforation Is this a current diagnosis for this admission?: Yes - Plan Summary Plan Summary: will cont to wheen tpn cont reg diet will work with pt today slowely regainng strength plan on dc home in next 1-2 days.
[2018-12-05] MEDS: LOSARTAN POTASSIUM 50 MG TABLET PO SCH (09:14)
[2018-12-05] MEDS: NORMAL SALINE 10 ML SDV (SCHEDULED) IV SCH ×2 (09:15→22:28)
[2018-12-05] MEDS: ASPIRIN 81 MG TABLET, CHEWABLE PO SCH (09:15)
[2018-12-05] MEDS: METOPROLOL SUCCINATE 25 MG TAB.SR.24H PO SCH (09:15)
[2018-12-05] MEDS: FENOFIBRATE NANOCRYSTALLIZED 145 MG TABLET PO SCH (09:15)
[2018-12-05] MEDS: FUROSEMIDE INJ/PF 20 MG/2 ML SDV IV SCH ×2 (09:17→17:27)
[2018-12-05] MEDS: ENOXAPARIN SODIUM INJ 40 MG/0.4 ML DISP.SYRIN SUBCUT SCH ×2 (09:17→22:27)
[2018-12-05] MEDS: DORZOLAMIDE HCL 2% OPH SOLN 10 ML OU SCH ×2 (09:18→17:27)
[2018-12-05] MEDS: DEXTROSE 10%-WATER 1,000 ML IV PRN (12:58)
[2018-12-05] MEDS: SIMVASTATIN 40 MG TABLET PO SCH (22:26)
[2018-12-05] MEDS: LATANOPROST 0.005% OPH SOLN 2.5 ML OU SCH (22:28)
[2018-12-06] MEDS: METOPROLOL TARTRATE PF/INJ 5 MG/5 ML SDV IV SCH ×2 (04:09→06:56)
[2018-12-06 07:11] LABS: ABSOLUTE BASOPHILS # (AUTO) 0.1 10^3/uL (0.0-0.2); ABSOLUTE EOSINOPHILS # (AUTO) 0.3 10^3/uL (0.0-0.6); ABSOLUTE LYMPHOCYTES (AUTO) 0.9 10^3/uL (0.5-4.7); ABSOLUTE NEUT (AUTO) 7.8 10^3/uL (1.7-8.2); BASOPHILS % (AUTO) 0.8 % (0-2); EOSINOPHILS % (AUTO) 2.7 % (0-6); LYMPHOCYTES % (AUTO) 9.1 % (13-45); MEAN CORPUSCULAR HEMOGLOBIN 28.9 pg (27.0-33.4); MEAN CORPUSCULAR VOLUME 85 fl (80-97); MONOCYTES % (AUTO) 9.8 % (3-13); PLATELET COUNT 677 10^3/uL (150-450); RED BLOOD COUNT 2.47 10^6/uL (4.35-5.55); RED CELL DISTRIBUTION WIDTH 15.8 % (11.5-14.0); SEGMENTED NEUTROPHILS % (AUTO) 77.6 % (42-78); TOTAL CELLS COUNTED % (AUTO) 100 %
[2018-12-06 07:15] LABS: HEMOGLOBIN 7.1 g/dL (13.5-17.0)
[2018-12-06 07:21] LABS: ALANINE AMINOTRANSFERASE 34 U/L (21-72); ALBUMIN 2.1 g/dL (3.5-5.0); ALKALINE PHOSPHATASE 64 U/L (38-126); ANION GAP 5 (5-19); ASPARTATE AMINO TRANSFERASE 43 U/L (17-59); BLOOD UREA NITROGEN 23 mg/dL (7-20); CARBON DIOXIDE 27 mmol/L (22-30); CHLORIDE 105 mmol/L (98-107); GLUCOSE 148 mg/dL (75-110); POTASSIUM 4.1 mmol/L (3.6-5.0); SODIUM 136.9 mmol/L (137-145)
[2018-12-06 07:22] LABS: BILIRUBIN,DIRECT 0.4 mg/dL (0.0-0.4); BILIRUBIN,TOTAL 0.6 mg/dL (0.2-1.3); TOTAL PROTEIN 4.9 g/dL (6.3-8.2); TRIGLYCERIDES 129 mg/dL (<150)
[2018-12-06 07:28] LABS: PREALBUMIN 6.6 mg/dL (17.6-36.0)
[2018-12-06] MEDS: LOSARTAN POTASSIUM 50 MG TABLET PO SCH (10:16)
[2018-12-06] MEDS: METOPROLOL SUCCINATE 25 MG TAB.SR.24H PO SCH (10:17)
[2018-12-06] MEDS: FENOFIBRATE NANOCRYSTALLIZED 145 MG TABLET PO SCH (10:17)
[2018-12-06] MEDS: DORZOLAMIDE HCL 2% OPH SOLN 10 ML OU SCH ×2 (10:17→17:28)
[2018-12-06 11:05] LABS: HEMATOCRIT 27.6 % (37.9-51.0); MEAN CORPUSCULAR HEMOGLOBIN 28.3 pg (27.0-33.4); MEAN CORPUSCULAR HGB CONC 33.3 g/dL (32.0-36.0); MEAN CORPUSCULAR VOLUME 85 fl (80-97); PLATELET COUNT 712 10^3/uL (150-450); RED BLOOD COUNT 3.24 10^6/uL (4.35-5.55); RED CELL DISTRIBUTION WIDTH 16.1 % (11.5-14.0); WHITE BLOOD COUNT 9.2 10^3/uL (4.0-10.5)
[2018-12-06 11:09] LABS: HEMOGLOBIN 9.2 g/dL (13.5-17.0)
--- NOTE | 2018-12-06 12:26 | RADIOLOGY REPORT (SQ) ---
EXAM DESCRIPTION: NM GI BLEED SCAN COMPLETED DATE/TIME: 12/06/2018 12:12 pm REASON FOR STUDY: low cbc, rule out bleed K92.1 MELENA COMPARISON: None. RADIONUCLIDE AND DOSE: 25.5 millicuries Technetium-labeled red blood cells. The route of agent administration: Intravenous. TECHNIQUE: Serial arterial-phase images acquired for 80 seconds immediately following injection of r adionuclide. Additional 60 images acquired at 60 seconds per image. LIMITATIONS: None. FINDINGS: Flow images without focal areas of abnormal radionuclide location. Serial images show no abnormal accumulation of radionuclide. IMPRESSION: NORMAL RADIONUCLIDE GASTROINTESTINAL BLEEDING STUDY. TECHNICAL DOCUMENTATION: JOB ID: [id number] [employer]- All Rights Reserved Reading location - IP/workstation name: [email or web address]
--- NOTE | 2018-12-06 12:35 | PDOC PROGRESS REPORT ---
Subjective Progress Note for:: 12/06/18 Subjective:: still weak poor appetitie Reason For Visit: MELENA K92.1 Physical Exam Vital Signs: Temp Pulse Resp BP Pulse Ox 97.9 F 85 18 125/47 L 99 12/06/18 07:22 12/06/18 07:22 12/06/18 07:22 12/06/18 07:22 12/06/18 07:22 Intake & Output 12/05/18 12/06/18 12/07/18 06:59 06:59 06:59 Intake Total 3264 551 Output Total 750 1215 Balance 2514 -664 Weight 108.9 kg 108.9 kg General appearance: PRESENT: no acute distress Eye exam: PRESENT: EOMI Mouth exam: PRESENT: moist Neck exam: PRESENT: full ROM Respiratory exam: PRESENT: wheezes Cardiovascular exam: PRESENT: RRR Pulses: PRESENT: normal radial pulses, normal femoral pulses GI/Abdominal exam: PRESENT: soft Extremities exam: PRESENT: full ROM Musculoskeletal exam: PRESENT: full ROM Neurological exam: PRESENT: alert, awake, oriented to person, oriented to place Psychiatric exam: PRESENT: appropriate affect Skin exam: PRESENT: dry - repeat h/h stable bleeding scan neg still weak with poor appetitie still with some swelling abd and ext resp status stable will hold lovonox cont with pt home in 1-2 days Results Laboratory Results: 12/06/18 10:37 12/06/18 06:45 12/06/18 12/06/18 12/06/18 06:45 06:45 09:25 WBC 10.0 Cancelled RBC 2.47 L Cancelled Hgb 7.1 L D Cancelled Hct 21.0 L Cancelled MCV 85 Cancelled MCH 28.9 Cancelled MCHC 34.0 Cancelled RDW 15.8 H Cancelled Plt Count 677 H Cancelled Seg Neutrophils % 77.6 Lymphocytes % 9.1 L Monocytes % 9.8 Eosinophils % 2.7 Basophils % 0.8 Absolute Neutrophils 7.8 Absolute Lymphocytes 0.9 Absolute Monocytes 1.0 Absolute Eosinophils 0.3 Absolute Basophils 0.1 Sodium 136.9 L Potassium 4.1 Chloride 105 Carbon Dioxide 27 Anion Gap 5 BUN 23 H Creatinine 0.91 Est GFR ( Amer) > 60 Est GFR (Non-Af Amer) > 60 Glucose 148 H Calcium 8.0 L Phosphorus 4.0 Magnesium 2.0 Total Bilirubin 0.6 AST 43 ALT 34 Alkaline Phosphatase 64 Total Protein 4.9 L Albumin 2.1 L Prealbumin 6.6 L Triglycerides 129 12/06/18 10:37 WBC 9.2 RBC 3.24 L Hgb 9.2 L D Hct 27.6 L MCV 85 MCH 28.3 MCHC 33.3 RDW 16.1 H Plt Count 712 H Seg Neutrophils % Lymphocytes % Monocytes % Eosinophils % Basophils % Absolute Neutrophils Absolute Lymphocytes Absolute Monocytes Absolute Eosinophils Absolute Basophils Sodium Potassium Chloride Carbon Dioxide Anion Gap BUN Creatinine Est GFR ( Amer) Est GFR (Non-Af Amer) Glucose Calcium Phosphorus Magnesium Total Bilirubin AST ALT Alkaline Phosphatase Total Protein Albumin Prealbumin Triglycerides 11/20/18 11/24/18 21:45 09:53 Creatine Kinase 224 H NT-Pro-B Natriuret Pep 52 Impressions: Abdomen X-Ray 11/20/18 00:00 IMPRESSION: ABNORMAL COLLECTION OF GAS IN THE ABDOMEN WHICH IS PROBABLY RETROPERITONEAL. THIS EXTENDS INTO THE CHEST WITH RIGHT-SIDED PNEUMOMEDIASTINUM WELL EXTENSION INTO THE LOWER RIGHT SIDE OF THE NECK WITH SUBCUTANEOUS EMPHYSEMA IN THE RIGHT SUPRACLAVICULAR TISSUES. Esophagus X-Ray 11/20/18 00:00 IMPRESSION: CONTRAST EXTRAVASATION FROM THE SECOND PORTION OF THE DUODENUM CONSISTENT WITH PERFORATION. NO EVIDENCE OF ESOPHAGEAL OR GASTRIC PERFORATION. OTHER INCIDENTAL FINDING IS A PROBABLE DUODENAL DIVERTICULUM. Upper GI and Small Bowel X-Ray 11/20/18 00:00 IMPRESSION: CONTRAST EXTRAVASATION FROM THE SECOND PORTION OF THE DUODENUM CONSISTENT WITH PERFORATION. NO EVIDENCE OF ESOPHAGEAL OR GASTRIC PERFORATION. OTHER INCIDENTAL FINDING IS A PROBABLE DUODENAL DIVERTICULUM. Head CT 11/25/18 08:37 IMPRESSION: No acute intracranial changes. Findings discussed with Dr Harvey EVIDENCE OF ACUTE STROKE: NO. Knee X-Ray 11/27/18 00:00 IMPRESSION: Suprapatellar knee joint effusion. Mild diffuse soft tissue swelling. Correlate clinically for infection with cellulitis No acute fracture or malalignment. No lucency around the right knee prosthesis worrisome for loosening. Abdomen/Pelvis CT 11/28/18 00:00 IMPRESSION: Decreasing pneumomediastinum. Increasing bilateral pleural effusions and basilar atelectasis or pneumonia. IMPRESSION: Fairly large collection of fluid in the lower mid abdomen extending along the ileo psoas margin into the pelvis. This could be postoperative in nature. Retroperitoneal hematoma cannot be excluded. Developing infectious or inflammatory process is thought to be less likely. There are no drainable collections at this time. Small pockets of free air remain consistent with recent surgery. Chest CT 11/28/18 00:00 IMPRESSION: Decreasing pneumomediastinum. Increasing bilateral pleural effusions and basilar atelectasis or pneumonia. IMPRESSION: Fairly large collection of fluid in the lower mid abdomen extending along the ileo psoas margin into the pelvis. This could be postoperative in nature. Retroperitoneal hematoma cannot be excluded. Developing infectious or inflammatory process is thought to be less likely. There are no drainable collections at this time. Small pockets of free air remain consistent with recent surgery. Head MRI 11/30/18 00:00 IMPRESSION: Negative for acute or sub-acute infarction.Small bilateral mastoid effusions. EVIDENCE OF ACUTE STROKE: NO. Chest X-Ray 12/01/18 00:00 IMPRESSION: Cardiomegaly status post median sternotomy. Guidance Fluoroscopy 12/01/18 00:00 IMPRESSION: SUCCESSFUL PLACEMENT OF A 5 FR DUAL LUMEN 35 CM PICC IN THE RIGHT BASILIC VEIN. Interventional Vascular Procedure 12/01/18 00:00 IMPRESSION: SUCCESSFUL PLACEMENT OF A 5 FR DUAL LUMEN 35 CM PICC IN THE RIGHT BASILIC VEIN. PICC Line Insertion 12/01/18 00:00 IMPRESSION: SUCCESSFUL PLACEMENT OF A 5 FR DUAL LUMEN 35 CM PICC IN THE RIGHT BASILIC VEIN. GI Bleed Scan Nuclear Medicine 12/06/18 00:00 IMPRESSION: NORMAL RADIONUCLIDE GASTROINTESTINAL BLEEDING STUDY. Assessment & Plan - Diagnosis (1) Bowel perforation Is this a current diagnosis for this admission?: Yes
[2018-12-06] MEDS: ASPIRIN 81 MG TABLET, CHEWABLE PO SCH (13:37)
[2018-12-06] MEDS: FUROSEMIDE INJ/PF 20 MG/2 ML SDV IV SCH ×2 (13:37→17:28)
[2018-12-06] MEDS: NORMAL SALINE 10 ML SDV (SCHEDULED) IV SCH ×2 (13:40→21:40)
[2018-12-06] MEDS: SIMVASTATIN 40 MG TABLET PO SCH (21:40)
[2018-12-06] MEDS: LATANOPROST 0.005% OPH SOLN 2.5 ML OU SCH (21:41)
[2018-12-07] MEDS: METOPROLOL SUCCINATE 25 MG TAB.SR.24H PO SCH (10:43)
[2018-12-07] MEDS: FENOFIBRATE NANOCRYSTALLIZED 145 MG TABLET PO SCH (10:44)
[2018-12-07] MEDS: ASPIRIN 81 MG TABLET, CHEWABLE PO SCH (10:44)
[2018-12-07] MEDS: LOSARTAN POTASSIUM 50 MG TABLET PO SCH (10:44)
[2018-12-07] MEDS: FUROSEMIDE INJ/PF 20 MG/2 ML SDV IV SCH (10:44)
[2018-12-07] MEDS: DORZOLAMIDE HCL 2% OPH SOLN 10 ML OU SCH (10:46)
[2018-12-07] MEDS: NORMAL SALINE 10 ML SDV (SCHEDULED) IV SCH (10:46)
--- NOTE | 2018-12-07 11:25 | PDOC PROGRESS REPORT ---
Subjective Progress Note for:: 12/07/18 Subjective:: feels well cj po having nl bm's Reason For Visit: MELENA K92.1 Physical Exam Vital Signs: Temp Pulse Resp BP Pulse Ox 97.9 F 86 19 124/50 L 97 12/07/18 07:13 12/07/18 07:13 12/07/18 07:13 12/07/18 07:13 12/07/18 07:13 Intake & Output 12/06/18 12/07/18 12/08/18 06:59 06:59 06:59 Intake Total 551 720 Output Total 1215 2150 Balance -664 -1430 Weight 108.9 kg 104.7 kg General appearance: PRESENT: no acute distress Eye exam: PRESENT: EOMI Mouth exam: PRESENT: moist Neck exam: PRESENT: full ROM Respiratory exam: PRESENT: clear to auscultation yoana Cardiovascular exam: PRESENT: RRR Pulses: PRESENT: normal radial pulses, normal femoral pulses GI/Abdominal exam: PRESENT: soft Rectal exam: PRESENT: deferred Extremities exam: PRESENT: full ROM Musculoskeletal exam: PRESENT: full ROM Neurological exam: PRESENT: alert, awake, oriented to person, oriented to place Psychiatric exam: PRESENT: appropriate affect Skin exam: PRESENT: dry Results Laboratory Results: 12/06/18 10:37 12/06/18 06:45 11/20/18 11/24/18 21:45 09:53 Creatine Kinase 224 H NT-Pro-B Natriuret Pep 52 Impressions: Abdomen X-Ray 11/20/18 00:00 IMPRESSION: ABNORMAL COLLECTION OF GAS IN THE ABDOMEN WHICH IS PROBABLY RETROPERITONEAL. THIS EXTENDS INTO THE CHEST WITH RIGHT-SIDED PNEUMOMEDIASTINUM WELL EXTENSION INTO THE LOWER RIGHT SIDE OF THE NECK WITH SUBCUTANEOUS EMPHYSEMA IN THE RIGHT SUPRACLAVICULAR TISSUES. Esophagus X-Ray 11/20/18 00:00 IMPRESSION: CONTRAST EXTRAVASATION FROM THE SECOND PORTION OF THE DUODENUM CONSISTENT WITH PERFORATION. NO EVIDENCE OF ESOPHAGEAL OR GASTRIC PERFORATION. OTHER INCIDENTAL FINDING IS A PROBABLE DUODENAL DIVERTICULUM. Upper GI and Small Bowel X-Ray 11/20/18 00:00 IMPRESSION: CONTRAST EXTRAVASATION FROM THE SECOND PORTION OF THE DUODENUM CONSISTENT WITH PERFORATION. NO EVIDENCE OF ESOPHAGEAL OR GASTRIC PERFORATION. OTHER INCIDENTAL FINDING IS A PROBABLE DUODENAL DIVERTICULUM. Head CT 11/25/18 08:37 IMPRESSION: No acute intracranial changes. Findings discussed with Dr Harvey EVIDENCE OF ACUTE STROKE: NO. Knee X-Ray 11/27/18 00:00 IMPRESSION: Suprapatellar knee joint effusion. Mild diffuse soft tissue swelling. Correlate clinically for infection with cellulitis No acute fracture or malalignment. No lucency around the right knee prosthesis worrisome for loosening. Abdomen/Pelvis CT 11/28/18 00:00 IMPRESSION: Decreasing pneumomediastinum. Increasing bilateral pleural effusions and basilar atelectasis or pneumonia. IMPRESSION: Fairly large collection of fluid in the lower mid abdomen extending along the ileo psoas margin into the pelvis. This could be postoperative in nature. Retroperitoneal hematoma cannot be excluded. Developing infectious or inflammatory process is thought to be less likely. There are no drainable collections at this time. Small pockets of free air remain consistent with recent surgery. Chest CT 11/28/18 00:00 IMPRESSION: Decreasing pneumomediastinum. Increasing bilateral pleural effusions and basilar atelectasis or pneumonia. IMPRESSION: Fairly large collection of fluid in the lower mid abdomen extending along the ileo psoas margin into the pelvis. This could be postoperative in nature. Retroperitoneal hematoma cannot be excluded. Developing infectious or inflammatory process is thought to be less likely. There are no drainable collections at this time. Small pockets of free air remain consistent with recent surgery. Head MRI 11/30/18 00:00 IMPRESSION: Negative for acute or sub-acute infarction.Small bilateral mastoid effusions. EVIDENCE OF ACUTE STROKE: NO. Chest X-Ray 12/01/18 00:00 IMPRESSION: Cardiomegaly status post median sternotomy. Guidance Fluoroscopy 12/01/18 00:00 IMPRESSION: SUCCESSFUL PLACEMENT OF A 5 FR DUAL LUMEN 35 CM PICC IN THE RIGHT BASILIC VEIN. Interventional Vascular Procedure 12/01/18 00:00 IMPRESSION: SUCCESSFUL PLACEMENT OF A 5 FR DUAL LUMEN 35 CM PICC IN THE RIGHT BASILIC VEIN. PICC Line Insertion 12/01/18 00:00 IMPRESSION: SUCCESSFUL PLACEMENT OF A 5 FR DUAL LUMEN 35 CM PICC IN THE RIGHT BASILIC VEIN. GI Bleed Scan Nuclear Medicine 12/06/18 00:00 IMPRESSION: NORMAL RADIONUCLIDE GASTROINTESTINAL BLEEDING STUDY. Assessment & Plan - Diagnosis (1) Bowel perforation Is this a current diagnosis for this admission?: Yes - Plan Summary Plan Summary: doing well cj diet will dc home today.
[2018-12-07 12:26] VITALS: BP 131/58
--- NOTE | 2018-12-07 12:54 | DISCHARGE SUMMARY E ---
Discharge Summary NAME: INOCENTE MIJARES : 1945 AGE: 73Y ADMITTED: 11/20/2018 DISCHARGED: 12/07/2018 ADMISSION DIAGNOSIS: Duodenal perforation status post upper endoscopy for gastrointestinal bleed. DISCHARGE DIAGNOSES: 1. Duodenal perforation. 2. Upper gastrointestinal bleed. REASON FOR HOSPITALIZATION AND HOSPITAL COURSE: This is a 73-year-old male who underwent an upper endoscopy on 11/20/2018 for an upper GI bleed. At the time of endoscopy, a clot was noted in his duodenum and once it was washed away, he was noted to have an AVM, that was abated with epinephrine. However, in the recovery room, the patient developed increasing abdominal pain and a surgical consult was obtained. The surgical consult suggested an upper GI to rule out perforation, and when that was accomplished there was noted to be free perforation of his duodenum. He was, therefore, taken to surgery on November 20, 2018, for a duodenal perforation. At that time, an exploratory laparotomy was done, which showed the duodenal perforation, a pyloric exclusion, a gastrojejunostomy, a jejunostomy feeding tube, and a central line was placed. He was then monitored in the intensive care unit subsequent to that. He remained in the intensive care unit for a prolonged period of time secondary to slow return of cognitive function and slow to wake up. He initially required IV Versed for sedation and then subsequent to decreasing his Versed, it was difficult for him to wake up and to regain consciousness, so he underwent a number of exams including a head CT scan, an EEG, and then subsequent to that an MRI scan. The EEG was nonspecific. The head CT scan did not show any type of mass effect or bleed, and the subsequent MRI scan was unremarkable. Eventually after a number of days in the intensive care unit, we were able to extubate him, and he was finally extubated on November 27, 2018, and he tolerated that well. Again, he slowly improved his neurologic status in the ICU, and eventually he started regaining bowel function. His NG tube was finally removed around 11/28. Also, he underwent a feeding tube jejunostomy during the initial operation. However, that tube became nonfunctional and he was started on central TPN through a central line, which was eventually switched over to a PICC line, which he continued throughout his hospital course. On the November 29, he was eventually stable enough to transfer to the nursing floor. Once his NG tube was removed, he was started on a clear liquid diet, which was slowly advanced to a full liquid diet, then a soft diet, which he always tolerated well. He had no issues with vomiting or slow return of bowel function. He underwent repeat CT scans, which showed resolution of the fluid collection in his abdomen and no evidence of any infection. He was continued on antibiotics for about 2 weeks post his initial injury, and he did not ever show any signs of sepsis or infection. Eventually the antibiotics were stopped. In addition to that, we monitored his hematocrit and hemoglobin throughout his hospital course. Subsequent to his initial operation, he did not need any blood. However, about 2-1/2 weeks post initial operation, he did slowly drift down to a hemoglobin of about 7.1, appeared symptomatic, was weak, unable to really walk around, and was somewhat dizzy when he stood up and, therefore, he received a transfusion of 2 units of packed red blood cells. Subsequent to that, his hemoglobin came up to the 9 range and remained stable throughout the rest of the hospital course. On 12/06, lab was obtained, which showed hemoglobin dropped from 9 to 7, which prompted a bleeding scan. The bleeding scan was negative, and then a repeat hemoglobin showed that hemoglobin had been stable at 9 and it was an erroneous lab result. He worked with Physical Therapy in his room to regain his strength. He initially had some significant problems with anasarca and peripheral edema, which improved significantly with IV Lasix, and by the time of discharge his anasarca was markedly improved, although he still has some posterior sacral pitting edema. At the time of discharge, he is afebrile with stable vital signs. He is tolerating a regular diet. He is having no issues with his dietary intake. He is having now normal bowel movements. His pitting edema is resolving. His hemoglobin and hematocrit are stable and his white blood count is stable and normal. His PICC line will be removed prior to his discharge, as well as his jejunostomy feeding tube, and half his midline abdominal incisional rachel are removed. He is instructed to resume a soft regular diet at home and resume his previous medications that he was taking preoperatively, which include metoprolol, losartan for blood pressure control. He is also taking simvastatin, which I have asked him to hold for a week. He is taking fenofibrate for triglycerides. I asked him to resume that, and his other glaucoma medications he is to resume. He will be discharged today with a followup appointment in a week after discharge. Other than his home meds, he is not going to be given any additional pain medicines, as he is not requiring them in the hospital. FINAL DIAGNOSIS: Upper gastrointestinal bleed status post duodenal perforation. PROCEDURES IN THE HOSPITAL: 1. Upper endoscopy that will be dictated by Dr. Albarran. 2. Exploratory laparotomy with central line placement, pyloric exclusion with gastrojejunostomy, and feeding tube jejunostomy placement, which he had on the initial admission. DICTATING PHYSICIAN: TIERRA CARVAJAL M.D. [id number] PHY#: [id number] ID: [id number] JOB#: [id number] ACCT: [id number] cc:Mariya ALVAREZ M.D. GIOVANNI SALERNO, M.D. >
== END 2018-12-07 12:26 | disposition home or self-care (01) | DRG 264 ==
LOC: OROUT 09:24 → ICU 17:26 → OROUT 18:10 → ICU 18:10 → EEVIPCON 18:10 → 3N 11-29 03:26 → 3S 11-30 18:08
PROVIDERS: ADMIT Surgery; ATTEND Surgery
PROC: 0W3P8ZZ Control Bleeding in Gastrointestinal Tract, Via Natural or Artificial Opening Endoscopic (ICD-10-PCS; 2018-11-20)
PROC: 3E0G8GC Introduction of Other Therapeutic Substance into Upper GI, Via Natural or Artificial Opening Endoscopic (ICD-10-PCS; 2018-11-20)
PROC: 02HV33Z Insertion of Infusion Device into Superior Vena Cava, Percutaneous Approach (ICD-10-PCS; 2018-11-20)
PROC: 0DHA3UZ Insertion of Feeding Device into Jejunum, Percutaneous Approach (ICD-10-PCS; 2018-11-20)
PROC: 5A1955Z Respiratory Ventilation, Greater than 96 Consecutive Hours (ICD-10-PCS; 2018-11-20)
PROC: 0D558ZZ Destruction of Esophagus, Via Natural or Artificial Opening Endoscopic (ICD-10-PCS; 2018-11-20)
PROC: 0D160ZA Bypass Stomach to Jejunum, Open Approach (ICD-10-PCS; principal; 2018-11-20 11:45)
PROC: 0DL70ZZ Occlusion of Stomach, Pylorus, Open Approach (ICD-10-PCS; 2018-11-20 11:45)
PROC: 3E0436Z Introduction of Nutritional Substance into Central Vein, Percutaneous Approach (ICD-10-PCS; 2018-11-24)
PROC: 30233N1 Transfusion of Nonautologous Red Blood Cells into Peripheral Vein, Percutaneous Approach (ICD-10-PCS; 2018-11-24)
PROC: 0S9C3ZX Drainage of Right Knee Joint, Percutaneous Approach, Diagnostic (ICD-10-PCS; 2018-11-27)
DX: Q27.33 Arteriovenous malformation of digestive system vessel (principal); K26.5 Chronic or unspecified duodenal ulcer with perforation; J96.01 Acute respiratory failure with hypoxia; K91.81 Other intraoperative complications of digestive system; N17.9 Acute kidney failure, unspecified; D62 Acute posthemorrhagic anemia; K22.70 Barrett's esophagus without dysplasia; I25.10 Atherosclerotic heart disease of native coronary artery without angina pectoris; I10 Essential (primary) hypertension; M19.042 Primary osteoarthritis, left hand; M19.041 Primary osteoarthritis, right hand; E78.5 Hyperlipidemia, unspecified; F32.9 Major depressive disorder, single episode, unspecified; Y83.8 Other surgical procedures as the cause of abnormal reaction of the patient, or of later complication, without mention of misadventure at the time of the procedure; Y92.234 Operating room of hospital as the place of occurrence of the external cause; B96.20 Unspecified Escherichia coli [E. coli] as the cause of diseases classified elsewhere; B95.4 Other streptococcus as the cause of diseases classified elsewhere; E66.9 Obesity, unspecified
CPT/HCPCS: 00731; 00790; 36415; 36430; 36569; 43255; 43270; 70450; 70551; 71045; 71250; 74019; 74176; 74220; 74249; 76937; 77001; 78278; 80048; 80053; 82140; 82330; 82550; 82803; 82962; 83605; 83690; 83735; 83880; 83930; 84100; 84132; 84134; 84478; 85025; 85027; 85610; 86850; 86900; 86901; 86920; 87040; 87070; 87075; 87077; 87186; 87205; 89050; 94002; 94003; 94667; 94799; 95819; A9560; C1769; J0131; J0171; J0330; J0610; J1100; J1450; J1642; J1650; J1815; J1885; J1940; J1956; J2250; J2270; J2310; J2405; J2543; J2704; J3010; J3475; J3480; J3490; J7030; J7050; J7060; P9016; P9047; Q9969; S0164

== ENCOUNTER → 2018-12-12 | Outpatient (CLI) | payer MEDICARE, BC ==
[2018-12-12 15:34] LABS: ABSOLUTE EOSINOPHILS # (AUTO) 0.2 10^3/uL (0.0-0.6); ABSOLUTE NEUT (AUTO) 11.2 10^3/uL (1.7-8.2); BASOPHILS % (AUTO) 0.4 % (0-2); EOSINOPHILS % (AUTO) 1.2 % (0-6); HEMATOCRIT 28.8 % (37.9-51.0); HEMOGLOBIN 9.4 g/dL (13.5-17.0); LYMPHOCYTES % (AUTO) 7.6 % (13-45); MEAN CORPUSCULAR HEMOGLOBIN 27.9 pg (27.0-33.4); MEAN CORPUSCULAR HGB CONC 32.6 g/dL (32.0-36.0); MEAN CORPUSCULAR VOLUME 86 fl (80-97); MONOCYTES % (AUTO) 7.2 % (3-13); PLATELET COUNT 712 10^3/uL (150-450); RED BLOOD COUNT 3.36 10^6/uL (4.35-5.55); RED CELL DISTRIBUTION WIDTH 15.4 % (11.5-14.0); SEGMENTED NEUTROPHILS % (AUTO) 83.6 % (42-78); TOTAL CELLS COUNTED % (AUTO) 100 %; WHITE BLOOD COUNT 13.4 10^3/uL (4.0-10.5)
[2018-12-12 15:50] LABS: ANION GAP 9 (5-19); BLOOD UREA NITROGEN 18 mg/dL (7-20); CALCIUM 9.1 mg/dL (8.4-10.2); CARBON DIOXIDE 26 mmol/L (22-30); CHLORIDE 103 mmol/L (98-107); GLUCOSE 108 mg/dL (75-110); POTASSIUM 4.9 mmol/L (3.6-5.0); SODIUM 137.7 mmol/L (137-145)
== END ==
LOC: OD 15:07
PROVIDERS: ATTEND Physician Assistant Surgical
DX: R50.82 Postprocedural fever (principal); K63.1 Perforation of intestine (nontraumatic); Z98.890 Other specified postprocedural states
CPT/HCPCS: 36415; 80048; 85025

== ENCOUNTER 2018-12-14 09:18 | Emergency (ER) | payer MEDICARE, BC ==
--- NOTE | 2018-12-14 09:30 | ER Document Report ---
ED Medical Screen (RME) - General Chief Complaint: Fever Stated Complaint: FEVER Time Seen by Provider: 12/14/18 09:28 Primary Care Provider: CHARANJIT OROZCO PA-C [Primary Care Provider] - Follow up as needed Mode of Arrival: Wheelchair Information source: Patient, Relative Notes: Patient presents to the emergency department with fever. Gives history of recent EGD and perforation and surgery. Reports fever 102 yesterday. Denies pain. Reports he just does not feel well. I have greeted and performed a rapid initial assessment of this patient. A comprehensive ED assessment and evaluation of the patient, analysis of test results and completion of the medical decision making process will be conducted by additional ED providers. Dictation of this chart was performed using voice recognition software; therefore, there may be some unintended grammatical errors. TRAVEL OUTSIDE OF THE [place] IN LAST 30 DAYS: No - Related Data Allergies/Adverse Reactions: No Known Allergies Allergy (Verified 12/19/17 11:49) Past Medical History - Past Medical History Cardiac Medical History: Reports: Hx Coronary Artery Disease, Hx Hypertension Denies: Hx Heart Attack - BYPASS WITH STENT HX Pulmonary Medical History: Denies: Hx Asthma, Hx Bronchitis, Hx COPD, Hx Pneumonia Neurological Medical History: Denies: Hx Cerebrovascular Accident, Hx Seizures GI Medical History: Reports: Hx Hiatal Hernia - HAD SURGERY. Denies: Hx Hepatitis, Hx Ulcer Musculoskeltal Medical History: Reports Hx Arthritis - hands Infectious Medical History: Denies: Hx Hepatitis Past Surgical History: Reports: Hx Open Heart Surgery. Denies: Hx Pacemaker - Immunizations Hx Diphtheria, Pertussis, Tetanus Vaccination: No History of Influenza Vaccine for 03/2017 - 08/2017 Season: Yes Influenza Administration Date for 03/2017 - 08/2017 Season: 02/15/17 Physical Exam - Vital signs Vitals: Temp Pulse BP Pulse Ox 99.0 F 107 H 127/59 H 98 12/14/18 09:26 12/14/18 09:26 12/14/18 09:26 12/14/18 09:26 Course - Vital Signs Vital signs: Temp Pulse Resp BP Pulse Ox 99.0 F 107 H 127/59 H 98 12/14/18 09:26 12/14/18 09:26 12/14/18 09:26 12/14/18 09:26 Doctor's Discharge - Discharge Referrals: CHARANJIT OROZCO PA-C [Primary Care Provider] - Follow up as needed
[2018-12-14] MEDS ORDERED: NORMAL SALINE 1000 ML 1,000 ML IV ONE (09:54)
--- NOTE | 2018-12-14 10:06 | ER Document Report ---
ED Fever - General Chief Complaint: Fever Stated Complaint: FEVER Time Seen by Provider: 12/14/18 09:28 Primary Care Provider: CHARANJIT OROZCO PA-C [ALLIED HEALTH PROFESSIONAL] - Follow up as needed Mode of Arrival: Wheelchair Information source: Patient, Relative TRAVEL OUTSIDE OF THE [place] IN LAST 30 DAYS: No - HPI Patient complains to provider of: fever Onset: Yesterday - pt. had EGD earlier this month with perforation during procedure -- was admitted here and had subsequent surgery per Dr. Harvey and was discharged 1 week ago. Developed fever to 101.7 2 days ago and [address] oChen earlier today and told to go to ED for further evaluation - Related Data Allergies/Adverse Reactions: No Known Allergies Allergy (Verified 12/19/17 11:49) Past Medical History - General Information source: Patient, Relative - Social History Smoking Status: Unknown if Ever Smoked Family History: Reviewed & Not Pertinent Patient has suicidal ideation: No Patient has homicidal ideation: No - Past Medical History Cardiac Medical History: Reports: Hx Coronary Artery Disease, Hx Hypertension Denies: Hx Heart Attack - BYPASS WITH STENT HX Pulmonary Medical History: Denies: Hx Asthma, Hx Bronchitis, Hx COPD, Hx Pneumonia Neurological Medical History: Denies: Hx Cerebrovascular Accident, Hx Seizures Renal/ Medical History: Denies: Hx Peritoneal Dialysis GI Medical History: Reports: Hx Hiatal Hernia - HAD SURGERY. Denies: Hx Hepatitis, Hx Ulcer Musculoskeletal Medical History: Reports Hx Arthritis - hands Infectious Medical History: Denies: Hx Hepatitis Past Surgical History: Reports: Hx Open Heart Surgery. Denies: Hx Pacemaker - Immunizations Hx Diphtheria, Pertussis, Tetanus Vaccination: No Hx Pneumococcal Vaccination: 04/17/16 Review of Systems - Review of Systems Constitutional: See HPI, Fever EENT: No symptoms reported Cardiovascular: No symptoms reported Respiratory: No symptoms reported Gastrointestinal: No symptoms reported Musculoskeletal: No symptoms reported Neurological/Psychological: No symptoms reported -: Yes All other systems reviewed and negative Physical Exam - Vital signs Vitals: Temp Pulse BP Pulse Ox 99.0 F 107 H 127/59 H 98 12/14/18 09:26 12/14/18 09:26 12/14/18 09:26 12/14/18 09:26 - General General appearance: Alert - ill-appearing In distress: None - HEENT Pharynx: Normal Neck: Normal - Respiratory Respiratory status: No respiratory distress Breath sounds: Normal - Cardiovascular Rhythm: Regular Heart sounds: Normal auscultation - Abdominal Distension: No distension Bowel sounds: Normal Tenderness: Nontender - there are well-healing surgical wounds on pt's abdomen wihtout signs of infection Organomegaly: No organomegaly - Extremities General upper extremity: Normal inspection General lower extremity: Normal inspection - Neurological Neuro grossly intact: Yes Cognition: Normal Orientation: AAOx4 Course - Re-evaluation Re-evalutation: 12/14/18 12:35 pt. states he feels better after IVF. I will call Dr. Harvey for consult - Vital Signs Vital signs: Temp Pulse Resp BP Pulse Ox 99.0 F 107 H 127/59 H 98 12/14/18 09:26 12/14/18 09:26 12/14/18 09:26 12/14/18 09:26 - Laboratory Result Diagrams: 12/14/18 10:28 12/14/18 10:28 Laboratory results interpreted by me: 12/14/18 12/14/18 10:28 10:28 RBC 3.10 L Hgb 8.8 L Hct 26.0 L RDW 15.7 H Plt Count 586 H Seg Neutrophils % 84.5 H Lymphocytes % 5.9 L Sodium 136.1 L Glucose 120 H ALT 13 L Albumin 2.9 L - Diagnostic Test Radiology reviewed: Reports reviewed - c/w intra-abdominal abscess Critical Care Note - Critical Care Note Total time excluding time spent on procedures (mins): 30 Discharge - Discharge Clinical Impression: Intra-abdominal abscess Condition: Stable Disposition: ADMITTED OBSERVATION Admitting Provider: Surgicalist Unit Admitted: Surgical Floor Referrals: CHARANJIT OROZCO PA-C [ALLIED HEALTH PROFESSIONAL] - Follow up as needed
--- NOTE | 2018-12-14 10:12 | RADIOLOGY REPORT (SQ) ---
EXAM DESCRIPTION: CHEST 2 VIEWS COMPLETED DATE/TIME: 12/14/2018 9:47 am REASON FOR STUDY: fever COMPARISON: 12/01/2018. EXAM PARAMETERS: NUMBER OF VIEWS: two views TECHNIQUE: Digital Frontal and Lateral radiographic views of the chest acquired. RADIATION DOSE: NA LIMITATIONS: none FINDINGS: LUNGS AND PLEURA: Streaky atelectasis in the left lung base. No lobar infiltrate, masses or pneumothorax. No pleural effusion. MEDIASTINUM AND HILAR STRUCTURES: No masses or contour abnormalities. HEART AND VASCULAR STRUCTURES: Heart normal size. No evidence for failure. BONES: No acute findings. HARDWARE: Sternotomy wires and coronary bypass markers. OTHER: No other significant finding. IMPRESSION: NO ACUTE RADIOGRAPHIC FINDING IN THE CHEST. TECHNICAL DOCUMENTATION: JOB ID: [id number] [employer]- All Rights Reserved Reading location - IP/workstation name: [email or web address]
[2018-12-14 10:58] LABS: ABSOLUTE EOSINOPHILS # (AUTO) 0.1 10^3/uL (0.0-0.6); ABSOLUTE LYMPHOCYTES (AUTO) 0.6 10^3/uL (0.5-4.7); ABSOLUTE MONOCYTES (AUTO) 0.7 10^3/uL (0.1-1.4); ABSOLUTE NEUT (AUTO) 7.9 10^3/uL (1.7-8.2); BASOPHILS % (AUTO) 0.5 % (0-2); EOSINOPHILS % (AUTO) 1.3 % (0-6); HEMOGLOBIN 8.8 g/dL (13.5-17.0); LYMPHOCYTES % (AUTO) 5.9 % (13-45); MEAN CORPUSCULAR HEMOGLOBIN 28.3 pg (27.0-33.4); MEAN CORPUSCULAR HGB CONC 33.6 g/dL (32.0-36.0); MEAN CORPUSCULAR VOLUME 84 fl (80-97); MONOCYTES % (AUTO) 7.8 % (3-13); PLATELET COUNT 586 10^3/uL (150-450); RED CELL DISTRIBUTION WIDTH 15.7 % (11.5-14.0); SEGMENTED NEUTROPHILS % (AUTO) 84.5 % (42-78); TOTAL CELLS COUNTED % (AUTO) 100 %; WHITE BLOOD COUNT 9.4 10^3/uL (4.0-10.5)
[2018-12-14 11:14] LABS: ALANINE AMINOTRANSFERASE 13 U/L (21-72); ALBUMIN 2.9 g/dL (3.5-5.0); ALKALINE PHOSPHATASE 57 U/L (38-126); ANION GAP 7 (5-19); ASPARTATE AMINO TRANSFERASE 23 U/L (17-59); BILIRUBIN,DIRECT 0.4 mg/dL (0.0-0.4); BILIRUBIN,TOTAL 0.5 mg/dL (0.2-1.3); BLOOD UREA NITROGEN 17 mg/dL (7-20); CALCIUM 8.9 mg/dL (8.4-10.2); CARBON DIOXIDE 26 mmol/L (22-30); CHLORIDE 103 mmol/L (98-107); GLUCOSE 120 mg/dL (75-110); POTASSIUM 3.9 mmol/L (3.6-5.0); SODIUM 136.1 mmol/L (137-145); TOTAL PROTEIN 6.6 g/dL (6.3-8.2)
[2018-12-14 11:44] LABS: APPEARANCE,URINE CLEAR; BILIRUBIN,URINE NEGATIVE (NEGATIVE); COLOR,URINE YELLOW; GLUCOSE, URINE NEGATIVE (NEGATIVE); KETONES,URINE NEGATIVE (NEGATIVE); LEUKOCYTE ESTERASE,URINE NEGATIVE (NEGATIVE); NITRITE,URINE NEGATIVE (NEGATIVE); PROTEIN,URINE NEGATIVE (NEGATIVE); URINE SPECIFIC GRAVITY 1.017; UROBILINOGEN,URINE NEGATIVE mg/dL (<2.0)
--- NOTE | 2018-12-14 12:22 | RADIOLOGY REPORT (SQ) ---
EXAM DESCRIPTION: CT ABD/PELVIS WITH IV ONLY COMPLETED DATE/TIME: 12/14/2018 11:40 am REASON FOR STUDY: post-op fever COMPARISON: 11/28/2018 TECHNIQUE: CT scan of the abdomen and pelvis performed using helical scanning technique with dynamic intravenous contrast injection. No oral contrast. Images reviewed with lung, soft tissue, and bone windows. Reconstructed coronal and sagittal MPR images reviewed. Delayed images for evaluation of the urinary system also acquired. All images stored on PACS. All CT scanners at this facility use dose modulation, iterative reconstruction, and/or weight based d osing when appropriate to reduce radiation dose to as low as reasonably achievable (ALARA). [facility]: Dose Right [facility]: CareDose [facility]: Dose Right [facility]: Teradose 4D [facility]: Gravie CONTRAST TYPE AND DOSE: contrast/concentration: Isovue 350.00 mg/ml; Total Contrast Delivered: 100.0 ml; Total Saline Delivered: 72.0 ml RENAL FUNCTION: GFR > 60. RADIATION DOSE: CT Rad equipment meets quality standard of care and radiation dose reduction techniq ues were employed. CTDIvol: 19.6 - 19.6 mGy. DLP: 2100 mGy-cm.. LIMITATIONS: None. FINDINGS: LOWER CHEST: Small right pleural effusion. LIVER: Normal size. No masses. No dilated ducts. SPLEEN: Normal size. No focal lesions. PANCREAS: No masses. No significant calcifications. No adjacent inflammation or peripancreatic fluid collections. Pancreatic duct not dilated. GALLBLADDER: Surgically absent. ADRENAL GLANDS: No significant masses or asymmetry. RIGHT KIDNEY AND URETER: No solid masses. Small nonobstructive calculi. No hydronephrosis or hydr oureter. LEFT KIDNEY AND URETER: No solid masses. Small nonobstructive calculi. No hydronephrosis or hydro ureter. AORTA AND VESSELS: No aneurysm. No dissection. Renal arteries, SMA, celiac without stenosis. Scatter ed calcific atherosclerosis. RETROPERITONEUM: A previously demonstrated large fluid collection extending from the descending porti on of the duodenum and inferiorly along the retroperitoneum, about the right perirenal fascia and rig ht ureter, aorta and iliac bifurcation, and into the pelvis, overlying the right pelvic sidewall and anterior to the sacrum, now contains a significant volume of air, consistent with abscess. BOWEL AND PERITONEAL CAVITY: No masses or inflammatory changes. No free fluid or peritoneal masses. APPENDIX: Not clearly visualized. PELVIS: No mass. No free fluid. Normal bladder. ABDOMINAL WALL: No masses. No hernias. BONES: No significant or acute findings. OTHER: No other significant finding. IMPRESSION: A previously demonstrated large fluid collection extending from the descending portion o f the duodenum and inferiorly along the retroperitoneum, about the right perirenal fascia and right u reter, aorta and iliac bifurcation, and into the pelvis, overlying the right pelvic sidewall and ante rior to the sacrum, now contains a significant volume of air, consistent with abscess. Portions of t his collection are likely amenable to percutaneous aspiration, however given the length and multiple body compartment involvement, may require multiple approaches. TECHNICAL DOCUMENTATION: JOB ID: [id number] Quality ID # [id number]: Final reports with documentation of one or more dose reduction techniques (e.g., Au tomated exposure control, adjustment of the mA and/or kV according to patient size, use of iterative reconstruction technique) 2010 [employer]- All Rights Reserved Reading location - IP/workstation name: [email or web address]
--- NOTE | 2018-12-14 13:47 | PDOC CONSULTATION ---
Consultation Consult Date: 12/14/18 Provider Consulted: TIERRA CARVAJAL Consult reason:: fever History of Present Illness Admission Date/PCP: 12/14/18 13:31 ESTER ENCINAS MD History of Present Illness: INOCENTE MIJARES is a 73 year old male well known to me.s/p duoidenal perforation during an endosocpy s/p ex lap and pyloric exclusion now recovering at home concerned about elevated temp to over 102 seen in office on and started on po cipro. fevers sl decreased but still present pt feels weak eating ok, min amts, no vomiting no pain pt sent here for ct and labs. 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 Hematology: Denies: Anemia, Sickle Cell Disease Past Surgical History Past Surgical History: Denies: Pacemaker Social History Smoking Status: Unknown if Ever Smoked Frequency of Alcohol Use: None Hx Recreational Drug Use: No Hx Prescription Drug Abuse: No Family History Family History: Reviewed & Not Pertinent Parental Family History Reviewed: No Children Family History Reviewed: NA Sibling(s) Family History Reviewed.: NA Medication/Allergy Home Medications: Aspirin [Aspirin 81 mg Chewable Tablet] 81 mg PO DAILY 11/20/18 Latanoprost [Xalatan] 2.5 ml OP DAILY 11/20/18 Losartan Potassium 100 mg PO DAILY 11/20/18 Omeprazole 40 mg PO DAILY 11/20/18 Simvastatin 80 mg PO DAILY 11/20/18 Trazodone HCl 50 mg PO HSP PRN 11/20/18 Fenofibrate Nanocrystallized [Tricor 145 mg Tablet] 145 mg PO DAILY 11/21/18 Hydrochlorothiazide [Hydrodiuril 25 mg Tablet] 25 mg PO QAM 11/21/18 Metoprolol Succinate [Toprol Xl 50 mg Tab.sr] 50 mg PO DAILY 11/21/18 Multivitamin [Tab-A-Dharmesh (Multiple Vitamin) Tablet] 1 tab PO DAILY 11/21/18 Nitroglycerin [Nitrostat 0.4 mg (1/150 Gr) Tabs 25/Bottle] 1 tab SL Q5MP PRN 11/21/18 [place]-3 Fatty Acids/Fish Oil [Fish Oil 1,000 Mg Capsule] 1 each PO QID 11/21/18 Allergies/Adverse Reactions: No Known Allergies Allergy (Verified 12/19/17 11:49) Review of Systems Constitutional: ABSENT: chills, fever(s), headache(s), weight gain, weight loss Eyes: ABSENT: visual disturbances Ears: ABSENT: hearing changes Nose, Mouth, and Throat: ABSENT: as per HPI, headache(s), mouth pain, sore throat, vertigo, other Breasts: ABSENT: as per HPI, other Cardiovascular: ABSENT: as per HPI, chest pain, dyspnea on exertion, edema, orthropnea, palpitations, other Gastrointestinal: ABSENT: abdominal pain, constipation, diarrhea, hematemesis, hematochezia, nausea, vomiting Genitourinary: ABSENT: dysuria, hematuria Musculoskeletal: ABSENT: joint swelling Integumentary: ABSENT: rash, wounds Neurological: ABSENT: abnormal gait, abnormal speech, confusion, dizziness, focal weakness, syncope Psychiatric: ABSENT: anxiety, depression, homidical ideation, suicidal ideation Endocrine: ABSENT: cold intolerance, heat intolerance, polydipsia, polyuria Hematologic/Lymphatic: ABSENT: easy bleeding, easy bruising Physical Exam Vital Signs: Temp Pulse Resp BP Pulse Ox 99.0 F 107 H 127/59 H 98 12/14/18 09:26 12/14/18 09:26 12/14/18 09:26 12/14/18 09:26 Intake & Output 12/13/18 12/14/18 12/15/18 06:59 06:59 06:59 Intake Total 1000 Balance 1000 Weight 93.3 kg General appearance: PRESENT: mild distress Eye exam: PRESENT: EOMI Mouth exam: PRESENT: moist Neck exam: PRESENT: full ROM Respiratory exam: PRESENT: clear to auscultation yoana Cardiovascular exam: PRESENT: RRR Pulses: PRESENT: normal radial pulses, normal femoral pulses GI/Abdominal exam: PRESENT: soft Rectal exam: PRESENT: deferred Extremities exam: PRESENT: full ROM Musculoskeletal exam: PRESENT: full ROM Neurological exam: PRESENT: alert, awake, oriented to person, oriented to place Psychiatric exam: PRESENT: appropriate affect Results Laboratory Results: 12/14/18 10:28 12/14/18 10:28 12/14/18 12/14/18 12/14/18 10:28 10:28 10:28 WBC 9.4 RBC 3.10 L Hgb 8.8 L Hct 26.0 L MCV 84 MCH 28.3 MCHC 33.6 RDW 15.7 H Plt Count 586 H Seg Neutrophils % 84.5 H Lymphocytes % 5.9 L Monocytes % 7.8 Eosinophils % 1.3 Basophils % 0.5 Absolute Neutrophils 7.9 Absolute Lymphocytes 0.6 Absolute Monocytes 0.7 Absolute Eosinophils 0.1 Absolute Basophils 0.0 Sodium 136.1 L Potassium 3.9 Chloride 103 Carbon Dioxide 26 Anion Gap 7 BUN 17 Creatinine 0.93 Est GFR ( Amer) > 60 Est GFR (Non-Af Amer) > 60 Glucose 120 H Lactic Acid 1.2 Calcium 8.9 Total Bilirubin 0.5 AST 23 ALT 13 L Alkaline Phosphatase 57 Total Protein 6.6 Albumin 2.9 L Urine Color Urine Appearance Urine pH Ur Specific Wedron Urine Protein Urine Glucose (UA) Urine Ketones Urine Blood Urine Nitrite Ur Leukocyte Esterase Urine WBC (Auto) Urine RBC (Auto) 12/14/18 11:15 WBC RBC Hgb Hct MCV MCH MCHC RDW Plt Count Seg Neutrophils % Lymphocytes % Monocytes % Eosinophils % Basophils % Absolute Neutrophils Absolute Lymphocytes Absolute Monocytes Absolute Eosinophils Absolute Basophils Sodium Potassium Chloride Carbon Dioxide Anion Gap BUN Creatinine Est GFR ( Amer) Est GFR (Non-Af Amer) Glucose Lactic Acid Calcium Total Bilirubin AST ALT Alkaline Phosphatase Total Protein Albumin Urine Color YELLOW Urine Appearance CLEAR Urine pH 6.0 Ur Specific Wedron 1.017 Urine Protein NEGATIVE Urine Glucose (UA) NEGATIVE Urine Ketones NEGATIVE Urine Blood NEGATIVE Urine Nitrite NEGATIVE Ur Leukocyte Esterase NEGATIVE Urine WBC (Auto) 2 Urine RBC (Auto) 1 Impressions: Chest X-Ray 12/14/18 09:28 IMPRESSION: NO ACUTE RADIOGRAPHIC FINDING IN THE CHEST. Abdomen/Pelvis CT 12/14/18 09:52 IMPRESSION: A previously demonstrated large fluid collection extending from the descending portion of the duodenum and inferiorly along the retroperitoneum, about the right perirenal fascia and right ureter, aorta and iliac bifurcation, and into the pelvis, overlying the right pelvic sidewall and anterior to the sacrum, now contains a significant volume of air, consistent with abscess. Portions of this collection are likely amenable to percutaneous aspiration, however given the length and multiple body compartment involvement, may require multiple approaches. Assessment & Plan - Plan Summary Plan Summary: pt ct scan reviwed with pt and family labs reviewed ct does not show a drainable fluid collection previous fluid collection has some air within it but overalll looks resolving cxr lookds better no new fluid collections wbc wnl hct stable plan will add po flagyl cont cipro will discuss ct finindings with radiology tomorrow will recheck pt tomorrow. \ encourage po fluids.
[2018-12-14 14:15] VITALS: BP 130/58
== END 2018-12-14 14:16 | disposition home or self-care (01) ==
LOC: ER 09:18 → UNDOADMOB 13:31 → EH 13:31 → ER 14:16
DX: K65.1 Peritoneal abscess (principal); R50.9 Fever, unspecified; Z98.890 Other specified postprocedural states; I25.10 Atherosclerotic heart disease of native coronary artery without angina pectoris; I10 Essential (primary) hypertension; Z79.899 Other long term (current) drug therapy; Z79.82 Long term (current) use of aspirin
CPT/HCPCS: 99285; 96360; 96361; 36415; 87040; 85025; 80053; 81001; 83605; 71046; 74177; J7030

== ENCOUNTER → 2018-12-23 | Outpatient (CLI) | payer MEDICARE, BC ==
[2018-12-23 10:33] LABS: ABSOLUTE EOSINOPHILS # (AUTO) 0.2 10^3/uL (0.0-0.6); ABSOLUTE LYMPHOCYTES (AUTO) 0.9 10^3/uL (0.5-4.7); ABSOLUTE MONOCYTES (AUTO) 0.7 10^3/uL (0.1-1.4); ABSOLUTE NEUT (AUTO) 6.5 10^3/uL (1.7-8.2); BASOPHILS % (AUTO) 0.6 % (0-2); EOSINOPHILS % (AUTO) 2.1 % (0-6); HEMATOCRIT 31.3 % (37.9-51.0); HEMOGLOBIN 10.4 g/dL (13.5-17.0); LYMPHOCYTES % (AUTO) 10.9 % (13-45); MEAN CORPUSCULAR HEMOGLOBIN 27.3 pg (27.0-33.4); MEAN CORPUSCULAR HGB CONC 33.2 g/dL (32.0-36.0); MEAN CORPUSCULAR VOLUME 82 fl (80-97); MONOCYTES % (AUTO) 8.4 % (3-13); PLATELET COUNT 766 10^3/uL (150-450); RED CELL DISTRIBUTION WIDTH 16.3 % (11.5-14.0); TOTAL CELLS COUNTED % (AUTO) 100 %; WHITE BLOOD COUNT 8.4 10^3/uL (4.0-10.5)
[2018-12-23 10:42] LABS: ALANINE AMINOTRANSFERASE 14 U/L (21-72); ALBUMIN 3.3 g/dL (3.5-5.0); ALKALINE PHOSPHATASE 58 U/L (38-126); ANION GAP 10 (5-19); ASPARTATE AMINO TRANSFERASE 21 U/L (17-59); BILIRUBIN,DIRECT 0.3 mg/dL (0.0-0.4); BILIRUBIN,TOTAL 0.4 mg/dL (0.2-1.3); BLOOD UREA NITROGEN 18 mg/dL (7-20); CALCIUM 9.6 mg/dL (8.4-10.2); CARBON DIOXIDE 22 mmol/L (22-30); CHLORIDE 104 mmol/L (98-107); GLUCOSE 121 mg/dL (75-110); POTASSIUM 4.6 mmol/L (3.6-5.0); SODIUM 136.3 mmol/L (137-145)
--- NOTE | 2018-12-23 13:49 | RADIOLOGY REPORT (SQ) ---
EXAM DESCRIPTION: CT ABD/PELVIS NO ORAL OR IV COMPLETED DATE/TIME: 12/23/2018 9:59 am REASON FOR STUDY: ABDOMINAL ABSCESS K65.1 PERITONEAL ABSCESS COMPARISON: Upper GI 11/20/2018 CT chest 11/23/2018 CT abdomen pelvis 11/28/2018, 12/14/2018 TECHNIQUE: CT scan of the abdomen and pelvis performed without intravenous or oral contrast. Images reviewed with lung, soft tissue, and bone windows. Reconstructed coronal and sagittal MPR images revi ewed. All images stored on PACS. All CT scanners at this facility use dose modulation, iterative reconstruction, and/or weight based d osing when appropriate to reduce radiation dose to as low as reasonably achievable (ALARA). [facility]: Dose Right [facility]: CareDose [facility]: Dose Right [facility]: Teradose 4D [facility]: [employer] RADIATION DOSE: CT Rad equipment meets quality standard of care and radiation dose reduction techniq ues were employed. CTDIvol: 12.6 mGy. DLP: 713 mGy-cm.mGy. LIMITATIONS: None. FINDINGS: There is a large retroperitoneal abscess, tracking from the 2nd portion duodenum along the anterior pararenal space through the retroperitoneum into the presacral space. Overall this measure s 26 cm craniocaudad by 7 cm transverse by 6 cm AP. This is similar compared to prior CT 12/14/2018. Abscess encases the right mid 3rd ureter at the level of the sacral promontory with very mild right h ydronephrosis and upper hydroureter. This is similar compared to 12/14/2018. These findings were discussed with Dr. Harvey. Planning for percutaneous drainage of the abscess t omorrow as an outpatient. Preprocedure oral contrast would be useful to define anatomy on the painter structural steel CT images prior to the procedure. LOWER CHEST: No significant findings. No nodules or infiltrates. NON-CONTRASTED LIVER, SPLEEN, ADRENALS: Evaluation limited by lack of IV contrast. No identified sign ificant masses. PANCREAS: No masses. No peripancreatic inflammatory changes. GALLBLADDER: Surgically absent RIGHT KIDNEY AND URETER: Mild right hydronephrosis related to extrinsic compression of the mid 3rd ur eter by a retroperitoneal abscess. This is similar compared to 12/14/2018. Few small intrarenal nono bstructive calculi are present. No right renal cysts or masses. LEFT KIDNEY AND URETER: No suspicious masses. Assessment limited by lack of IV contrast. Left lower pole 2 cm cortical cyst. Multiple tiny intrarenal nonobstructive kidney stones are present. No hy dronephrosis or hydroureter. AORTA AND RETROPERITONEUM: Huge retroperitoneal abscess as above. BOWEL AND PERITONEAL CAVITY: Suspect continued perforation of the 2nd portion of duodenum. Large ret roperitoneal abscess in the right anterior pararenal space. No CT evidence of bowel obstruction. No free intraperitoneal air or fluid. APPENDIX: Not identified PELVIS, BLADDER, AND ABDOMINAL WALL:Presacral abscess is contiguous with the remainder of the retrope ritoneal abscess. Surgical clips post prostatectomy. No pelvic adenopathy. Bladder unremarkable BONES: No significant findings. OTHER: No other significant finding. IMPRESSION: Huge retroperitoneal abscess banding from the 2nd portion of duodenum down to the presac ral space. Findings discussed with Dr. Pedersen for. Overall, this is similar compared to 12/14/2018 COMMENT: Quality ID # 436: Final reports with documentation of one or more dose reduction techniques (e.g., Automated exposure control, adjustment of the mA and/or kV according to patient size, use of iterative reconstruction technique) TECHNICAL DOCUMENTATION: JOB ID: [id number] [employer]- All Rights Reserved Reading location - IP/workstation name: [email or web address]
== END ==
LOC: RAD 09:35
PROVIDERS: ATTEND Surgery
DX: K65.1 Peritoneal abscess (principal); R63.4 Abnormal weight loss; R50.9 Fever, unspecified; D64.9 Anemia, unspecified
CPT/HCPCS: 36415; 74176; 80053; 85025

== ENCOUNTER 2018-12-24 06:49 | Day surgery (SDC) | payer MEDICARE, BC ==
[2018-12-24 07:43] LABS: HEMATOCRIT 29.9 % (37.9-51.0); HEMOGLOBIN 9.8 g/dL (13.5-17.0); MEAN CORPUSCULAR HEMOGLOBIN 27.3 pg (27.0-33.4); MEAN CORPUSCULAR HGB CONC 32.7 g/dL (32.0-36.0); MEAN CORPUSCULAR VOLUME 84 fl (80-97); PLATELET COUNT 738 10^3/uL (150-450); RED BLOOD COUNT 3.57 10^6/uL (4.35-5.55); RED CELL DISTRIBUTION WIDTH 16.5 % (11.5-14.0); WHITE BLOOD COUNT 9.9 10^3/uL (4.0-10.5)
[2018-12-24 07:45] LABS: INTERNATIONAL RATION (INR) 1.41; PARTIAL THROMBOPLASTIN TIME 30.5 SEC (23.5-35.8); PROTHROMBIN TIME 17.4 SEC (11.4-15.4)
[2018-12-24 07:58] LABS: BLOOD UREA NITROGEN 22 mg/dL (7-20)
[2018-12-24] MEDS ORDERED: MIDAZOLAM 2 MG/2 ML INJ ONE (08:34)
[2018-12-24] MEDS ORDERED: FENTANYL CITRATE INJ/PF 100 MCG/2 ML AMPUL ONE (08:34)
--- NOTE | 2018-12-24 13:07 | RADIOLOGY REPORT (SQ) ---
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 TECHNIQUE: After obtaining informed consent and explaining the risks and benefits of conscious sedat ion,the patient agreed to the procedure. The patient was brought to the CT suite and was placed supin e in a semi MCCRARY position on the CT gurney. The patient was prepped and draped in the usual sterile fa shion. Axial images were obtained for targeting of thecomplex right retroperitoneal collection. An a ppropriate access site was selected. IV conscious sedation was administered and physician direction joel reich the registered nurse using 1 milligrams of Versed and 75 micrograms of fentanyl. Physiologic monito ring was provided before, during, and after sedation. The total sedation time was 60 minutes. Documentation face to face time, the performing proceduralist, spent monitoring the patient: [address] of the liver was performed to localize an approach for drain placement in the right retroperitoneal and pelvic complex collection. A percutaneous site was marked. Time out was perform ed. After skin prep and local lidocaine for skin and deep tissue anesthesia, a 18 gauge 15 cm introducer needle was advanced into the right retroperitoneal complex collection just inferior to the right kid alta. After position confirmed with limited fluoroscopic imaging a 035 wire was advanced and position confirmed. The tract was serially dilated to 12 Cymraes. A 12 Cymraes pigtail catheter was advanced over the wire and positioned within the collection. The wire and inner stiffener were removed. The pigtail was formed in a standard fashion position confirmed. The catheter was aspirated and a small amount of turbid fluid was drained. The catheter was secured to the skin and hooked to a drainage ba g. Attention was focused on additional access site within the pelvis. The patient was positioned in the prone position and an additional site was marked for planned trans gluteal drain placement. Additio nal 10 cc 1% lidocaine was utilized for local sedation. An 18 gauge 15 cm introducer needle was adva nced into the presacral collection. The position was confirmed and a 035 wire was advanced into the collection. The tract was serially dilated to 12 Cymraes. A 12 Cymraes pigtail catheter was advanced over the wire. The wire and inner stiffener were removed and the pigtail formed in a standard fashio n. Position confirmed with limited imaging. Aspiration yielded a small amount of turbid fluid. The catheter was hooked to drainage bag and secured to the skin. A sterile dressing was applied. Patient tolerated the procedure well and left the CT suite in stable condition. Case was discussed w olaf Maya and patient and patient's family at the termination of the procedure with plan for ca theters to be flushed daily. Total of [address] fluoro was used. 8 CT Fluoroscopic images were obtained and saved to PACS. All CT scanners at this facility use dose modulation, iterative reconstruction, and/or weight based d osing when appropriate to reduce radiation dose to as low as reasonably achievable (ALARA). [facility]: Dose Right [facility]: CareDose [facility]: Dose Right [facility]: Teradose 4D [facility]: [employer] RADIATION DOSE: CT Rad equipment meets quality standard of care and radiation dose reduction techniq ues were employed. CTDIvol: 4.8 - 27.6 mGy. DLP: 2124 mGy-cm. mGy. LIMITATIONS: None. FINDINGS: CT guided drain placement in the complex retroperitoneal collection as detailed above. 2 drain sites were chosen secondary to size of the collection. IMPRESSION: 1. CT FLUOROSCOPY GUIDED DRAIN PLACEMENT WITHIN THE PREVIOUSLY SEEN RIGHT RETROPERITONE AL COMPLEX COLLECTION DETAILED ABOVE. TWO 12 IRISH PIGTAIL CATHETERS WERE PLACED. 2. RECOMMEND FLUSHING CATHETERS WITH 10 CC NORMAL SALINE TWICE DAILY. COMMENT: Patient medication list reviewed:Yes- Quality ID# [id number]:Eligible professional attests to docu menting in the medical record they obtained, updated, or reviewed the patient's current medications.. Quality ID 145: Final reports for procedures using fluoroscopy that document radiation exposure norman reno, or exposure time and number of fluorographic images (if radiation exposure indices are not avail able) TECHNICAL DOCUMENTATION: JOB ID: [id number] Quality ID # 436: Final reports with documentation of one or more dose reduction techniques (e.g., A utomated exposure control, adjustment of the mA and/or kV according to patient size, use of iterative reconstruction technique) 2010 [employer]- All Rights Reserved Reading location - IP/workstation name: [email or web address]
[2018-12-24 13:40] VITALS: BP 122/60
== END 2018-12-24 13:45 | disposition home or self-care (01) ==
LOC: RAD 06:49
PROVIDERS: ATTEND Surgery
DX: K65.1 Peritoneal abscess (principal); Z79.899 Other long term (current) drug therapy; Z79.01 Long term (current) use of anticoagulants
CPT/HCPCS: 36415; 87205; 87070; 84520; 82565; 85027; 85610; 85730; 87075; 87077; 87186; 75989; C1894 ×2; C1729; C1892; J2250; J3010

== ENCOUNTER → 2018-12-30 | Outpatient (CLI) | payer MEDICARE, BC ==
--- NOTE | 2018-12-30 08:43 | RADIOLOGY REPORT (SQ) ---
EXAM DESCRIPTION: CT ABD/PELVIS ORAL ONLY COMPLETED DATE/TIME: 12/30/2018 8:12 am REASON FOR STUDY: BOWEL PERFORATION K63.1 PERFORATION OF INTESTINE (NONTRAUMATIC) COMPARISON: CT 12/23/2018 TECHNIQUE: CT scan of the abdomen and pelvis performed without intravenous or oral contrast. Images reviewed with lung, soft tissue, and bone windows. Reconstructed coronal and sagittal MPR images revi ewed. All images stored on PACS. All CT scanners at this facility use dose modulation, iterative reconstruction, and/or weight based d osing when appropriate to reduce radiation dose to as low as reasonably achievable (ALARA). [facility]: Dose Right [facility]: CareDose [facility]: Dose Right [facility]: Teradose 4D [facility]: [employer] RADIATION DOSE: CT Rad equipment meets quality standard of care and radiation dose reduction techniq ues were employed. CTDIvol: 11.8 mGy. DLP: 653 mGy-cm.mGy. LIMITATIONS: None. FINDINGS: LOWER CHEST: Limited visualization. No acute findings. Scattered coronary atherosclerosi s. NON-CONTRASTED LIVER, SPLEEN, ADRENALS: Evaluation limited by lack of IV contrast. No identified sign ificant masses. PANCREAS: No masses. No peripancreatic inflammatory changes. GALLBLADDER: Surgically absent. RIGHT KIDNEY AND URETER: No suspicious masses. Assessment limited by lack of IV contrast. Unchanged punctate nonobstructing stone. There is mild fullness of the collecting system and proximal ureter, stable from prior. LEFT KIDNEY AND URETER: No suspicious masses. Assessment limited by lack of IV contrast. Unchanged scattered nonobstructing stones, largest measuring 4 mm. No hydronephrosis or hydroureter. AORTA AND RETROPERITONEUM: Aortoiliac atherosclerosis. No aneurysm. Grossly similar appearance of t he complex right retroperitoneal collection containing gas and extending from the level of the descen ding portion of the duodenum to the presacral soft tissues. There are 2 pigtail drainage catheter is in place, similar from prior. No significant fluid component identified. No definite evidence of o ral contrast extravasation into the collection. BOWEL AND PERITONEAL CAVITY: No evidence of intestinal obstruction. No focal bowel wall thickening. Scattered colonic diverticula. Large right retroperitoneal collection as detailed above. APPENDIX: Not identified. PELVIS, BLADDER, AND ABDOMINAL WALL:Decompressed urinary bladder. Status post prostatectomy. Pelvic complex collection as above. BONES: No acute bony abnormality. No discrete lytic or blastic osseous lesions. OTHER: No other significant finding. IMPRESSION: 1. Similar appearance of the complex right retroperitoneal collection extending from th e 2nd portion of the duodenum into the presacral space with unchanged pigtail drainage catheters. Co mplex collection contains gas without significant fluid component or definitive evidence of oral cont rast extravasation. 2. Unchanged mild fullness of the right renal collecting system and proximal ureter. COMMENT: Quality ID # 436: Final reports with documentation of one or more dose reduction techniques (e.g., Automated exposure control, adjustment of the mA and/or kV according to patient size, use of iterative reconstruction technique) TECHNICAL DOCUMENTATION: JOB ID: [id number] [employer]- All Rights Reserved Reading location - IP/workstation name: [email or web address]
== END ==
LOC: RAD 07:44
PROVIDERS: ATTEND Surgery
DX: K63.1 Perforation of intestine (nontraumatic) (principal); N20.0 Calculus of kidney
CPT/HCPCS: 74176

== ENCOUNTER → 2018-12-31 | Outpatient (CLI) | payer MEDICARE, BC ==
[2018-12-31 10:45] LABS: ABSOLUTE EOSINOPHILS # (AUTO) 0.2 10^3/uL (0.0-0.6); ABSOLUTE LYMPHOCYTES (AUTO) 0.9 10^3/uL (0.5-4.7); ABSOLUTE MONOCYTES (AUTO) 0.7 10^3/uL (0.1-1.4); ABSOLUTE NEUT (AUTO) 5.6 10^3/uL (1.7-8.2); BASOPHILS % (AUTO) 0.6 % (0-2); EOSINOPHILS % (AUTO) 2.6 % (0-6); HEMOGLOBIN 10.2 g/dL (13.5-17.0); LYMPHOCYTES % (AUTO) 11.7 % (13-45); MEAN CORPUSCULAR HEMOGLOBIN 26.8 pg (27.0-33.4); MEAN CORPUSCULAR HGB CONC 32.8 g/dL (32.0-36.0); MEAN CORPUSCULAR VOLUME 82 fl (80-97); MONOCYTES % (AUTO) 10.1 % (3-13); PLATELET COUNT 859 10^3/uL (150-450); RED BLOOD COUNT 3.79 10^6/uL (4.35-5.55); RED CELL DISTRIBUTION WIDTH 16.4 % (11.5-14.0); TOTAL CELLS COUNTED % (AUTO) 100 %; WHITE BLOOD COUNT 7.4 10^3/uL (4.0-10.5)
[2018-12-31 11:09] LABS: ALANINE AMINOTRANSFERASE 14 U/L (21-72); ALBUMIN 3.5 g/dL (3.5-5.0); ALKALINE PHOSPHATASE 53 U/L (38-126); ANION GAP 12 (5-19); ASPARTATE AMINO TRANSFERASE 18 U/L (17-59); BILIRUBIN,DIRECT 0.4 mg/dL (0.0-0.4); BILIRUBIN,TOTAL 0.5 mg/dL (0.2-1.3); BLOOD UREA NITROGEN 24 mg/dL (7-20); CALCIUM 9.7 mg/dL (8.4-10.2); CARBON DIOXIDE 23 mmol/L (22-30); CHLORIDE 101 mmol/L (98-107); GLUCOSE 118 mg/dL (75-110); POTASSIUM 5.2 mmol/L (3.6-5.0); SODIUM 136.2 mmol/L (137-145); TOTAL PROTEIN 7.3 g/dL (6.3-8.2)
== END ==
LOC: OD 09:53
PROVIDERS: ATTEND Surgery
DX: K68.19 Other retroperitoneal abscess (principal)
CPT/HCPCS: 36415; 80053; 85025

== ENCOUNTER → 2019-01-07 | Outpatient (CLI) | payer MEDICARE, BC ==
--- NOTE | 2019-01-07 10:18 | RADIOLOGY REPORT (SQ) ---
EXAM DESCRIPTION: CHEST 2 VIEWS COMPLETED DATE/TIME: 01/07/2019 9:45 am REASON FOR STUDY: COUGH (R05), ACUTE RESPIRATORY FAILURE (J96.01) COMPARISON: 12/14/2018 EXAM PARAMETERS: NUMBER OF VIEWS: two views TECHNIQUE: Digital Frontal and Lateral radiographic views of the chest acquired. RADIATION DOSE: NA LIMITATIONS: none FINDINGS: LUNGS AND PLEURA: No opacities, masses or pneumothorax. No pleural effusion. MEDIASTINUM AND HILAR STRUCTURES: No masses or contour abnormalities. HEART AND VASCULAR STRUCTURES: Normal heart size. Evidence of prior CABG. BONES: No acute findings. HARDWARE: Sternotomy hardware. Chronic right posterior rib fractures. OTHER: No other significant finding. IMPRESSION: Prior CABG without evidence of acute cardiopulmonary process. TECHNICAL DOCUMENTATION: JOB ID: [id number] [employer]- All Rights Reserved Reading location - IP/workstation name: [email or web address]
== END ==
LOC: RAD 09:22
PROVIDERS: ATTEND Surgery
DX: J96.01 Acute respiratory failure with hypoxia (principal); R05 Cough; K63.1 Perforation of intestine (nontraumatic); Z95.1 Presence of aortocoronary bypass graft
CPT/HCPCS: 71046

== ENCOUNTER 2019-01-09 16:58 | Inpatient (IN) | payer MEDICARE, BC ==
[2019-01-09] MEDS ORDERED: NORMAL SALINE 1000 ML 1,000 ML IV ONE ×3 (17:40→21:15)
[2019-01-09] MEDS ORDERED: PIPERACILLIN/TAZOBACTAM 3.375 GM VIAL IV ONE (17:40)
[2019-01-09] MEDS ORDERED: VANCOMYCIN HCL INJ 1000 MG VIAL IV ONE (17:40)
[2019-01-09] MEDS ORDERED: HYDROMORPHONE HCL INJ/PF 2 MG/ML AMPULE IV ONE ×2 (17:47→19:47)
--- NOTE | 2019-01-09 17:56 | ER Document Report ---
ED General - General Chief Complaint: Post Surgical Pain Stated Complaint: POST OP COMPLICATIONS Time Seen by Provider: 01/09/19 17:25 Primary Care Provider: TIERRA CARVAJAL MD [Primary Care Provider] - Follow up as needed TRAVEL OUTSIDE OF THE [place] IN LAST 30 DAYS: No - HPI Notes: Patient is a 73-year-old male with a history of hypertension, and GI surgery with admission and hospital stay in November who presents complaining of worsening abdominal pain today with noticeable purulence from a drain in his right mid abdomen. Patient had a CT scan performed today per the direction of general surgery which showed a large persistent retroperitoneal abscess. Patient states that he has had as well. Dr. Carvajal had him present to the emergency department for IV antibiotics and work-up. He has been communicating with Dr. Ko who is our surgeon here today. Denies any headache, URI, sore throat, chest pain, palpitations, syncope, cough, shortness of breath, wheeze, dyspnea, nausea/vomiting, urinary retention, dysuria, hematuria, or rash. - Related Data Allergies/Adverse Reactions: No Known Allergies Allergy (Verified 12/24/18 07:25) Past Medical History - Social History Smoking Status: Never Smoker Chew tobacco use (# tins/day): No Frequency of alcohol use: None Drug Abuse: None Family History: Reviewed & Not Pertinent Patient has suicidal ideation: No Patient has homicidal ideation: No - Past Medical History Cardiac Medical History: Reports: Hx Coronary Artery Disease, Hx Hypertension Denies: Hx Heart Attack Pulmonary Medical History: Denies: Hx Asthma, Hx Bronchitis, Hx COPD, Hx Pneumonia Neurological Medical History: Denies: Hx Cerebrovascular Accident, Hx Seizures Renal/ Medical History: Denies: Hx Peritoneal Dialysis GI Medical History: Reports: Hx Hiatal Hernia - HAD SURGERY. Denies: Hx Hepatitis, Hx Ulcer Musculoskeletal Medical History: Reports Hx Arthritis - HIMANSHU HANDS Infectious Medical History: Denies: Hx Hepatitis Past Surgical History: Reports: Hx Open Heart Surgery. Denies: Hx Pacemaker - Immunizations Hx Diphtheria, Pertussis, Tetanus Vaccination: No Hx Pneumococcal Vaccination: 04/17/16 Review of Systems - Review of Systems -: Yes All other systems reviewed and negative Physical Exam - Vital signs Vitals: Temp Pulse Resp BP Pulse Ox 99.3 F 111 H 24 H 115/53 L 97 01/09/19 17:13 01/09/19 17:13 01/09/19 17:13 01/09/19 17:13 01/09/19 17:13 - Notes Notes: PHYSICAL EXAMINATION: GENERAL: no acute distress. HEAD: Atraumatic, normocephalic. EYES: Pupils equal round and reactive to light, extraocular movements intact, sclera anicteric, conjunctiva are normal. ENT: Nares patent and without discharge. oropharynx clear without exudates. No tonsilar hypertrophy or erythema. Moist mucous membranes. NECK: Normal range of motion, supple without lymphadenopathy LUNGS: Breath sounds clear to auscultation bilaterally and equal. No wheezes rales or rhonchi. HEART: Regular rate and rhythm without murmurs, rubs, gallops. ABDOMEN: + tender abd throughout, mild rigidity with guarding. Normal bowel sounds present. No CVA tenderness bilaterally. Drain noted on rt lateral abd with white purulence noted. Musculoskeletal: FROM to passive/active. Strength 5+/5. Extremities: No cyanosis, clubbing, or edema b/l. Peripheral pulses 2+. Capillary refill less than 3 seconds. NEUROLOGICAL: Cranial nerves grossly intact. Normal speech. PSYCH: Normal mood, normal affect. SKIN: Warm, Dry, normal turgor, no rashes or lesions noted. Course - Re-evaluation Re-evalutation: 01/09/19 17:54 Patient is a 73-year-old male who presents for abdominal pain in the presence of a large retroperitoneal abscess per the direction of general surgery. Patient does meet SIRS criteria and septic work-up has been initiated. General surgery and placed on Zosyn as well as vancomycin. Patient will be given fluids as well as pain medication. I did call and speak with Dr. Ko is who is well aware of the patient and has accepted him under his care. Further direction per Gen Surg. Pt/family in agreement with plan. - Vital Signs Vital signs: Temp Pulse Resp BP Pulse Ox 99.3 F 111 H 24 H 115/53 L 97 01/09/19 17:13 01/09/19 17:13 01/09/19 17:13 01/09/19 17:13 01/09/19 17:13 Discharge - Discharge Clinical Impression: Retroperitoneal abscess Abdominal pain Qualifiers: Abdominal location: generalized Qualified Code(s): R10.84 - Generalized abdominal pain Condition: Stable Disposition: ADMITTED INPATIENT Admitting Provider: Surgicalist - Dr. Ko Unit Admitted: Surgical Floor Referrals: TIERRA CARVAJAL MD [Primary Care Provider] - Follow up as needed
[2019-01-09 18:19] LABS: HEMATOCRIT 29.3 % (37.9-51.0); HEMOGLOBIN 9.6 g/dL (13.5-17.0); MEAN CORPUSCULAR HEMOGLOBIN 25.9 pg (27.0-33.4); MEAN CORPUSCULAR HGB CONC 32.9 g/dL (32.0-36.0); MEAN CORPUSCULAR VOLUME 79 fl (80-97); PLATELET COUNT 676 10^3/uL (150-450); RED BLOOD COUNT 3.72 10^6/uL (4.35-5.55); RED CELL DISTRIBUTION WIDTH 16.8 % (11.5-14.0); WHITE BLOOD COUNT 11.9 10^3/uL (4.0-10.5)
[2019-01-09 18:38] LABS: ABSOLUTE LYMPHOCYTES# (MANUAL) 0.8 10^3/uL (0.5-4.7); ABSOLUTE MONOCYTES # (MANUAL) 0.6 10^3/uL (0.1-1.4); BAND NEUTROPHILS % (MANUAL) 7 % (3-5); BASOPHILS % (MANUAL) 0 % (0-2); EOSINOPHILS % (MANUAL) 0 % (0-6); LYMPHOCYTES % (MANUAL) 7 % (13-45); MONOCYTES % (MANUAL) 5 % (3-13); PLATELET CLUMPS PRESENT; SEGMENTED NEUTROPHILS % (MAN) 81 % (42-78); TOTAL CELLS COUNTED 100; TOXIC VACUOLATION PRESENT
[2019-01-09 18:39] LABS: ANISOCYTOSIS SLIGHT; POIKILOCYTOSIS 1+
[2019-01-09 20:14] LABS: ALANINE AMINOTRANSFERASE 17 U/L (21-72); ALBUMIN 2.7 g/dL (3.5-5.0); ALKALINE PHOSPHATASE 45 U/L (38-126); ANION GAP 9 (5-19); ASPARTATE AMINO TRANSFERASE 23 U/L (17-59); BILIRUBIN,DIRECT 0.3 mg/dL (0.0-0.4); BILIRUBIN,TOTAL 0.5 mg/dL (0.2-1.3); BLOOD UREA NITROGEN 22 mg/dL (7-20); CALCIUM 8.4 mg/dL (8.4-10.2); CARBON DIOXIDE 20 mmol/L (22-30); CHLORIDE 104 mmol/L (98-107); GLUCOSE 135 mg/dL (75-110); POTASSIUM 4.6 mmol/L (3.6-5.0); TOTAL PROTEIN 5.7 g/dL (6.3-8.2)
[2019-01-09] MEDS ORDERED: DEXTROSE 50%-WATER 25 GM/50 ML DISP.SYRIN IV PRN ×2 (21:08)
[2019-01-09] MEDS ORDERED: DEXTROSE 40% GEL 15 GM TUBE PO PRN ×2 (21:09)
[2019-01-09] MEDS ORDERED: GLUCAGON,HUMAN RECOMB 1 MG INJ SUBCUT PRN (21:09)
[2019-01-09] MEDS ORDERED: VANCOMYCIN HCL 1 MG in DEXTROSE 5%-WATER 250 ML IV NR (21:15)
[2019-01-09] MEDS ORDERED: PIPERACILLIN/TAZOBACTAM 3.375 GM VIAL IV SCH (21:15)
[2019-01-09] MEDS ORDERED: VANCOMYCIN HCL 500 MG in DEXTROSE 5%-WATER 100 ML IV ONE (22:00)
[2019-01-09] MEDS: HYDROMORPHONE HCL INJ/PF 2 MG/ML AMPULE IV PRN (22:09)
[2019-01-09] MEDS: PANTOPRAZOLE SODIUM 40 MG VIAL IV SCH (23:06)
[2019-01-10] MEDS: PIPERACILLIN SODIUM/TAZOBACTAM 3.375 GM in NORMAL SALINE 100 ML IV SCH ×5 (01:16→23:45)
[2019-01-10] MEDS: HYDROMORPHONE HCL INJ/PF 2 MG/ML AMPULE IV PRN ×9 (03:15→22:43)
[2019-01-10 07:05] LABS: ABSOLUTE EOSINOPHILS # (AUTO) 0.2 10^3/uL (0.0-0.6); ABSOLUTE LYMPHOCYTES (AUTO) 0.6 10^3/uL (0.5-4.7); ABSOLUTE MONOCYTES (AUTO) 0.6 10^3/uL (0.1-1.4); ABSOLUTE NEUT (AUTO) 9.7 10^3/uL (1.7-8.2); BASOPHILS % (AUTO) 0.2 % (0-2); EOSINOPHILS % (AUTO) 1.4 % (0-6); HEMATOCRIT 27.2 % (37.9-51.0); HEMOGLOBIN 8.8 g/dL (13.5-17.0); LYMPHOCYTES % (AUTO) 5.8 % (13-45); MEAN CORPUSCULAR HEMOGLOBIN 25.6 pg (27.0-33.4); MEAN CORPUSCULAR HGB CONC 32.4 g/dL (32.0-36.0); MEAN CORPUSCULAR VOLUME 79 fl (80-97); MONOCYTES % (AUTO) 5.1 % (3-13); PLATELET COUNT 550 10^3/uL (150-450); RED BLOOD COUNT 3.44 10^6/uL (4.35-5.55); RED CELL DISTRIBUTION WIDTH 16.7 % (11.5-14.0); SEGMENTED NEUTROPHILS % (AUTO) 87.5 % (42-78); TOTAL CELLS COUNTED % (AUTO) 100 %; WHITE BLOOD COUNT 11.1 10^3/uL (4.0-10.5)
[2019-01-10 07:19] LABS: ALANINE AMINOTRANSFERASE 16 U/L (21-72); ALBUMIN 2.7 g/dL (3.5-5.0); ALKALINE PHOSPHATASE 45 U/L (38-126); ANION GAP 10 (5-19); ASPARTATE AMINO TRANSFERASE 24 U/L (17-59); BILIRUBIN,DIRECT 0.5 mg/dL (0.0-0.4); BILIRUBIN,TOTAL 0.8 mg/dL (0.2-1.3); BLOOD UREA NITROGEN 19 mg/dL (7-20); CALCIUM 8.8 mg/dL (8.4-10.2); CARBON DIOXIDE 19 mmol/L (22-30); CHLORIDE 107 mmol/L (98-107); GLUCOSE 107 mg/dL (75-110); POTASSIUM 4.4 mmol/L (3.6-5.0); TOTAL PROTEIN 5.9 g/dL (6.3-8.2)
[2019-01-10] MEDS: PANTOPRAZOLE SODIUM 40 MG VIAL IV SCH ×2 (09:01→21:21)
--- NOTE | 2019-01-10 09:28 | RADIOLOGY REPORT (SQ) ---
EXAM DESCRIPTION: KUB/ABDOMEN (SINGLE VIEW) COMPLETED DATE/TIME: 01/10/2019 9:06 am REASON FOR STUDY: retroperitoneal abscess K63.1 PERFORATION OF INTESTINE (NONTRAUMATIC) COMPARISON: 01/09/2019 CT. NUMBER OF VIEWS: One view. TECHNIQUE: Supine radiographic image of the abdomen acquired. LIMITATIONS: None. FINDINGS: BOWEL GAS PATTERN: Nonobstructive. Mild gas and enteric contrast throughout the colon whi ch is nondilated. CALCIFICATIONS: No suspicious calcifications. SOFT TISSUES: No gross mass or suggestion of organomegaly. HARDWARE: Pigtail catheter projects just to the right of midline within the abdomen. Consistent with location in retroperitoneal abscess, as seen on CT. BONES: No acute fracture. No worrisome bone lesions. OTHER: No other significant finding. IMPRESSION: NO RADIOGRAPHIC EVIDENCE FOR ACUTE ABDOMINAL DISEASE. TECHNICAL DOCUMENTATION: JOB ID: [id number] [employer]- All Rights Reserved Reading location - IP/workstation name: [email or web address]
--- NOTE | 2019-01-10 09:34 | PDOC PROGRESS REPORT ---
Subjective Progress Note for:: 01/10/19 Subjective:: feels sl better than yesterday no further chills or sweats still with lower abd pain no flatus or stool Reason For Visit: RETROPERITONEAL ABSCESS Physical Exam Vital Signs: Temp Pulse Resp BP Pulse Ox 99.8 F 95 20 122/55 L 99 01/10/19 07:34 01/10/19 07:34 01/10/19 07:34 01/10/19 07:34 01/10/19 07:34 Intake & Output 01/09/19 01/10/19 01/11/19 06:59 06:59 06:59 Intake Total 3300 Output Total 175 Balance 3125 Weight 87 kg General appearance: PRESENT: mild distress Eye exam: PRESENT: EOMI Mouth exam: PRESENT: moist Neck exam: PRESENT: full ROM Respiratory exam: PRESENT: clear to auscultation yoana Cardiovascular exam: PRESENT: RRR Pulses: PRESENT: +1 pedal pulses bilateral GI/Abdominal exam: PRESENT: normal bowel sounds, tenderness - lower abd to palpation, no rebound Rectal exam: PRESENT: deferred Extremities exam: PRESENT: full ROM Musculoskeletal exam: PRESENT: full ROM Neurological exam: PRESENT: awake, oriented to person, oriented to place Psychiatric exam: PRESENT: appropriate affect Results Laboratory Results: 01/10/19 06:47 01/10/19 06:47 01/09/19 01/09/19 01/09/19 17:59 17:59 17:59 WBC 11.9 H RBC 3.72 L Hgb 9.6 L Hct 29.3 L MCV 79 L MCH 25.9 L MCHC 32.9 RDW 16.8 H Plt Count 676 H Seg Neutrophils % Not Reportable Lymphocytes % Not Reportable Monocytes % Not Reportable Eosinophils % Not Reportable Basophils % Not Reportable Absolute Neutrophils Not Reportable Absolute Lymphocytes Not Reportable Absolute Monocytes Not Reportable Absolute Eosinophils Not Reportable Absolute Basophils Not Reportable Sodium Cancelled Potassium Cancelled Chloride Cancelled Carbon Dioxide Cancelled Anion Gap Cancelled BUN Cancelled Creatinine Cancelled Est GFR ( Amer) Cancelled Est GFR (Non-Af Amer) Cancelled Glucose Cancelled Lactic Acid 1.2 Calcium Cancelled Total Bilirubin Cancelled AST Cancelled ALT Cancelled Alkaline Phosphatase Cancelled Total Protein Cancelled Albumin Cancelled Lipase Cancelled 01/09/19 01/10/19 01/10/19 19:30 06:47 06:47 WBC 11.1 H RBC 3.44 L Hgb 8.8 L Hct 27.2 L MCV 79 L MCH 25.6 L MCHC 32.4 RDW 16.7 H Plt Count 550 H Seg Neutrophils % 87.5 H Lymphocytes % 5.8 L Monocytes % 5.1 Eosinophils % 1.4 Basophils % 0.2 Absolute Neutrophils 9.7 H Absolute Lymphocytes 0.6 Absolute Monocytes 0.6 Absolute Eosinophils 0.2 Absolute Basophils 0.0 Sodium 133.0 L 135.6 L Potassium 4.6 4.4 Chloride 104 107 Carbon Dioxide 20 L 19 L Anion Gap 9 10 BUN 22 H 19 Creatinine 1.39 H 1.26 H Est GFR ( Amer) > 60 > 60 Est GFR (Non-Af Amer) 50 L 56 L Glucose 135 H 107 Lactic Acid Calcium 8.4 8.8 Total Bilirubin 0.5 0.8 AST 23 24 ALT 17 L 16 L Alkaline Phosphatase 45 45 Total Protein 5.7 L 5.9 L Albumin 2.7 L 2.7 L Lipase 68.5 Assessment & Plan - Plan Summary Plan Summary: developed lower abd pain after ct yesterday developed chill and temp to 101 admitted last pm and started on zosyn and vanco ct reviewed kub reviewd wbc wnl lytes ok ct without perforation or free air abscess/phlegmon sl smaller on ct yesterday kub with abdundant stool in transverse and sigmoid colon after review of ct, will cont iv abx over the weekend will disccuss alternative drain with IR on saturday possibly a transrectal aapproach will send off isabella boo for lipase, gentle soap suds enema today
[2019-01-10] MEDS: VANCOMYCIN HCL 1,500 MG in DEXTROSE 5%-WATER 250 ML IV SCH (18:13)
[2019-01-11] MEDS: HYDROMORPHONE HCL INJ/PF 2 MG/ML AMPULE IV PRN ×8 (00:50→23:01)
[2019-01-11] MEDS: PIPERACILLIN SODIUM/TAZOBACTAM 3.375 GM in NORMAL SALINE 100 ML IV SCH ×4 (05:09→23:01)
[2019-01-11] MEDS ORDERED: BISACODYL 10 MG SUPP.RECT PR PRN (09:25)
--- NOTE | 2019-01-11 09:41 | PDOC PROGRESS REPORT ---
Subjective Progress Note for:: 01/11/19 Reason For Visit: RETROPERITONEAL ABSCESS Physical Exam Vital Signs: Temp Pulse Resp BP Pulse Ox 98.1 F 114 H 16 120/55 L 99 01/11/19 08:09 01/11/19 08:09 01/11/19 08:09 01/11/19 08:09 01/11/19 08:09 Intake & Output 01/10/19 01/11/19 01/12/19 06:59 06:59 06:59 Intake Total 3300 2070 Output Total 175 200 Balance 3125 1870 Weight 87 kg 86 kg General appearance: PRESENT: mild distress Head exam: PRESENT: normocephalic Eye exam: PRESENT: EOMI Mouth exam: PRESENT: moist Neck exam: PRESENT: full ROM Respiratory exam: PRESENT: clear to auscultation yoana Cardiovascular exam: PRESENT: RRR, tachycardia Pulses: PRESENT: +1 pedal pulses bilateral GI/Abdominal exam: PRESENT: guarding Rectal exam: PRESENT: deferred Extremities exam: PRESENT: full ROM Musculoskeletal exam: PRESENT: full ROM Neurological exam: PRESENT: alert, awake, oriented to person, oriented to place Psychiatric exam: PRESENT: depressed Skin exam: PRESENT: dry Results Laboratory Results: 01/10/19 06:47 01/10/19 06:47 Impressions: KUB X-Ray 01/10/19 00:00 IMPRESSION: NO RADIOGRAPHIC EVIDENCE FOR ACUTE ABDOMINAL DISEASE. Assessment & Plan - Plan Summary Plan Summary: still sl tender on left lower quadrent no real result with enema yesterday feels somewhat distended passing small amts of flatus long disucssion with family and we reviewed the ct scans there still remains a retroperitoneal air/fluid collection with drain in place min change in a couple of week we discussed poss surgical interverntion vs further drain placement ;poss transrectal drain as fluid extends to the pelvis will discuss wtih IR tomorrow about poss further drain placement and irrigation will cont iv abx for now.
[2019-01-11] MEDS ORDERED: POLYETHYLENE GLYCOL 3350 POWDER 17 GM/1 PACKET PO SCH (10:00)
[2019-01-11] MEDS: METOPROLOL SUCCINATE 50 MG TAB.SR.24H PO SCH (10:36)
[2019-01-11] MEDS: KETOROLAC TROMETHAMINE INJ/PF 30 MG/1 ML SDV IV SCH ×3 (10:36→21:23)
[2019-01-11] MEDS: PANTOPRAZOLE SODIUM 40 MG VIAL IV SCH ×2 (10:36→21:23)
[2019-01-11] MEDS ORDERED: ONDANSETRON HCL INJ/PF 4 MG/2 ML SDV ONE (11:47)
[2019-01-11] MEDS ORDERED: ONDANSETRON HCL INJ/PF 4 MG/2 ML SDV IV PRN (11:53)
[2019-01-11] MEDS ORDERED: PROMETHAZINE HCL INJ 25 MG/1 ML VIAL ONE (15:30)
--- NOTE | 2019-01-11 16:14 | RADIOLOGY REPORT (SQ) ---
EXAM DESCRIPTION: CT ABD/PELVIS NO ORAL OR IV COMPLETED DATE/TIME: 01/11/2019 3:43 pm REASON FOR STUDY: retroperitoneal abscess/abdominal pain K63.1 PERFORATION OF INTESTINE (NONTRAUMA TIC) COMPARISON: 01/09/2019. TECHNIQUE: CT scan of the abdomen and pelvis performed without intravenous or oral contrast. Images reviewed with lung, soft tissue, and bone windows. Reconstructed coronal and sagittal MPR images revi ewed. All images stored on PACS. All CT scanners at this facility use dose modulation, iterative reconstruction, and/or weight based d osing when appropriate to reduce radiation dose to as low as reasonably achievable (ALARA). [facility]: Dose Right [facility]: CareDose [facility]: Dose Right [facility]: Teradose 4D [facility]: [employer] RADIATION DOSE: CT Rad equipment meets quality standard of care and radiation dose reduction techniq ues were employed. CTDIvol: 15.1 mGy. DLP: 861 mGy-cm.mGy. LIMITATIONS: None. FINDINGS: LOWER CHEST: No significant findings. No nodules or infiltrates. NON-CONTRASTED LIVER, SPLEEN, ADRENALS: Evaluation limited by lack of IV contrast. No identified sign ificant masses. PANCREAS: No masses. No peripancreatic inflammatory changes. GALLBLADDER: Surgically absent. RIGHT KIDNEY AND URETER: Tiny nonobstructing stones. Mild hydronephrosis, as before. No obstructing ureteral stone detected. LEFT KIDNEY AND URETER: Nonobstructing nephrolithiasis. AORTA AND RETROPERITONEUM: No aneurysm. No retroperitoneal masses or adenopathy. BOWEL AND PERITONEAL CAVITY: Extensive persistent gas and debris containing thick walled collection i n the right retroperitoneum. This extends from the level of the duodenum sweep inferiorly and into t he pelvis, presacral. Surgical drain remains in place in the upper aspect of this collection. Colle ction looks similar in size and distribution. No developing bowel obstruction. Strandy edema in the mesentery now noted. There is now a fair amount of non dependent free air in the upper abdomen as w ell. APPENDIX: Not visualized. PELVIS, BLADDER, AND ABDOMINAL WALL:As above. No abdominal wall mass or hernia. BONES: No significant findings. OTHER: No other significant finding. IMPRESSION: 1. Extensive retroperitoneal collection with drain in place remains, unchanged. 2. Now, however, there is also pneumoperitoneum. Unclear if there is a new area of viscus perforatio n or if the retroperitoneal collection somehow now communicates with the peritoneum. Call report tasked to the [facility] team. TECHNICAL DOCUMENTATION: JOB ID: [id number] Quality ID # [id number]: Final reports with documentation of one or more dose reduction techniques (e.g., Au tomated exposure control, adjustment of the mA and/or kV according to patient size, use of iterative reconstruction technique) 2010 [employer]- All Rights Reserved Reading location - IP/workstation name: [email or web address]
[2019-01-11] MEDS ORDERED: PROMETHAZINE HCL INJ 25 MG/1 ML VIAL IM ONE (17:00)
[2019-01-11] MEDS ORDERED: NORMAL SALINE 1000 ML 1,000 ML IV ONE (17:45)
[2019-01-11] MEDS ORDERED: PHARMACY COMMUNICATION ORDER MC NR (18:00)
--- NOTE | 2019-01-11 18:22 | PDOC TRANSFER SUMMARY ---
General Admission Date/PCP: 01/09/19 18:17 TIERRA CARVAJAL MD - Transfer Diagnosis (1) Retroperitoneal abscess Is this a current diagnosis for this admission?: Yes - Transfer Medications Home Medications: Aspirin [Aspirin 81 mg Chewable Tablet] 81 mg PO DAILY 11/20/18 Latanoprost [Xalatan] 1 drop OU QHS 11/20/18 Losartan Potassium 100 mg PO DAILY 11/20/18 Omeprazole 40 mg PO DAILY@1700 11/20/18 Trazodone HCl 50 mg PO HSP PRN 11/20/18 Fenofibrate Nanocrystallized [Tricor 145 mg Tablet] 145 mg PO DAILY 11/21/18 Hydrochlorothiazide [Hydrodiuril 25 mg Tablet] 25 mg PO QAM 11/21/18 Metoprolol Succinate [Toprol Xl 50 mg Tab.sr] 50 mg PO DAILY 11/21/18 Multivitamin [Tab-A-Dharmesh (Multiple Vitamin) Tablet] 1 tab PO DAILY 11/21/18 Nitroglycerin [Nitrostat 0.4 mg (1/150 Gr) Tabs 25/Bottle] 1 tab SL Q5MP PRN [place]-3 Fatty Acids/Fish Oil [Fish Oil 1,000 Mg Capsule] 1 cap PO QID 11/21/18 Cyanocobalamin (Vitamin B-12) [Vitamin B-12 Inj 1000 Mcg/1 ml Vial] 1,000 mcg IM .1ST OF THE MONTH 01/09/19 Simvastatin [Zocor 80 mg Tablet] 80 mg PO QPM 01/09/19 Transfer Medications: Current Medications Bisacodyl (Dulcolax 10 Mg Supp.Rect) 10 mg IA DAILYP PRN PRN Reason: UNRESOLVED CONSTIPATION Stop: 02/10/19 09:24 Last Admin: 01/11/19 12:54 Dose: 10 mg Documented by: Dextrose (Dextrose Inj 50% Syringe (25 Gm/50 Ml)) 12.5 gm IV PRN PRN; Protocol PRN Reason: FOR BG 50-69 IN ALERT PATIENT Stop: 02/08/19 21:07 Dextrose (Dextrose Inj 50% Syringe (25 Gm/50 Ml)) 25 gm IV PRN PRN; Protocol PRN Reason: See Label Comments Stop: 02/08/19 21:07 Glucagon (Glucagen Inj 1 Mg Vial) 1 mg SUBCUT PRN PRN; Protocol PRN Reason: Evaluate for BG < 70 Stop: 02/08/19 21:08 Glucose (Glutose 40% Gel 15 Gm Tube) 15 gm PO PRN PRN; Protocol PRN Reason: For BG 50-69 in Alert Patient Stop: 02/08/19 21:08 Glucose (Glutose 40% Gel 15 Gm Tube) 30 gm PO PRN PRN; Protocol PRN Reason: FOR BG < 50 IN ALERT PATIENT Stop: 02/08/19 21:08 Hydromorphone HCl (Dilaudid Inj/Pf 2 Mg/Ml Ampule) 1 mg IV Q2HP PRN PRN Reason: FOR PAIN SCALE 1-3 Stop: 01/16/19 21:09 Last Admin: 01/11/19 14:59 Dose: 1 mg Documented by: Piperacillin Sod/Tazobactam (Sod 3.375 gm/ Sodium Chloride) 100 mls @ 200 mls/hr IV Q6 [facility] Stop: 01/17/19 00:00 Last Infusion: 01/11/19 13:30 Dose: Infused Documented by: Vancomycin HCl 1,500 mg/ (Dextrose) 250 mls @ 166.667 mls/hr IV QPM [facility] Stop: 01/17/19 17:59 Last Infusion: 01/10/19 20:12 Dose: Infused Documented by: Ketorolac Tromethamine (Toradol Inj/Pf 30 Mg/1 Ml Sdv) 30 mg IV Q6A [facility] Stop: 01/14/19 03:01 Last Admin: 01/11/19 10:36 Dose: 30 mg Documented by: Metoprolol Succinate (Toprol Xl 50 Mg Tab.Sr) 50 mg PO DAILY [facility] Stop: 02/10/19 09:59 Last Admin: 01/11/19 10:36 Dose: 50 mg Documented by: Ondansetron HCl (Zofran Inj/Pf 4 Mg/2 Ml Sdv) 4 mg IV Q6HP PRN PRN Reason: FOR NAUSEA Stop: 02/10/19 11:52 Pantoprazole Sodium (Protonix Iv Inj 40 Mg Vial) 40 mg IV Q12 [facility] Stop: 01/14/19 09:59 Last Admin: 01/11/19 10:36 Dose: 40 mg Documented by: Pharmacy Profile Note (Medication Communication Order) 1 each MC .NOTICE NR Stop: 02/10/19 17:59 Polyethylene Glycol (Miralax Powder 17 Gm/Packet) 17 gm NG DAILY [facility] Stop: 02/10/19 09:59 - Allergies Allergies/Adverse Reactions: NSAIDS (Non-Steroidal Anti-Inflamma Adverse Reaction (Verified 01/09/19 23:35) OLESYA Inhibitors Allergy (Uncoded 01/09/19 23:32) - Diet/Activity Discharge Diet: Other (Comments) - npo Hospital Course Hospital Course: Hospital course Mr. Rao is a 73-year-old male who underwent a upper endoscopy for upper GI bleeding in early November 2018. He suffered a duodenal perforation during attempted AVM cauterization endoscopically. He underwent expiratory laparotomy and repair of his duodenum with a pyloric exc lusion and gastrojejunostomy with wide drainage of his retroperitoneum. He has a somewhat prolonged hospital stay in the intensive care unit for approximately 7 to 8 days and eventually was transferred to the floor and slowly made an improvement he was eventually discharged home in late November tolerating p.o. diet and improving slowly. He continued his recovery at home however within a week or 2 started deteriorating somewhat and having chills and fever which prompted a repeat CT scan Repeat CT scan showed extensive retroperitoneal fluid air collection between his duodenum in his pelvis in the retroperitoneum that did have only had a small amount of fluid with a some air pockets Is a large size of the abscess cavity he underwent IR drainage of it and 2 drains were placed one in the mid abdomen and one in through the buttock into the lower inferior portion of the abscess The lower drain only produced a small amount of clear serous fluid subsequently was removed in about a week the upper drain however continues to drain a milky purulent fluid that appeared to be pancreatic. However he continued to remain at home and and doing well on oral diet and was managed expectantly and slowly improved. The fluid collections were followed with serial CT scans and only showed a very slight improvement over the course of about 3 weeks. Patient underwent a follow-up CT scan 2 days ago with oral contrast which showed really no significant change in the abscess cavity and therefore plans were being made for possible surgical drainage versus repeat drain placements. However after the CT scan was obtained the patient developed increasing abdominal pain and was brought back into the hospital he was admitted to this hospital approximately 2 days ago he complained of increased lower abdominal pain which she never really experienced before and chills. His white count was normal and his serum lactate was normal his lites lites were normal he was admitted for observation and was started empirically on Zosyn and vancomycin. Watch for 24 Hours at which point his condition did not si gnificantly improve despite antibiotics. Therefore he underwent a repeat CT scan today which showed the persistent abscess cavity however now there was small amount of intraperitoneal free air. Patient currently is stable vital signs however is complaining of lower abdominal pain which is being managed with morphine and NG tube was placed because of his epigastric distention and appears to have an ileus. Consultation was made with [facility] doctors or gross and the case was discussed with him and he suggested on transferring the patient for higher level care therefore the patient will be transferred to [facility]. Physical Exam Vital Signs: Temp Pulse Resp BP Pulse Ox 97.2 F 101 H 18 136/61 H 96 01/11/19 15:32 01/11/19 15:32 01/11/19 15:32 01/11/19 15:32 01/11/19 15:32 Intake & Output 01/10/19 01/11/19 01/12/19 06:59 06:59 06:59 Intake Total 3300 2070 680 Output Total 175 220 271 Balance 3125 1850 409 Weight 87 kg 86 kg General appearance: PRESENT: mild distress Head exam: PRESENT: normocephalic Eye exam: PRESENT: EOMI Ear exam: PRESENT: normal external ear exam Mouth exam: PRESENT: moist Neck exam: PRESENT: full ROM Respiratory exam: PRESENT: clear to auscultation yoana Cardiovascular exam: PRESENT: RRR Pulses: PRESENT: normal femoral pulses, normal dorsalis pedis pul Vascular exam: PRESENT: pallor GI/Abdominal exam: PRESENT: tenderness - Tender to deep palpation in the lower abdomen and left side Rectal exam: PRESENT: deferred Extremities exam: PRESENT: full ROM Neurological exam: PRESENT: alert, awake, oriented to person Psychiatric exam: PRESENT: agitated, depressed Skin exam: PRESENT: dry Results Laboratory Results: 01/10/19 06:47 01/10/19 06:47 Impressions: KUB X-Ray 01/10/19 00:00 IMPRESSION: NO RADIOGRAPHIC EVIDENCE FOR ACUTE ABDOMINAL DISEASE. Abdomen/Pelvis CT 01/11/19 15:30 IMPRESSION: 1. Extensive retroperitoneal collection with drain in place remains, unchanged. 2. Now, however, there is also pneumoperitoneum. Unclear if there is a new area of viscus perforation or if the retroperitoneal collection somehow now communicates with the peritoneum. Call report tasked to the [facility] team. Plan Discharge Plan: Has been accepted by the acute care surgical service [facility] and the patient will be transferred for higher level of care Time Spent: Greater than 30 Minutes
--- NOTE | 2019-01-11 18:23 | RADIOLOGY REPORT (SQ) ---
EXAM DESCRIPTION: KUB/ABDOMEN (SINGLE VIEW) COMPLETED DATE/TIME: 01/11/2019 6:12 pm REASON FOR STUDY: ng tube placement COMPARISON: CT from earlier. FINDINGS: Single view abdominal radiograph AP portable semi-upright for NG tube placement. Mild gaseous distension of large and small bowel without evidence of mechanical obstruction. Nasogastric tube down, side hole at the gastroesophageal junction. Consider further advancement of t he tube into the stomach. TECHNICAL DOCUMENTATION: JOB ID: [id number] Reading location - IP/workstation name: [email or web address]
[2019-01-11] MEDS: VANCOMYCIN HCL 1,500 MG in DEXTROSE 5%-WATER 250 ML IV SCH (20:28)
[2019-01-12] MEDS: KETOROLAC TROMETHAMINE INJ/PF 30 MG/1 ML SDV IV SCH ×2 (03:38→09:11)
[2019-01-12] MEDS ORDERED: NORMAL SALINE 1000 ML 500 ML IV ONE (05:30)
[2019-01-12] MEDS: PIPERACILLIN SODIUM/TAZOBACTAM 3.375 GM in NORMAL SALINE 100 ML IV SCH ×3 (05:57→18:22)
[2019-01-12 07:02] LABS: HEMATOCRIT 27.8 % (37.9-51.0); HEMOGLOBIN 8.9 g/dL (13.5-17.0); MEAN CORPUSCULAR HEMOGLOBIN 25.4 pg (27.0-33.4); MEAN CORPUSCULAR HGB CONC 32.1 g/dL (32.0-36.0); MEAN CORPUSCULAR VOLUME 79 fl (80-97); PLATELET COUNT 680 10^3/uL (150-450); RED BLOOD COUNT 3.51 10^6/uL (4.35-5.55); WHITE BLOOD COUNT 18.2 10^3/uL (4.0-10.5)
[2019-01-12 07:19] LABS: ANION GAP 12 (5-19); BLOOD UREA NITROGEN 26 mg/dL (7-20); CALCIUM 9.1 mg/dL (8.4-10.2); CARBON DIOXIDE 20 mmol/L (22-30); CHLORIDE 104 mmol/L (98-107); GLUCOSE 107 mg/dL (75-110); POTASSIUM 4.7 mmol/L (3.6-5.0)
[2019-01-12 07:59] LABS: ABSOLUTE LYMPHOCYTES# (MANUAL) 0.9 10^3/uL (0.5-4.7); ABSOLUTE MONOCYTES # (MANUAL) 0.4 10^3/uL (0.1-1.4); BAND NEUTROPHILS % (MANUAL) 1 % (3-5); BASOPHILS % (MANUAL) 0 % (0-2); EOSINOPHILS % (MANUAL) 3 % (0-6); LYMPHOCYTES % (MANUAL) 5 % (13-45); MONOCYTES % (MANUAL) 2 % (3-13); SEGMENTED NEUTROPHILS % (MAN) 89 % (42-78); TOTAL CELLS COUNTED 100
[2019-01-12 08:00] LABS: ANISOCYTOSIS 1+; HYPOCHROMASIA 1+; PLATELET COMMENT INCREASED; POIKILOCYTOSIS SLIGHT; TEAR DROP CELLS SLIGHT; TOXIC GRANULATION 1+; TOXIC VACUOLATION PRESENT
[2019-01-12] MEDS ORDERED: NORMAL SALINE 500 ML IV ONE (08:00)
[2019-01-12] MEDS ORDERED: RINGERS SOLUTION,LACTATED 1,000 ML IV PRN (08:15)
[2019-01-12] MEDS ORDERED: RINGERS SOLUTION,LACTATED 1,000 ML IV ONE (08:15)
[2019-01-12] MEDS: PANTOPRAZOLE SODIUM 40 MG VIAL IV SCH ×2 (09:12→21:40)
[2019-01-12] MEDS: METOPROLOL SUCCINATE 50 MG TAB.SR.24H PO SCH (09:13)
[2019-01-12] MEDS ORDERED: BUPIVACAINE HCL 0.25% /EPINEPHRINE INJ/PF 30 ML SDV ONE (09:48)
[2019-01-12] MEDS ORDERED: LIDOCAINE 2% INJ-PF (20 MG/ML) 2 ML AMPUL ONE (09:59)
[2019-01-12] MEDS ORDERED: ROCURONIUM BROMIDE INJ 50 MG/5 ML VIAL IV ONE (09:59)
[2019-01-12] MEDS ORDERED: ONDANSETRON HCL INJ/PF 4 MG/2 ML SDV ONE (09:59)
[2019-01-12] MEDS ORDERED: PHENYLEPHRINE HCL INJ/PF 10 MG/1 ML SDV ONE (09:59)
[2019-01-12] MEDS ORDERED: SUCCINYLCHOLINE CHLORIDE INJ 200 MG/10 ML VIAL ONE (09:59)
[2019-01-12] MEDS ORDERED: POLYETHYLENE GLYCOL 3350 POWDER 17 GM/1 PACKET NG SCH (10:00)
[2019-01-12] MEDS ORDERED: EPHEDRINE SULFATE INJ 50 MG/1 ML AMPULE ONE (11:04)
[2019-01-12] MEDS ORDERED: MIDAZOLAM 2 MG/2 ML INJ ONE (11:04)
[2019-01-12] MEDS ORDERED: FENTANYL CITRATE INJ/PF 250 MCG/5 ML AMPULE ONE (11:04)
[2019-01-12] MEDS ORDERED: PROPOFOL INJ 200 MG/20 ML VIAL IV ONE (11:04)
[2019-01-12] MEDS ORDERED: KETAMINE HCL INJ 500 MG/10 ML VIAL ONE (11:04)
[2019-01-12] MEDS ORDERED: VASOPRESSIN INJ 20 UNIT/1 ML VIAL ONE (12:46)
[2019-01-12] MEDS ORDERED: FUROSEMIDE INJ/PF 40 MG/4 ML SDV ONE (13:43)
[2019-01-12] MEDS ORDERED: DIPHENHYDRAMINE HCL 50 MG/ML VIAL IV PRN (14:28)
[2019-01-12] MEDS ORDERED: FENTANYL CITRATE INJ/PF 100 MCG/2 ML AMPUL IV PRN ×3 (14:28)
[2019-01-12] MEDS ORDERED: PROMETHAZINE HCL INJ 25 MG/1 ML VIAL IV PRN ×2 (14:28)
[2019-01-12] MEDS ORDERED: MEPERIDINE HCL/PF INJ 25 MG/1 ML DISP.SYRIN IV PRN (14:28)
[2019-01-12] MEDS ORDERED: HYDROMORPHONE HCL INJ/PF 2 MG/ML AMPULE IV PRN (14:30)
--- NOTE | 2019-01-12 14:32 | Operative Report ---
Nonrecallable Operative Report DATE OF SURGERY: 01/12/19 PREOPERATIVE DIAGNOSIS: peritonitis, sepsis, retroperitoneal abscess POSTOPERATIVE DIAGNOSIS: peritonitis, sepsis, retroperitoneal abscess OPERATION: exploratory laparotomy and debridement of retroperitioneal abscess SURGEON: TIERRA CARVAJAL ANESTHESIA: GA TISSUE REMOVED OR ALTERED: pancreatic phlegmon COMPLICATIONS: none ESTIMATED BLOOD LOSS: 100cc INTRAOPERATIVE FINDINGS: ruptured retroperitoneal abscess PROCEDURE: exploratory laparotomy with debridement of pancreatic phlegmon.
[2019-01-12] MEDS: HYDROMORPHONE HCL INJ/PF 2 MG/ML AMPULE IV PRN (14:41)
[2019-01-12] MEDS ORDERED: NORMAL SALINE INJ/PF 0.9% 10 ML SDV IV PRN (15:02)
[2019-01-12 15:42] LABS: HEMATOCRIT 33.6 % (37.9-51.0); MEAN CORPUSCULAR HEMOGLOBIN 27.3 pg (27.0-33.4); MEAN CORPUSCULAR HGB CONC 32.9 g/dL (32.0-36.0); RED BLOOD COUNT 4.03 10^6/uL (4.35-5.55); RED CELL DISTRIBUTION WIDTH 17.3 % (11.5-14.0)
[2019-01-12 15:51] LABS: ALANINE AMINOTRANSFERASE 15 U/L (21-72); ALBUMIN 2.3 g/dL (3.5-5.0); ALKALINE PHOSPHATASE 56 U/L (38-126); ANION GAP 11 (5-19); ASPARTATE AMINO TRANSFERASE 21 U/L (17-59); BILIRUBIN,DIRECT 0.8 mg/dL (0.0-0.4); BILIRUBIN,TOTAL 0.9 mg/dL (0.2-1.3); BLOOD UREA NITROGEN 28 mg/dL (7-20); CALCIUM 9.1 mg/dL (8.4-10.2); CARBON DIOXIDE 19 mmol/L (22-30); CHLORIDE 105 mmol/L (98-107); GLUCOSE 96 mg/dL (75-110); POTASSIUM 4.6 mmol/L (3.6-5.0); TOTAL PROTEIN 5.5 g/dL (6.3-8.2)
[2019-01-12 15:59] LABS: MEAN CORPUSCULAR VOLUME 83 fl (80-97)
[2019-01-12 16:03] LABS: ABSOLUTE LYMPHOCYTES# (MANUAL) 0.5 10^3/uL (0.5-4.7); ABSOLUTE MONOCYTES # (MANUAL) 0.2 10^3/uL (0.1-1.4); BAND NEUTROPHILS % (MANUAL) 3 % (3-5); BASOPHILS % (MANUAL) 0 % (0-2); EOSINOPHILS % (MANUAL) 2 % (0-6); LYMPHOCYTES % (MANUAL) 3 % (13-45); MONOCYTES % (MANUAL) 1 % (3-13); SEGMENTED NEUTROPHILS % (MAN) 91 % (42-78); TOTAL CELLS COUNTED 100
[2019-01-12 16:05] LABS: ANISOCYTOSIS 1+; PLATELET CLUMPS PRESENT; POLYCHROMASIA SLIGHT; TOXIC GRANULATION 1+
[2019-01-12 16:06] LABS: PLATELET COMMENT INCREASED; PLATELET COUNT 575 10^3/uL (150-450)
--- NOTE | 2019-01-12 17:09 | PDOC CONSULTATION ---
Consultation Consult Date: 01/12/19 Attending physician:: TIERRA CARVAJAL Provider Consulted: TOMMY EVANGELISTA Consult reason:: Medical management History of Present Illness Admission Date/PCP: 01/09/19 18:17 TIERRA CARVAJAL MD History of Present Illness: INOCENTE MIJARES is a 73 year old male with a history of coronary artery disease and diet-controlled diabetes mellitus who was admitted by the surgical service on 01/09/2019 due to a retroperitoneal fluid accumulation associated with his recent surgical history. He has a rather extensive history since early November. He was hospitalized for 17 days, in the ICU 8 or 9 of those days, and November. He came in because he was having some GI bleeding due to an AVM near him a I believe, his duodenum, and ultimately required surgical intervention on a perforation. I believe he had a resection of part of his small intestine with a re-anastomosis and he had drains placed. 1 of the drains was removed but another was left in. He developed fluid accumulation associated with this drain. It had been monitored as an outpatient for the last month or so, but he began to experience worsening pain and so Dr. Carvajal brought him into the hospital. Initially the plan was to send him divided but they did not have any beds available. Because of his clinical status. The decision was made to go ahead and taken to the OR today. The fluid collection was cleaned out and the abdomen was irrigated. A couple of SUJEY drains were placed. He was extubated successfully. He was transferred to the ICU and medical service was consulted. He has an arterial line and a central line to measure CVP. He has an NG tube in place. He is currently awake and interactive. Past Medical History Cardiac Medical History: Reports: Coronary Artery Disease, Hypertension Denies: Myocardial Infarction Pulmonary Medical History: Denies: Asthma, Bronchitis, Chronic Obstructive Pulmonary Disease (COPD), Pneumonia Neurological Medical History: Denies: Seizures GI Medical History: Reports: Hiatal Hernia - HAD SURGERY Denies: Hepatitis Musculoskeltal Medical History: Reports: Arthritis - HIMANSHU HANDS Psychiatric Medical History: Denies: Depression Hematology: Denies: Anemia, Sickle Cell Disease Past Surgical History Past Surgical History: Reports: Appendectomy, Cholecystectomy, Orthopedic Surgery - Right knee Denies: Pacemaker Social History Smoking Status: Never Smoker Frequency of Alcohol Use: None Hx Recreational Drug Use: No Drugs: None Hx Prescription Drug Abuse: No - Advance Directive Resuscitation Status: Full Code Family History Family History: CAD, DM, Hyperlipidemia, Hypertension Parental Family History Reviewed: Yes - Coronary artery disease, hypertension, hyperlipidemia Children Family History Reviewed: Yes Sibling(s) Family History Reviewed.: Yes Medication/Allergy Home Medications: Aspirin [Aspirin 81 mg Chewable Tablet] 81 mg PO DAILY 11/20/18 Latanoprost [Xalatan] 1 drop OU QHS 11/20/18 Losartan Potassium 100 mg PO DAILY 11/20/18 Omeprazole 40 mg PO DAILY@1700 11/20/18 Trazodone HCl 50 mg PO HSP PRN 11/20/18 Fenofibrate Nanocrystallized [Tricor 145 mg Tablet] 145 mg PO DAILY 11/21/18 Hydrochlorothiazide [Hydrodiuril 25 mg Tablet] 25 mg PO QAM 11/21/18 Metoprolol Succinate [Toprol Xl 50 mg Tab.sr] 50 mg PO DAILY 11/21/18 Multivitamin [Tab-A-Dharmesh (Multiple Vitamin) Tablet] 1 tab PO DAILY 11/21/18 Nitroglycerin [Nitrostat 0.4 mg (1/150 Gr) Tabs 25/Bottle] 1 tab SL Q5MP PRN 11/21/18 [place]-3 Fatty Acids/Fish Oil [Fish Oil 1,000 Mg Capsule] 1 cap PO QID 11/21/18 Cyanocobalamin (Vitamin B-12) [Vitamin B-12 Inj 1000 Mcg/1 ml Vial] 1,000 mcg IM .1ST OF THE MONTH 01/09/19 Simvastatin [Zocor 80 mg Tablet] 80 mg PO QPM 01/09/19 Allergies/Adverse Reactions: NSAIDS (Non-Steroidal Anti-Inflamma Adverse Reaction (Verified 01/09/19 23:35) OLESYA Inhibitors Allergy (Uncoded 01/09/19 23:32) Review of Systems All systems: reviewed and no additional remarkable complaints except as stated - All systems were reviewed and were negative except as noted in the HPI Physical Exam Vital Signs: Temp Pulse Resp BP Pulse Ox 97.8 F 115 H 18 99/55 L 100 01/12/19 16:00 01/12/19 16:00 01/12/19 16:00 01/12/19 16:00 01/12/19 16:00 Intake & Output 01/11/19 01/12/19 01/13/19 06:59 06:59 06:59 Intake Total 2069 2230 6280 Output Total 180 772 1463 Balance 1849 1958 1830 Weight 86 kg 86 kg 48.7 kg General appearance: PRESENT: no acute distress, cooperative, disheveled Head exam: PRESENT: atraumatic, normocephalic Eye exam: PRESENT: EOMI, PERRLA. ABSENT: conjunctival injection, nystagmus, scleral icterus Ear exam: PRESENT: normal external ear exam Mouth exam: PRESENT: dry mucosa, neck supple Throat exam: ABSENT: post pharyngeal erythema Neck exam: PRESENT: full ROM. ABSENT: carotid bruit, JVD, lymphadenopathy, meningismus, tenderness, thyromegaly Respiratory exam: PRESENT: clear to auscultation himanshu, symmetrical, unlabored. ABSENT: accessory muscle use, chest wall tenderness, crackles, prolonged expiratory phas, rhonchi, tachypnea, wheezes Cardiovascular exam: PRESENT: +S1, +S2, tachycardia Pulses: PRESENT: normal carotid pulses Vascular exam: PRESENT: normal capillary refill GI/Abdominal exam: PRESENT: hypoactive bowel sounds, soft, tenderness - Appropriate, other - Midline surgical incision with 2 SUJEY drains. ABSENT: distended, guarding, rebound Extremities exam: ABSENT: clubbing, pedal edema Musculoskeletal exam: PRESENT: normal inspection. ABSENT: deformity Neurological exam: PRESENT: alert, awake, oriented to person, oriented to place, oriented to time, oriented to situation, CN II-XII grossly intact. ABSENT: motor sensory deficit Psychiatric exam: PRESENT: flat affect Skin exam: PRESENT: dry, warm Results Laboratory Results: 01/12/19 15:15 01/12/19 15:15 01/12/19 01/12/19 01/12/19 06:48 06:48 11:53 WBC 18.2 H RBC 3.51 L Hgb 8.9 L Hct 27.8 L MCV 79 L MCH 25.4 L MCHC 32.1 RDW 17.0 H Plt Count 680 H Seg Neutrophils % Not Reportable Lymphocytes % Not Reportable Monocytes % Not Reportable Eosinophils % Not Reportable Basophils % Not Reportable Absolute Neutrophils Not Reportable Absolute Lymphocytes Not Reportable Absolute Monocytes Not Reportable Absolute Eosinophils Not Reportable Absolute Basophils Not Reportable Sodium 135.7 L Potassium 4.7 Chloride 104 Carbon Dioxide 20 L Anion Gap 12 BUN 26 H Creatinine 2.26 H Est GFR ( Amer) 35 L Est GFR (Non-Af Amer) 29 L Glucose 107 Calcium 9.1 Total Bilirubin AST ALT Alkaline Phosphatase Total Protein Albumin Blood Type A POSITIVE Antibody Screen NEGATIVE 01/12/19 01/12/19 15:15 15:15 WBC 17.0 H RBC 4.03 L Hgb 11.0 L D Hct 33.6 L MCV 83 D MCH 27.3 MCHC 32.9 RDW 17.3 H Plt Count 575 H Seg Neutrophils % Not Reportable Lymphocytes % Not Reportable Monocytes % Not Reportable Eosinophils % Not Reportable Basophils % Not Reportable Absolute Neutrophils Not Reportable Absolute Lymphocytes Not Reportable Absolute Monocytes Not Reportable Absolute Eosinophils Not Reportable Absolute Basophils Not Reportable Sodium 135.1 L Potassium 4.6 Chloride 105 Carbon Dioxide 19 L Anion Gap 11 BUN 28 H Creatinine 2.29 H Est GFR ( Amer) 34 L Est GFR (Non-Af Amer) 28 L Glucose 96 Calcium 9.1 Total Bilirubin 0.9 AST 21 ALT 15 L Alkaline Phosphatase 56 Total Protein 5.5 L Albumin 2.3 L Blood Type Antibody Screen Impressions: Abdomen/Pelvis CT 01/11/19 15:30 IMPRESSION: 1. Extensive retroperitoneal collection with drain in place remains, unchanged. 2. Now, however, there is also pneumoperitoneum. Unclear if there is a new area of viscus perforation or if the retroperitoneal collection somehow now communicates with the peritoneum. Call report tasked to the [facility] team. Assessment and Plan - Diagnosis (1) Peritonitis Is this a current diagnosis for this admission?: Yes Plan: Status post exploratory laparotomy as noted above. Currently on vancomycin and Zosyn. Abscess cultures are noted. Aggressive fluid management. (2) Retroperitoneal abscess Is this a current diagnosis for this admission?: Yes Plan: Status post debridement and abdominal washout with drain placement. (3) Acute blood loss anemia Is this a current diagnosis for this admission?: Yes Plan: Resolved after packed red cell administration. Will monitor trend his hemoglobin to make sure he does not have any further substantial bleeding. (4) Acute kidney injury Is this a current diagnosis for this admission?: Yes Plan: Suspected to be ATN, and he will likely be dehydrated. Aggressive fluid management will monitor urine output. - Time Time Spent with patient: 35 or more minutes
[2019-01-12] MEDS: MORPHINE SULFATE 10 MG/ML INJ IV PRN ×3 (17:13→23:16)
[2019-01-12] MEDS ORDERED: ALBUMIN HUMAN 500 ML IV ONE (17:45)
[2019-01-12 17:52] LABS: VANCOMYCIN,TROUGH 15.3 ug/mL (5.0-20.0)
[2019-01-12] MEDS: VANCOMYCIN HCL 1,500 MG in DEXTROSE 5%-WATER 250 ML IV SCH (18:22)
[2019-01-12] MEDS: RINGERS SOLUTION,LACTATED 1,000 ML IV PRN ×2 (18:28→20:03)
[2019-01-12] MEDS: ALBUMIN HUMAN 500 ML IV SCH ×2 (20:04→21:39)
--- NOTE | 2019-01-12 21:10 | OPERATIVE REPORT E ---
Operative Report NAME: INOCENTE MIJARES : 1945 AGE: 73Y DATE OF SURGERY: 01/12/2019 ROOM: 612 PREOPERATIVE DIAGNOSIS: RETROPERITONEAL ABSCESS WITH ACUTE PERITONITIS/SEPSIS. POSTOPERATIVE DIAGNOSIS: RETROPERITONEAL ABSCESS WITH ACUTE PERITONITIS/SEPSIS. OPERATIONS: 1. Central line placement. 2. Exploratory laparotomy with debridement of retroperitoneal pancreatic phlegmon. 3. Rigid sigmoidoscopy. SURGEON: TIERRA CARVAJAL M.D. PROCEDURE: Patient was brought to the operating room in awake and stable condition, placed on the operating table in supine position. Induced under general anesthesia and intubated. He was then placed in a low lithotomy position for a rigid sigmoidoscopy. After adequate prep and drape and an appropriate timeout and site verification, he was placed in a low lithotomy position. The rigid proctoscope was then utilized to examine his rectum and sigmoid colon. We placed the proctoscope into the rectum, and visualization of the rectum revealed no evidence of any ischemia. I was able to pass the scope up to approximately 20 cm, where I noted a large amount of liquid greenish stool passed from the sigmoid. I did not notice any evidence of mucosal abnormalities or perforation. The scope was withdrawn. The patient was then placed back in a supine position. Then the right neck was prepped and draped and he was placed in a Trendelenburg position. Using a 22-gauge finger needle, I identified the internal jugular vein, and then that needle was removed. I then used a 16-gauge needle to access the right internal jugular vein and through that needle, I passed a J-wire. The needle was removed. The dilator was then placed over the J-wire and that was removed. A triple-lumen 16-Austrian catheter was then placed over the wire into the superior vena cava. It was fixed there with 2-0 silk suture. All 3 lumens were flushed and love well. A sterile dressing was applied. Attention was then turned to the abdominal portion of the operation. The abdomen was prepped and draped. A midline incision was utilized from about 5 cm above the umbilicus to about 5 cm above the pubic symphysis. Dissection was carried down through subcutaneous tissue with Bovie cautery, and the midline fascia was entered. As soon as we entered the midline fascia, a large amount of air emanated from the wound, as well as a purulent greenish serous fluid. This was all suctioned from the abdominal cavity and the abdominal cavity was then copiously irrigated. There were multiple loculations of the small bowel to the anterior abdominal wall, as well as the omentum to the anterior abdominal wall, which were easily broken up. Once we were able to do this, we again irrigated the abdominal cavity so clear visualization could then ensue. I freed up the omentum and lifted that and the transverse colon up out of the abdomen. There were multiple loops of small bowel that were adhesed to each other with interlooped fibrinous exudate, which was all broken up, and then I was able finally to identify the ligament of Treitz. Once this was done, we were able to eviscerate the small bowel out of the abdominal cavity and noted on the right side, in the root of the small bowel mesentery, a large amount of swelling and significant fibrinous exudate in the right posterior peritoneum. As I eviscerated the small bowel, I noticed that the retroperitoneum had a perforation within it, and at the bottom of that perforation, I noted the previously placed IR drain, coiled up in the bottom of this. I was able to digitalize this defect in the retroperitoneum and extend it all the way up to the ligament of Treitz, and then down to the sacrum. 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 I removed the previously placed pigtail interventionally placed drain. We opened up this cavity digitally with blunt dissection and debrided much of it. It also appeared to be over the ureter. We irrigated this cavity with a large amount of saline and debrided much of the proteinaceous raines-colored necrosis. Once this was done, I continued exploration for a possible site of perforation. I again identified the ligament of Treitz and ran that all the way to the terminal ileum and identified the cecum. The cecum was fixed to the right lateral abdominal wall with the normal peritoneal attachments and there was no evidence of perforation in the entire small bowel or the cecum. I ran the ascending colon up to the hepatic flexure. Noted some fluid above the right lobe of the liver, which was suctioned dry. Identified the transverse colon and identified the splenic flexure. That all appeared to be soft, as well as the descending colon. Upon reaching the sigmoid, it appeared to be inflamed, but it also appeared to be adhesed over towards the right on top of this retroperitoneal abscess. As we mobilized it away from the abscess, the colon itself was identified and noted no evidence of any perforated diverticulitis. We then continue our dissection down towards the distal sigmoid and rectum, freed that up from the pelvis. There were multiple loculated collections in the pelvis that were emanating from the retroperitoneal abscess, but the distal sigmoid colon and rectum appeared to be normal. We then returned our attention to the ligament of Treitz and ran that down again. There was a loop of bowel that was extending cephalad towards the stomach, through the transverse mesocolonic defect, which was the previously done gastrojejunostomy and that appeared to be normal. I palpated the stomach. It was full of air and fluid. We passed the NG tube into the stomach with digital manipulation, with help from the anesthesiologist, and obtained good placement of the NG tube. At this point, there being no evidence of any intestinal perforation, I suspected that the peritonitis was secondary to a rupture of this retroperitoneal abscess. I then copiously irrigated the abdominal cavity with normal saline and suctioned dry. There were no other loculated fluid collections that I could identify. We suctioned over the spleen. We suctioned over the right lobe of the liver and underneath the right lobe of the liver, in Dudley's recess. Again, we suctioned out the pelvis, after irrigating that again. I placed 2 Robbin-Abdul drains in the retroperitoneal abscess cavity, one extending cephalad up towards the ligament of Treitz, and one extending distally towards the sacrum, and brought them out through separate stab wounds on the anterior abdominal wall. The one on the left was extending towards the sacrum and the one on the right was extending up towards the ligament of Treitz. At this point, I placed the omentum back into the abdominal cavity over the small bowel and closed the midline fascial defect with a running double-looped 0 PDS suture and irrigated the wound copiously with normal saline, suctioned dry, and closed the skin with *------* skin clips, which completed the procedure. Estimated blood loss through the procedure was approximately 100 mL. Sponge and needle counts were correct x2 at the termination of the procedure. The patient was then extubated in the operating room and transferred to the intensive care unit in stable condition. DICTATING PHYSICIAN: TIERRA CARVAJAL M.D. [id number] PHY#: [id number] ID: [id number] JOB#: [id number] ACCT: [id number] cc:TIERRA CARVAJAL M.D. >
[2019-01-12] MEDS: PIPERACILLIN SODIUM/TAZOBACTAM 2.25 GM in NORMAL SALINE 50 ML IV SCH (23:16)
[2019-01-12] MEDS: NORMAL SALINE 1000 ML 1,000 ML IV PRN (23:19)
[2019-01-12] MEDS ORDERED: NORMAL SALINE 1000 ML 1,000 ML IV ONE (23:59)
[2019-01-13] MEDS: NORMAL SALINE 1000 ML 1,000 ML IV PRN ×2 (03:48→08:16)
[2019-01-13] MEDS: PIPERACILLIN SODIUM/TAZOBACTAM 2.25 GM in NORMAL SALINE 50 ML IV SCH ×4 (05:39→23:59)
[2019-01-13 06:09] LABS: HEMATOCRIT 31.4 % (37.9-51.0); HEMOGLOBIN 10.2 g/dL (13.5-17.0); MEAN CORPUSCULAR HEMOGLOBIN 27.1 pg (27.0-33.4); MEAN CORPUSCULAR HGB CONC 32.6 g/dL (32.0-36.0); MEAN CORPUSCULAR VOLUME 83 fl (80-97); PLATELET COUNT 561 10^3/uL (150-450); RED BLOOD COUNT 3.77 10^6/uL (4.35-5.55); RED CELL DISTRIBUTION WIDTH 16.9 % (11.5-14.0); WHITE BLOOD COUNT 18.5 10^3/uL (4.0-10.5)
[2019-01-13 06:29] LABS: ANION GAP 7 (5-19); BLOOD UREA NITROGEN 24 mg/dL (7-20); CALCIUM 7.8 mg/dL (8.4-10.2); CARBON DIOXIDE 14 mmol/L (22-30); CHLORIDE 117 mmol/L (98-107); GLUCOSE 70 mg/dL (75-110); POTASSIUM 4.1 mmol/L (3.6-5.0)
[2019-01-13 06:43] LABS: ABSOLUTE LYMPHOCYTES# (MANUAL) 0.2 10^3/uL (0.5-4.7); ABSOLUTE MONOCYTES # (MANUAL) 0.7 10^3/uL (0.1-1.4); BASOPHILS % (MANUAL) 0 % (0-2); EOSINOPHILS % (MANUAL) 0 % (0-6); LYMPHOCYTES % (MANUAL) 1 % (13-45); MONOCYTES % (MANUAL) 4 % (3-13); SEGMENTED NEUTROPHILS % (MAN) 95 % (42-78); TOTAL CELLS COUNTED 100
[2019-01-13 06:44] LABS: ANISOCYTOSIS SLIGHT; BURR CELLS SLIGHT; PLATELET CLUMPS PRESENT; PLATELET COMMENT INCREASED; POIKILOCYTOSIS SLIGHT
[2019-01-13] MEDS ORDERED: FUROSEMIDE INJ/PF 40 MG/4 ML SDV IV ONE (07:10)
[2019-01-13] MEDS ORDERED: EPINEPHRINE INJ 1 MG/10 ML DISP.SYRIN ONE (07:15)
[2019-01-13] MEDS ORDERED: ESMOLOL HCL INJ/PF 100 MG/10 ML SDV IV ONE (07:16)
--- NOTE | 2019-01-13 07:16 | PDOC PROGRESS REPORT ---
Subjective Progress Note for:: 01/13/19 Subjective:: feels better. less abd pain Reason For Visit: RETROPERITONEAL ABSCESS Physical Exam Vital Signs: Temp Pulse Resp BP Pulse Ox 98.2 F 114 H 20 113/57 L 97 01/13/19 03:59 01/12/19 22:00 01/13/19 06:00 01/12/19 20:14 01/13/19 06:00 Intake & Output 01/12/19 01/13/19 01/14/19 06:59 06:59 06:59 Intake Total 2230 9651 Output Total 271 5450 Balance 1958 4201 Weight 86 kg 84.7 kg General appearance: PRESENT: mild distress Head exam: PRESENT: normocephalic Eye exam: PRESENT: EOMI Ear exam: PRESENT: TM's normal bilaterally Mouth exam: PRESENT: moist Neck exam: PRESENT: full ROM Respiratory exam: PRESENT: tachypnea Cardiovascular exam: PRESENT: tachycardia Pulses: PRESENT: normal radial pulses, normal femoral pulses Vascular exam: PRESENT: pallor GI/Abdominal exam: PRESENT: hypoactive bowel sounds Rectal exam: PRESENT: deferred Extremities exam: PRESENT: +2 edema Musculoskeletal exam: PRESENT: full ROM Neurological exam: PRESENT: awake, oriented to person, oriented to place Psychiatric exam: PRESENT: appropriate affect Skin exam: PRESENT: dry Results Laboratory Results: 01/13/19 05:50 01/13/19 05:50 01/12/19 01/12/19 01/12/19 06:48 06:48 11:53 WBC 18.2 H RBC 3.51 L Hgb 8.9 L Hct 27.8 L MCV 79 L MCH 25.4 L MCHC 32.1 RDW 17.0 H Plt Count 680 H Seg Neutrophils % Not Reportable Lymphocytes % Not Reportable Monocytes % Not Reportable Eosinophils % Not Reportable Basophils % Not Reportable Absolute Neutrophils Not Reportable Absolute Lymphocytes Not Reportable Absolute Monocytes Not Reportable Absolute Eosinophils Not Reportable Absolute Basophils Not Reportable Sodium 135.7 L Potassium 4.7 Chloride 104 Carbon Dioxide 20 L Anion Gap 12 BUN 26 H Creatinine 2.26 H Est GFR ( Amer) 35 L Est GFR (Non-Af Amer) 29 L Glucose 107 Calcium 9.1 Total Bilirubin AST ALT Alkaline Phosphatase Total Protein Albumin Blood Type A POSITIVE Antibody Screen NEGATIVE 01/12/19 01/12/19 01/12/19 15:15 15:15 17:15 WBC 17.0 H RBC 4.03 L Hgb 11.0 L D Hct 33.6 L MCV 83 D MCH 27.3 MCHC 32.9 RDW 17.3 H Plt Count 575 H Seg Neutrophils % Not Reportable Lymphocytes % Not Reportable Monocytes % Not Reportable Eosinophils % Not Reportable Basophils % Not Reportable Absolute Neutrophils Not Reportable Absolute Lymphocytes Not Reportable Absolute Monocytes Not Reportable Absolute Eosinophils Not Reportable Absolute Basophils Not Reportable Sodium 135.1 L Potassium 4.6 Chloride 105 Carbon Dioxide 19 L Anion Gap 11 BUN 28 H Creatinine 2.29 H 2.22 H Est GFR ( Amer) 34 L 36 L Est GFR (Non-Af Amer) 28 L 29 L Glucose 96 Calcium 9.1 Total Bilirubin 0.9 AST 21 ALT 15 L Alkaline Phosphatase 56 Total Protein 5.5 L Albumin 2.3 L Blood Type Antibody Screen 01/13/19 01/13/19 05:50 05:50 WBC 18.5 H RBC 3.77 L Hgb 10.2 L Hct 31.4 L MCV 83 MCH 27.1 MCHC 32.6 RDW 16.9 H Plt Count 561 H Seg Neutrophils % Not Reportable Lymphocytes % Not Reportable Monocytes % Not Reportable Eosinophils % Not Reportable Basophils % Not Reportable Absolute Neutrophils Not Reportable Absolute Lymphocytes Not Reportable Absolute Monocytes Not Reportable Absolute Eosinophils Not Reportable Absolute Basophils Not Reportable Sodium 138.4 Potassium 4.1 Chloride 117 H Carbon Dioxide 14 L Anion Gap 7 BUN 24 H Creatinine 1.88 H Est GFR ( Amer) 43 L Est GFR (Non-Af Amer) 36 L Glucose 70 L Calcium 7.8 L Total Bilirubin AST ALT Alkaline Phosphatase Total Protein Albumin Blood Type Antibody Screen Impressions: Abdomen/Pelvis CT 01/11/19 15:30 IMPRESSION: 1. Extensive retroperitoneal collection with drain in place remains, unchanged. 2. Now, however, there is also pneumoperitoneum. Unclear if there is a new area of viscus perforation or if the retroperitoneal collection somehow now communicates with the peritoneum. Call report tasked to the [facility] team. Assessment & Plan - Diagnosis (1) Retroperitoneal abscess Is this a current diagnosis for this admission?: Yes - Plan Summary Plan Summary: feels better this am stable overnight now producing some urine creat down to 1.8 wbc 18k h/h stable tachycardic this am 120's abd softly distended drains serosanguanous plan- lasix this am check mag, phos cont icu management.
[2019-01-13] MEDS: HYDROMORPHONE HCL INJ/PF 2 MG/ML AMPULE IV PRN ×3 (08:36→21:50)
--- NOTE | 2019-01-13 08:36 | RADIOLOGY REPORT (SQ) ---
EXAM DESCRIPTION: CHEST SINGLE VIEW COMPLETED DATE/TIME: 01/13/2019 8:23 am REASON FOR STUDY: r/o pneumonia COMPARISON: 01/07/2019 EXAM PARAMETERS: NUMBER OF VIEWS: One view. TECHNIQUE: Single frontal radiographic view of the chest acquired. RADIATION DOSE: NA LIMITATIONS: None. FINDINGS: LUNGS AND PLEURA: Minimal retrocardiac left basilar opacities possibly atelectasis or infe ction. Small left pleural effusion. No pneumothorax. MEDIASTINUM AND HILAR STRUCTURES: No masses. Contour normal. HEART AND VASCULAR STRUCTURES: Status post median sternotomy and CABG. BONES: Median sternotomy changes. HARDWARE: CABG hardware. Right internal jugular central venous catheter tip overlies SVC. Enteric t ube tip overlies gastric body. OTHER: No other significant finding. IMPRESSION: Median sternotomy changes with minimal left retrocardiac opacity possibly atelectasis or infection. Trace left effusion. TECHNICAL DOCUMENTATION: JOB ID: [id number] [employer]- All Rights Reserved Reading location - IP/workstation name: [email or web address]
[2019-01-13] MEDS: PANTOPRAZOLE SODIUM 40 MG VIAL IV SCH ×2 (10:28→21:50)
[2019-01-13] MEDS ORDERED: MAGNESIUM SULFATE/D5W 1 GM/100 ML RTUPB IV ONE (11:06)
[2019-01-13] MEDS ORDERED: GLUCAGON,HUMAN RECOMB 1 MG INJ IM PRN (11:09)
[2019-01-13] MEDS ORDERED: DEXTROSE 40% GEL 15 GM TUBE PO PRN ×2 (11:09)
[2019-01-13] MEDS ORDERED: DEXTROSE 50%-WATER 25 GM/50 ML DISP.SYRIN IV PRN ×2 (11:09)
[2019-01-13] MEDS: DEXTROSE 5%-NORMAL SALINE 1,000 ML IV PRN ×3 (11:57→18:09)
[2019-01-13] MEDS: INSULIN LISPRO 100 UNIT/ML 3 ML VIAL SUBCUT SCH ×2 (12:58→18:04)
[2019-01-13] MEDS: METOPROLOL TARTRATE PF/INJ 5 MG/5 ML SDV IV SCH ×2 (13:03→17:59)
[2019-01-13] MEDS: FLUCONAZOLE 200 MG/NS RTU 200 MG/100 ML RTUPB IV SCH (16:46)
--- NOTE | 2019-01-13 17:52 | PDOC PROGRESS REPORT ---
Subjective Progress Note for:: 01/13/19 Subjective:: No adverse events overnight. He is been putting out some urine. He has swollen a little bit of as to be expected. He said he has some drainage from his SUJEY tubes. He is tachycardic this morning blood pressure and CVP have improved. Says his pain is well controlled. Reason For Visit: RETROPERITONEAL ABSCESS Physical Exam Vital Signs: Temp Pulse Resp BP Pulse Ox 98.4 F 110 H 15 102/52 L 96 01/13/19 16:00 01/13/19 16:00 01/13/19 16:00 01/13/19 16:00 01/13/19 16:00 Intake & Output 01/12/19 01/13/19 01/14/19 06:59 06:59 06:59 Intake Total 2230 9651 3888 Output Total 271 5450 770 Balance 3259 4201 3118 Weight 86 kg 84.7 kg General appearance: PRESENT: no acute distress, cooperative Respiratory exam: PRESENT: clear to auscultation yoana, symmetrical, unlabored. ABSENT: accessory muscle use, chest wall tenderness, crackles, prolonged expiratory phas, rhonchi, tachypnea, wheezes Cardiovascular exam: PRESENT: tachycardia Pulses: PRESENT: normal carotid pulses Vascular exam: PRESENT: normal capillary refill GI/Abdominal exam: PRESENT: soft, tenderness - Appropriate, other - He has some sanguinous drainage in his SUJEY drain. ABSENT: distended, guarding, rebound Extremities exam: ABSENT: clubbing, pedal edema Musculoskeletal exam: PRESENT: normal inspection. ABSENT: deformity Neurological exam: PRESENT: alert, awake, oriented to person, oriented to place, oriented to situation Psychiatric exam: PRESENT: appropriate affect, normal mood Skin exam: PRESENT: dry, warm Results Laboratory Results: 01/13/19 05:50 01/13/19 05:50 01/12/19 01/12/19 01/13/19 11:53 17:15 05:50 WBC 18.5 H RBC 3.77 L Hgb 10.2 L Hct 31.4 L MCV 83 MCH 27.1 MCHC 32.6 RDW 16.9 H Plt Count 561 H Seg Neutrophils % Not Reportable Lymphocytes % Not Reportable Monocytes % Not Reportable Eosinophils % Not Reportable Basophils % Not Reportable Absolute Neutrophils Not Reportable Absolute Lymphocytes Not Reportable Absolute Monocytes Not Reportable Absolute Eosinophils Not Reportable Absolute Basophils Not Reportable Sodium Potassium Chloride Carbon Dioxide Anion Gap BUN Creatinine 2.22 H Est GFR ( Amer) 36 L Est GFR (Non-Af Amer) 29 L Glucose Calcium Magnesium Blood Type A POSITIVE Antibody Screen NEGATIVE 01/13/19 01/13/19 05:50 05:50 WBC RBC Hgb Hct MCV MCH MCHC RDW Plt Count Seg Neutrophils % Lymphocytes % Monocytes % Eosinophils % Basophils % Absolute Neutrophils Absolute Lymphocytes Absolute Monocytes Absolute Eosinophils Absolute Basophils Sodium 138.4 Potassium 4.1 Chloride 117 H Carbon Dioxide 14 L Anion Gap 7 BUN 24 H Creatinine 1.88 H Est GFR ( Amer) 43 L Est GFR (Non-Af Amer) 36 L Glucose 70 L Calcium 7.8 L Magnesium 1.5 L Blood Type Antibody Screen Impressions: Abdomen/Pelvis CT 01/11/19 15:30 IMPRESSION: 1. Extensive retroperitoneal collection with drain in place remains, unchanged. 2. Now, however, there is also pneumoperitoneum. Unclear if there is a new area of viscus perforation or if the retroperitoneal collection somehow now communicates with the peritoneum. Call report tasked to the [facility] team. Chest X-Ray 01/13/19 00:00 IMPRESSION: Median sternotomy changes with minimal left retrocardiac opacity possibly atelectasis or infection. Trace left effusion. Assessment and Plan - Diagnosis (1) Peritonitis Is this a current diagnosis for this admission?: Yes Plan: Status post exploratory laparotomy. Currently on vancomycin and Zosyn. Abscess cultures are noted. Dr. Harvey added Diflucan. Aggressive fluid management. (2) Retroperitoneal abscess Is this a current diagnosis for this admission?: Yes Plan: Status post debridement and abdominal washout with drain placement. (3) Acute blood loss anemia Is this a current diagnosis for this admission?: Yes Plan: Resolved after packed red cell administration. Will monitor trend his hemoglobin to make sure he does not have any further substantial bleeding. (4) Acute kidney injury Is this a current diagnosis for this admission?: Yes Plan: Creatinine is improving and urine output is improving. Continue IV fluids. - Time Time Spent with patient: 25-34 minutes
[2019-01-13] MEDS: VANCOMYCIN HCL 1,000 MG in DEXTROSE 5%-WATER 250 ML IV SCH (21:50)
[2019-01-14] MEDS: DEXTROSE 5%-NORMAL SALINE 1,000 ML IV PRN ×2 (01:51→05:38)
[2019-01-14] MEDS: HYDROMORPHONE HCL INJ/PF 2 MG/ML AMPULE IV PRN ×3 (04:51→16:49)
[2019-01-14] MEDS: INSULIN LISPRO 100 UNIT/ML 3 ML VIAL SUBCUT SCH ×4 (05:06→17:41)
[2019-01-14 05:25] LABS: HEMATOCRIT 29.3 % (37.9-51.0); HEMOGLOBIN 9.5 g/dL (13.5-17.0); MEAN CORPUSCULAR HEMOGLOBIN 26.7 pg (27.0-33.4); MEAN CORPUSCULAR HGB CONC 32.5 g/dL (32.0-36.0); MEAN CORPUSCULAR VOLUME 82 fl (80-97); PLATELET COUNT 550 10^3/uL (150-450); RED BLOOD COUNT 3.56 10^6/uL (4.35-5.55); RED CELL DISTRIBUTION WIDTH 17.7 % (11.5-14.0)
[2019-01-14 05:26] LABS: ANION GAP 6 (5-19); BLOOD UREA NITROGEN 23 mg/dL (7-20); CALCIUM 7.8 mg/dL (8.4-10.2); CARBON DIOXIDE 16 mmol/L (22-30); CHLORIDE 118 mmol/L (98-107); GLUCOSE 150 mg/dL (75-110); POTASSIUM 3.5 mmol/L (3.6-5.0)
[2019-01-14] MEDS: PIPERACILLIN SODIUM/TAZOBACTAM 2.25 GM in NORMAL SALINE 50 ML IV SCH ×3 (05:38→17:04)
[2019-01-14] MEDS: METOPROLOL TARTRATE PF/INJ 5 MG/5 ML SDV IV SCH ×4 (05:43→18:10)
[2019-01-14 05:45] LABS: ABSOLUTE LYMPHOCYTES# (MANUAL) 0.6 10^3/uL (0.5-4.7); ABSOLUTE MONOCYTES # (MANUAL) 0.4 10^3/uL (0.1-1.4); BAND NEUTROPHILS % (MANUAL) 3 % (3-5); BASOPHILS % (MANUAL) 0 % (0-2); EOSINOPHILS % (MANUAL) 2 % (0-6); LYMPHOCYTES % (MANUAL) 3 % (13-45); MONOCYTES % (MANUAL) 2 % (3-13); SEGMENTED NEUTROPHILS % (MAN) 90 % (42-78); TOTAL CELLS COUNTED 100
[2019-01-14 05:46] LABS: ANISOCYTOSIS 1+; HYPOCHROMASIA 3+
[2019-01-14 05:47] LABS: PLATELET COMMENT INCREASED
[2019-01-14] MEDS ORDERED: LEVALBUTEROL HCL NEB 1.25 MG/3 ML AMPUL NEB ONE (06:00)
[2019-01-14] MEDS ORDERED: FUROSEMIDE INJ/PF 40 MG/4 ML SDV ONE (08:18)
[2019-01-14] MEDS ORDERED: HYDRALAZINE HCL INJ/PF 20 MG/1 ML SDV ONE (08:30)
--- NOTE | 2019-01-14 08:37 | PDOC PROGRESS REPORT ---
Subjective Progress Note for:: 01/14/19 Subjective:: min abd pain c/.o cough wheezing Reason For Visit: RETROPERITONEAL ABSCESS Physical Exam Vital Signs: Temp Pulse Resp BP Pulse Ox 98.3 F 98 19 144/64 H 100 01/14/19 04:00 01/14/19 05:56 01/14/19 06:00 01/13/19 18:00 01/14/19 06:00 Intake & Output 01/13/19 01/14/19 01/15/19 06:59 06:59 06:59 Intake Total 9651 6722 Output Total 5450 2515 Balance 4201 4207 Weight 84.7 kg 84.7 kg General appearance: PRESENT: mild distress Head exam: PRESENT: normocephalic Eye exam: PRESENT: EOMI Mouth exam: PRESENT: moist Neck exam: PRESENT: full ROM Respiratory exam: PRESENT: decreased breath sounds, wheezes Cardiovascular exam: PRESENT: RRR Pulses: PRESENT: normal radial pulses, normal femoral pulses, normal dorsalis pedis pul GI/Abdominal exam: PRESENT: other - distended, no bowel sounds some bilous drainage from rt isabella Rectal exam: PRESENT: deferred Gentrourinary exam: PRESENT: indwelling catheter Extremities exam: PRESENT: full ROM, +1 edema Neurological exam: PRESENT: alert, oriented to person, oriented to place Psychiatric exam: PRESENT: anxious Skin exam: PRESENT: dry Results Laboratory Results: 01/14/19 04:50 01/14/19 04:50 01/11/19 01/12/19 01/14/19 11:05 11:53 04:50 WBC RBC Hgb Hct MCV MCH MCHC RDW Plt Count Seg Neutrophils % Lymphocytes % Monocytes % Eosinophils % Basophils % Absolute Neutrophils Absolute Lymphocytes Absolute Monocytes Absolute Eosinophils Absolute Basophils Sodium 139.5 Potassium 3.5 L Chloride 118 H Carbon Dioxide 16 L Anion Gap 6 BUN 23 H Creatinine 1.85 H Est GFR ( Amer) 44 L Est GFR (Non-Af Amer) 36 L Glucose 150 H Calcium 7.8 L Magnesium 1.7 Fluid Amylase 99025 Blood Type A POSITIVE Antibody Screen NEGATIVE 01/14/19 04:50 WBC 19.0 H RBC 3.56 L Hgb 9.5 L Hct 29.3 L MCV 82 MCH 26.7 L MCHC 32.5 RDW 17.7 H Plt Count 550 H Seg Neutrophils % Not Reportable Lymphocytes % Not Reportable Monocytes % Not Reportable Eosinophils % Not Reportable Basophils % Not Reportable Absolute Neutrophils Not Reportable Absolute Lymphocytes Not Reportable Absolute Monocytes Not Reportable Absolute Eosinophils Not Reportable Absolute Basophils Not Reportable Sodium Potassium Chloride Carbon Dioxide Anion Gap BUN Creatinine Est GFR ( Amer) Est GFR (Non-Af Amer) Glucose Calcium Magnesium Fluid Amylase Blood Type Antibody Screen Impressions: Abdomen/Pelvis CT 01/11/19 15:30 IMPRESSION: 1. Extensive retroperitoneal collection with drain in place remains, unchanged. 2. Now, however, there is also pneumoperitoneum. Unclear if there is a new area of viscus perforation or if the retroperitoneal collection somehow now communicates with the peritoneum. Call report tasked to the [facility] team. Chest X-Ray 01/13/19 00:00 IMPRESSION: Median sternotomy changes with minimal left retrocardiac opacity possibly atelectasis or infection. Trace left effusion. Status: Imported from PACS - creat 1.85 wbc 19k h/h stable Assessment & Plan - Diagnosis (1) Retroperitoneal abscess Is this a current diagnosis for this admission?: Yes - Plan Summary Plan Summary: decrease ivf lasix dc artline cxr cont iv abx resp rx.
[2019-01-14] MEDS ORDERED: HYDRALAZINE HCL INJ/PF 20 MG/1 ML SDV IV PRN (08:52)
--- NOTE | 2019-01-14 09:11 | RADIOLOGY REPORT (SQ) ---
EXAM DESCRIPTION: CHEST SINGLE VIEW COMPLETED DATE/TIME: 01/14/2019 8:50 am REASON FOR STUDY: Difficulty breathing COMPARISON: 01/13/2019 EXAM PARAMETERS: NUMBER OF VIEWS: One view. TECHNIQUE: Single frontal radiographic view of the chest acquired. RADIATION DOSE: NA LIMITATIONS: None. FINDINGS: Stable AP portable examination with cardiomegaly status post median sternotomy, esophagoga stric tube, and right neck vascular catheter. No focal airspace opacity. IMPRESSION: Stable AP portable examination with cardiomegaly status post median sternotomy, esophago gastric tube, and right neck vascular catheter. No focal airspace opacity. TECHNICAL DOCUMENTATION: JOB ID: [id number] [employer]- All Rights Reserved Reading location - IP/workstation name: [email or web address]
[2019-01-14] MEDS ORDERED: FUROSEMIDE INJ/PF 40 MG/4 ML SDV IV ONE (09:15)
[2019-01-14] MEDS: LEVALBUTEROL HCL NEB 1.25 MG/3 ML AMPUL NEB SCH ×3 (11:18→20:22)
[2019-01-14] MEDS ORDERED: LORAZEPAM INJ 2 MG/1 ML VIAL ONE (11:51)
[2019-01-14] MEDS ORDERED: FUROSEMIDE INJ/PF 40 MG/4 ML SDV IV SCH ×2 (14:00→18:00)
--- NOTE | 2019-01-14 15:49 | PDOC PROGRESS REPORT ---
Subjective Progress Note for:: 01/14/19 Subjective:: No adverse events overnight. No new complaints. Vital signs been stable. Blood pressure is within the normal range. Urine output is been good. Heart rate is slowed down some. He still has moderately large output through his NG tube. His pain is been well controlled. Is been afebrile. Reason For Visit: RETROPERITONEAL ABSCESS Physical Exam Vital Signs: Temp Pulse Resp BP Pulse Ox 98.0 F 100 15 120/58 L 100 01/14/19 12:00 01/14/19 14:00 01/14/19 14:00 01/14/19 14:00 01/14/19 14:00 Intake & Output 01/13/19 01/14/19 01/15/19 06:59 06:59 06:59 Intake Total 9651 7022 717 Output Total 5450 2515 950 Balance 4201 4507 -233 Weight 84.7 kg 84.7 kg General appearance: PRESENT: no acute distress, cooperative Respiratory exam: PRESENT: clear to auscultation yoana, symmetrical, unlabored. ABSENT: accessory muscle use, chest wall tenderness, crackles, prolonged expiratory phas, rhonchi, tachypnea, wheezes Cardiovascular exam: PRESENT: tachycardia Pulses: PRESENT: normal carotid pulses Vascular exam: PRESENT: normal capillary refill GI/Abdominal exam: PRESENT: soft, tenderness - Appropriate, other - He has some sanguinous drainage in his STEPHEN drain. ABSENT: distended, guarding, rebound Extremities exam: ABSENT: clubbing, pedal edema Musculoskeletal exam: PRESENT: normal inspection. ABSENT: deformity Neurological exam: PRESENT: alert, awake, oriented to person, oriented to place, oriented to situation Psychiatric exam: PRESENT: appropriate affect, normal mood Skin exam: PRESENT: dry, warm Results Laboratory Results: 01/14/19 04:50 01/14/19 04:50 01/11/19 01/13/19 01/14/19 11:05 08:10 04:50 WBC RBC Hgb Hct MCV MCH MCHC RDW Plt Count Seg Neutrophils % Lymphocytes % Monocytes % Eosinophils % Basophils % Absolute Neutrophils Absolute Lymphocytes Absolute Monocytes Absolute Eosinophils Absolute Basophils Sodium 139.5 Potassium 3.5 L Chloride 118 H Carbon Dioxide 16 L Anion Gap 6 BUN 23 H Creatinine 1.85 H Est GFR ( Amer) 44 L Est GFR (Non-Af Amer) 36 L Glucose 150 H Calcium 7.8 L Magnesium 1.7 Fluid Amylase 67142 1136 01/14/19 04:50 WBC 19.0 H RBC 3.56 L Hgb 9.5 L Hct 29.3 L MCV 82 MCH 26.7 L MCHC 32.5 RDW 17.7 H Plt Count 550 H Seg Neutrophils % Not Reportable Lymphocytes % Not Reportable Monocytes % Not Reportable Eosinophils % Not Reportable Basophils % Not Reportable Absolute Neutrophils Not Reportable Absolute Lymphocytes Not Reportable Absolute Monocytes Not Reportable Absolute Eosinophils Not Reportable Absolute Basophils Not Reportable Sodium Potassium Chloride Carbon Dioxide Anion Gap BUN Creatinine Est GFR ( Amer) Est GFR (Non-Af Amer) Glucose Calcium Magnesium Fluid Amylase 01/09/19 20:35 Stephen Drainage (Robbin Abdul) Gram Stain - Final 01/09/19 20:35 Stephen Drainage (Robbin Abdul) Wound Culture - Final Enterobacter Cloacae Viridans Streptococcus Staphylococcus Epidermidis Yeast, Not Niya Albicans Prevotella Species 01/12/19 13:20 Abdomen - Not Specified Gram Stain - Final Impressions: Abdomen/Pelvis CT 01/11/19 15:30 IMPRESSION: 1. Extensive retroperitoneal collection with drain in place remains, unchanged. 2. Now, however, there is also pneumoperitoneum. Unclear if there is a new area of viscus perforation or if the retroperitoneal collection somehow now communicates with the peritoneum. Call report tasked to the [facility] team. Chest X-Ray 01/14/19 08:38 IMPRESSION: Stable AP portable examination with cardiomegaly status post median sternotomy, esophagogastric tube, and right neck vascular catheter. No focal airspace opacity. Assessment and Plan - Diagnosis (1) Peritonitis Is this a current diagnosis for this admission?: Yes Plan: Status post exploratory laparotomy. Currently on vancomycin, Diflucan, and Zosyn. Abscess cultures are noted. Were backing off on his fluids a little bit now. (2) Retroperitoneal abscess Is this a current diagnosis for this admission?: Yes Plan: Status post debridement and abdominal washout with drain placement. Antibiotics are as noted above, continuing to follow cultures. (3) Acute blood loss anemia Is this a current diagnosis for this admission?: Yes Plan: Resolved after packed red cell administration. Will monitor trend his hemoglobin to make sure he does not have any further substantial bleeding. (4) Acute kidney injury Is this a current diagnosis for this admission?: Yes Plan: Creatinine is improving and urine output is improving. Continue IV fluids. Monitoring electrolytes. - Time Time Spent with patient: 25-34 minutes
[2019-01-14] MEDS: FLUCONAZOLE 200 MG/NS RTU 200 MG/100 ML RTUPB IV SCH (16:48)
[2019-01-14 17:25] LABS: ANION GAP 8 (5-19); BLOOD UREA NITROGEN 25 mg/dL (7-20); CALCIUM 8.5 mg/dL (8.4-10.2); CARBON DIOXIDE 17 mmol/L (22-30); CHLORIDE 115 mmol/L (98-107); GLUCOSE 106 mg/dL (75-110); POTASSIUM 3.4 mmol/L (3.6-5.0)
[2019-01-14] MEDS ORDERED: POTASSI CL 20 MEQ/50 ML RIDER 20 MEQ/50 ML RTUPB IV ONE (17:51)
[2019-01-14] MEDS ORDERED: POTASSI CL 20 MEQ/1/2NS 1L 20 MEQ/1,000 ML RTUINJ IV ONE (17:51)
[2019-01-14] MEDS ORDERED: POTASSI CL 20 MEQ/1/2NS 1L 1000 ML IV PRN (17:58)
[2019-01-14] MEDS: POTASSIUM CHLORIDE 20 MEQ/50 ML RTU IV SCH ×2 (18:03→20:19)
[2019-01-14] MEDS: FUROSEMIDE INJ/PF 40 MG/4 ML SDV IV SCH (20:19)
[2019-01-14] MEDS ORDERED: LEVALBUTEROL HCL NEB 1.25 MG/3 ML AMPUL NEB SCH (21:00)
[2019-01-14] MEDS: VANCOMYCIN HCL 1,000 MG in DEXTROSE 5%-WATER 250 ML IV SCH (21:14)
[2019-01-15] MEDS: INSULIN LISPRO 100 UNIT/ML 3 ML VIAL SUBCUT SCH ×2 (00:32→05:28)
[2019-01-15] MEDS: PIPERACILLIN SODIUM/TAZOBACTAM 2.25 GM in NORMAL SALINE 50 ML IV SCH ×5 (00:36→23:33)
[2019-01-15] MEDS: METOPROLOL TARTRATE PF/INJ 5 MG/5 ML SDV IV SCH ×5 (00:36→23:33)
[2019-01-15] MEDS: HYDROMORPHONE HCL INJ/PF 2 MG/ML AMPULE IV PRN ×3 (00:37→20:03)
[2019-01-15 01:18] LABS: ANION GAP 7 (5-19); BLOOD UREA NITROGEN 26 mg/dL (7-20); CALCIUM 8.6 mg/dL (8.4-10.2); CARBON DIOXIDE 19 mmol/L (22-30); CHLORIDE 115 mmol/L (98-107); GLUCOSE 107 mg/dL (75-110); POTASSIUM 3.9 mmol/L (3.6-5.0)
[2019-01-15] MEDS: FUROSEMIDE INJ/PF 40 MG/4 ML SDV IV SCH ×4 (02:36→21:13)
[2019-01-15 04:18] LABS: HEMATOCRIT 27.4 % (37.9-51.0); HEMOGLOBIN 9.1 g/dL (13.5-17.0); MEAN CORPUSCULAR HEMOGLOBIN 26.9 pg (27.0-33.4); MEAN CORPUSCULAR HGB CONC 33.2 g/dL (32.0-36.0); MEAN CORPUSCULAR VOLUME 81 fl (80-97); PLATELET COUNT 537 10^3/uL (150-450); RED BLOOD COUNT 3.38 10^6/uL (4.35-5.55); WHITE BLOOD COUNT 14.2 10^3/uL (4.0-10.5)
[2019-01-15 04:32] LABS: ANION GAP 8 (5-19); BLOOD UREA NITROGEN 26 mg/dL (7-20); CALCIUM 8.7 mg/dL (8.4-10.2); CARBON DIOXIDE 18 mmol/L (22-30); CHLORIDE 115 mmol/L (98-107); GLUCOSE 99 mg/dL (75-110); POTASSIUM 3.9 mmol/L (3.6-5.0)
[2019-01-15 04:37] LABS: ABSOLUTE LYMPHOCYTES# (MANUAL) 0.3 10^3/uL (0.5-4.7); ABSOLUTE MONOCYTES # (MANUAL) 0.6 10^3/uL (0.1-1.4); ANISOCYTOSIS 1+; BASOPHILS % (MANUAL) 0 % (0-2); EOSINOPHILS % (MANUAL) 2 % (0-6); HYPOCHROMASIA 1+; LYMPHOCYTES % (MANUAL) 2 % (13-45); MONOCYTES % (MANUAL) 4 % (3-13); PLATELET COMMENT INCREASED; SEGMENTED NEUTROPHILS % (MAN) 92 % (42-78); TOTAL CELLS COUNTED 100
[2019-01-15] MEDS: LEVALBUTEROL HCL NEB 1.25 MG/3 ML AMPUL NEB SCH ×4 (08:22→20:46)
--- NOTE | 2019-01-15 08:51 | PDOC PROGRESS REPORT ---
Subjective Progress Note for:: 01/15/19 Subjective:: feels ok slept some Reason For Visit: RETROPERITONEAL ABSCESS Physical Exam Vital Signs: Temp Pulse Resp BP Pulse Ox 98.1 F 104 H 18 151/71 H 100 01/15/19 08:00 01/15/19 08:22 01/15/19 08:22 01/15/19 08:00 01/15/19 08:22 Intake & Output 01/14/19 01/15/19 01/16/19 06:59 06:59 06:59 Intake Total 7022 1017 Output Total 2515 4110 250 Balance 5847 -3093 -250 Weight 84.7 kg 84.7 kg General appearance: PRESENT: mild distress Head exam: PRESENT: normocephalic Eye exam: PRESENT: EOMI Ear exam: PRESENT: normal external ear exam Mouth exam: PRESENT: moist Neck exam: PRESENT: full ROM Respiratory exam: PRESENT: crackles Cardiovascular exam: PRESENT: RRR Pulses: PRESENT: normal radial pulses, normal femoral pulses Vascular exam: PRESENT: normal capillary refill GI/Abdominal exam: PRESENT: other - soft, min tenderness wound clean dry isabella right bilioius, approx 40cc over night ng bilious Rectal exam: PRESENT: deferred Extremities exam: PRESENT: full ROM Musculoskeletal exam: PRESENT: full ROM Neurological exam: PRESENT: alert, awake, oriented to person Psychiatric exam: PRESENT: depressed Skin exam: PRESENT: dry Results Laboratory Results: 01/15/19 04:03 01/15/19 04:03 01/13/19 01/14/19 01/15/19 08:10 17:00 00:56 WBC RBC Hgb Hct MCV MCH MCHC RDW Plt Count Seg Neutrophils % Lymphocytes % Monocytes % Eosinophils % Basophils % Absolute Neutrophils Absolute Lymphocytes Absolute Monocytes Absolute Eosinophils Absolute Basophils Sodium 140.0 141.3 Potassium 3.4 L 3.9 Chloride 115 H 115 H Carbon Dioxide 17 L 19 L Anion Gap 8 7 BUN 25 H 26 H Creatinine 2.03 H 2.11 H Est GFR ( Amer) 39 L 38 L Est GFR (Non-Af Amer) 33 L 31 L Glucose 106 107 Calcium 8.5 8.6 Magnesium 1.7 Fluid Amylase 1136 01/15/19 01/15/19 04:03 04:03 WBC 14.2 H RBC 3.38 L Hgb 9.1 L Hct 27.4 L MCV 81 MCH 26.9 L MCHC 33.2 RDW 18.0 H Plt Count 537 H Seg Neutrophils % Not Reportable Lymphocytes % Not Reportable Monocytes % Not Reportable Eosinophils % Not Reportable Basophils % Not Reportable Absolute Neutrophils Not Reportable Absolute Lymphocytes Not Reportable Absolute Monocytes Not Reportable Absolute Eosinophils Not Reportable Absolute Basophils Not Reportable Sodium 141.1 Potassium 3.9 Chloride 115 H Carbon Dioxide 18 L Anion Gap 8 BUN 26 H Creatinine 2.16 H Est GFR ( Amer) 37 L Est GFR (Non-Af Amer) 30 L Glucose 99 Calcium 8.7 Magnesium 1.7 Fluid Amylase 01/12/19 13:20 Abdomen - Not Specified Gram Stain - Final 01/09/19 19:30 Blood Blood Culture - Final NO GROWTH IN 5 DAYS 01/09/19 17:59 Blood Blood Culture - Final NO GROWTH IN 5 DAYS 01/09/19 20:35 Isabella Drainage (Robbin Abdul) Gram Stain - Final 01/09/19 20:35 Isabella Drainage (Robbin Abdul) Wound Culture - Final Enterobacter Cloacae Viridans Streptococcus Staphylococcus Epidermidis Yeast, Not Niya Albicans Prevotella Species Impressions: Abdomen/Pelvis CT 01/11/19 15:30 IMPRESSION: 1. Extensive retroperitoneal collection with drain in place remains, unchanged. 2. Now, however, there is also pneumoperitoneum. Unclear if there is a new area of viscus perforation or if the retroperitoneal collection somehow now communicates with the peritoneum. Call report tasked to the [facility] team. Assessment & Plan - Diagnosis (1) Retroperitoneal abscess Is this a current diagnosis for this admission?: Yes - Plan Summary Plan Summary: sandostatin out of bed physical rx start tpn awaiting return of bowel function
[2019-01-15] MEDS ORDERED: DEXTROSE 10%-WATER 1,000 ML IV PRN (09:00)
[2019-01-15] MEDS ORDERED: DEXTROSE 50%-WATER SYRINGE 12.5 GM/25 ML DOSE IV PRN (09:00)
[2019-01-15] MEDS ORDERED: DEXTROSE 40% GEL 15 GM TUBE NG PRN (09:00)
[2019-01-15] MEDS ORDERED: GLUCAGON,HUMAN RECOMB 1 MG INJ IM PRN (09:00)
[2019-01-15] MEDS ORDERED: DEXTROSE 50%-WATER SYRINGE 25 GM/50 ML DOSE IV PRN (09:00)
[2019-01-15] MEDS ORDERED: DEXTROSE 40% GEL 15 GM TUBE X 2 NG PRN (09:00)
--- NOTE | 2019-01-15 09:25 | RADIOLOGY REPORT (SQ) ---
EXAM DESCRIPTION: CHEST SINGLE VIEW COMPLETED DATE/TIME: 01/15/2019 7:40 am REASON FOR STUDY: SURGICAL COMPARISON: Chest films 01/14/2019, 01/13/2019, 01/07/2019 EXAM PARAMETERS: NUMBER OF VIEWS: One view. TECHNIQUE: Single frontal radiographic view of the chest acquired. RADIATION DOSE: NA LIMITATIONS: None. FINDINGS: LUNGS AND PLEURA: Minimal left basilar airspace disease in the lateral costophrenic sulcus atelectasis versus trace pleural fluid. Lungs are otherwise well inflated and grossly clear. No right pleural effusion. No right or left pn eumothorax. MEDIASTINUM AND HILAR STRUCTURES: No masses. Contour normal. HEART AND VASCULAR STRUCTURES: New no cardiomegaly. Old sternotomy for CABG. BONES: No acute findings. HARDWARE: : Nasogastric tube tip and side port in the stomach. Right jugular central line tip super ior vena cava. OTHER: No other significant finding. IMPRESSION: Minimal left basilar atelectasis. TECHNICAL DOCUMENTATION: JOB ID: [id number] [employer]- All Rights Reserved Reading location - IP/workstation name: [email or web address]
--- NOTE | 2019-01-15 09:45 | RADIOLOGY REPORT (SQ) ---
EXAM DESCRIPTION: KUB/ABDOMEN (SINGLE VIEW) COMPLETED DATE/TIME: 01/15/2019 7:40 am REASON FOR STUDY: SURGICAL K63.1 PERFORATION OF INTESTINE (NONTRAUMATIC) COMPARISON: KUB 01/11/2019, 01/10/2019 CT abdomen pelvis 01/11/2019, 12/30/2018, 12/14/2018 NUMBER OF VIEWS: One view. TECHNIQUE: Supine radiographic image of the abdomen acquired. LIMITATIONS: None. FINDINGS: BOWEL GAS PATTERN: Normal bowel gas pattern. No dilated loops. CALCIFICATIONS: No suspicious calcifications. SOFT TISSUES: No gross mass or suggestion of organomegaly. HARDWARE: No nasogastric tube tip and side port in the stomach. Clips right upper quadrant post chol ecystectomy. Old clips in the pelvis post prostatectomy. Patient is post midline incision and placement of a right retroperitoneal Robbin-Abdul drain from th e lower pole right kidney down into the pelvis. BONES: No acute fracture. No worrisome bone lesions. OTHER: No other significant finding. IMPRESSION: Nonobstructive bowel gas pattern. TECHNICAL DOCUMENTATION: JOB ID: [id number] [employer]- All Rights Reserved Reading location - IP/workstation name: [email or web address]
[2019-01-15] MEDS ORDERED: FAT EMULSIONS 250 ML IV SCH ×2 (10:00→15:00)
[2019-01-15] MEDS: OCTREOTIDE ACETATE INJ/PF 100 MCG/1 ML SDV SUBCUT SCH ×3 (11:06→17:20)
[2019-01-15] MEDS: INSULIN REG, HUMAN 100 UNIT/ML 3 ML VIAL (PYX) SUBCUT SCH ×3 (12:25→23:40)
[2019-01-15] MEDS ORDERED: NORMAL SALINE 1000 ML 1,000 ML IV PRN (15:54)
--- NOTE | 2019-01-15 16:04 | PDOC PROGRESS REPORT ---
Subjective Progress Note for:: 01/15/19 Subjective:: This is 73 years old male patient with extensive retroperitoneal abscess is status post incision drainage and total debridement. His pus culture grew garden-variety organisms including Enterobacter, enterococcus, Prevotella and Niya species. Patient has been on Diflucan, Zosyn and vancomycin. Reason For Visit: RETROPERITONEAL ABSCESS Physical Exam Vital Signs: Temp Pulse Resp BP Pulse Ox 97.6 F 106 H 15 117/54 L 93 01/15/19 12:00 01/15/19 12:33 01/15/19 14:10 01/15/19 14:10 01/15/19 14:10 Intake & Output 01/14/19 01/15/19 01/16/19 06:59 06:59 06:59 Intake Total 7022 1067 Output Total 2516 3370 775 Balance 4507 -3043 -775 Weight 84.7 kg 84.7 kg General appearance: PRESENT: no acute distress Head exam: PRESENT: atraumatic Neck exam: ABSENT: carotid bruit, JVD, lymphadenopathy, thyromegaly Respiratory exam: PRESENT: decreased breath sounds Cardiovascular exam: PRESENT: RRR. ABSENT: diastolic murmur, rubs, systolic murmur GI/Abdominal exam: PRESENT: diminished bowel sounds Results Laboratory Results: 01/15/19 04:03 01/15/19 04:03 01/14/19 01/15/19 01/15/19 17:00 00:56 04:03 WBC RBC Hgb Hct MCV MCH MCHC RDW Plt Count Seg Neutrophils % Lymphocytes % Monocytes % Eosinophils % Basophils % Absolute Neutrophils Absolute Lymphocytes Absolute Monocytes Absolute Eosinophils Absolute Basophils Sodium 140.0 141.3 141.1 Potassium 3.4 L 3.9 3.9 Chloride 115 H 115 H 115 H Carbon Dioxide 17 L 19 L 18 L Anion Gap 8 7 8 BUN 25 H 26 H 26 H Creatinine 2.03 H 2.11 H 2.16 H Est GFR ( Amer) 39 L 38 L 37 L Est GFR (Non-Af Amer) 33 L 31 L 30 L Glucose 106 107 99 Calcium 8.5 8.6 8.7 Magnesium 1.7 1.7 01/15/19 04:03 WBC 14.2 H RBC 3.38 L Hgb 9.1 L Hct 27.4 L MCV 81 MCH 26.9 L MCHC 33.2 RDW 18.0 H Plt Count 537 H Seg Neutrophils % Not Reportable Lymphocytes % Not Reportable Monocytes % Not Reportable Eosinophils % Not Reportable Basophils % Not Reportable Absolute Neutrophils Not Reportable Absolute Lymphocytes Not Reportable Absolute Monocytes Not Reportable Absolute Eosinophils Not Reportable Absolute Basophils Not Reportable Sodium Potassium Chloride Carbon Dioxide Anion Gap BUN Creatinine Est GFR ( Amer) Est GFR (Non-Af Amer) Glucose Calcium Magnesium 01/12/19 13:20 Abdomen - Not Specified Gram Stain - Final 01/12/19 13:20 Abdomen - Not Specified Wound Culture - Final Enterobacter Cloacae Enterococcus Faecalis(Group D) Staphylococcus Epidermidis Yeast, Not Niya Albicans 01/09/19 19:30 Blood Blood Culture - Final NO GROWTH IN 5 DAYS 01/09/19 17:59 Blood Blood Culture - Final NO GROWTH IN 5 DAYS 01/09/19 20:35 Stephen Drainage (Robbin Abdul) Gram Stain - Final 01/09/19 20:35 Stephen Drainage (Robbin Abdul) Wound Culture - Final Enterobacter Cloacae Viridans Streptococcus Staphylococcus Epidermidis Yeast, Not Niya Albicans Prevotella Species Impressions: Abdomen/Pelvis CT 01/11/19 15:30 IMPRESSION: 1. Extensive retroperitoneal collection with drain in place remains, unchanged. 2. Now, however, there is also pneumoperitoneum. Unclear if there is a new area of viscus perforation or if the retroperitoneal collection somehow now communic ates with the peritoneum. Call report tasked to the [facility] team. Chest X-Ray 01/15/19 06:00 IMPRESSION: Minimal left basilar atelectasis. KUB X-Ray 01/15/19 06:00 IMPRESSION: Nonobstructive bowel gas pattern. Assessment and Plan - Diagnosis (1) Extensive retroperitoneal abscess Is this a current diagnosis for this admission?: Yes Plan: Status post drainage, debridement and abdominal washout. (2) Peritonitis Is this a current diagnosis for this admission?: Yes Plan: Past cultures positive for Enterobacter, enterococcus, Prevotella, staph epidermidis, and Niya species. Continue with Diflucan, Zosyn and vancomycin. (3) Acute blood loss anemia Is this a current diagnosis for this admission?: Yes Plan: His hemoglobin is maintained at 9. (4) Acute kidney injury Is this a current diagnosis for this admission?: Yes Plan: Slightly worsening. Patient has been started on normal saline at rate of 100 mm/h. (5) Leukocytosis Is this a current diagnosis for this admission?: Yes Plan: Improving (6) Coronary artery disease Is this a current diagnosis for this admission?: Yes Plan: No anginal symptoms
[2019-01-15] MEDS: FLUCONAZOLE 200 MG/NS RTU 200 MG/100 ML RTUPB IV SCH (17:14)
[2019-01-15] MEDS: AMINO ACIDS 5 %/DEXTROSE 20 % 1,000 ML IV PRN (19:51)
[2019-01-15] MEDS: VANCOMYCIN HCL 1,000 MG in DEXTROSE 5%-WATER 250 ML IV SCH (21:13)
[2019-01-16] MEDS: FUROSEMIDE INJ/PF 40 MG/4 ML SDV IV SCH ×2 (01:59→09:08)
[2019-01-16] MEDS: METOPROLOL TARTRATE PF/INJ 5 MG/5 ML SDV IV SCH ×3 (05:42→17:44)
[2019-01-16] MEDS: PIPERACILLIN SODIUM/TAZOBACTAM 2.25 GM in NORMAL SALINE 50 ML IV SCH ×3 (05:42→17:44)
[2019-01-16 05:57] LABS: HEMATOCRIT 26.2 % (37.9-51.0); HEMOGLOBIN 8.7 g/dL (13.5-17.0); MEAN CORPUSCULAR HEMOGLOBIN 27.1 pg (27.0-33.4); MEAN CORPUSCULAR HGB CONC 33.1 g/dL (32.0-36.0); MEAN CORPUSCULAR VOLUME 82 fl (80-97); PLATELET COUNT 540 10^3/uL (150-450); RED CELL DISTRIBUTION WIDTH 18.5 % (11.5-14.0); WHITE BLOOD COUNT 9.6 10^3/uL (4.0-10.5)
[2019-01-16] MEDS: INSULIN REG, HUMAN 100 UNIT/ML 3 ML VIAL (PYX) SUBCUT SCH ×3 (05:57→17:52)
[2019-01-16 06:08] LABS: ANION GAP 9 (5-19); BLOOD UREA NITROGEN 31 mg/dL (7-20); CALCIUM 8.8 mg/dL (8.4-10.2); CARBON DIOXIDE 22 mmol/L (22-30); CHLORIDE 111 mmol/L (98-107); GLUCOSE 159 mg/dL (75-110); POTASSIUM 3.6 mmol/L (3.6-5.0)
[2019-01-16 06:28] LABS: ALANINE AMINOTRANSFERASE 19 U/L (21-72); ALKALINE PHOSPHATASE 54 U/L (38-126); ANION GAP 9 (5-19); ASPARTATE AMINO TRANSFERASE 19 U/L (17-59); BILIRUBIN,TOTAL 1.2 mg/dL (0.2-1.3); BLOOD UREA NITROGEN 31 mg/dL (7-20); CALCIUM 8.8 mg/dL (8.4-10.2); CARBON DIOXIDE 22 mmol/L (22-30); CHLORIDE 111 mmol/L (98-107); GLUCOSE 159 mg/dL (75-110); PHOSPHORUS 4.9 mg/dL (2.5-4.5); POTASSIUM 3.6 mmol/L (3.6-5.0); TOTAL PROTEIN 4.8 g/dL (6.3-8.2)
[2019-01-16 06:32] LABS: ABSOLUTE LYMPHOCYTES# (MANUAL) 0.3 10^3/uL (0.5-4.7); ABSOLUTE MONOCYTES # (MANUAL) 0.6 10^3/uL (0.1-1.4); BASOPHILS % (MANUAL) 1 % (0-2); EOSINOPHILS % (MANUAL) 1 % (0-6); LYMPHOCYTES % (MANUAL) 3 % (13-45); MONOCYTES % (MANUAL) 6 % (3-13); SEGMENTED NEUTROPHILS % (MAN) 89 % (42-78); TOTAL CELLS COUNTED 100
[2019-01-16 06:34] LABS: ANISOCYTOSIS 1+; HYPOCHROMASIA 1+; PLATELET COMMENT INCREASED; POIKILOCYTOSIS SLIGHT; TARGET CELLS SLIGHT
[2019-01-16 06:35] LABS: PREALBUMIN 3.8 mg/dL (17.6-36.0)
--- NOTE | 2019-01-16 07:57 | PDOC PROGRESS REPORT ---
Subjective Progress Note for:: 01/16/19 Reason For Visit: RETROPERITONEAL ABSCESS Physical Exam Vital Signs: Temp Pulse Resp BP Pulse Ox 98.8 F 111 H 18 137/61 H 96 01/15/19 23:47 01/15/19 20:46 01/16/19 06:11 01/16/19 06:11 01/16/19 06:11 Intake & Output 01/15/19 01/16/19 01/17/19 06:59 06:59 06:59 Intake Total 1067 2100 Output Total 4113 6745 Balance -9827 -6483 Weight 84.7 kg 84.7 kg General appearance: PRESENT: mild distress Head exam: PRESENT: normocephalic Eye exam: PRESENT: EOMI Ear exam: PRESENT: normal external ear exam Mouth exam: PRESENT: moist Neck exam: PRESENT: full ROM Respiratory exam: PRESENT: clear to auscultation yoana Cardiovascular exam: PRESENT: RRR Pulses: PRESENT: +1 pedal pulses bilateral, +2 pedal pulses bilateral GI/Abdominal exam: PRESENT: soft Rectal exam: PRESENT: deferred Extremities exam: PRESENT: full ROM Musculoskeletal exam: PRESENT: full ROM Neurological exam: PRESENT: alert, awake, oriented to person, oriented to place Psychiatric exam: PRESENT: appropriate affect Skin exam: PRESENT: dry Results Laboratory Results: 01/16/19 05:28 01/16/19 05:28 01/16/19 01/16/19 01/16/19 05:28 05:28 05:28 WBC 9.6 RBC 3.20 L Hgb 8.7 L Hct 26.2 L MCV 82 MCH 27.1 MCHC 33.1 RDW 18.5 H Plt Count 540 H Seg Neutrophils % Not Reportable Lymphocytes % Not Reportable Monocytes % Not Reportable Eosinophils % Not Reportable Basophils % Not Reportable Absolute Neutrophils Not Reportable Absolute Lymphocytes Not Reportable Absolute Monocytes Not Reportable Absolute Eosinophils Not Reportable Absolute Basophils Not Reportable Sodium 142.2 142.2 Potassium 3.6 3.6 Chloride 111 H 111 H Carbon Dioxide 22 22 Anion Gap 9 9 BUN 31 H 31 H Creatinine 2.23 H 2.25 H Est GFR ( Amer) 35 L 35 L Est GFR (Non-Af Amer) 29 L 29 L Glucose 159 H 159 H Calcium 8.8 8.8 Phosphorus 4.9 H Magnesium 1.7 Total Bilirubin 1.2 AST 19 ALT 19 L Alkaline Phosphatase 54 Total Protein 4.8 L Albumin 2.0 L Prealbumin 3.8 L 01/12/19 13:20 Abdomen - Not Specified Gram Stain - Final 01/12/19 13:20 Abdomen - Not Specified Wound Culture - Final Enterobacter Cloacae Enterococcus Faecalis(Group D) Staphylococcus Epidermidis Yeast, Not Niya Albicans Impressions: Abdomen/Pelvis CT 01/11/19 15:30 IMPRESSION: 1. Extensive retroperitoneal collection with drain in place remains, unchanged. 2. Now, however, there is also pneumoperitoneum. Unclear if there is a new area of viscus perforation or if the retroperitoneal collection somehow now communicates with the peritoneum. Call report tasked to the [facility] team. Chest X-Ray 01/15/19 06:00 IMPRESSION: Minimal left basilar atelectasis. KUB X-Ray 01/15/19 06:00 IMPRESSION: Nonobstructive bowel gas pattern. Assessment & Plan - Diagnosis (1) Retroperitoneal abscess Is this a current diagnosis for this admission?: Yes - Plan Summary Plan Summary: doing better slept some no flatus or stool as yet urine op adeq creat stable 2.2 wbc wnl plan cont increase activity ct scan today for f/u out of bed dulcolax awaiting return of bowel function.
[2019-01-16] MEDS: LEVALBUTEROL HCL NEB 1.25 MG/3 ML AMPUL NEB SCH ×4 (08:14→20:38)
[2019-01-16] MEDS ORDERED: BISACODYL 10 MG SUPP.RECT PR ONE ×2 (08:30→12:00)
[2019-01-16] MEDS: OCTREOTIDE ACETATE INJ/PF 100 MCG/1 ML SDV SUBCUT SCH ×3 (09:08→17:44)
[2019-01-16] MEDS: HYDROMORPHONE HCL INJ/PF 2 MG/ML AMPULE IV PRN ×3 (09:58→21:14)
--- NOTE | 2019-01-16 10:51 | RADIOLOGY REPORT (SQ) ---
EXAM DESCRIPTION: CT ABD/PELVIS NO ORAL OR IV COMPLETED DATE/TIME: 01/16/2019 10:16 am REASON FOR STUDY: s/p ex lap for retroperitoneal abscess K63.1 PERFORATION OF INTESTINE (NONTRAUMAT IC) COMPARISON: 01/11/2019 TECHNIQUE: CT scan of the abdomen and pelvis performed without intravenous or oral contrast. Images reviewed with lung, soft tissue, and bone windows. Reconstructed coronal and sagittal MPR images revi ewed. All images stored on PACS. All CT scanners at this facility use dose modulation, iterative reconstruction, and/or weight based d osing when appropriate to reduce radiation dose to as low as reasonably achievable (ALARA). [facility]: Dose Right [facility]: CareDose [facility]: Dose Right [facility]: Teradose 4D [facility]: Smart Declara RADIATION DOSE: CT Rad equipment meets quality standard of care and radiation dose reduction techniq ues were employed. CTDIvol: 15.8 mGy. DLP: 914 mGy-cm.mGy. LIMITATIONS: None. FINDINGS: LOWER CHEST: Small, right greater than left bilateral pleural effusions. NON-CONTRASTED LIVER, SPLEEN, ADRENALS: Evaluation limited by lack of IV contrast. No identified sign ificant masses. PANCREAS: No masses. No peripancreatic inflammatory changes. GALLBLADDER: No identified stones by CT criteria. No inflammatory changes to suggest cholecystitis. RIGHT KIDNEY AND URETER: No suspicious masses. Assessment limited by lack of IV contrast. No signif icant calcifications. No hydronephrosis or hydroureter. LEFT KIDNEY AND URETER: No suspicious masses. Assessment limited by lack of IV contrast. No signifi cant calcifications. No hydronephrosis or hydroureter. AORTA AND RETROPERITONEUM: A previously demonstrated large right-sided retroperitoneal abscess extend ing from the duodenum to the presacral space is status post surgical washout, with the majority of th e collection resolved and surgical drains present in the retroperitoneum. There is a large component remaining in the presacral space measuring at least 4.2 x 3.6 x 8.3 cm (series 2, image 78, series 6 02, image 45). No aneurysm. No retroperitoneal masses or adenopathy. BOWEL AND PERITONEAL CAVITY: No obvious masses or inflammatory changes. Diverticulosis. Small volum e four-quadrant ascites. Minimal air loculations within the abdominal cavity and abdominal wall stat us post median laparotomy. APPENDIX: Not clearly visualized. PELVIS, BLADDER, AND ABDOMINAL WALL:No abnormal masses. No free fluid. Bladder normal. Anasarca. BONES: No significant findings. OTHER: No other significant finding. IMPRESSION: 1. A previously demonstrated large right-sided retroperitoneal abscess extending from th e duodenum to the presacral space is status post surgical washout, with the majority of the collectio n resolved and surgical drains present in the retroperitoneum. There is a large component remaining in the presacral space measuring at least 4.2 x 3.6 x 8.3 cm (series 2, image 78, series 602, image 4 5). 2. Small volume ascites and minimal pneumoperitoneum status post median laparotomy. 3. Small pleural effusions and anasarca. COMMENT: Quality ID # [id number]: Final reports with documentation of one or more dose reduction techniques (e.g., Automated exposure control, adjustment of the mA and/or kV according to patient size, use of iterative reconstruction technique) TECHNICAL DOCUMENTATION: JOB ID: [id number] [employer]- All Rights Reserved Reading location - IP/workstation name: [email or web address]
[2019-01-16] MEDS: NORMAL SALINE 1000 ML 1,000 ML IV PRN ×2 (10:56→21:15)
--- NOTE | 2019-01-16 12:57 | PDOC PROGRESS REPORT ---
Subjective Progress Note for:: 01/16/19 Subjective:: This is 73 years old male patient with extensive retroperitoneal abscess is status post incision drainage and total debridement. His pus culture grew garden-variety organisms including Enterobacter, enterococcus, Prevotella and Niya species. Patient has been on Diflucan, Zosyn and vancomycin. 01/16/2019: Patient seen while sleeping quietly. No new complaint. His repeat CT scan of the abdomen reported as that the previously demonstrated large right- sided retroperitoneal abscess has decreased. There is a large component remaining in the presacral space. His kidney function has not improved and his creatinine is relatively worsening. I increase the rate of his normal saline to 125 mm/h and check his renal function test in the morning. Reason For Visit: RETROPERITONEAL ABSCESS Physical Exam Vital Signs: Temp Pulse Resp BP Pulse Ox 98.3 F 87 18 122/63 99 01/16/19 12:00 01/16/19 12:00 01/16/19 12:00 01/16/19 12:00 01/16/19 12:00 Intake & Output 01/15/19 01/16/19 01/17/19 06:59 06:59 06:59 Intake Total 1067 2100 Output Total 4110 6175 920 Balance -3043 -4075 -920 Weight 84.7 kg 84.7 kg General appearance: PRESENT: mild distress Neck exam: ABSENT: carotid bruit, JVD, lymphadenopathy, thyromegaly Respiratory exam: PRESENT: clear to auscultation yoana. ABSENT: rales, rhonchi, wheezes GI/Abdominal exam: PRESENT: diminished bowel sounds Results Laboratory Results: 01/16/19 05:28 01/16/19 05:28 01/16/19 01/16/19 01/16/19 05:28 05:28 05:28 WBC 9.6 RBC 3.20 L Hgb 8.7 L Hct 26.2 L MCV 82 MCH 27.1 MCHC 33.1 RDW 18.5 H Plt Count 540 H Seg Neutrophils % Not Reportable Lymphocytes % Not Reportable Monocytes % Not Reportable Eosinophils % Not Reportable Basophils % Not Reportable Absolute Neutrophils Not Reportable Absolute Lymphocytes Not Reportable Absolute Monocytes Not Reportable Absolute Eosinophils Not Reportable Absolute Basophils Not Reportable Sodium 142.2 142.2 Potassium 3.6 3.6 Chloride 111 H 111 H Carbon Dioxide 22 22 Anion Gap 9 9 BUN 31 H 31 H Creatinine 2.23 H 2.25 H Est GFR ( Amer) 35 L 35 L Est GFR (Non-Af Amer) 29 L 29 L Glucose 159 H 159 H Calcium 8.8 8.8 Phosphorus 4.9 H Magnesium 1.7 Total Bilirubin 1.2 AST 19 ALT 19 L Alkaline Phosphatase 54 Total Protein 4.8 L Albumin 2.0 L Prealbumin 3.8 L 01/12/19 13:20 Abdomen - Not Specified Gram Stain - Final 01/12/19 13:20 Abdomen - Not Specified Wound Culture - Final Enterobacter Cloacae Enterococcus Faecalis(Group D) Staphylococcus Epidermidis Yeast, Not Niya Albicans Impressions: Chest X-Ray 01/15/19 06:00 IMPRESSION: Minimal left basilar atelectasis. KUB X-Ray 01/15/19 06:00 IMPRESSION: Nonobstructive bowel gas pattern. Abdomen/Pelvis CT 01/16/19 00:00 IMPRESSION: 1. A previously demonstrated large right-sided retroperitoneal abscess extending from the duodenum to the presacral space is status post surgical washout, with the majority of the collection resolved and surgical drains present in the retroperitoneum. There is a large component remaining in the presacral space measuring at least 4.2 x 3.6 x 8.3 cm (series 2, image 78, series 602, image 45). 2. Small volume ascites and minimal pneumoperitoneum status post median laparotomy. 3. Small pleural effusions and anasarca. Assessment and Plan - Diagnosis (1) Extensive retroperitoneal abscess Is this a current diagnosis for this admission?: Yes Plan: Status post laparotomy, drainage and debridement and peritoneal washout. Repeat CT shows large component of abscess remaining in the presacral space. (2) Peritonitis Is this a current diagnosis for this admission?: Yes Plan: Continue current antibiotics. (3) Acute blood loss anemia Is this a current diagnosis for this admission?: Yes Plan: His hemoglobin is maintained at 9. (4) Acute kidney injury Is this a current diagnosis for this admission?: Yes Plan: Slightly worsening. Patient has been started on normal saline at rate of 100 mm/h. (5) Leukocytosis Is this a current diagnosis for this admission?: Yes Plan: Improving (6) Coronary artery disease Is this a current diagnosis for this admission?: Yes Plan: No anginal symptoms
[2019-01-16] MEDS: FLUCONAZOLE 200 MG/NS RTU 200 MG/100 ML RTUPB IV SCH (16:34)
[2019-01-16] MEDS: AMINO ACIDS 5 %/DEXTROSE 20 % 1,000 ML IV PRN (18:05)
[2019-01-16] MEDS: VANCOMYCIN HCL 1,000 MG in DEXTROSE 5%-WATER 250 ML IV SCH (21:13)
[2019-01-17] MEDS: METOPROLOL TARTRATE PF/INJ 5 MG/5 ML SDV IV SCH ×4 (00:26→18:39)
[2019-01-17] MEDS: PIPERACILLIN SODIUM/TAZOBACTAM 2.25 GM in NORMAL SALINE 50 ML IV SCH ×2 (00:28→06:00)
[2019-01-17] MEDS: INSULIN REG, HUMAN 100 UNIT/ML 3 ML VIAL (PYX) SUBCUT SCH ×4 (00:31→19:13)
[2019-01-17 01:54] LABS: VANCOMYCIN,TROUGH 27.1 ug/mL (5.0-20.0)
[2019-01-17 05:50] LABS: HEMATOCRIT 25.3 % (37.9-51.0); HEMOGLOBIN 8.3 g/dL (13.5-17.0); MEAN CORPUSCULAR HEMOGLOBIN 26.9 pg (27.0-33.4); MEAN CORPUSCULAR VOLUME 81 fl (80-97); PLATELET COUNT 529 10^3/uL (150-450); RED CELL DISTRIBUTION WIDTH 18.6 % (11.5-14.0)
[2019-01-17 06:07] LABS: ALBUMIN 2.1 g/dL (3.5-5.0); ALKALINE PHOSPHATASE 55 U/L (38-126); ANION GAP 6 (5-19); ASPARTATE AMINO TRANSFERASE 21 U/L (17-59); BILIRUBIN,DIRECT 0.8 mg/dL (0.0-0.4); BLOOD UREA NITROGEN 36 mg/dL (7-20); CALCIUM 8.4 mg/dL (8.4-10.2); CARBON DIOXIDE 23 mmol/L (22-30); CHLORIDE 112 mmol/L (98-107); GLUCOSE 165 mg/dL (75-110); PHOSPHORUS 4.6 mg/dL (2.5-4.5); POTASSIUM 3.6 mmol/L (3.6-5.0)
[2019-01-17 06:14] LABS: PREALBUMIN 4.7 mg/dL (17.6-36.0)
[2019-01-17 06:25] LABS: ABSOLUTE LYMPHOCYTES# (MANUAL) 0.3 10^3/uL (0.5-4.7); ABSOLUTE MONOCYTES # (MANUAL) 0.2 10^3/uL (0.1-1.4); BASOPHILS % (MANUAL) 1 % (0-2); EOSINOPHILS % (MANUAL) 1 % (0-6); LYMPHOCYTES % (MANUAL) 3 % (13-45); MONOCYTES % (MANUAL) 2 % (3-13); SEGMENTED NEUTROPHILS % (MAN) 93 % (42-78); TOTAL CELLS COUNTED 100
[2019-01-17 06:27] LABS: ANISOCYTOSIS 1+; OVALOCYTES 1+; POIKILOCYTOSIS SLIGHT; TOXIC GRANULATION SLIGHT; TOXIC VACUOLATION PRESENT
[2019-01-17 06:28] LABS: PLATELET COMMENT ADEQUATE; TEAR DROP CELLS SLIGHT
[2019-01-17] MEDS: NORMAL SALINE 1000 ML 1,000 ML IV PRN ×2 (07:40→17:21)
--- NOTE | 2019-01-17 07:41 | Progress Note ---
Provider Note Provider Note: ID Telephone Consult Note Asked to review patient's chart. Pt not seen or examined. Mr. Campo is a 73 year old man who had a duodenal perforation earlier this summer s/p repair with pyloric exclusion and gastrojejunostomy and retroperitoneal drainage who subsequently developed a large complex right sided retroperitoneal abscess extending from the level of the duodenum to the presacral soft tissues. Despite IR drainage catheter placement, no significant change occured, and the patient was re-admitted on 01/09 with increasing abdominal pain and chills. A culture obtained from the SUJEY drain grew E. cloacae, viridans Streptococcus, Staphylococcus epidermidis, non-Niya albicans yeast, and beta-lactamase positive Prevotella species. Ultimately, he required exploratory laparotomy with debridement of the collection that was identified as a retroperitoneal pancreatic phlegmon on 01/12/19. His blood cultures have been negative. From the OR, a culture grew E cloacae, Enterococcus faecalis, Staph epidermidis, and yeast. Per most recent notes, pt has been doing better, awaiting return of bowel function, with stable creatinine, no fever, and improving leukocytosis and reactive thrombocytosis. Repeat CT scan on 01/16/19 showed resolution of the majority of the retroperitoneal collection and a large component remaining in the pre-sacral space measuring 4.2 x 3.6 x 8.3 cm. The patient has been receiving IV fluconazole 200 mg, Zosyn and vancomycin. Impression/Recommendations Retroperitoneal abscess s/p debridement and drain placement - Most important part of patient's care is adequate drainage or debridement of the abscess. Duration of antimicrobials is guided by adequacy of this; if the combination of debridement and drain placement is sufficient to achieve source control, then the patient should not require a long duration of antibiotics. Would defer to the patient's surgeon in this regard. - Selection of antimicrobials? From previous conversations with the [facility], my understanding is that they lack the ability to identify non-Niya albicans yeast, so there is no way of knowing whether fluconazole is appropriate (depends on the species). However, pt is improving. Would continue fluconazole based on clinical response. Zosyn and vancomycin has activity against all of the bacteria that was isolated. Depending on how long the patient is going to be on these agents, one potential change could be considered. There is some signal in the literature of increased nephrotoxicity risk of vancomycin in combination with piperacillin/tazobactam above what might be seen with other broad-spectrum antibiotic combinations. Can consider switch to cefepime/Flagyl/vancomycin instead of Zosyn/vancomycin. Anders Tomas MD [facility] Infectious Diseases pager [phone]
[2019-01-17] MEDS: MORPHINE SULFATE 10 MG/ML INJ IV PRN ×3 (07:54→21:37)
[2019-01-17] MEDS: LEVALBUTEROL HCL NEB 1.25 MG/3 ML AMPUL NEB SCH ×4 (08:12→20:04)
--- NOTE | 2019-01-17 09:11 | PDOC PROGRESS REPORT ---
Subjective Progress Note for:: 01/17/19 Subjective:: feeling better less tachy passing stool x2 Reason For Visit: RETROPERITONEAL ABSCESS Physical Exam Vital Signs: Temp Pulse Resp BP Pulse Ox 98.4 F 86 20 134/65 H 98 01/17/19 08:00 01/17/19 08:12 01/17/19 08:12 01/17/19 08:00 01/17/19 08:12 Intake & Output 01/16/19 01/17/19 01/18/19 06:59 06:59 06:59 Intake Total 2100 1390 Output Total 6175 4190 360 Balance -7989 -2800 -360 Weight 84.7 kg 92.9 kg General appearance: PRESENT: no acute distress Head exam: PRESENT: normocephalic Mouth exam: PRESENT: moist Neck exam: PRESENT: carotid bruit, full ROM Respiratory exam: PRESENT: clear to auscultation yoana Cardiovascular exam: PRESENT: RRR Pulses: PRESENT: normal femoral pulses, normal dorsalis pedis pul GI/Abdominal exam: PRESENT: soft, other - soft wound ok isabella's both bilious Rectal exam: PRESENT: deferred Extremities exam: PRESENT: full ROM Musculoskeletal exam: PRESENT: full ROM Neurological exam: PRESENT: alert, awake, oriented to person, oriented to place Psychiatric exam: PRESENT: appropriate affect Skin exam: PRESENT: dry Results Laboratory Results: 01/17/19 05:22 01/17/19 05:22 01/17/19 01/17/19 05:22 05:22 WBC 9.0 RBC 3.10 L Hgb 8.3 L Hct 25.3 L MCV 81 MCH 26.9 L MCHC 33.0 RDW 18.6 H Plt Count 529 H Seg Neutrophils % Not Reportable Lymphocytes % Not Reportable Monocytes % Not Reportable Eosinophils % Not Reportable Basophils % Not Reportable Absolute Neutrophils Not Reportable Absolute Lymphocytes Not Reportable Absolute Monocytes Not Reportable Absolute Eosinophils Not Reportable Absolute Basophils Not Reportable Sodium 141.4 Potassium 3.6 Chloride 112 H Carbon Dioxide 23 Anion Gap 6 BUN 36 H Creatinine 1.98 H Est GFR ( Amer) 41 L Est GFR (Non-Af Amer) 33 L Glucose 165 H Calcium 8.4 Phosphorus 4.6 H Magnesium 1.6 Total Bilirubin 1.0 AST 21 Alkaline Phosphatase 55 Total Protein 5.0 L Albumin 2.1 L Prealbumin 4.7 L Impressions: Chest X-Ray 01/15/19 06:00 IMPRESSION: Minimal left basilar atelectasis. KUB X-Ray 01/15/19 06:00 IMPRESSION: Nonobstructive bowel gas pattern. Abdomen/Pelvis CT 01/16/19 00:00 IMPRESSION: 1. A previously demonstrated large right-sided retroperitoneal abscess extending from the duodenum to the presacral space is status post surgical washout, with the majority of the collection resolved and surgical drains present in the retroperitoneum. There is a large component remaining in the presacral space measuring at least 4.2 x 3.6 x 8.3 cm (series 2, image 78, series 602, image 45). 2. Small volume ascites and minimal pneumoperitoneum status post median laparotomy. 3. Small pleural effusions and anasarca. Assessment & Plan - Diagnosis (1) Retroperitoneal abscess Is this a current diagnosis for this admission?: Yes - Plan Summary Plan Summary: doing better now with some return of bowel function howerve both isabella;s have turned bilous plan will cont current rx suspect drainage from duodenal (initial injruy broke down repair after phlegmon drained) isabella's well positioned with good capture will plan on ugi vs hida on saturday. if persistend duodenal leak will discuss with gi for possible bearclaw clamp vs stent.
[2019-01-17] MEDS ORDERED: CEFEPIME 2 GM/D5W RTU 2 GM/50 ML RTUPB IV SCH (10:00)
[2019-01-17] MEDS ORDERED: CEFEPIME HCL 2 GM in DEXTROSE 5%-WATER 50 ML IV SCH (10:00)
[2019-01-17] MEDS: OCTREOTIDE ACETATE INJ/PF 100 MCG/1 ML SDV SUBCUT SCH ×3 (11:23→18:39)
--- NOTE | 2019-01-17 13:20 | PDOC PROGRESS REPORT ---
Subjective Progress Note for:: 01/17/19 Subjective:: This is 73 years old male patient with extensive retroperitoneal abscess is status post incision drainage and total debridement. His pus culture grew garden-variety organisms including Enterobacter, enterococcus, Prevotella and Niya species. Patient has been on Diflucan, Zosyn and vancomycin. 01/16/2019: Patient seen while sleeping quietly. No new complaint. His repeat CT scan of the abdomen reported as that the previously demonstrated large right- sided retroperitoneal abscess has decreased. There is a large component remaining in the presacral space. His kidney function has not improved and his creatinine is relatively worsening. I increase the rate of his normal saline to 125 mm/h and check his renal function test in the morning. 01/17/2019: Patient seen resting in bed comfortably. He is not in pain or distress. Yesterday consulted Dr. Anders blake and she recommended to switch the Zosyn to cefepime and Flagyl and her recommendation is carried out by Dr. Harvey this morning. His kidney function is relatively improving today his creatinine is 1.98. Reason For Visit: RETROPERITONEAL ABSCESS Physical Exam Vital Signs: Temp Pulse Resp BP Pulse Ox 97.8 F 73 19 135/67 H 99 01/17/19 12:00 01/17/19 12:23 01/17/19 12:23 01/17/19 12:00 01/17/19 12:23 Intake & Output 01/16/19 01/17/19 01/18/19 06:59 06:59 06:59 Intake Total 2100 1390 1000 Output Total 6175 4190 985 Balance -4075 -2800 15 Weight 84.7 kg 92.9 kg General appearance: PRESENT: no acute distress Respiratory exam: PRESENT: clear to auscultation yoana. ABSENT: rales, rhonchi, w heezes Cardiovascular exam: PRESENT: RRR. ABSENT: diastolic murmur, rubs, systolic murmur GI/Abdominal exam: PRESENT: normal bowel sounds Neurological exam: PRESENT: alert, awake Results Laboratory Results: 01/17/19 05:22 01/17/19 05:22 01/17/19 01/17/19 05:22 05:22 WBC 9.0 RBC 3.10 L Hgb 8.3 L Hct 25.3 L MCV 81 MCH 26.9 L MCHC 33.0 RDW 18.6 H Plt Count 529 H Seg Neutrophils % Not Reportable Lymphocytes % Not Reportable Monocytes % Not Reportable Eosinophils % Not Reportable Basophils % Not Reportable Absolute Neutrophils Not Reportable Absolute Lymphocytes Not Reportable Absolute Monocytes Not Reportable Absolute Eosinophils Not Reportable Absolute Basophils Not Reportable Sodium 141.4 Potassium 3.6 Chloride 112 H Carbon Dioxide 23 Anion Gap 6 BUN 36 H Creatinine 1.98 H Est GFR ( Amer) 41 L Est GFR (Non-Af Amer) 33 L Glucose 165 H Calcium 8.4 Phosphorus 4.6 H Magnesium 1.6 Total Bilirubin 1.0 AST 21 Alkaline Phosphatase 55 Total Protein 5.0 L Albumin 2.1 L Prealbumin 4.7 L Impressions: Chest X-Ray 01/15/19 06:00 IMPRESSION: Minimal left basilar atelectasis. KUB X-Ray 01/15/19 06:00 IMPRESSION: Nonobstructive bowel gas pattern. Abdomen/Pelvis CT 01/16/19 00:00 IMPRESSION: 1. A previously demonstrated large right-sided retroperitoneal abscess extending from the duodenum to the presacral space is status post surgical washout, with the majority of the collection resolved and surgical drains present in the retroperitoneum. There is a large component remaining in the presacral space measuring at least 4.2 x 3.6 x 8.3 cm (series 2, image 78, series 602, image 45). 2. Small volume ascites and minimal pneumoperitoneum status post median laparotomy. 3. Small pleural effusions and anasarca. Assessment and Plan - Diagnosis (1) Extensive retroperitoneal abscess Is this a current diagnosis for this admission?: Yes Plan: Status post laparotomy, drainage and debridement and peritoneal washout. Repeat CT shows large component of abscess remaining in the presacral space. His antibiotics revise it and his Zosyn is switched to Flagyl and cefepime. (2) Peritonitis Is this a current diagnosis for this admission?: Yes Plan: Continue vancomycin, cefepime, Flagyl. (3) Acute blood loss anemia Is this a current diagnosis for this admission?: Yes Plan: His hemoglobin is maintained at 9. (4) Acute kidney injury Is this a current diagnosis for this admission?: Yes Plan: Slightly improving (5) Leukocytosis Is this a current diagnosis for this admission?: Yes Plan: Improving (6) Coronary artery disease Is this a current diagnosis for this admission?: Yes Plan: No anginal symptoms
[2019-01-17] MEDS ORDERED: METRONIDAZOLE 500 MG/NS RTU 500 MG/100 ML RTUPB IV SCH (14:00)
--- NOTE | 2019-01-17 16:29 | PDOC TRANSFER SUMMARY ---
General Admission Date/PCP: 01/09/19 18:17 ESTER ENCINAS MD Resuscitation Status: Full Code - Transfer Diagnosis (1) Bile leak, postoperative Is this a current diagnosis for this admission?: Yes Diagnosis Summary: 1. Postoperative bile leak, controlled 2. Status post exploratory laparotomy, closure of duodenal perforation, pyloric exclusion, gastrojejunostomy and drain placement; status post reoperation 7 weeks later with exploratory laparotomy, retroperitoneal washout and drain placement for retro-peritoneal and intra-abdominal sepsis, Dr. Wilfred Harvey - Transfer Medications Home Medications: Aspirin [Aspirin 81 mg Chewable Tablet] 81 mg PO DAILY 11/20/18 Latanoprost [Xalatan] 1 drop OU QHS 11/20/18 Losartan Potassium 100 mg PO DAILY 11/20/18 Omeprazole 40 mg PO DAILY@1700 11/20/18 Trazodone HCl 50 mg PO HSP PRN 11/20/18 Fenofibrate Nanocrystallized [Tricor 145 mg Tablet] 145 mg PO DAILY 11/21/18 Hydrochlorothiazide [Hydrodiuril 25 mg Tablet] 25 mg PO QAM 11/21/18 Metoprolol Succinate [Toprol Xl 50 mg Tab.sr] 50 mg PO DAILY 11/21/18 Multivitamin [Tab-A-Dharmesh (Multiple Vitamin) Tablet] 1 tab PO DAILY 11/21/18 Nitroglycerin [Nitrostat 0.4 mg (1/150 Gr) Tabs 25/Bottle] 1 tab SL Q5MP PRN 11/21/18 Branch-3 Fatty Acids/Fish Oil [Fish Oil 1,000 Mg Capsule] 1 cap PO QID 11/21/18 Cyanocobalamin (Vitamin B-12) [Vitamin B-12 Inj 1000 Mcg/1 ml Vial] 1,000 mcg IM .1ST OF THE MONTH 01/09/19 Simvastatin [Zocor 80 mg Tablet] 80 mg PO QPM 01/09/19 Transfer Medications: Current Medications Dextrose (Dextrose Inj 50% Syringe (25 Gm/50 Ml)) 12.5 gm IV PRN PRN; Protocol PRN Reason: FOR BG 50-69 IN ALERT PATIENT Stop: 02/14/19 08:59 Dextrose (Dextrose Inj 50% Syringe (25 Gm/50 Ml)) 25 gm IV PRN PRN; Protocol PRN Reason: PER PROTOCOL Stop: 02/14/19 08:59 Glucagon (Glucagen Inj 1 Mg Vial) 1 mg IM PRN PRN; Protocol PRN Reason: EVALUATE FOR BG < 70 Stop: 02/14/19 08:59 Glucose (Glutose 40% Gel 15 Gm Tube) 15 gm NG PRN PRN; Protocol PRN Reason: FOR BG 50-69 IN ALERT PATIENT Stop: 02/14/19 08:59 Glucose (Glutose 40% Gel 15 Gm Tube) 30 gm NG PRN PRN; Protocol PRN Reason: FOR BG < 50 IN ALERT PATIENT Stop: 02/14/19 08:59 Heparin Sodium (Porcine) (Heparin Flush 10 Unit/Ml 5 Ml Disp.Syrg) 30 unit IV Q8 [facility] Stop: 02/11/19 21:59 Last Admin: 01/17/19 15:27 Dose: 30 unit Documented by: Heparin Sodium (Porcine) (Heparin Flush 10 Unit/Ml 5 Ml Disp.Syrg) 30 unit IV .AFTER EACH USE PRN PRN Reason: AFTER EACH INTERMITTENT USE Stop: 02/11/19 15:01 Hydralazine HCl (Apresoline Inj/Pf 20 Mg/1 Ml Sdv) 10 mg IV Q6HP PRN PRN Reason: SBP>160 DBP>100 Stop: 02/13/19 08:51 Last Admin: 01/14/19 08:30 Dose: 10 mg Documented by: Hydromorphone HCl (Dilaudid Inj/Pf 2 Mg/Ml Ampule) 1 mg IV Q2HP PRN PRN Reason: FOR PAIN SCALE 4-5 Stop: 01/19/19 17:05 Last Admin: 01/16/19 21:14 Dose: 1 mg Documented by: Vancomycin HCl 1,000 mg/ (Dextrose) 250 mls @ 166.667 mls/hr IV QHS [facility] Stop: 01/20/19 21:59 Last Admin: 01/16/19 21:13 Dose: 666.68 mg/hr, 166.67 mls/hr Documented by: Fluconazole/Sodium Chloride (Diflucan Rtu 200 Mg/Ns 100 Ml Premix) 200 mg in 100 mls @ 100 mls/hr IV DAILY@1600 [facility] Stop: 01/20/19 15:59 Last Infusion: 01/16/19 17:34 Dose: Infused Documented by: Amino Acids/Dextrose (Clinimix 5%-20% Tpn Solution 1000 Ml Bag) 1,000 mls @ 55 mls/hr IV .CONTINUOUS PRN PRN Reason: THIS MED IS NOT "PRN" Stop: 02/14/19 17:59 Last Admin: 01/16/19 18:05 Dose: 45 mls/hr Documented by: Dextrose (D10w 1000 Ml Iv Soln) 1,000 mls @ 0 mls/hr IV .TEMPORARY PRN PRN Reason: SEE LABEL COMMENTS Stop: 02/14/19 08:59 Fat Emulsion Intravenous (Intralipid 20% Inj 50 Gm/250 Ml Bag) 250 mls @ 50 mls/hr IV MoTh@1000 ADDI; Protocol Stop: 02/14/19 14:59 Last Infusion: 01/15/19 20:24 Dose: Infused Documented by: Sodium Chloride (Nacl 0.9% 1000 Ml Iv Soln) 1,000 mls @ 125 mls/hr IV CONTINUOUS PRN PRN Reason: THIS MED IS NOT "PRN" Stop: 02/14/19 15:53 Last Admin: 01/17/19 07:40 Dose: 125 mls/hr Documented by: Metronidazole (Flagyl Rtu 500 Mg/Ns 100ml Premix) 500 mg in 100 mls @ 100 mls/hr IV Q8 [facility] Stop: 01/24/19 13:59 Last Admin: 01/17/19 15:26 Dose: 100 ml/hr, 100 mls/hr Documented by: Cefepime HCl 2 gm/ Dextrose 50 mls @ 100 mls/hr IV Q12 [facility] Stop: 01/24/19 09:59 Last Admin: 01/17/19 11:24 Dose: 100 ml/hr, 100 mls/hr Documented by: Insulin Human Regular (Humulin R (Pyxis) Insulin 100 Unit/Ml 3ml) 0 - 12 unit SUBCUT Q6 [facility]; Protocol Stop: 02/14/19 11:59 Last Admin: 01/17/19 11:47 Dose: 2 unit Documented by: Levalbuterol HCl (Xopenex Neb 1.25 Mg/3 Ml Ampul) 1.25 mg NEB RTQID [facility] Stop: 02/13/19 11:59 Last Admin: 01/17/19 16:12 Dose: 1.25 mg Documented by: Metoprolol Tartrate (Lopressor Inj/Pf 5 Mg/5 Ml Sdv) 5 mg IV Q6 [facility] Stop: 02/12/19 11:59 Last Admin: 01/17/19 11:23 Dose: 5 mg Documented by: Morphine Sulfate (Morphine 10 Mg/Ml Inj) 4 mg IV Q3HP PRN PRN Reason: FOR PAIN SCALE 1-3 Stop: 01/19/19 16:37 Last Admin: 01/17/19 11:33 Dose: 4 mg Documented by: Octreotide Acetate (Sandostatin Inj/Pf 100 Mcg/1 Ml Sdv) 200 mcg SUBCUT TID [facility] Stop: 02/14/19 07:59 Last Admin: 01/17/19 15:27 Dose: 200 mcg Documented by: Ondansetron HCl (Zofran Inj/Pf 4 Mg/2 Ml Sdv) 4 mg IV Q6HP PRN PRN Reason: FOR NAUSEA Stop: 02/10/19 11:52 Pharmacy Profile Note (Medication Communication Order) 1 each MC .NOTICE NR Stop: 02/10/19 17:59 Sodium Chloride (Nacl 0.9% Inj/Pf 10 Ml Sdv) 10 ml IV .AFTER EACH USE PRN PRN Reason: AFTER EACH INTERMITTENT USE Stop: 02/11/19 15:01 - Allergies Allergies/Adverse Reactions: OLESYA Inhibitors Allergy (Verified 01/13/19 11:15) NSAIDS (Non-Steroidal Anti-Inflamma Adverse Reaction (Verified 01/09/19 23:35) - Diet/Activity Discharge Diet: Other (Comments) - npo Hospital Course Hospital Course: Patient is a 73-year-old white male nearly 2 months status post exploratory laparotomy, oversewing of duodenal perforation, pyloric exclusion, and gastrojejunostomy with drain placement by Dr. Wilfred Harvey following an upper endoscopy by Dr. Gabe Albarran, with cauterization of duodenal AVM. Patient's hospital course was prolonged but eventually he recovered and was discharged home. Patient was followed on an outpatient basis for several days, then developed retroperitoneal air based on surveillance CT scan. Patient was readmitted to [facility] 1 week ago where he was found to have extensive retroperitoneal air consistent with abscess. He eventually developed peritonitis and was explored by Dr. Harvey on 01/12/2019, with washout of the retroperitoneum, extensive drain placement. Patient recovered from the septic episode and was extubated on postoperative day 2 and has remained in the ICU, transferring from bed to chair, and tolerating liquid sips; however he has had increased drain output with bilious material. Concern is been raised for a persisting bile leak. Due to limited resources at [facility] including upper endoscopic and vascular interventional services, the decision was made to transfer the patient to a tertiary care level institution for support. Multiple conversations have been held between Quinn Toussaint and Jersey Puckett and [facility]. Physical Exam Vital Signs: Temp Pulse Resp BP Pulse Ox 97.8 F 86 20 134/60 H 99 01/17/19 12:00 01/17/19 16:19 01/17/19 16:19 01/17/19 14:00 01/17/19 16:19 Intake & Output 01/16/19 01/17/19 01/18/19 06:59 06:59 06:59 Intake Total 2100 1390 1000 Output Total 6175 4190 985 Balance -4075 -2800 15 Weight 84.7 kg 92.9 kg General appearance: PRESENT: no acute distress, other GI/Abdominal exam: PRESENT: other - drains in position; rachel in midline intact Results Laboratory Results: 01/17/19 05:22 01/17/19 05:22 01/17/19 01/17/19 05:22 05:22 WBC 9.0 RBC 3.10 L Hgb 8.3 L Hct 25.3 L MCV 81 MCH 26.9 L MCHC 33.0 RDW 18.6 H Plt Count 529 H Seg Neutrophils % Not Reportable Lymphocytes % Not Reportable Monocytes % Not Reportable Eosinophils % Not Reportable Basophils % Not Reportable Absolute Neutrophils Not Reportable Absolute Lymphocytes Not Reportable Absolute Monocytes Not Reportable Absolute Eosinophils Not Reportable Absolute Basophils Not Reportable Sodium 141.4 Potassium 3.6 Chloride 112 H Carbon Dioxide 23 Anion Gap 6 BUN 36 H Creatinine 1.98 H Est GFR ( Amer) 41 L Est GFR (Non-Af Amer) 33 L Glucose 165 H Calcium 8.4 Phosphorus 4.6 H Magnesium 1.6 Total Bilirubin 1.0 AST 21 Alkaline Phosphatase 55 Total Protein 5.0 L Albumin 2.1 L Prealbumin 4.7 L Impressions: Chest X-Ray 01/15/19 06:00 IMPRESSION: Minimal left basilar atelectasis. KUB X-Ray 01/15/19 06:00 IMPRESSION: Nonobstructive bowel gas pattern. Abdomen/Pelvis CT 01/16/19 00:00 IMPRESSION: 1. A previously demonstrated large right-sided retroperitoneal abscess extending from the duodenum to the presacral space is status post surgical washout, with the majority of the collection resolved and surgical drains present in the retroperitoneum. There is a large component remaining in the presacral space measuring at least 4.2 x 3.6 x 8.3 cm (series 2, image 78, series 602, image 45). 2. Small volume ascites and minimal pneumoperitoneum status post median laparotomy. 3. Small pleural effusions and anasarca. Plan Discharge Plan: As above; Tx to [facility] for advanced service upon bed availability Time Spent: Greater than 30 Minutes - 50 minutes of phone calling, coordination of care
[2019-01-17] MEDS: FLUCONAZOLE 200 MG/NS RTU 200 MG/100 ML RTUPB IV SCH (18:38)
[2019-01-17] MEDS: AMINO ACIDS 5 %/DEXTROSE 20 % 1,000 ML IV PRN (18:39)
[2019-01-17 20:36] VITALS: BP 133/67
[2019-01-17] MEDS ORDERED: HEPARIN SOD (PORCINE) 5,000 UNIT/ML 1 ML VIAL SUBCUT SCH (22:00)
--- NOTE | 2019-01-28 08:25 | HISTORY AND PHYSICAL E ---
History and Physical NAME: INOCENTE MIJARES : 1945 AGE: 73Y ADMITTED: 01/09/2019 ROOM: 612 CHIEF COMPLAINT: Severe generalized abdominal pain. HISTORY OF PRESENT ILLNESS: This is a 73-year-old male who underwent upper endoscopy for upper GI bleeding in early November 2018. He suffered a duodenal perforation due to attempted AVN cauterization endoscopically. He then underwent exploratory laparotomy and repair of his duodenum with a pyloric exclusion and gastrojejunostomy with peritoneum. He had a prolonged period in the ICU for about 7 to 8 days and eventually transferred to the floor where he slowly made an improvement and was eventually discharged to home in late November, tolerating p.o. diet. At home, however, he developed some chills and fever which prompted repeat CT scan which showed retroperitoneal fluid and air collection between the duodenum and his pelvis and the retroperitoneum with a small amount of fluid and air pockets. He underwent IR drainage of this abscess cavity where 2 drains were placed, one in the mid abdomen and one through the buttock into the lower inferior portion of the abscess. The lower drain produced a small amount of clear serous fluid and subsequently was removed in about a week. continued to drain milky purulent fluid that appeared to be He continues to remain at home and doing well on oral diet and slowly improving. The fluid collections were found to continue on CT scan, to only show a very slight improvement over the course of about 3 weeks. He then underwent CT scan and developed abdominal pains and was brought back into the hospital where he was admitted complaining of increased primarily lower abdominal pains which he never experienced before. This was also associated with some chills. PAST MEDICAL HISTORY: As in HPI. Hypertension, coronary artery disease, and hyperlipidemia. MEDICATIONS: He was taking metoprolol and hydrochlorothiazide, Losartan, nitroglycerin sublingual pills, simvastatin, aspirin 81 mg chewable tablet mainly, trazodone p.r.n. for anxiety, multivitamins, and omega-3 fatty acids. PAST SURGICAL HISTORY: Right total knee arthroplasty on 04/16/2018 at [facility]. 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 FAMILY HISTORY: Negative for diabetes. PHYSICAL EXAMINATION: VITAL SIGNS: He is noted to be tachycardic and febrile. GENERAL: The patient is in a lot of abdominal pain. He is alert and oriented. NECK: Supple. Trachea midline. LUNGS: Clear. ABDOMEN: Soft. Diffuse tenderness mostly in the right lower quadrant and the right upper quadrant. There is a drain that is draining some whitish fluid. EXTREMITIES: Showed no edema. IMPRESSION: 1. Retroperitoneal abscess. 2. Sepsis. PLAN: 1. Hydration. 2. IV antibiotics. 3. Place on bowel rest at this time. 4. Dr. Harvey will follow up the patient. DICTATING PHYSICIAN: DENVER AVELAR M.D. [id number] PHY#: [id number] ID: [id number] JOB#: [id number] ACCT: [id number] cc:DENVER AVELAR M.D. >
== END 2019-01-17 21:45 | disposition short-term general hospital (02) | DRG 862 ==
LOC: ER 16:58 → EH 18:17 → 3N 23:23 → ICU 01-12 12:45
PROVIDERS: ADMIT Surgery; ATTEND Surgery
PROC: 0D9N80Z Drainage of Sigmoid Colon with Drainage Device, Via Natural or Artificial Opening Endoscopic (ICD-10-PCS; 2019-01-12)
PROC: 30233N1 Transfusion of Nonautologous Red Blood Cells into Peripheral Vein, Percutaneous Approach (ICD-10-PCS; 2019-01-12)
PROC: 02HV33Z Insertion of Infusion Device into Superior Vena Cava, Percutaneous Approach (ICD-10-PCS; principal; 2019-01-12 11:00)
DX: K68.11 Postprocedural retroperitoneal abscess (principal); A41.9 Sepsis, unspecified organism; N17.0 Acute kidney failure with tubular necrosis; D62 Acute posthemorrhagic anemia; N17.9 Acute kidney failure, unspecified; I10 Essential (primary) hypertension; I25.10 Atherosclerotic heart disease of native coronary artery without angina pectoris; E78.5 Hyperlipidemia, unspecified; Z96.651 Presence of right artificial knee joint; E86.0 Dehydration; B95.8 Unspecified staphylococcus as the cause of diseases classified elsewhere; B95.2 Enterococcus as the cause of diseases classified elsewhere; B37.2 Candidiasis of skin and nail; Z79.899 Other long term (current) drug therapy; Z88.6 Allergy status to analgesic agent; Z79.82 Long term (current) use of aspirin; Z82.49 Family history of ischemic heart disease and other diseases of the circulatory system; Z83.3 Family history of diabetes mellitus
CPT/HCPCS: 00790; 36415; 36430; 71045; 71046; 74018; 74176; 80048; 80053; 80202; 82150; 82565; 82962; 83605; 83690; 83735; 84100; 84134; 85025; 86850; 86900; 86901; 86920; 87040; 87070; 87075; 87077; 87186; 87205; 94640; 96365; 96375; 99283; C1751; J0171; J0330; J0360; J0692; J1170; J1450; J1642; J1815; J1885; J1940; J2250; J2270; J2354; J2370; J2405; J2543; J2550; J2704; J3010; J3370; J3475; J3480; J3490; J7030; J7040; J7042; J7050; J7060; J7120; P9016; P9041; S0164

== ENCOUNTER → 2019-01-09 | Outpatient (CLI) | payer MEDICARE, BC ==
[~2019-01-09] MED LIST changes: +DEXTROSE 40% GEL 15 GM TUBE PO PRN; +DEXTROSE 50%-WATER 25 GM/50 ML DISP.SYRIN IV PRN; -DIPHENHYDRAMINE HCL 50 MG/ML VIAL ONE; +GLUCAGON,HUMAN RECOMB 1 MG INJ SUBCUT PRN; +HYDROMORPHONE HCL INJ/PF 2 MG/ML AMPULE IV PRN; -NALOXONE HCL INJ/PF 0.4 MG/1 ML SDV ONE; +NORMAL SALINE 1000 ML 1,000 ML IV ONE; -ONDANSETRON HCL INJ/PF 4 MG/2 ML SDV ONE; +PANTOPRAZOLE SODIUM 40 MG VIAL IV SCH; +PIPERACILLIN/TAZOBACTAM 3.375 GM VIAL IV SCH; +SUGAMMADEX SODIUM 200 MG/2 ML SDV IV ONE; +VANCOMYCIN HCL 0 MG in DEXTROSE 5%-WATER 250 ML IV NR
--- NOTE | 2019-01-09 09:14 | RADIOLOGY REPORT (SQ) ---
EXAM DESCRIPTION: CT ABD/PELVIS ORAL ONLY COMPLETED DATE/TIME: 01/09/2019 7:48 am REASON FOR STUDY: PERFORATED COLON (K63.1) K63.1 PERFORATION OF INTESTINE (NONTRAUMATIC) COMPARISON: 12/30/2018 TECHNIQUE: CT scan of the abdomen and pelvis performed without intravenous or oral contrast. Images reviewed with lung, soft tissue, and bone windows. Reconstructed coronal and sagittal MPR images revi ewed. All images stored on PACS. All CT scanners at this facility use dose modulation, iterative reconstruction, and/or weight based d osing when appropriate to reduce radiation dose to as low as reasonably achievable (ALARA). [facility]: Dose Right [facility]: CareDose [facility]: Dose Right [facility]: Teradose 4D [facility]: Smart [employer] RADIATION DOSE: CT Rad equipment meets quality standard of care and radiation dose reduction techniq ues were employed. CTDIvol: 14.2 mGy. DLP: 777 mGy-cm.mGy. LIMITATIONS: None. FINDINGS: LOWER CHEST: No significant findings. No nodules or infiltrates. NON-CONTRASTED LIVER, SPLEEN, ADRENALS: Evaluation limited by lack of IV contrast. No identified sign ificant masses. PANCREAS: No masses. No peripancreatic inflammatory changes. GALLBLADDER: Surgically absent. RIGHT KIDNEY AND URETER: No suspicious masses. Assessment limited by lack of IV contrast. There are small nonobstructing right renal calculi. Persistent mild right-sided hydronephrosis. LEFT KIDNEY AND URETER: No suspicious masses. Assessment limited by lack of IV contrast. There are small nonobstructing left renal calculi. No hydronephrosis or hydroureter. AORTA AND RETROPERITONEUM: Large retroperitoneal abscess is again noted and has not significantly raphael nged since prior study presacral catheter has been removed. Catheter and in the upper collection is stable in appearance. The collection is continuous. BOWEL AND PERITONEAL CAVITY: No obvious masses or inflammatory changes. No free fluid. APPENDIX: Surgically absent. PELVIS, BLADDER, AND ABDOMINAL WALL:Unchanged. BONES: No significant findings. OTHER: No other significant finding. IMPRESSION: Persistent large retroperitoneal abscess. Lower drain has been removed. The upper drai n is stable in appearance. Overall size of the abscess cavity is stable. It extends 22.8 cm cranial caudally. Largest AP and transverse dimensions is 5.5 x 7.2 cm. COMMENT: Quality ID # [id number]: Final reports with documentation of one or more dose reduction techniques (e.g., Automated exposure control, adjustment of the mA and/or kV according to patient size, use of iterative reconstruction technique) TECHNICAL DOCUMENTATION: JOB ID: [id number] [employer]- All Rights Reserved Reading location - IP/workstation name: [email or web address]
--- NOTE | 2019-01-09 20:15 | PDOC H&P ---
History of Present Illness Admission Date/PCP: TIERRA CARVAJAL MD Patient complains of: abdominal pains History of Present Illness: INOCENTE MIJARES is a 73 year old male who is post pyloric exclusion with Gastrojejunostomy 11/20/18after noted to have a PERFORATION OF DUODENUm after EGD for a bleeding AVM. Discharged on12/07/18. Developed subsequently a retroperitoneal abscess that was drained by IR. This morning suddenly noted lower abdominal pains with fever. CT scan showed persistent retroperitoneal abscess. Patient then sent to ED. Past Medical History Cardiac Medical History: Reports: Coronary Artery Disease, Hypertension Denies: Myocardial Infarction Pulmonary Medical History: Denies: Asthma, Bronchitis, Chronic Obstructive Pulmonary Disease (COPD), Pneumonia Neurological Medical History: Denies: Seizures GI Medical History: Reports: Hiatal Hernia - HAD SURGERY Denies: Hepatitis Musculoskeltal Medical History: Reports: Arthritis - HIMANSHU HANDS Hematology: Denies: Anemia, Sickle Cell Disease Past Surgical History Past Surgical History: Denies: Pacemaker Social History Smoking Status: Unknown if Ever Smoked Frequency of Alcohol Use: None Hx Recreational Drug Use: No Hx Prescription Drug Abuse: No Family History Family History: Reviewed & Not Pertinent Parental Family History Reviewed: Yes Children Family History Reviewed: No Sibling(s) Family History Reviewed.: No Medication/Allergy Home Medications: Aspirin [Aspirin 81 mg Chewable Tablet] 81 mg PO DAILY 11/20/18 Latanoprost [Xalatan] 1 drop OU QHS 11/20/18 Losartan Potassium 100 mg PO DAILY 11/20/18 Omeprazole 40 mg PO DAILY@1700 11/20/18 Trazodone HCl 50 mg PO HSP PRN 11/20/18 Fenofibrate Nanocrystallized [Tricor 145 mg Tablet] 145 mg PO DAILY 11/21/18 Hydrochlorothiazide [Hydrodiuril 25 mg Tablet] 25 mg PO QAM 11/21/18 Metoprolol Succinate [Toprol Xl 50 mg Tab.sr] 50 mg PO DAILY 11/21/18 Multivitamin [Tab-A-Dharmesh (Multiple Vitamin) Tablet] 1 tab PO DAILY 11/21/18 Nitroglycerin [Nitrostat 0.4 mg (1/150 Gr) Tabs 25/Bottle] 1 tab SL Q5MP PRN 11/21/18 [place]-3 Fatty Acids/Fish Oil [Fish Oil 1,000 Mg Capsule] 1 cap PO QID 11/21/18 Cyanocobalamin (Vitamin B-12) [Vitamin B-12 Inj 1000 Mcg/1 ml Vial] 1,000 mcg IM .1ST OF THE MONTH 01/09/19 Simvastatin [Zocor 80 mg Tablet] 80 mg PO QPM 01/09/19 Allergies/Adverse Reactions: No Known Allergies Allergy (Verified 12/24/18 07:25) Review of Systems Constitutional: PRESENT: as per HPI Physical Exam General appearance: PRESENT: severe distress Head exam: PRESENT: atraumatic Eye exam: PRESENT: conjunctiva pink Mouth exam: PRESENT: dry mucosa Neck exam: PRESENT: full ROM Respiratory exam: PRESENT: clear to auscultation himanshu Cardiovascular exam: PRESENT: tachycardia Pulses: PRESENT: normal radial pulses Vascular exam: PRESENT: normal capillary refill GI/Abdominal exam: PRESENT: soft, tenderness - lower abdomen Rectal exam: PRESENT: deferred Extremities exam: PRESENT: full ROM Musculoskeletal exam: PRESENT: ambulatory Neurological exam: PRESENT: alert, oriented to person, oriented to place, oriented to time, oriented to situation Psychiatric exam: PRESENT: appropriate affect Skin exam: PRESENT: normal color, warm Results Impressions: Abdomen/Pelvis CT 01/09/19 07:23 IMPRESSION: Persistent large retroperitoneal abscess. Lower drain has been removed. The upper drain is stable in appearance. Overall size of the abscess cavity is stable. It extends 22.8 cm cranial caudally. Largest AP and transverse dimensions is 5.5 x 7.2 cm. Assessment & Plan - Diagnosis (1) Abdominal pain Qualifiers: Abdominal location: right lower quadrant Qualified Code(s): R10.31 - Right lower quadrant pain Is this a current diagnosis for this admission?: Yes (2) Retroperitoneal abscess Is this a current diagnosis for this admission?: Yes (3) AVM (arteriovenous malformation) of duodenum, acquired with hemorrhage Is this a current diagnosis for this admission?: Yes (4) Essential hypertension Is this a current diagnosis for this admission?: Yes - Time Time Spent: 30 to 50 Minutes - Inpatient Certification Medical Necessity: Need For IV Fluids, Need For Continuous Telemetry Monitoring, Need for Pain Control, Need for IV Antibiotics - Plan Summary Plan Summary: Start hydration and IV antibiotics Monitor labs, and retroperitoneal drain Pain mx
== END ==
LOC: RAD 07:20
PROVIDERS: ATTEND Surgery
DX: K63.1 Perforation of intestine (nontraumatic) (principal); K68.19 Other retroperitoneal abscess
CPT/HCPCS: 74176; J3490

== ENCOUNTER → 2019-02-27 | Outpatient (CLI) | payer MEDICARE, BC ==
[2019-02-27 10:30] LABS: ABSOLUTE BASOPHILS # (AUTO) 0.1 10^3/uL (0.0-0.2); ABSOLUTE EOSINOPHILS # (AUTO) 0.3 10^3/uL (0.0-0.6); ABSOLUTE LYMPHOCYTES (AUTO) 0.9 10^3/uL (0.5-4.7); ABSOLUTE MONOCYTES (AUTO) 0.5 10^3/uL (0.1-1.4); ABSOLUTE NEUT (AUTO) 4.9 10^3/uL (1.7-8.2); BASOPHILS % (AUTO) 1.1 % (0-2); EOSINOPHILS % (AUTO) 4.5 % (0-6); HEMATOCRIT 32.5 % (37.9-51.0); HEMOGLOBIN 10.7 g/dL (13.5-17.0); LYMPHOCYTES % (AUTO) 13.9 % (13-45); MEAN CORPUSCULAR HEMOGLOBIN 26.3 pg (27.0-33.4); MEAN CORPUSCULAR HGB CONC 32.8 g/dL (32.0-36.0); MEAN CORPUSCULAR VOLUME 80 fl (80-97); PLATELET COUNT 423 10^3/uL (150-450); RED BLOOD COUNT 4.05 10^6/uL (4.35-5.55); RED CELL DISTRIBUTION WIDTH 19.8 % (11.5-14.0); SEGMENTED NEUTROPHILS % (AUTO) 72.5 % (42-78); TOTAL CELLS COUNTED % (AUTO) 100 %; WHITE BLOOD COUNT 6.8 10^3/uL (4.0-10.5)
[2019-02-27 10:47] LABS: ALBUMIN 3.3 g/dL (3.5-5.0); ALKALINE PHOSPHATASE 84 U/L (38-126); ANION GAP 11 (5-19); ASPARTATE AMINO TRANSFERASE 21 U/L (17-59); BILIRUBIN,DIRECT 0.1 mg/dL (0.0-0.4); BILIRUBIN,TOTAL 0.4 mg/dL (0.2-1.3); BLOOD UREA NITROGEN 23 mg/dL (7-20); CALCIUM 9.3 mg/dL (8.4-10.2); CARBON DIOXIDE 24 mmol/L (22-30); CHLORIDE 106 mmol/L (98-107); GLUCOSE 145 mg/dL (75-110); POTASSIUM 4.1 mmol/L (3.6-5.0); TOTAL PROTEIN 7.1 g/dL (6.3-8.2)
--- NOTE | 2019-02-27 16:48 | RADIOLOGY REPORT (SQ) ---
EXAM DESCRIPTION: CT ABD/PELVIS NO ORAL OR IV COMPLETED DATE/TIME: 02/27/2019 10:06 am REASON FOR STUDY: BOWEL PERFORATION K63.1 PERFORATION OF INTESTINE (NONTRAUMATIC) COMPARISON: CT of the abdomen pelvis without contrast from 01/16/2019. TECHNIQUE: CT scan of the abdomen and pelvis performed without intravenous or oral contrast. Images reviewed with lung, soft tissue, and bone windows. Reconstructed coronal and sagittal MPR images revi ewed. All images stored on PACS. All CT scanners at this facility use dose modulation, iterative reconstruction, and/or weight based d osing when appropriate to reduce radiation dose to as low as reasonably achievable (ALARA). [facility]: Dose Right [facility]: CareDose [facility]: Dose Right [facility]: Teradose 4D [facility]: [employer] RADIATION DOSE: CT Rad equipment meets quality standard of care and radiation dose reduction techniq ues were employed. CTDIvol: 9.7 mGy. DLP: 546 mGy-cm.mGy. LIMITATIONS: None. FINDINGS: LOWER CHEST: No significant findings. No nodules or infiltrates. NON-CONTRASTED LIVER, SPLEEN, ADRENALS: Evaluation is limited due to the absence of intravenous contr ast. The liver morphology is non cirrhotic. There is no CT evidence hepatic steatosis. The spleen is normal in size. There is no abnormality of the adrenal glands PANCREAS: There is no abnormality of the pancreas GALLBLADDER: The gallbladder is surgically absent. The common bile duct measures up to [address] RIGHT KIDNEY AND URETER: Evaluation is limited due to the absence of intravenous contrast. There is a 2 mm calculus within an upper pole calyx. The mild pelvicaliectasis is unchanged from 01/16/2019; th e stranding around the mid to distal ureter is also unchanged. There is no hydronephrosis or urolith iasis. LEFT KIDNEY AND URETER: Evaluation is limited due to the absence of intravenous contrast. There is a 3 mm calculus within an upper pole calyx. The 1.9 x 1.7 cm fluid attenuation lesion in the lateral cortex of the lower pole is unchanged. There is no hydronephrosis, hydroureter or ureterolithiasis. AORTA AND RETROPERITONEUM: The abdominal aorta is nonaneurysmal. There is no enlarged retroperitonea l adenopathy. BOWEL AND PERITONEAL CAVITY: There is a Dobbhoff tube in place; based on the course of the tube it ap pears that there is a gastrojejunal anastomosis. There is a lumen opposing metal stent in the duoden um and there are bilateral lower quadrant Robbin Abdul drains that are in place to drain a retroperi toneal abscess; the abscess extends into the presacral space and is unchanged in size. Along the mes ocolon reflection there is a thin hyperdensity that could represent a component of the retroperitonea l abscess as there are foci of gas adjacent to it. There there is no evidence of obstruction. There are diverticular throughout the descending and sigmoid colon without other ancillary findings to sug gest an acute diverticulitis. There is no pneumatosis or portal venous gas. There is no free intrap eritoneal fluid. APPENDIX: Normal. PELVIS, BLADDER, AND ABDOMINAL WALL:The urinary bladder is contracted and its wall is circumferential ly thickened. The prostate gland is surgically absent. The patient is also status post median lapar otomy. BONES: No acute abnormality. OTHER: No other finding. IMPRESSION: 1. Status post median laparotomy and surgical washout of a retroperitoneal abscess that extended from the duodenum to the presacral space; the presacral component of the abscess persists an d is unchanged in size from 01/16/2019. There are bilateral Robbin-Abdul drains in place; the positio n of the drains is unchanged from the prior CT. 2. New lumen opposing metal stent in the duodenum. 3. Circumferential thickening of the wall of the urinary bladder - correlate with clinical findings to exclude an infection. COMMENT: Quality ID # [id number]: Final reports with documentation of one or more dose reduction techniques (e.g., Automated exposure control, adjustment of the mA and/or kV according to patient size, use of iterative reconstruction technique) TECHNICAL DOCUMENTATION: JOB ID: [id number] [employer]- All Rights Reserved Reading location - IP/workstation name: [email or web address]
== END ==
LOC: RAD 09:48
PROVIDERS: ATTEND Surgery
DX: K63.1 Perforation of intestine (nontraumatic) (principal)
CPT/HCPCS: 36415; 74176; 80053; 85025

== ENCOUNTER → 2019-04-06 | Outpatient (CLI) | payer MEDICARE, BC ==
--- NOTE | 2019-04-07 15:27 | RADIOLOGY REPORT (SQ) ---
EXAM DESCRIPTION: CT ABD/PELVIS ORAL ONLY COMPLETED DATE/TIME: 04/06/2019 1:58 pm REASON FOR STUDY: K63.1 PERFORATION OF INTESTINE (NONTRAUMATIC) K63.1 PERFORATION OF INTESTINE (NON TRAUMATIC) COMPARISON: CT of the abdomen pelvis without contrast from 02/27/2019 and 01/16/2019. TECHNIQUE: CT scan of the abdomen and pelvis performed without intravenous or oral contrast. Images reviewed with lung, soft tissue, and bone windows. Reconstructed coronal and sagittal MPR images revi ewed. All images stored on PACS. All CT scanners at this facility use dose modulation, iterative reconstruction, and/or weight based d osing when appropriate to reduce radiation dose to as low as reasonably achievable (ALARA). [facility]: Dose Right [facility]: CareDose [facility]: Dose Right [facility]: Teradose 4D [facility]: [employer] [place] RADIATION DOSE: CT Rad equipment meets quality standard of care and radiation dose reduction techniq ues were employed. CTDIvol: 9.4 mGy. DLP: 514 mGy-cm.mGy. LIMITATIONS: None. FINDINGS: LOWER CHEST: No acute findings. NON-CONTRASTED LIVER, SPLEEN, ADRENALS: Evaluation is limited due to the absence of intravenous contr ast. The liver morphology is non cirrhotic. There is no CT evidence of hepatic steatosis. The sple en is normal in size. There is no abnormality of the adrenal glands. PANCREAS: No gross acute abnormality of the pancreas. GALLBLADDER: The gallbladder is surgically absent. RIGHT KIDNEY AND URETER: Unc the 2 mm calculus within a lower pole calyx and the stranding around the mid ureter that is associated with mild upstream distension of the ureter and pelvicaliectasis are u nchanged. LEFT KIDNEY AND URETER: Evaluation is limited due to the absence of intravenous contrast. There is a 3 mm calculus within an upper pole calyx. The fluid attenuation lesion in the lateral cortex of the lower pole is unchanged. There is no hydronephrosis, hydroureter or ureterolithiasis. AORTA AND RETROPERITONEUM: No aneurysmal dilate station of the abdominal aorta. No retroperitoneal a denopathy or mass. BOWEL AND PERITONEAL CAVITY: The stomach is distended. There is a lumen opposing metal stent in the d uodenum and there are bilateral lower quadrant Robbin Abdul drains that are in place to drain a retr operitoneal abscess; the abscess extends into the presacral space and it is similar in size compared to the prior CT; for reference on the coronal plane it measures up to 4.8 cm in transverse diameter a nd 3.1 cm and craniocaudal diameter. The thin hyperdensity along the mesocolon reflection is unchang ed. There there is no evidence of obstruction. There are diverticular throughout the descending and s igmoid colon without other ancillary findings to suggest an acute diverticulitis. There is no pneumat osis or portal venous gas. There is no free intraperitoneal fluid. APPENDIX: Normal. PELVIS, BLADDER, AND ABDOMINAL WALL:As on the prior CT the urinary bladder is contracted and its wall is circumferentially thickened. The prostate gland is surgically absent. The patient is also statu s post median laparotomy. BONES: No acute abnormality. OTHER: No other finding. IMPRESSION: 1. Status post median laparotomy and surgical washout of a retroperitoneal abscess that extended from the duodenum to the presacral space; the presacral component of the abscess persists an d is similar in size compared to 02/27/2019. There are bilateral Robbin-Abdul drains in place ; the p osition of the drains is unchanged from the prior CT. 2. Moderate distention of the stomach. 3. Unchanged circumferential thickening of the wall of the urinary bladder. 4. Unchanged mild right pelvicaliectasis. COMMENT: Quality ID # [id number]: Final reports with documentation of one or more dose reduction techniques (e.g., Automated exposure control, adjustment of the mA and/or kV according to patient size, use of iterative reconstruction technique) TECHNICAL DOCUMENTATION: JOB ID: [id number] [employer]- All Rights Reserved Reading location - IP/workstation name: [email or web address]
== END ==
LOC: RAD 12:49
PROVIDERS: ATTEND Surgery
DX: K63.1 Perforation of intestine (nontraumatic) (principal)
CPT/HCPCS: 74176

== ENCOUNTER → 2019-04-29 | Outpatient (CLI) | payer MEDICARE, BC ==
--- NOTE | 2019-04-29 08:38 | RADIOLOGY REPORT (SQ) ---
EXAM DESCRIPTION: CT ABD/PELVIS NO ORAL OR IV COMPLETED DATE/TIME: 04/29/2019 7:37 am REASON FOR STUDY: BOWEL PERFORATION (K63.1) K63.1 PERFORATION OF INTESTINE (NONTRAUMATIC) COMPARISON: 04/06/2019 TECHNIQUE: CT scan of the abdomen and pelvis performed without intravenous or oral contrast. Images reviewed with lung, soft tissue, and bone windows. Reconstructed coronal and sagittal MPR images revi ewed. All images stored on PACS. All CT scanners at this facility use dose modulation, iterative reconstruction, and/or weight based d osing when appropriate to reduce radiation dose to as low as reasonably achievable (ALARA). [facility]: Dose Right [facility]: CareDose [facility]: Dose Right [facility]: Teradose 4D [facility]: Smart [employer] RADIATION DOSE: CT Rad equipment meets quality standard of care and radiation dose reduction techniq ues were employed. CTDIvol: 9.0 mGy. DLP: 487 mGy-cm.mGy. LIMITATIONS: None. FINDINGS: LOWER CHEST: Stable 2.4 mm nodule in the right base. Based on Fleischner criteria no foll ow-up is warranted. NON-CONTRASTED LIVER, SPLEEN, ADRENALS: Evaluation limited by lack of IV contrast. No identified sign ificant masses. PANCREAS: No masses. No peripancreatic inflammatory changes. GALLBLADDER: Surgically absent. RIGHT KIDNEY AND URETER: No suspicious masses. Assessment limited by lack of IV contrast. There are small right renal calculi. Persistent hydronephrosis and mild dilatation of the proximal ureter. No ureteral stones. LEFT KIDNEY AND URETER: No suspicious masses. Assessment limited by lack of IV contrast. Persistent nonobstructing small renal calculi. No hydronephrosis or hydroureter. Stable mid to lower pole le ft renal cyst. AORTA AND RETROPERITONEUM: No aneurysm. No retroperitoneal masses or adenopathy. BOWEL AND PERITONEAL CAVITY: No obstruction. External drain remains in place and extends into the pr esacral space. Persistent presacral abscess no change in size. This measures approximately 4.1 x 3. 5 cm. Device in the duodenum has changed in configuration. This presumably represents a hemoclip. Clinical correlation is needed. APPENDIX: Surgically absent. PELVIS, BLADDER, AND ABDOMINAL WALL:As above. BONES: No significant findings. OTHER: No other significant finding. IMPRESSION: Drainage catheter remains in place. No change in size of the presacral abscess. Other findings as described. COMMENT: Quality ID # [id number]: Final reports with documentation of one or more dose reduction techniques (e.g., Automated exposure control, adjustment of the mA and/or kV according to patient size, use of iterative reconstruction technique) TECHNICAL DOCUMENTATION: JOB ID: [id number] [employer]- All Rights Reserved Reading location - IP/workstation name: [facility]ENTER[facility]
[2019-04-29 09:38] LABS: C DIFFICILE GDH NEGATIVE (NEGATIVE)
== END ==
LOC: RAD 07:23
PROVIDERS: ATTEND Surgery
DX: K63.1 Perforation of intestine (nontraumatic) (principal)
CPT/HCPCS: 74176; 87324; 87449

== ENCOUNTER 2019-05-25 11:06 | Inpatient (IN) | payer MEDICARE, BC ==
[2019-05-25] MEDS ORDERED: ACETAMINOPHEN 325 MG TABLET PO PRN (12:20)
[2019-05-25] MEDS ORDERED: MORPHINE SULFATE 10 MG/ML INJ IV PRN (12:20)
[2019-05-25 12:33] LABS: ABSOLUTE EOSINOPHILS # (AUTO) 0.1 10^3/uL (0.0-0.6); ABSOLUTE LYMPHOCYTES (AUTO) 0.6 10^3/uL (0.5-4.7); ABSOLUTE MONOCYTES (AUTO) 0.7 10^3/uL (0.1-1.4); ABSOLUTE NEUT (AUTO) 3.4 10^3/uL (1.7-8.2); BASOPHILS % (AUTO) 0.6 % (0-2); EOSINOPHILS % (AUTO) 2.5 % (0-6); HEMOGLOBIN 10.9 g/dL (13.5-17.0); LYMPHOCYTES % (AUTO) 11.4 % (13-45); MEAN CORPUSCULAR HEMOGLOBIN 25.8 pg (27.0-33.4); MEAN CORPUSCULAR VOLUME 78 fl (80-97); MONOCYTES % (AUTO) 15.1 % (3-13); PLATELET COUNT 266 10^3/uL (150-450); RED BLOOD COUNT 4.22 10^6/uL (4.35-5.55); RED CELL DISTRIBUTION WIDTH 18.5 % (11.5-14.0); SEGMENTED NEUTROPHILS % (AUTO) 70.4 % (42-78); TOTAL CELLS COUNTED % (AUTO) 100 %; WHITE BLOOD COUNT 4.8 10^3/uL (4.0-10.5)
[2019-05-25 12:54] LABS: ALBUMIN 2.8 g/dL (3.5-5.0); ALKALINE PHOSPHATASE 69 U/L (38-126); ANION GAP 10 (5-19); ASPARTATE AMINO TRANSFERASE 12 U/L (17-59); BILIRUBIN,DIRECT 0.1 mg/dL (0.0-0.4); BILIRUBIN,TOTAL 0.4 mg/dL (0.2-1.3); BLOOD UREA NITROGEN 15 mg/dL (7-20); CALCIUM 8.5 mg/dL (8.4-10.2); CARBON DIOXIDE 27 mmol/L (22-30); CHLORIDE 104 mmol/L (98-107); GLUCOSE 98 mg/dL (75-110); POTASSIUM 3.4 mmol/L (3.6-5.0); TOTAL PROTEIN 6.2 g/dL (6.3-8.2)
--- NOTE | 2019-05-25 13:17 | PDOC H&P ---
History of Present Illness Admission Date/PCP: 05/25/19 11:06 TIERRA CARVAJAL MD Mr. Mijares is a 74-year-old male who is well-known to me. He has had a recent history of a duodenal perforation which required an operation to close the duodenal perforation perform a pyloric exclusion. Subsequent to that he developed severe pancreatitis due to a reoperation because of an acute abdomen. 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 Subsequently he was sent to [facility] where he went duodenal stenting that has since been removed and the duodenal perforation has closed. He has developed a pancreatic fistula with drainage from the pancreas through the mesenteric root towards the pelvis. A drain remains in the pelvis previously draining pancreatic fluid. However over the weekend the drain character has changed to more stool contai param fluid and therefore it is felt that he may have developed a erosion into the colon or small bowel. He is also developed fever and chills over the weekend with feeling of malaise loss of appetite and the lower abdominal pain. Therefore being admitted to the hospital at this point for work-up of that which will include a CAT scan and possible colonoscopy. He complains of weakness chills and fever occasionally lower abdominal pain loss of appetite and occasional diarrhea. History of Present Illness: INOCENTE MIJARES is a 74 year old male Past Medical History Cardiac Medical History: Reports: Coronary Artery Disease, Hypertension Denies: Myocardial Infarction Pulmonary Medical History: Denies: Asthma, Bronchitis, Chronic Obstructive Pulmonary Disease (COPD), Pneumonia EENT Medical History: Reports: None Neurological Medical History: Reports: None Denies: Seizures Endocrine Medical History: Reports: Diabetes Mellitus Type 2 Renal/ Medical History: Reports: None Malignancy Medical History: Reports: None GI Medical History: Reports: Hiatal Hernia - HAD SURGERY, Other - Recent upper GI bleed with attempted endoscopy resulting in duodenal perf Denies: Hepatitis Musculoskeltal Medical History: Reports: Arthritis - HIMANSHU HANDS Skin Medical History: Reports: None Psychiatric Medical History: Reports: None Denies: Depression Traumatic Medical History: Reports: None Hematology: Reports: None Denies: Anemia, Sickle Cell Disease Infectious Medical History: Reports: None Past Surgical History Past Surgical History: Reports: Appendectomy, Cholecystectomy, Orthopedic Surgery - Right knee, Other - Exploratory laparotomy x2, pyloric exclusion, closure of duodenal perforati Denies: Pacemaker Social History Smoking Status: Never Smoker Electronic Cigarette use?: No Frequency of Alcohol Use: None Hx Recreational Drug Use: No Drugs: None Hx Prescription Drug Abuse: No Family History Family History: CAD, DM, Hyperlipidemia, Hypertension Parental Family History Reviewed: No Children Family History Reviewed: NA Sibling(s) Family History Reviewed.: NA Medication/Allergy Home Medications: Aspirin [Aspirin 81 mg Chewable Tablet] 81 mg PO DAILY 11/20/18 Latanoprost [Xalatan] 1 drop OU QHS 11/20/18 Losartan Potassium 100 mg PO DAILY 11/20/18 Omeprazole 40 mg PO DAILY@1700 11/20/18 Trazodone HCl 50 mg PO HSP PRN 11/20/18 Fenofibrate Nanocrystallized [Tricor 145 mg Tablet] 145 mg PO DAILY 11/21/18 Hydrochlorothiazide [Hydrodiuril 25 mg Tablet] 25 mg PO QAM 11/21/18 Metoprolol Succinate [Toprol Xl 50 mg Tab.sr] 50 mg PO DAILY 11/21/18 Multivitamin [Tab-A-Dharmesh (Multiple Vitamin) Tablet] 1 tab PO DAILY 11/21/18 Nitroglycerin [Nitrostat 0.4 mg (1/150 Gr) Tabs 25/Bottle] 1 tab SL Q5MP PRN 11/21/18 [place]-3 Fatty Acids/Fish Oil [Fish Oil 1,000 Mg Capsule] 1 cap PO QID 11/21/18 Cyanocobalamin (Vitamin B-12) [Vitamin B-12 Inj 1000 Mcg/1 ml Vial] 1,000 mcg IM .1ST OF THE MONTH 01/09/19 Simvastatin [Zocor 80 mg Tablet] 80 mg PO QPM 01/09/19 Allergies/Adverse Reactions: OLESYA Inhibitors Allergy (Verified 01/13/19 11:15) NSAIDS (Non-Steroidal Anti-Inflamma Adverse Reaction (Verified 01/09/19 23:35) Review of Systems Constitutional: PRESENT: chills, fatigue, fever(s), night sweats, weakness, weight loss Eyes: ABSENT: as per HPI, visual disturbances, other Ears: ABSENT: as per HPI, hearing changes, other Nose, Mouth, and Throat: ABSENT: as per HPI, headache(s), mouth pain, sore throat, vertigo, other Breasts: ABSENT: as per HPI, other Cardiovascular: ABSENT: as per HPI, chest pain, dyspnea on exertion, edema, orthropnea, palpitations, other Respiratory: ABSENT: as per HPI, cough, dyspnea, hemoptysis, sputum, other Gastrointestinal: PRESENT: abdominal pain, bloating, diarrhea, nausea Genitourinary: ABSENT: as per HPI, difficulty urinating, dysuria, hematuria, nocturia, other Musculoskeletal: ABSENT: as per HPI, back pain, deformity, joint swelling, muscle weakness, other Integumentary: ABSENT: as per HPI, diaphoresis, erythema, lesions, pruritus, rash, wounds, other Neurological: ABSENT: as per HPI, abnormal gait, abnormal movements, abnormal sp eech, confusion, convulsions, dizziness, focal weakness, frequent falls, lack of coordination, memory loss, numbness, paresthesias, restless legs, syncope, tingling, tremor(s), vertigo, weakness, other Psychiatric: ABSENT: as per HPI, anxiety, depression, hallucinations, homidical ideation, suicidal ideation, other Hematologic/Lymphatic: ABSENT: as per HPI, easy bleeding, easy bruising, lymphadenopathy, other Allergic/Immunologic: ABSENT: as per HPI, seasonal rhinorrhea, other Physical Exam Vital Signs: Temp Pulse Resp BP Pulse Ox 97.7 F 76 16 136/67 H 97 05/25/19 11:56 05/25/19 11:56 05/25/19 11:49 05/25/19 11:56 05/25/19 11:56 Intake & Output 05/24/19 05/25/19 05/26/19 06:59 06:59 06:59 Weight 80 kg General appearance: PRESENT: mild distress Head exam: PRESENT: normocephalic Eye exam: PRESENT: EOMI Ear exam: PRESENT: normal external ear exam Mouth exam: PRESENT: dry mucosa Neck exam: PRESENT: full ROM Respiratory exam: PRESENT: clear to auscultation himanshu Cardiovascular exam: PRESENT: RRR Pulses: PRESENT: normal radial pulses, normal femoral pulses, normal dorsalis pedis pul Vascular exam: PRESENT: normal capillary refill GI/Abdominal exam: PRESENT: soft, tenderness - Lower midline Rectal exam: PRESENT: deferred Extremities exam: PRESENT: full ROM Musculoskeletal exam: PRESENT: full ROM Neurological exam: PRESENT: alert, awake, oriented to person, oriented to place Psychiatric exam: PRESENT: depressed Skin exam: PRESENT: dry Results Laboratory Results: 05/25/19 12:23 05/25/19 12:23 05/25/19 05/25/19 12:23 12:23 WBC 4.8 RBC 4.22 L Hgb 10.9 L Hct 33.0 L MCV 78 L MCH 25.8 L MCHC 33.0 RDW 18.5 H Plt Count 266 Seg Neutrophils % 70.4 Sodium 140.5 Potassium 3.4 L Chloride 104 Carbon Dioxide 27 Anion Gap 10 BUN 15 Creatinine 1.40 H Est GFR ( Amer) > 60 Glucose 98 Calcium 8.5 Total Bilirubin 0.4 AST 12 L Alkaline Phosphatase 69 Total Protein 6.2 L Albumin 2.8 L Assessment & Plan - Diagnosis (2) Abdominal pain Qualifiers: Abdominal location: lower abdomen, unspecified Qualified Code(s): R10.30 - Lower abdominal pain, unspecified - Plan Summary Plan Summary: Patient will be admitted to the hospital for IV hydration and antibiotics work- up of the pancreatic fistula he will undergo a CT scan of his abdomen as well as possible colonoscopy to rule out drain erosion into the sigmoid colon.
[2019-05-25] MEDS: POTASSI CL 20 MEQ/D5-1/2NS 1L 1000 ML IV PRN (13:33)
[2019-05-25] MEDS: METRONIDAZOLE 500 MG/NS RTU 500 MG/100 ML RTUPB IV SCH ×2 (13:34→21:34)
[2019-05-25] MEDS: CEFAZOLIN SODIUM 1 GM in DEXTROSE 5%-WATER 50 ML IV SCH ×2 (14:25→20:17)
--- NOTE | 2019-05-25 15:42 | RADIOLOGY REPORT (SQ) ---
EXAM DESCRIPTION: CT ABD/PELVIS ORAL ONLY COMPLETED DATE/TIME: 05/25/2019 3:30 pm REASON FOR STUDY: pancreatic fistula COMPARISON: 04/29/2019 TECHNIQUE: CT scan of the abdomen and pelvis performed with oral contrast and no intravenous contras t. Images reviewed with lung, soft tissue, and bone windows. Reconstructed coronal and sagittal MPR i mages reviewed. All images stored on PACS. All CT scanners at this facility use dose modulation, iterative reconstruction, and/or weight based d osing when appropriate to reduce radiation dose to as low as reasonably achievable (ALARA). [facility]: Dose Right [facility]: CareDose [facility]: Dose Right [facility]: Teradose 4D [facility]: Smart [employer] RADIATION DOSE: CT Rad equipment meets quality standard of care and radiation dose reduction techniq ues were employed. CTDIvol: 10.4 mGy. DLP: 589 mGy-cm. mGy. LIMITATIONS: None. FINDINGS: LOWER CHEST: Small pleural effusions. NON-CONTRASTED LIVER, SPLEEN, ADRENALS: Evaluation limited by lack of IV contrast. No identified sign ificant masses. PANCREAS: No masses. No peripancreatic inflammatory changes. GALLBLADDER: Surgically absent. RIGHT KIDNEY AND URETER: No suspicious masses. Assessment limited by lack of IV contrast. No signif icant calcifications. Chronic dilatation UPJ. LEFT KIDNEY AND URETER: No suspicious masses. Assessment limited by lack of IV contrast. 3 mm nonob structing renal calculus. No hydronephrosis or hydroureter. AORTA AND RETROPERITONEUM: No aneurysm. No retroperitoneal masses or adenopathy. BOWEL AND PERITONEAL CAVITY: Percutaneous drain left lower quadrant approach with drain tip in the po sterior right pelvis. Residual gas fluid collection measuring about 3 x 3.8 cm, previously 3.5 x 4.2 cm. Small bowel gas fluid levels without dilated loops. No ascites or free air. APPENDIX: Not visualized. PELVIS, BLADDER, AND ABDOMINAL WALL: See above. Prior prostatectomy. BONES: Nothing acute. OTHER: No other significant finding. IMPRESSION: Slight decrease in size of presacral fluid collection. TECHNICAL DOCUMENTATION: JOB ID: [id number] Quality ID # [id number]: Final reports with documentation of one or more dose reduction techniques (e.g., Au tomated exposure control, adjustment of the mA and/or kV according to patient size, use of iterative reconstruction technique) 2010 [employer]- All Rights Reserved Reading location - IP/workstation name: [email or web address]
--- NOTE | 2019-05-25 18:04 | PDOC CONSULTATION ---
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 He also reported of having fever and chills at home. He was admitted by surgery for possible development of a colonic fistula. On the floor, nursing staff noted he was on a flutter on telemetry hence an EKG was done which did show atrial flutter. Otherwise he is asymptomatic and denies chest pain or shortness of breath. Past Medical History Cardiac Medical History: Reports: Coronary Artery Disease, Hypertension Denies: Myocardial Infarction Pulmonary Medical History: Denies: Asthma, Bronchitis, Chronic Obstructive Pulmonary Disease (COPD), Pneumonia EENT Medical History: Reports: None Neurological Medical History: Reports: None Denies: Seizures Endocrine Medical History: Reports: Diabetes Mellitus Type 2 Renal/ Medical History: Reports: None Malignancy Medical History: Reports: None GI Medical History: Reports: Hiatal Hernia - HAD SURGERY, Other - Recent upper GI bleed with attempted endoscopy resulting in duodenal perf Denies: Hepatitis Musculoskeltal Medical History: Reports: Arthritis - [employer] HANDS Skin Medical History: Reports: None Psychiatric Medical History: Reports: None Denies: Depression Traumatic Medical History: Reports: None Hematology: Reports: None Denies: Anemia, Sickle Cell Disease Infectious Medical History: Reports: None Past Surgical History Past Surgical History: Reports: Appendectomy, Cholecystectomy, Orthopedic Surgery - Right knee, Other - Exploratory laparotomy x2, pyloric exclusion, closure of duodenal perforati Denies: Pacemaker Social History Smoking Status: Never Smoker Electronic Cigarette use?: No Frequency of Alcohol Use: None Hx Recreational Drug Use: No Drugs: None Hx Prescription Drug Abuse: No Family History Family History: CAD, DM, Hyperlipidemia, Hypertension Parental Family History Reviewed: Yes - No premature CAD Children Family History Reviewed: No Sibling(s) Family History Reviewed.: No Medication/Allergy Home Medications: Latanoprost [Xalatan] 1 drop OU QHS 11/20/18 Losartan Potassium 100 mg PO DAILY 11/20/18 Omeprazole 40 mg PO DAILY@1700 11/20/18 Trazodone HCl 50 mg PO QHS 11/20/18 Metoprolol Succinate [Toprol Xl 50 mg Tab.sr] 50 mg PO DAILY 11/21/18 Cyanocobalamin (Vitamin B-12) [Vitamin B-12 Inj 1000 Mcg/1 ml Vial] 1,000 mcg IM .4TH 01/09/19 Docusate Sodium [Colace 100 mg Capsule] 100 mg PO BID 05/25/19 Dorzolamide HCl [Trusopt Plus 2% Oph Soln 10 ml] 1 drop OU BID 05/25/19 L.acidoph/L.bulg/B.bif/S.therm [Bacid Caplet] 1 each PO DAILY 05/25/19 Allergies/Adverse Reactions: OLESYA Inhibitors Allergy (Verified 01/13/19 11:15) NSAIDS (Non-Steroidal Anti-Inflamma Adverse Reaction (Verified 01/09/19 23:35) Review of Systems All systems: reviewed and no additional remarkable complaints except as stated - As mentioned in HPI Physical Exam Vital Signs: Temp Pulse Resp BP Pulse Ox 98.0 F 74 18 142/78 H 97 05/25/19 15:38 05/25/19 15:38 05/25/19 15:38 05/25/19 15:38 05/25/19 15:38 Intake & Output 05/24/19 05/25/19 05/26/19 06:59 06:59 06:59 Intake Total 240 Output Total 440 Balance -200 Weight 176 lb 5.917 oz General appearance: PRESENT: no acute distress, well-developed, well-nourished Head exam: PRESENT: atraumatic, normocephalic Eye exam: PRESENT: conjunctiva pink, EOMI, PERRLA. ABSENT: scleral icterus Ear exam: PRESENT: normal external ear exam Mouth exam: PRESENT: moist, tongue midline Neck exam: ABSENT: carotid bruit, JVD, lymphadenopathy, thyromegaly Respiratory exam: PRESENT: clear to auscultation yoana, other - Note discharge coming from left pelvic drain. ABSENT: rales, rhonchi, wheezes Cardiovascular exam: PRESENT: irregular rhythm. ABSENT: diastolic murmur, rubs, systolic murmur Pulses: PRESENT: normal dorsalis pedis pul GI/Abdominal exam: PRESENT: normal bowel sounds, soft. ABSENT: distended, guard ing, mass, organolmegaly, rebound, tenderness Rectal exam: PRESENT: deferred Extremities exam: PRESENT: full ROM. ABSENT: calf tenderness, clubbing, pedal edema Neurological exam: PRESENT: alert, awake, oriented to person, oriented to place, oriented to time, oriented to situation, CN II-XII grossly intact. ABSENT: motor sensory deficit Results Laboratory Results: 05/25/19 12:23 05/25/19 12:23 05/25/19 05/25/19 12: 12:23 WBC 4.8 RBC 4.22 L Hgb 10.9 L Hct 33.0 L MCV 78 L MCH 25.8 L MCHC 33.0 RDW 18.5 H Plt Count 266 Seg Neutrophils % 70.4 Sodium 140.5 Potassium 3.4 L Chloride 104 Carbon Dioxide 27 Anion Gap 10 BUN 15 Creatinine 1.40 H Est GFR ( Amer) > 60 Glucose 98 Calcium 8.5 Total Bilirubin 0.4 AST 12 L Alkaline Phosphatase 69 Total Protein 6.2 L Albumin 2.8 L Impressions: Abdomen/Pelvis CT 05/25/19 00:00 IMPRESSION: Slight decrease in size of presacral fluid collection. Assessment and Plan - Diagnosis (1) Atrial flutter Is this a current diagnosis for this admission?: Yes Plan: New onset. Rate controlled. EKG and telemetry shows atrial flutter with a heart rate in the 70s. Patient is asymptomatic. Blood pressures are stable. He has a ChadVasc score of 2. Will do work-up including a thyroid panel and echo. Suspect early/beginning infection causing new onset AFlutter as well. Discussed in length with patient and . Discussed recommendation about anticoagulation. He has a HAS BLED score he does have a history of GI bleed from an AVM of 2 (moderate bleeding risk). And had history of CVA with perforation. Discussed the risks and benefits of bleeding as well as risk of CVA in a flutter. Patient and are not amenable to starting him on anticoagulation and verbalized understanding of the risks. Also consulted cardiology who was the same recommendations. (2) Hypokalemia Is this a current diagnosis for this admission?: Yes Plan: Getting replacement. Will check Mg as well. (3) HTN (hypertension) Is this a current diagnosis for this admission?: Yes Plan: Resume losartan. (4) Acute kidney injury Is this a current diagnosis for this admission?: Yes Plan: Mild CHRISTIANO. Creatinine is slightly elevated at 1.4 from a recent baseline of 0.9. Normal saline at 50 cc/hr. Repeat BMP tomorrow. - Time Time Spent with patient: 25-34 minutes
[2019-05-25] MEDS: NORMAL SALINE 1000 ML 1,000 ML IV PRN (18:27)
--- NOTE | 2019-05-25 18:29 | EKG REPORT ---
SEVERITY:- ABNORMAL ECG - A-FLUTTER W/ VARIED AV BLOCK, A-RATE 294 : Confirmed by: Tito Vasquez MD 25-May-2019 18:28:20
[2019-05-25] MEDS ORDERED: POLYETHYLENE GLYCOL 3350 POWDER 17 GM/1 PACKET PO ONE ×2 (19:00→22:00)
--- NOTE | 2019-05-25 19:15 | RADIOLOGY REPORT (SQ) ---
EXAM DESCRIPTION: CHEST SINGLE VIEW COMPLETED DATE/TIME: 05/25/2019 6:50 pm REASON FOR STUDY: baseline cxr, new onset aflutter COMPARISON: AP view of the chest from 01/15/2019 EXAM PARAMETERS: NUMBER OF VIEWS: One view. TECHNIQUE: Single frontal radiographic view of the chest acquired. RADIATION DOSE: NA LIMITATIONS: None. FINDINGS: LUNGS AND PLEURA: No consolidation, sizeable pleural effusion or pneumothorax. MEDIASTINUM AND HILAR STRUCTURES: No mediastinal hilar contour abnormality HEART AND VASCULAR STRUCTURES: The cardiac silhouette is borderline enlarged. The pulmonary vasculat ure is within normal limits. BONES: Chronic fracture deformities of the right 5th and 6th ribs. HARDWARE: None in the chest. OTHER: No other finding. IMPRESSION: No acute cardiopulmonary process. TECHNICAL DOCUMENTATION: JOB ID: [id number] [employer] [place]- All Rights Reserved Reading location - IP/workstation name: [email or web address]
[2019-05-25 20:14] LABS: APPEARANCE,URINE CLEAR; BILIRUBIN,URINE NEGATIVE (NEGATIVE); COLOR,URINE STRAW; GLUCOSE, URINE NEGATIVE (NEGATIVE); KETONES,URINE NEGATIVE (NEGATIVE); LEUKOCYTE ESTERASE,URINE NEGATIVE (NEGATIVE); NITRITE,URINE NEGATIVE (NEGATIVE); PROTEIN,URINE NEGATIVE (NEGATIVE); URINE SPECIFIC GRAVITY 1.006; UROBILINOGEN,URINE NEGATIVE mg/dL (<2.0)
[2019-05-25] MEDS: OCTREOTIDE ACETATE INJ/PF 100 MCG/1 ML SDV SUBCUT SCH (21:37)
[2019-05-26] MEDS: CEFAZOLIN SODIUM 1 GM in DEXTROSE 5%-WATER 50 ML IV SCH ×4 (02:56→21:31)
[2019-05-26 05:06] LABS: ABSOLUTE EOSINOPHILS # (AUTO) 0.2 10^3/uL (0.0-0.6); ABSOLUTE LYMPHOCYTES (AUTO) 0.6 10^3/uL (0.5-4.7); ABSOLUTE MONOCYTES (AUTO) 0.6 10^3/uL (0.1-1.4); ABSOLUTE NEUT (AUTO) 2.4 10^3/uL (1.7-8.2); EOSINOPHILS % (AUTO) 5.3 % (0-6); HEMATOCRIT 32.1 % (37.9-51.0); HEMOGLOBIN 10.6 g/dL (13.5-17.0); LYMPHOCYTES % (AUTO) 16.2 % (13-45); MEAN CORPUSCULAR HEMOGLOBIN 25.8 pg (27.0-33.4); MEAN CORPUSCULAR HGB CONC 32.9 g/dL (32.0-36.0); MEAN CORPUSCULAR VOLUME 78 fl (80-97); MONOCYTES % (AUTO) 15.5 % (3-13); PLATELET COUNT 249 10^3/uL (150-450); RED BLOOD COUNT 4.09 10^6/uL (4.35-5.55); RED CELL DISTRIBUTION WIDTH 18.8 % (11.5-14.0); TOTAL CELLS COUNTED % (AUTO) 100 %; WHITE BLOOD COUNT 3.9 10^3/uL (4.0-10.5)
[2019-05-26 05:17] LABS: ANION GAP 11 (5-19); BLOOD UREA NITROGEN 12 mg/dL (7-20); CALCIUM 8.7 mg/dL (8.4-10.2); CARBON DIOXIDE 26 mmol/L (22-30); CHLORIDE 101 mmol/L (98-107); GLUCOSE 148 mg/dL (75-110); POTASSIUM 4.1 mmol/L (3.6-5.0)
[2019-05-26] MEDS: OCTREOTIDE ACETATE INJ/PF 100 MCG/1 ML SDV SUBCUT SCH ×3 (05:55→21:31)
[2019-05-26] MEDS: METRONIDAZOLE 500 MG/NS RTU 500 MG/100 ML RTUPB IV SCH ×3 (05:55→21:32)
--- NOTE | 2019-05-26 08:16 | PDOC PROGRESS REPORT ---
Subjective Progress Note for:: 05/26/19 Subjective:: 05/26/2019-no complaints Reason For Visit: PANCREATIC FISTULA Physical Exam Vital Signs: Temp Pulse Resp BP Pulse Ox 98.1 F 101 H 18 158/79 H 97 05/26/19 06:49 05/26/19 07:00 05/26/19 06:49 05/26/19 06:49 05/26/19 06:49 Intake & Output 05/25/19 05/26/19 05/27/19 06:59 06:59 06:59 Intake Total 5780 100 Output Total 1700 Balance 4080 100 Weight 82.4 kg General appearance: PRESENT: no acute distress, well-developed, well-nourished Neck exam: ABSENT: carotid bruit, JVD, lymphadenopathy, thyromegaly Respiratory exam: PRESENT: clear to auscultation yoana. ABSENT: rales, rhonchi, wheezes Cardiovascular exam: PRESENT: RRR. ABSENT: diastolic murmur, rubs, systolic murmur Pulses: PRESENT: normal dorsalis pedis pul GI/Abdominal exam: PRESENT: hypoactive bowel sounds, soft, other - Pancreatic drain in place Rectal exam: PRESENT: deferred Extremities exam: PRESENT: full ROM. ABSENT: calf tenderness, clubbing, pedal edema Neurological exam: PRESENT: alert, awake, oriented to person, oriented to place, oriented to time, oriented to situation, CN II-XII grossly intact. ABSENT: motor sensory deficit Psychiatric exam: PRESENT: appropriate affect, normal mood. ABSENT: homicidal ideation, suicidal ideation Skin exam: PRESENT: dry, intact, warm. ABSENT: cyanosis, rash Results Laboratory Results: 05/26/19 04:28 05/26/19 04:28 05/25/19 05/25/19 05/25/19 12:23 12:23 16:56 WBC 4.8 RBC 4.22 L Hgb 10.9 L Hct 33.0 L MCV 78 L MCH 25.8 L MCHC 33.0 RDW 18.5 H Plt Count 266 Seg Neutrophils % 70.4 Sodium 140.5 Potassium 3.4 L Chloride 104 Carbon Dioxide 27 Anion Gap 10 BUN 15 Creatinine 1.40 H Est GFR ( Amer) > 60 Glucose 98 Lactic Acid Calcium 8.5 Magnesium 1.4 L Total Bilirubin 0.4 AST 12 L Alkaline Phosphatase 69 Total Protein 6.2 L Albumin 2.8 L TSH Urine Color Urine Appearance Urine pH Ur Specific [place] Urine Protein Urine Glucose (UA) Urine Ketones Urine Blood Urine Nitrite Ur Leukocyte Esterase Urine WBC (Auto) Urine RBC (Auto) 05/25/19 05/25/19 05/26/19 16:56 18:55 04:28 WBC 3.9 L RBC 4.09 L Hgb 10.6 L Hct 32.1 L MCV 78 L MCH 25.8 L MCHC 32.9 RDW 18.8 H Plt Count 249 Seg Neutrophils % 62.0 Sodium Potassium Chloride Carbon Dioxide Anion Gap BUN Creatinine Est GFR ( Amer) Glucose Lactic Acid Calcium Magnesium Total Bilirubin AST Alkaline Phosphatase Total Protein Albumin TSH 1.82 Urine Color STRAW Urine Appearance CLEAR Urine pH 6.0 Ur Specific [place] 1.006 Urine Protein NEGATIVE Urine Glucose (UA) NEGATIVE Urine Ketones NEGATIVE Urine Blood NEGATIVE Urine Nitrite NEGATIVE Ur Leukocyte Esterase NEGATIVE Urine WBC (Auto) 1 Urine RBC (Auto) 0 05/26/19 05/26/19 04:28 04:28 WBC RBC Hgb Hct MCV MCH MCHC RDW Plt Count Seg Neutrophils % Sodium 137.8 Potassium 4.1 Chloride 101 Carbon Dioxide 26 Anion Gap 11 BUN 12 Creatinine 1.29 H Est GFR ( Amer) > 60 Glucose 148 H Lactic Acid 1.1 Calcium 8.7 Magnesium Total Bilirubin AST Alkaline Phosphatase Total Protein Albumin TSH Urine Color Urine Appearance Urine pH Ur Specific [place] Urine Protein Urine Glucose (UA) Urine Ketones Urine Blood Urine Nitrite Ur Leukocyte Esterase Urine WBC (Auto) Urine RBC (Auto) Impressions: Abdomen/Pelvis CT 05/25/19 00:00 IMPRESSION: Slight decrease in size of presacral fluid collection. Chest X-Ray 05/25/19 18:02 IMPRESSION: No acute cardiopulmonary process. Assessment and Plan - Diagnosis (1) Acute kidney injury Is this a current diagnosis for this admission?: Yes Plan: Mild CHRISTIANO. Creatinine is slightly elevated at 1.4 from a recent baseline of 0.9. Normal saline at 50 cc/hr. Repeat BMP tomorrow. 05/26/2019-creatinine improved to 1.2. Continue to follow continue normal saline 50 cc an hour (2) Atrial flutter Is this a current diagnosis for this admission?: Yes Plan: New onset. Rate controlled. EKG and telemetry shows atrial flutter with a heart rate in the 70s. Patient is asymptomatic. Blood pressures are stable. He has a ChadVasc score of 2. Will do work-up including a thyroid panel and echo. Suspect early/beginning infection causing new onset AFlutter as well. Discussed in length with patient and . Discussed recommendation about anticoagulation. He has a HAS BLED score he does have a history of GI bleed from an AVM of 2 (moderate bleeding risk). And had history of CVA with perforation. Discussed the risks and benefits of bleeding as well as risk of CVA in a flutter. Patient and are not amenable to starting him on anticoagulation and verbalized understanding of the risks. Also consulted cardiology who was the same recommendations. 10/24/2018-remains in a flutter 3-1. Patient is do not want anticoagulation and verbally understand the risk involved. (3) HTN (hypertension) Is this a current diagnosis for this admission?: Yes Plan: Resume losartan. 05/26/2019-titrate losartan as needed (4) Hypokalemia Is this a current diagnosis for this admission?: Yes Plan: Getting replacement. Will check Mg as well. - Time Time Spent with patient: 15-24 minutes - Inpatient Certification Based on my medical assessment, after consideration of the patient's comorbidities, presenting symptoms, or acuity I expect that the services needed warrant INPATIENT care.: Yes I certify that my determination is in accordance with my understanding of Medicare's requirements for reasonable and necessary INPATIENT services [42 CFR 412.3e].: Yes Medical Necessity: Significant Comorbidiites Make Outpatient Treatment Too Risky, Need Close Monitoring Due to Risk of Patient Decompensation, Need for Pain Control
[2019-05-26] MEDS ORDERED: DIPHENHYDRAMINE HCL 50 MG/ML VIAL ONE (09:12)
[2019-05-26] MEDS ORDERED: FLUMAZENIL INJ 0.5 MG/5 ML VIAL ONE (09:13)
[2019-05-26] MEDS ORDERED: ONDANSETRON HCL INJ/PF 4 MG/2 ML SDV ONE (09:13)
[2019-05-26] MEDS ORDERED: NALOXONE HCL INJ/PF 0.4 MG/1 ML SDV ONE (09:13)
[2019-05-26] MEDS ORDERED: EPINEPHRINE INJ 1 MG/10 ML DISP.SYRIN ONE (09:14)
[2019-05-26] MEDS ORDERED: GLUCAGON,HUMAN RECOMB 1 MG INJ ONE (09:14)
[2019-05-26] MEDS: MIDAZOLAM 2 MG/2 ML INJ ONE ×3 (10:00→10:22)
[2019-05-26] MEDS: FENTANYL CITRATE INJ/PF 100 MCG/2 ML AMPUL ONE ×4 (10:03→10:24)
[2019-05-26] MEDS: NORMAL SALINE 1000 ML 1,000 ML IV PRN (11:38)
--- NOTE | 2019-05-26 11:56 | Operative Report ---
Nonrecallable Operative Report DATE OF SURGERY: 05/26/19 PREOPERATIVE DIAGNOSIS: pancreatic fistula POSTOPERATIVE DIAGNOSIS: pancreatic fistula OPERATION: colonoscopy SURGEON: TIERRA CARVAJAL ANESTHESIA: Moderate Sedation TISSUE REMOVED OR ALTERED: none COMPLICATIONS: none ESTIMATED BLOOD LOSS: 0 INTRAOPERATIVE FINDINGS: see dictation PROCEDURE: Patient was brought to the endoscopy suite awake alert stable condition placed on the endoscopy table in a lateral decubitus position after appropriate timeout site verification he received IV Versed and fentanyl for sedation. The Olympus colonoscope was easily passed into the rectum and we were able to traverse the rectum sigmoid colon descending colon up to the splenic flexure and then into the transverse colon there was a large amount of stool large amount of diverticula throughout the entire length of the colon from the first portion of the sigmoid colon all the way to the mid transverse colon the bowel prep was poor with a lot of remaining liquid stool however there was no evidence of mucosal abnormalities. I did not identify evidence of erosion of the Robbin- Abdul drain into the colon. Is not to say that the patient did not have a perforated diverticulum and then leaking into the [place] drain. Therefore plans currently to perform a barium enema using water-soluble contrast to rule out any obvious leak.
--- NOTE | 2019-05-26 15:17 | RADIOLOGY REPORT (SQ) ---
EXAM DESCRIPTION: GASTROGRAFIN ENEMA COMPLETED DATE/TIME: 05/26/2019 2:22 pm REASON FOR STUDY: r/o leak, use water souluble contrast. COMPARISON: CT ABDOMEN AND PELVIS 05/25/2000 FLUOROSCOPY TIME: 2.8 minutes of fluoroscopy was used. 20 images saved to PACS. TECHNIQUE: Following retrograde filling of the colon with water soluble contrast, fluoroscopic spot and overhead imaging of the colon was obtained and saved to PACS. LIMITATIONS: None. FINDINGS: [employer] ARCHITECT KUB: Moderate gaseous distention of the colon from recent colonoscopy. Multiple amelia gical clips are seen in the floor the pelvis. Jimenez drain overlying the mid abdomen and pelvis. I mplanted surgical device overlying the right mid abdomen. CECUM: Normal cecum. Reflux of contrast into the distal ileum approximately 40 cm shows no communica tion with the [place] drain. No fistula identified. ASCENDING COLON: No masses, strictures, or perforations. TRANSVERSE COLON: No masses, strictures, or perforations. DESCENDING COLON: No masses, strictures, or perforations. Distal descending colon diverticulosis. SIGMOID COLON: No masses, strictures, or perforations. Moderate sigmoid and distal descending colon diverticulosis. RECTUM: No masses, strictures, or perforations. POST EVAC: Near complete evacuation of contrast. OTHER: No fistulous communication can be identified. IMPRESSION: NO EVIDENCE OF COLONIC PERFORATION OR FISTULOUS COMMUNICATION WITH THE ABDOMINAL DRAIN. MODERATE SIGMOID AND DISTAL DESCENDING COLON DIVERTICULOSIS. COMMENT: Quality ID [id number]: Final reports for procedures using fluoroscopy that document radiation exp osure indices, or exposure time and number of fluorographic images (if radiation exposure indices are not available) TECHNICAL DOCUMENTATION: JOB ID: [id number] [employer]- All Rights Reserved Reading location - IP/workstation name: [email or web address]
[2019-05-26] MEDS: POTASSI CL 20 MEQ/D5-1/2NS 1L 1000 ML IV PRN (17:33)
--- NOTE | 2019-05-26 20:44 | PDOC CONSULTATION ---
Consultation Consult Date: 05/26/19 Provider Consulted: SAGAR MCKEON Consult reason:: Atrial flutter History of Present Illness Admission Date/PCP: 05/25/19 11:06 TIERRA CARVAJAL MD Patient complains of: No symptoms. Abnormal telemetry History of Present Illness: INOCENTE MIJARES is a 74 year old male with the following active problems 1. Coronary artery disease 2. Coronary artery bypass graft 1999 3. PCI 2002 4. Systemic hypertension 5. Dyslipidemia 6. Colonic fistula 7. Duodenal fistula 74-year-old male with history of coronary artery bypass graft with complications after endoscopy which is resulted in fistula which are being managed surgically. Patient is completely asymptomatic from a cardiac and especially rhythm standpoint but was noted to be in atrial flutter with controlled ventricular response on telemetry. Patient reports no prior cardiac arrhythmias. At the present time is completely asymptomatic and is not clinically in heart failure. He is presently admitted for surgical procedures pertaining to the fistula as described above. Past Medical History Cardiac Medical History: Reports: Coronary Artery Disease, Hypertension Denies: Myocardial Infarction Pulmonary Medical History: Denies: Asthma, Bronchitis, Chronic Obstructive Pulmonary Disease (COPD), Pneumonia EENT Medical History: Reports: None Neurological Medical History: Reports: None Denies: Seizures Endocrine Medical History: Reports: Diabetes Mellitus Type 2 Renal/ Medical History: Reports: None Malignancy Medical History: Reports: None GI Medical History: Reports: Hiatal Hernia - HAD SURGERY, Other - Recent upper GI bleed with attempted endoscopy resulting in duodenal perf Denies: Hepatitis Musculoskeltal Medical History: Reports: Arthritis - HIMANSHU HANDS Skin Medical History: Reports: None Psychiatric Medical History: Reports: None Denies: Depression Traumatic Medical History: Reports: None Hematology: Reports: None Denies: Anemia, Sickle Cell Disease Infectious Medical History: Reports: None Past Surgical History Past Surgical History: Reports: Appendectomy, Cholecystectomy, Orthopedic Surgery - Right knee, Other - Exploratory laparotomy x2, pyloric exclusion, closure of duodenal perforati Denies: Pacemaker Social History Smoking Status: Never Smoker Electronic Cigarette use?: No Frequency of Alcohol Use: None Hx Recreational Drug Use: No Drugs: None Hx Prescription Drug Abuse: No Family History Family History: CAD, DM, Hyperlipidemia, Hypertension Parental Family History Reviewed: No - NA Children Family History Reviewed: No Sibling(s) Family History Reviewed.: No Medication/Allergy Home Medications: Latanoprost [Xalatan] 1 drop OU QHS 11/20/18 Losartan Potassium 100 mg PO DAILY 11/20/18 Omeprazole 40 mg PO DAILY@1700 11/20/18 Trazodone HCl 50 mg PO QHS 11/20/18 Metoprolol Succinate [Toprol Xl 50 mg Tab.sr] 50 mg PO DAILY 11/21/18 Cyanocobalamin (Vitamin B-12) [Vitamin B-12 Inj 1000 Mcg/1 ml Vial] 1,000 mcg IM .4TH 01/09/19 Docusate Sodium [Colace 100 mg Capsule] 100 mg PO BID 05/25/19 Dorzolamide HCl [Trusopt Plus 2% Oph Soln 10 ml] 1 drop OU BID 05/25/19 L.acidoph/L.bulg/B.bif/S.therm [Bacid Caplet] 1 each PO DAILY 05/25/19 Allergies/Adverse Reactions: OLESYA Inhibitors Allergy (Verified 01/13/19 11:15) NSAIDS (Non-Steroidal Anti-Inflamma Adverse Reaction (Verified 01/09/19 23:35) Review of Systems Cardiovascular: PRESENT: as per HPI Gastrointestinal: PRESENT: as per HPI, other - Fistula Genitourinary: PRESENT: as per HPI Neurological: PRESENT: as per HPI Physical Exam Vital Signs: Temp Pulse Resp BP Pulse Ox 98.3 F 87 16 154/67 H 96 05/26/19 19:03 05/26/19 19:03 05/26/19 19:03 05/26/19 19:03 05/26/19 19:03 Intake & Output 05/25/19 05/26/19 05/27/19 06:59 06:59 06:59 Intake Total 5780 2430 Output Total 1700 Balance 4080 2430 Weight 82.4 kg 82.4 kg General appearance: PRESENT: no acute distress Head exam: PRESENT: atraumatic Eye exam: PRESENT: conjunctiva pink, EOMI Ear exam: PRESENT: normal external ear exam Mouth exam: PRESENT: moist Respiratory exam: PRESENT: unlabored Cardiovascular exam: PRESENT: irregular rhythm, +S1, +S2, other - Healed sternotomy scar Pulses: PRESENT: normal radial pulses GI/Abdominal exam: PRESENT: soft, other - Drain tube left lower quadrant abdomen. Rectal exam: PRESENT: deferred Neurological exam: PRESENT: alert, awake, oriented to person, oriented to place, oriented to time Results Laboratory Results: 05/26/19 04:28 05/26/19 04:28 05/26/19 05/26/19 05/26/19 04:28 04:28 04:28 WBC 3.9 L RBC 4.09 L Hgb 10.6 L Hct 32.1 L MCV 78 L MCH 25.8 L MCHC 32.9 RDW 18.8 H Plt Count 249 Seg Neutrophils % 62.0 Sodium 137.8 Potassium 4.1 Chloride 101 Carbon Dioxide 26 Anion Gap 11 BUN 12 Creatinine 1.29 H Est GFR ( Amer) > 60 Glucose 148 H Lactic Acid 1.1 Calcium 8.7 EKG Comments: Telemetry shows atrial flutter with controlled ventricular response at 70 to 95 bpm. Twelve-lead EKG shows atrial flutter with variable with ventricular response. Impressions: Abdomen/Pelvis CT 05/25/19 00:00 IMPRESSION: Slight decrease in size of presacral fluid collection. Chest X-Ray 05/25/19 18:02 IMPRESSION: No acute cardiopulmonary process. Barium Enema w/ Air Contrast, therapeutic 05/26/19 00:00 IMPRESSION: NO EVIDENCE OF COLONIC PERFORATION OR FISTULOUS COMMUNICATION WITH THE ABDOMINAL DRAIN. MODERATE SIGMOID AND DISTAL DESCENDING COLON DIVERTICULOSIS. Assessment & Plan - Diagnosis (1) Atrial flutter Qualifiers: Atrial flutter type: typical Qualified Code(s): I48.3 - Typical atrial flutter Is this a current diagnosis for this admission?: Yes Plan: Atrial flutter with controlled ventricular response. At the present time is not established that the patient can tolerate systemic anticoagulation safely especially given prior history of GI bleeding and presence of fistula I and with plans for surgical treatment. Given the above circumstance if anticoagulation cannot be prescribed patient defaults to a rate control strategy. I discussed this with the patient including risk of stroke attributable to this rhythm given his age as well as hypertension. Down the road based on improvement in clinical situation if patient can tolerate systemic anticoagulation we can probably pursue a rhythm restorationist strategy which might involve cardioversion and/or catheter ablation. Review of EKG suggests typical flutter although the amplitude of the flutter waves is rather low in the inferior leads to make further comment. However the rate is controlled. (2) Hx of CABG Plan: Medical therapy as feasible This should include [id number] can be initiated and titrated gradually Patient is also on losartan-this can be started after he tolerates metoprolol since metoprolol has added utility for rate control Aspirin and statin as feasible.
--- NOTE | 2019-05-26 20:54 | XCELERA REPORT ---
[address] [address] Transthoracic Echocardiogram Report Name: MARYANAINOCENTE Age: 74 yrs Gender: Male : 1945 Patient Status: Inpatient Patient Location: [address] [place], [place] [id number] Study Date: 05/26/2019 02:29 PM History: Atrial flutter CABG Height: 66 in Weight: 176 lb BSA: 1.9 m2 Procedure: A complete two-dimensional transthoracic echocardiogram was performed (2D, M-mode, spectral and color flow Doppler). Study Quality: Technically adequate. Reason For Study: new onset AFib, Dr. Allen Rodriguez's pxt History: CAD. Ordering Physician: REAGAN ADAN Performed By: Tyler Dominguez Interpretation Summary Left ventricular systolic function is low normal. The Ejection Fraction estimate is 50-55% The right ventricle is normal in size and function. There is a mild to moderate amount of mitral regurgitation There is a mild amount of tricuspid regurgitation There is moderate pulmonary hypertension by echo There is no pericardial effusion. MMode/2D Measurements & Calculations RVDd: 3.8 cm LVIDd: 4.8 cm FS: 28.5 % Ao root diam: 3.3 cm IVSd: 0.95 cm LVIDs: 3.4 cm EDV(Teich): Ao root area: LVPWd: 1.0 cm 107.0 ml 8.7 cm2 ESV(Teich): 48.2 mlLA dimension: 4.8 cm EF(Teich): 54.9 % LVLd ap4: 7.5 cm SV(MOD-sp4): EDV(MOD-sp4): 48.0 ml 91.0 ml LVLs ap4: 6.9 cm ESV(MOD-sp4): 43.0 ml EF(MOD-sp4): 52.7 % Doppler Measurements & Calculations MV E max ari: MV P1/2t max ari: Ao V2 max: LV V1 max P.1 cm/sec 112.2 cm/sec 97.9 cm/sec 2.4 mmHg MV A max ari: MV P1/2t: 49.7 msec Ao max P.8 mmHgLV V1 max: 40.0 cm/sec MVA(P1/2t): 4.4 cm2 77.5 cm/sec MV E/A: 2.7 MV dec slope: 661.6 cm/sec2 MV dec time: 0.14 sec PA V2 max: TR max ari: MV P1/2t-pr_phl: 117.5 cm/sec 287.0 cm/sec 60.4 msec PA max P.5 mmHg TR max P.9 mmHg Left Ventricle The left ventricle is normal in size. There is mild to moderate concentric left ventricular hypertrophy. The Ejection Fraction estimate is 50-55%. Left ventricular systolic function is low normal. LV diastolic function not assessed. Septal motion is consistent with post-operative state. Right Ventricle The right ventricle is normal in size and function. Atria The right atrium is normal in size. The left atrium is mildly dilated. Mitral Valve The mitral valve is grossly normal. The mitral regurgitant jet is eccentrically directed. There is a mild to moderate amount of mitral regurgitation. Aortic Valve The aortic valve is normal in structure and function. The aortic valve is trileaflet. The aortic valve opens well. Tricuspid Valve The tricuspid valve is normal in structure and function. There is a mild amount of tricuspid regurgitation. Right ventricular systolic pressure is estimated to be elevated at 50-60mmHg. There is moderate pulmonary hypertension by echo. Pulmonic Valve The pulmonic valve is normal in structure and function. There is a trace or physiologic amount of pulmonic regurgitation. Great Vessels The aortic root is normal size. The inferior vena cava appeared small and collapsed with respiration (RAP 0-5 mmHg). Effusions There is no pericardial effusion. : REAGAN ADAN Anil
[2019-05-26] MEDS: METOPROLOL TARTRATE 25 MG TABLET PO SCH (21:32)
[2019-05-27] MEDS: POTASSI CL 20 MEQ/D5-1/2NS 1L 1000 ML IV PRN ×2 (04:10→14:17)
[2019-05-27] MEDS: CEFAZOLIN SODIUM 1 GM in DEXTROSE 5%-WATER 50 ML IV SCH ×4 (04:11→21:36)
[2019-05-27] MEDS: METRONIDAZOLE 500 MG/NS RTU 500 MG/100 ML RTUPB IV SCH ×3 (06:12→23:01)
[2019-05-27] MEDS: OCTREOTIDE ACETATE INJ/PF 100 MCG/1 ML SDV SUBCUT SCH ×3 (06:12→21:58)
[2019-05-27 06:49] LABS: HEMATOCRIT 32.6 % (37.9-51.0); HEMOGLOBIN 10.7 g/dL (13.5-17.0); MEAN CORPUSCULAR HEMOGLOBIN 25.4 pg (27.0-33.4); MEAN CORPUSCULAR HGB CONC 32.7 g/dL (32.0-36.0); MEAN CORPUSCULAR VOLUME 78 fl (80-97); PLATELET COUNT 294 10^3/uL (150-450); RED CELL DISTRIBUTION WIDTH 18.7 % (11.5-14.0); WHITE BLOOD COUNT 3.6 10^3/uL (4.0-10.5)
[2019-05-27 07:14] LABS: ANION GAP 7 (5-19); BLOOD UREA NITROGEN 9 mg/dL (7-20); CALCIUM 8.5 mg/dL (8.4-10.2); CARBON DIOXIDE 27 mmol/L (22-30); CHLORIDE 105 mmol/L (98-107); GLUCOSE 148 mg/dL (75-110); POTASSIUM 4.1 mmol/L (3.6-5.0)
--- NOTE | 2019-05-27 08:28 | PDOC PROGRESS REPORT ---
Subjective Progress Note for:: 05/27/19 Subjective:: feels much better today cj soft diet Reason For Visit: PANCREATIC FISTULA Physical Exam Vital Signs: Temp Pulse Resp BP Pulse Ox 98.6 F 77 20 140/67 H 97 05/27/19 04:11 05/27/19 04:11 05/27/19 04:11 05/27/19 04:11 05/27/19 04:11 Intake & Output 05/26/19 05/27/19 05/28/19 06:59 06:59 06:59 Intake Total 5780 5620 Output Total 1700 1180 Balance 4080 4440 Weight 82.4 kg 81.7 kg General appearance: PRESENT: no acute distress Head exam: PRESENT: normocephalic Eye exam: PRESENT: EOMI Mouth exam: PRESENT: moist Neck exam: PRESENT: full ROM Respiratory exam: PRESENT: clear to auscultation yoana Cardiovascular exam: PRESENT: RRR Vascular exam: PRESENT: normal capillary refill GI/Abdominal exam: PRESENT: soft, other - isabella creamy raines, Extremities exam: PRESENT: full ROM Musculoskeletal exam: PRESENT: full ROM Neurological exam: PRESENT: alert, awake, oriented to person, oriented to place Psychiatric exam: PRESENT: appropriate affect Skin exam: PRESENT: dry Results Laboratory Results: 05/27/19 06:31 05/27/19 06:31 05/27/19 05/27/19 06:31 06:31 WBC 3.6 L RBC 4.20 L Hgb 10.7 L Hct 32.6 L MCV 78 L MCH 25.4 L MCHC 32.7 RDW 18.7 H Plt Count 294 Sodium 139.3 Potassium 4.1 Chloride 105 Carbon Dioxide 27 Anion Gap 7 BUN 9 Creatinine 1.29 H Est GFR ( Amer) > 60 Glucose 148 H Calcium 8.5 Impressions: Abdomen/Pelvis CT 05/25/19 00:00 IMPRESSION: Slight decrease in size of presacral fluid collection. Chest X-Ray 05/25/19 18:02 IMPRESSION: No acute cardiopulmonary process. Barium Enema w/ Air Contrast, therapeutic 05/26/19 00:00 IMPRESSION: NO EVIDENCE OF COLONIC PERFORATION OR FISTULOUS COMMUNICATION WITH THE ABDOMINAL DRAIN. MODERATE SIGMOID AND DISTAL DESCENDING COLON DIVERTICULOSIS. Assessment & Plan - Diagnosis (2) Abdominal pain Qualifiers: Abdominal location: lower abdomen, unspecified Qualified Code(s): R10.30 - Lower abdominal pain, unspecified Is this a current diagnosis for this admission?: Yes - Time Time Spent with patient: 25-34 minutes - Plan Summary Plan Summary: colonoscopy and barium enema show no evidence of a fistula pt feels better today appreciate cardiology consult for atrial flutter no anticoag at this time plan cont iv abx send isabella op for cults poss home when op sandostatin availabe
--- NOTE | 2019-05-27 09:21 | PDOC PROGRESS REPORT ---
Subjective Progress Note for:: 05/27/19 Subjective:: 05/26/2019-no complaints 05/27/2019-no complaints this a.m. Reason For Visit: PANCREATIC FISTULA Physical Exam Vital Signs: Temp Pulse Resp BP Pulse Ox 98.6 F 77 20 140/67 H 97 05/27/19 04:11 05/27/19 04:11 05/27/19 04:11 05/27/19 04:11 05/27/19 04:11 Intake & Output 05/26/19 05/27/19 05/28/19 06:59 06:59 06:59 Intake Total 5780 5620 Output Total 1700 1180 Balance 4080 4440 Weight 82.4 kg 81.7 kg General appearance: PRESENT: no acute distress, well-developed, well-nourished Neck exam: ABSENT: carotid bruit, JVD, lymphadenopathy, thyromegaly Respiratory exam: PRESENT: clear to auscultation yoana. ABSENT: rales, rhonchi, wheezes Cardiovascular exam: PRESENT: RRR. ABSENT: diastolic murmur, rubs, systolic murmur Pulses: PRESENT: +1 pedal pulses bilateral GI/Abdominal exam: PRESENT: normal bowel sounds, soft, other - Pancreatic drain. ABSENT: distended, guarding, mass, organolmegaly, rebound, tenderness Extremities exam: PRESENT: full ROM. ABSENT: calf tenderness, clubbing, pedal edema Neurological exam: PRESENT: alert, awake, oriented to person, oriented to place, oriented to time, oriented to situation, CN II-XII grossly intact. ABSENT: motor sensory deficit Psychiatric exam: PRESENT: appropriate affect, normal mood. ABSENT: homicidal ideation, suicidal ideation Skin exam: PRESENT: dry, intact, warm. ABSENT: cyanosis, rash Results Laboratory Results: 05/27/19 06:31 05/27/19 06:31 05/27/19 05/27/19 06:31 06:31 WBC 3.6 L RBC 4.20 L Hgb 10.7 L Hct 32.6 L MCV 78 L MCH 25.4 L MCHC 32.7 RDW 18.7 H Plt Count 294 Sodium 139.3 Potassium 4.1 Chloride 105 Carbon Dioxide 27 Anion Gap 7 BUN 9 Creatinine 1.29 H Est GFR ( Amer) > 60 Glucose 148 H Calcium 8.5 Impressions: Abdomen/Pelvis CT 05/25/19 00:00 IMPRESSION: Slight decrease in size of presacral fluid collection. Chest X-Ray 05/25/19 18:02 IMPRESSION: No acute cardiopulmonary process. Barium Enema w/ Air Contrast, therapeutic 05/26/19 00:00 IMPRESSION: NO EVIDENCE OF COLONIC PERFORATION OR FISTULOUS COMMUNICATION WITH THE ABDOMINAL DRAIN. MODERATE SIGMOID AND DISTAL DESCENDING COLON DIVERTICULOSIS. Assessment and Plan - Diagnosis (1) Acute kidney injury Is this a current diagnosis for this admission?: Yes Plan: Mild CHRISTIANO. Creatinine is slightly elevated at 1.4 from a recent baseline of 0.9. Normal saline at 50 cc/hr. Repeat BMP tomorrow. 05/26/2019-creatinine improved to 1.2. Continue to follow continue normal saline 50 cc an hour 05/27/2019-stable will DC IV fluids at this time. (2) Atrial flutter Qualifiers: Atrial flutter type: typical Qualified Code(s): I48.3 - Typical atrial flutter Is this a current diagnosis for this admission?: Yes Plan: New onset. Rate controlled. EKG and telemetry shows atrial flutter with a heart rate in the 70s. Patient is asymptomatic. Blood pressures are stable. He has a ChadVasc score of 2. Will do work-up including a thyroid panel and echo. Suspect early/beginning infection causing new onset AFlutter as well. Discussed in length with patient and . Discussed recommendation about anticoagulation. He has a HAS BLED score he does have a history of GI bleed from an AVM of 2 (moderate bleeding risk). And had history of CVA with perforation. Discussed the risks and benefits of bleeding as well as risk of CVA in a flutter. Patient and are not amenable to starting him on anticoagulation and verbalized understanding of the risks. Also consulted cardiology who was the same recommendations. 10/24/2018-remains in a flutter 3-1. Patient is do not want anticoagulation and verbally understand the risk involved. 05/27/2019-remains in a flutter. No anticoagulation at this time. (3) HTN (hypertension) Is this a current diagnosis for this admission?: Yes Plan: Resume losartan. 05/26/2019-titrate losartan as needed 05/27/2019-stable (4) Hypokalemia Is this a current diagnosis for this admission?: Yes Plan: Getting replacement. Will check Mg as well. 05/27/2019 stable - Time Time Spent with patient: 15-24 minutes - Inpatient Certification Based on my medical assessment, after consideration of the patient's comorbidities, presenting symptoms, or acuity I expect that the services needed warrant INPATIENT care.: Yes I certify that my determination is in accordance with my understanding of [facility] 's requirements for reasonable and necessary INPATIENT services [42 CFR 412.3e].: Yes Medical Necessity: Need for IV Antibiotics
[2019-05-27] MEDS: METOPROLOL TARTRATE 25 MG TABLET PO SCH ×2 (09:44→21:58)
[2019-05-28] MEDS ORDERED: POTASSI CL 20 MEQ/D5-1/2NS 1L 1,000 ML IV ONE (03:08)
[2019-05-28] MEDS: CEFAZOLIN SODIUM 1 GM in DEXTROSE 5%-WATER 50 ML IV SCH ×2 (03:20→09:02)
[2019-05-28] MEDS: POTASSI CL 20 MEQ/D5-1/2NS 1L 1000 ML IV PRN (03:20)
[2019-05-28 05:32] LABS: HEMATOCRIT 32.9 % (37.9-51.0); HEMOGLOBIN 10.8 g/dL (13.5-17.0); MEAN CORPUSCULAR HEMOGLOBIN 25.7 pg (27.0-33.4); MEAN CORPUSCULAR HGB CONC 32.9 g/dL (32.0-36.0); MEAN CORPUSCULAR VOLUME 78 fl (80-97); PLATELET COUNT 308 10^3/uL (150-450); RED BLOOD COUNT 4.21 10^6/uL (4.35-5.55); RED CELL DISTRIBUTION WIDTH 18.5 % (11.5-14.0); WHITE BLOOD COUNT 4.9 10^3/uL (4.0-10.5)
[2019-05-28 05:52] LABS: ANION GAP 8 (5-19); BLOOD UREA NITROGEN 8 mg/dL (7-20); CALCIUM 8.6 mg/dL (8.4-10.2); CARBON DIOXIDE 26 mmol/L (22-30); CHLORIDE 104 mmol/L (98-107); GLUCOSE 144 mg/dL (75-110)
[2019-05-28] MEDS: METRONIDAZOLE 500 MG/NS RTU 500 MG/100 ML RTUPB IV SCH ×2 (06:14→14:01)
[2019-05-28] MEDS: OCTREOTIDE ACETATE INJ/PF 100 MCG/1 ML SDV SUBCUT SCH ×2 (06:14→14:02)
[2019-05-28] MEDS: METOPROLOL TARTRATE 25 MG TABLET PO SCH (09:02)
--- NOTE | 2019-05-28 09:41 | PDOC PROGRESS REPORT ---
Subjective Progress Note for:: 05/28/19 Subjective:: 05/26/2019-no complaints 05/27/2019-no complaints this a.m. 05/28/2019-no complaints Reason For Visit: PANCREATIC FISTULA Physical Exam Vital Signs: Temp Pulse Resp BP Pulse Ox 98.2 F 86 17 148/78 H 95 05/28/19 07:59 05/28/19 07:59 05/28/19 07:59 05/28/19 07:59 05/28/19 07:59 Intake & Output 05/27/19 05/28/19 05/29/19 06:59 06:59 06:59 Intake Total 5620 4105 Output Total 1180 800 10 Balance 4440 3305 -10 Weight 81.7 kg 83 kg General appearance: PRESENT: no acute distress, well-developed, well-nourished Neck exam: ABSENT: carotid bruit, JVD, lymphadenopathy, thyromegaly Respiratory exam: PRESENT: clear to auscultation yoana. ABSENT: rales, rhonchi, wheezes Cardiovascular exam: PRESENT: irregular rhythm, +S1, +S2. ABSENT: diastolic murmur, rubs, systolic murmur Pulses: PRESENT: normal dorsalis pedis pul Vascular exam: PRESENT: normal capillary refill GI/Abdominal exam: PRESENT: normal bowel sounds, soft, other - Pancreatic drain in place. ABSENT: distended, guarding, mass, organolmegaly, rebound, tenderness Extremities exam: PRESENT: full ROM. ABSENT: calf tenderness, clubbing, pedal edema Neurological exam: PRESENT: alert, awake, oriented to person, oriented to place, oriented to time, oriented to situation, CN II-XII grossly intact. ABSENT: motor sensory deficit Psychiatric exam: PRESENT: appropriate affect, normal mood. ABSENT: homicidal ideation, suicidal ideation Skin exam: PRESENT: dry, intact, warm. ABSENT: cyanosis, rash Results Laboratory Results: 05/28/19 05:08 05/28/19 05:08 05/28/19 05/28/19 05:08 05:08 WBC 4.9 RBC 4.21 L Hgb 10.8 L Hct 32.9 L MCV 78 L MCH 25.7 L MCHC 32.9 RDW 18.5 H Plt Count 308 Sodium 138.4 Potassium 4.0 Chloride 104 Carbon Dioxide 26 Anion Gap 8 BUN 8 Creatinine 1.29 H Est GFR ( Amer) > 60 Glucose 144 H Calcium 8.6 Impressions: Abdomen/Pelvis CT 05/25/19 00:00 IMPRESSION: Slight decrease in size of presacral fluid collection. Chest X-Ray 05/25/19 18:02 IMPRESSION: No acute cardiopulmonary process. Barium Enema w/ Air Contrast, therapeutic 05/26/19 00:00 IMPRESSION: NO EVIDENCE OF COLONIC PERFORATION OR FISTULOUS COMMUNICATION WITH THE ABDOMINAL DRAIN. MODERATE SIGMOID AND DISTAL DESCENDING COLON DIVERTICULOSIS. Assessment and Plan - Diagnosis (1) Acute kidney injury Is this a current diagnosis for this admission?: Yes Plan: Mild CHRISTIANO. Creatinine is slightly elevated at 1.4 from a recent baseline of 0.9. Normal saline at 50 cc/hr. Repeat BMP tomorrow. 05/26/2019-creatinine improved to 1.2. Continue to follow continue normal saline 50 cc an hour 05/27/2019-stable will DC IV fluids at this time. 05/28/2019-stable at this time continued follow-up (2) Atrial flutter Qualifiers: Atrial flutter type: typical Qualified Code(s): I48.3 - Typical atrial flutter Is this a current diagnosis for this admission?: Yes Plan: New onset. Rate controlled. EKG and telemetry shows atrial flutter with a heart rate in the 70s. Patient is asymptomatic. Blood pressures are stable. He has a ChadVasc score of 2. Will do work-up including a thyroid panel and echo. Suspect early/beginning infection causing new onset AFlutter as well. Discussed in length with patient and . Discussed recommendation about anticoagulation. He has a HAS BLED score he does have a history of GI bleed from an AVM of 2 (moderate bleeding risk). And had history of CVA with perforation. Discussed the risks and benefits of bleeding as well as risk of CVA in a flutter. Patient and are not amenable to starting him on anticoagulation and verbalized understanding of the risks. Also consulted cardiology who was the same recommendations. 10/24/2018-remains in a flutter 3-1. Patient is do not want anticoagulation and verbally understand the risk involved. 05/27/2019-remains in a flutter. No anticoagulation at this time. 05/28/2019-stable. No anticoagulation at this time. (3) HTN (hypertension) Is this a current diagnosis for this admission?: Yes Plan: Resume losartan. 05/26/2019-titrate losartan as needed 05/27/2019-stable 05/28/2019-stable continue to follow (4) Hypokalemia Is this a current diagnosis for this admission?: Yes Plan: Getting replacement. Will check Mg as well. 05/27/2019 stable 05/28/2019-stable -stable - Time Time Spent with patient: 15-24 minutes - Inpatient Certification Based on my medical assessment, after consideration of the patient's comorbidities, presenting symptoms, or acuity I expect that the services needed warrant INPATIENT care.: Yes I certify that my determination is in accordance with my understanding of [facility]'s requirements for reasonable and necessary INPATIENT services [42 CFR 412.3e].: Yes Medical Necessity: Significant Comorbidiites Make Outpatient Treatment Too Risky, Need Close Monitoring Due to Risk of Patient Decompensation
[2019-05-28 14:40] VITALS: BP 136/67
--- NOTE | 2019-05-28 16:36 | PDOC DISCHARGE SUMMARY ---
General - Admit/Disc Date/PCP Admission Date/Primary Care Provider: 05/25/19 11:06 TIERRA CARVAJAL MD Discharge Date: 05/28/19 - Discharge Diagnosis Final Diagnosis: Pancreatic fistula and atrial flutter - Assessment Summary: Patient was admitted on 05/25/2019 with increasing Robbin Abdul bulb output from his pancreatic fistula and his noting it more like stool. He had developed increased temperature weakness and lethargy with loss of appetite and diarrhea there was a question whether the pancreatic fistula drain in his pelvis has her and eroded into his sigmoid and he was admitted for IV antibiotics a sigmoidoscopy and possible barium enema. He was started on IV Ancef and Flagyl upon admission to the hospital he had a normal white blood count and plans were made for a bowel prep and a colonoscopy the following morning he underwent the colonoscopy. The colonoscopy did not show evidence of erosion of the pancreatic fistula drain into the colon however he did have multiple diverticula. Therefore the colonoscopy was followed up with a air-contrast barium enema which again did not show erosion of the fistula drain in his pelvis into the colon. He also was noted to have atrial flutter on EKG and he was seen by cardiology who recommended no cardioversion or anticoagulation at this time secondary to his pancreatic fistula and other ongoing medical issues. He improved over the course of 3 hospital days on IV antibiotics his appetite improved his fevers resolved his white count remained normal and his appetite improved he was started on a regular diet his fistula J drain continue to put out creamy purulent-looking fluid but it did not appear to be stool. At this point is tolerating a regular diet his white count is normal he is afebrile with stable vital signs for the last 36 hours he feels well and wants to be discharged home. He was started on subcutaneous octreotide in the hospital for his pancreatic fistula and plans are being made for depot long-acting octreotide as an outpatient. He will follow-up with me June 08 hopefully for his injection of octreotide he is instructed to continue take a regular diet he is also going to be discha rged home on ciprofloxacin 500 mg p.o. twice daily - Additional Information Discharge Diet: As Tolerated Discharge Activity: Activity As Tolerated, Balance Activity w/Rest, No Lifting Over 10 Pounds, No Lifting/Push/Pulling Referrals: TIERRA CARVAJAL MD [Primary Care Provider] - 06/02/19 1:00 pm Home Medications: Latanoprost [Xalatan] 1 drop OU QHS 11/20/18 Losartan Potassium 100 mg PO DAILY 11/20/18 Omeprazole 40 mg PO DAILY@1700 11/20/18 Trazodone HCl 50 mg PO QHS 11/20/18 Metoprolol Succinate [Toprol Xl 50 mg Tab.sr] 50 mg PO DAILY 11/21/18 Cyanocobalamin (Vitamin B-12) [Vitamin B-12 Inj 1000 Mcg/1 ml Vial] 1,000 mcg IM .4TH 01/09/19 Docusate Sodium [Colace 100 mg Capsule] 100 mg PO BID 05/25/19 Dorzolamide HCl [Trusopt Plus 2% Oph Soln 10 ml] 1 drop OU BID 05/25/19 L.acidoph/L.bulg/B.bif/S.therm [Bacid Caplet] 1 each PO DAILY 05/25/19 History of Present Illiness History of Present Illness: INOCENTE MIJARES is a 74 year old male who has 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 He has been doing relatively well with a persistent pancreatic leak captured by Robbin-Abdul drain however over the last 24 to 36 hours he was noted to have increasing abdominal pain and change in output of the fistulous fluid with a characteristic of stool. He was having low-grade fevers at home and therefore is being admitted for IV antibiotics and work-up of the pancreatic fistula. Physical Exam Vital Signs: Temp Pulse Resp BP Pulse Ox 97.3 F 72 17 136/67 H 98 05/28/19 14:37 05/28/19 14:37 05/28/19 14:37 05/28/19 14:37 05/28/19 14:37 Intake & Output 05/27/19 05/28/19 05/29/19 06:59 06:59 06:59 Intake Total 5620 4105 1870 Output Total 4724 841 3580 Balance 4440 3305 860 Weight 81.7 kg 83 kg Results Laboratory Results: WBC 4.9 10^3/uL (4.0-10.5) 05/28/19 05:08 RBC 4.21 10^6/uL (4.35-5.55) L 05/28/19 05:08 Hgb 10.8 g/dL (13.5-17.0) L 05/28/19 05:08 Hct 32.9 % (37.9-51.0) L 05/28/19 05:08 MCV 78 fl (80-97) L 05/28/19 05:08 MCH 25.7 pg (27.0-33.4) L 05/28/19 05:08 MCHC 32.9 g/dL (32.0-36.0) 05/28/19 05:08 RDW 18.5 % (11.5-14.0) H 05/28/19 05:08 Plt Count 308 10^3/uL (150-450) 05/28/19 05:08 Lymph % (Auto) 16.2 % (13-45) 05/26/19 04:28 [place] % (Auto) 15.5 % (3-13) H 05/26/19 04:28 Eos % (Auto) 5.3 % (0-6) 05/26/19 04:28 Baso % (Auto) 1.0 % (0-2) 05/26/19 04:28 Absolute Neuts (auto) 2.4 10^3/uL (1.7-8.2) 05/26/19 04:28 Absolute Lymphs (auto) 0.6 10^3/uL (0.5-4.7) 05/26/19 04:28 Absolute Monos (auto) 0.6 10^3/uL (0.1-1.4) 05/26/19 04:28 Absolute Eos (auto) 0.2 10^3/uL (0.0-0.6) 05/26/19 04:28 Absolute Basos (auto) 0.0 10^3/uL (0.0-0.2) 05/26/19 04:28 Seg Neutrophils % 62.0 % (42-78) 05/26/19 04:28 Sodium 138.4 mmol/L (137-145) 05/28/19 05:08 Potassium 4.0 mmol/L (3.6-5.0) 05/28/19 05:08 Chloride 104 mmol/L (98-107) 05/28/19 05:08 Carbon Dioxide 26 mmol/L (22-30) 05/28/19 05:08 Anion Gap 8 (5-19) 05/28/19 05:08 BUN 8 mg/dL (7-20) 05/28/19 05:08 Creatinine 1.29 mg/dL (0.52-1.25) H 05/28/19 05:08 Est GFR ( Amer) > 60 (>60) 05/28/19 05:08 Est GFR (MDRD) Non-Af 55 (>60) L 05/28/19 05:08 Glucose 144 mg/dL (75-110) H 05/28/19 05:08 Hemoglobin A1c % 6.1 % (4.7-6.0) H 05/25/19 19:02 Lactic Acid 1.1 mmol/L (0.7-2.1) 05/26/19 04:28 Calcium 8.6 mg/dL (8.4-10.2) 05/28/19 05:08 Magnesium 1.4 mg/dL (1.6-2.3) L 05/25/19 16:56 Total Bilirubin 0.4 mg/dL (0.2-1.3) 05/25/19 12:23 Direct Bilirubin 0.1 mg/dL (0.0-0.4) 05/25/19 12:23 Neonat Total Bilirubin Not Reportable 05/25/19 12:23 Neonat Direct Bilirubin Not Reportable 05/25/19 12:23 Neonat Indirect Bili Not Reportable 05/25/19 12:23 AST 12 U/L (17-59) L 05/25/19 12:23 ALT 9 U/L (<50) 05/25/19 12:23 Alkaline Phosphatase 69 U/L (38-126) 05/25/19 12:23 Total Protein 6.2 g/dL (6.3-8.2) L 05/25/19 12:23 Albumin 2.8 g/dL (3.5-5.0) L 05/25/19 12:23 TSH 1.82 uIU/mL (0.47-4.68) 05/25/19 16:56 Urine Color STRAW 05/25/19 18:55 Urine Appearance CLEAR 05/25/19 18:55 Urine pH 6.0 (5.0-9.0) 05/25/19 18:55 Ur Specific [place] 1.006 05/25/19 18:55 Urine Protein NEGATIVE mg/dL (NEGATIVE) 05/25/19 18:55 Urine Glucose (UA) NEGATIVE mg/dL (NEGATIVE) 05/25/19 18:55 Urine Ketones NEGATIVE mg/dL (NEGATIVE) 05/25/19 18:55 Urine Blood NEGATIVE (NEGATIVE) 05/25/19 18:55 Urine Nitrite NEGATIVE (NEGATIVE) 05/25/19 18:55 Urine Bilirubin NEGATIVE (NEGATIVE) 05/25/19 18:55 Urine Urobilinogen NEGATIVE mg/dL (<2.0) 05/25/19 18:55 Ur Leukocyte Esterase NEGATIVE (NEGATIVE) 05/25/19 18:55 Urine WBC (Auto) 1 /HPF 05/25/19 18:55 Urine RBC (Auto) 0 /HPF 05/25/19 18:55 Urine Mucus (Auto) RARE /LPF 05/25/19 18:55 Urine Ascorbic Acid NEGATIVE (NEGATIVE) 05/25/19 18:55 Impressions: Abdomen/Pelvis CT 05/25/19 00:00 IMPRESSION: Slight decrease in size of presacral fluid collection. Chest X-Ray 05/25/19 18:02 IMPRESSION: No acute cardiopulmonary process. Barium Enema w/ Air Contrast, therapeutic 05/26/19 00:00 IMPRESSION: NO EVIDENCE OF COLONIC PERFORATION OR FISTULOUS COMMUNICATION WITH THE ABDOMINAL DRAIN. MODERATE SIGMOID AND DISTAL DESCENDING COLON DIVERTICULOSIS.
== END 2019-05-28 14:58 | disposition home or self-care (01) | DRG 920 ==
LOC: 3N 11:06
PROVIDERS: ADMIT Surgery; ATTEND Surgery
PROC: 0DJD8ZZ Inspection of Lower Intestinal Tract, Via Natural or Artificial Opening Endoscopic (ICD-10-PCS; principal; 2019-05-26 10:00)
DX: T81.83XA Persistent postprocedural fistula, initial encounter (principal); I48.92 Unspecified atrial flutter; N17.9 Acute kidney failure, unspecified; K86.89 Other specified diseases of pancreas; I10 Essential (primary) hypertension; E87.6 Hypokalemia; F32.9 Major depressive disorder, single episode, unspecified; I25.10 Atherosclerotic heart disease of native coronary artery without angina pectoris; R50.9 Fever, unspecified; E78.5 Hyperlipidemia, unspecified; K57.30 Diverticulosis of large intestine without perforation or abscess without bleeding; M19.042 Primary osteoarthritis, left hand; M19.041 Primary osteoarthritis, right hand; Z97.8 Presence of other specified devices; Z95.1 Presence of aortocoronary bypass graft; Z85.46 Personal history of malignant neoplasm of prostate; E11.9 Type 2 diabetes mellitus without complications; Z82.49 Family history of ischemic heart disease and other diseases of the circulatory system; Z83.3 Family history of diabetes mellitus; Z79.82 Long term (current) use of aspirin; Z79.899 Other long term (current) drug therapy; Z90.49 Acquired absence of other specified parts of digestive tract; Z88.6 Allergy status to analgesic agent
CPT/HCPCS: 36415; 45378; 71045; 74176; 74280; 80048; 80053; 81001; 83036; 83605; 83735; 84443; 85025; 85027; 87040; 87070; 87075; 87077; 87205; 93005; 93010; 93306; J0171; J0690; J1200; J1610; J2250; J2310; J2354; J2405; J3010; J3480; J3490; J7030; J7060

== ENCOUNTER → 2019-06-25 | Outpatient (CLI) | payer MEDICARE, BC ==
--- NOTE | 2019-06-25 09:36 | RADIOLOGY REPORT (SQ) ---
EXAM DESCRIPTION: CT ABD/PELVIS NO ORAL OR IV COMPLETED DATE/TIME: 06/25/2019 7:57 am REASON FOR STUDY: PERFORATED COLON (K36.1) K63.1 PERFORATION OF INTESTINE (NONTRAUMATIC) COMPARISON: 05/25/2019 TECHNIQUE: CT scan of the abdomen and pelvis performed without intravenous or oral contrast. Images reviewed with lung, soft tissue, and bone windows. Reconstructed coronal and sagittal MPR images revi ewed. All images stored on PACS. All CT scanners at this facility use dose modulation, iterative reconstruction, and/or weight based d osing when appropriate to reduce radiation dose to as low as reasonably achievable (ALARA). [facility]: Dose Right [facility]: CareDose [facility]: Dose Right [facility]: Teradose 4D [facility]: [employer] RADIATION DOSE: CT Rad equipment meets quality standard of care and radiation dose reduction techniq ues were employed. CTDIvol: 6.5 mGy. DLP: 356 mGy-cm.mGy. LIMITATIONS: None. FINDINGS: LOWER CHEST: No significant findings. No nodules or infiltrates. NON-CONTRASTED LIVER, SPLEEN, ADRENALS: Evaluation limited by lack of IV contrast. No identified sign ificant masses. PANCREAS: No masses. No peripancreatic inflammatory changes. GALLBLADDER: Surgically absent. RIGHT KIDNEY AND URETER: No suspicious masses. Assessment limited by lack of IV contrast. No signif icant calcifications. Chronic mild dilatation of the UPJ. LEFT KIDNEY AND URETER: No suspicious masses. Assessment limited by lack of IV contrast. Small nono bstructing renal calculi. No hydronephrosis or hydroureter. AORTA AND RETROPERITONEUM: No aneurysm. No retroperitoneal masses or adenopathy. BOWEL AND PERITONEAL CAVITY: No significant change in position of percutaneous drains. Residual pres acral fluid collection not significantly changed. No progression. APPENDIX: Not visualized. PELVIS, BLADDER, AND ABDOMINAL WALL:Prostatectomy. No pelvic adenopathy. BONES: Nothing acute. OTHER: No other significant finding. IMPRESSION: Small amount of residual free fluid in the posterior pelvis. Correlate with drainage ou tput. No progression. COMMENT: Quality ID # 436: Final reports with documentation of one or more dose reduction techniques (e.g., Automated exposure control, adjustment of the mA and/or kV according to patient size, use of iterative reconstruction technique) TECHNICAL DOCUMENTATION: JOB ID: [id number]- All Rights Reserved Reading location - IP/workstation name: [email or web address]
== END ==
LOC: RAD 07:46
PROVIDERS: ATTEND Surgery
DX: K63.1 Perforation of intestine (nontraumatic) (principal)
CPT/HCPCS: 74176

== ENCOUNTER → 2019-06-29 | Outpatient (CLI) | payer MEDICARE, BC ==
[2019-06-29 15:40] LABS: ABSOLUTE BASOPHILS # (AUTO) 0.1 10^3/uL (0.0-0.2); ABSOLUTE EOSINOPHILS # (AUTO) 0.1 10^3/uL (0.0-0.6); ABSOLUTE LYMPHOCYTES (AUTO) 0.8 10^3/uL (0.5-4.7); ABSOLUTE MONOCYTES (AUTO) 0.6 10^3/uL (0.1-1.4); ABSOLUTE NEUT (AUTO) 7.8 10^3/uL (1.7-8.2); BASOPHILS % (AUTO) 0.6 % (0-2); EOSINOPHILS % (AUTO) 1.3 % (0-6); HEMATOCRIT 34.3 % (37.9-51.0); HEMOGLOBIN 11.4 g/dL (13.5-17.0); LYMPHOCYTES % (AUTO) 8.4 % (13-45); MEAN CORPUSCULAR HEMOGLOBIN 25.7 pg (27.0-33.4); MEAN CORPUSCULAR HGB CONC 33.1 g/dL (32.0-36.0); MEAN CORPUSCULAR VOLUME 78 fl (80-97); PLATELET COUNT 504 10^3/uL (150-450); RED BLOOD COUNT 4.42 10^6/uL (4.35-5.55); RED CELL DISTRIBUTION WIDTH 18.6 % (11.5-14.0); SEGMENTED NEUTROPHILS % (AUTO) 83.7 % (42-78); TOTAL CELLS COUNTED % (AUTO) 100 %; WHITE BLOOD COUNT 9.3 10^3/uL (4.0-10.5)
[2019-06-29 16:05] LABS: ALBUMIN 3.9 g/dL (3.5-5.0); ALKALINE PHOSPHATASE 83 U/L (38-126); ANION GAP 15 (5-19); ASPARTATE AMINO TRANSFERASE 20 U/L (17-59); BILIRUBIN,DIRECT 0.4 mg/dL (0.0-0.4); BILIRUBIN,TOTAL 0.4 mg/dL (0.2-1.3); BLOOD UREA NITROGEN 22 mg/dL (7-20); CALCIUM 9.9 mg/dL (8.4-10.2); CARBON DIOXIDE 22 mmol/L (22-30); CHLORIDE 104 mmol/L (98-107); GLUCOSE 112 mg/dL (75-110); POTASSIUM 4.3 mmol/L (3.6-5.0); TOTAL PROTEIN 7.7 g/dL (6.3-8.2)
== END ==
LOC: OD 15:02
PROVIDERS: ATTEND Surgery
DX: K63.1 Perforation of intestine (nontraumatic) (principal)
CPT/HCPCS: 36415; 80053; 85025

== ENCOUNTER → 2019-07-02 | Outpatient (CLI) | payer MEDICARE ==
--- NOTE | 2019-07-02 12:52 | RADIOLOGY REPORT (SQ) ---
EXAM DESCRIPTION: MRI ABDOMEN WITHOUT COMPLETED DATE/TIME: 07/02/2019 8:38 am REASON FOR STUDY: *MRCP* OTHER SPECIFIED DISEASES OF PANCREAS (K86.89) K86.89 OTHER SPECIFIED DISEA SES OF PANCREAS COMPARISON: None. TECHNIQUE: Noncontrast MRCP. Source and MIP images reviewed. LIMITATIONS: Motion. FINDINGS: GALLBLADDER: Surgically absent. INTRAHEPATIC DUCTS: Nondilated. EXTRAHEPATIC DUCTS: Common duct is normal caliber. No dilatation of the pancreatic duct. No ductal filling defects noted. PANCREAS: Generally homogeneous, no gross mass or significant signal alteration. No surrounding infl ammatory changes or fluid. Pancreatic duct is normal. LIVER, SPLEEN, KIDNEYS, ADRENALS: Chronic dilatation of the right UPJ. VESSELS: No aneurysm. LUNG BASES: Grossly clear. OTHER: No other significant finding. IMPRESSION: NORMAL HEPATOBILIARY SYSTEM. NO STONES OR COMMON DUCT ABNORMALITIES. TECHNICAL DOCUMENTATION: JOB ID: [id number] [facility]- All Rights Reserved Reading location - IP/workstation name: [email or web address]
== END ==
LOC: RAD 07:48
PROVIDERS: ATTEND Surgery
DX: K86.89 Other specified diseases of pancreas (principal)
CPT/HCPCS: 74181

== ENCOUNTER → 2019-07-30 | Outpatient (CLI) | payer MEDICARE, BC ==
--- NOTE | 2019-07-30 11:27 | RADIOLOGY REPORT (SQ) ---
EXAM DESCRIPTION: CT ABD/PELVIS ORAL ONLY COMPLETED DATE/TIME: 07/30/2019 9:48 am REASON FOR STUDY: K86.89 OTHER SPECIFIED DISEASES OF PANCREAS K86.89 OTHER SPECIFIED DISEASES OF PA NCREAS COMPARISON: 06/25/2019 TECHNIQUE: CT scan of the abdomen and pelvis performed without intravenous contrast. Oral contrast was given. . Images reviewed with lung, soft tissue, and bone windows. Reconstructed coronal and sag ittal MPR images reviewed. All images stored on PACS. All CT scanners at this facility use dose modulation, iterative reconstruction, and/or weight based d osing when appropriate to reduce radiation dose to as low as reasonably achievable (ALARA). [facility]: Dose Right [facility]: CareDose [facility]: Dose Right [facility]: Teradose 4D [facility]: [employer] RADIATION DOSE: CT Rad equipment meets quality standard of care and radiation dose reduction techniq ues were employed. CTDIvol: 7.6 mGy. DLP: 418 mGy-cm.mGy. LIMITATIONS: None. FINDINGS: LOWER CHEST: No significant findings. No nodules or infiltrates. NON-CONTRASTED LIVER, SPLEEN, ADRENALS: Evaluation limited by lack of IV contrast. No identified sign ificant masses. PANCREAS: No masses or ductal dilatation. There is a drain or stent air in the pancreatic duct. GALLBLADDER: Surgically absent. RIGHT KIDNEY AND URETER: No suspicious masses. Assessment limited by lack of IV contrast. No signif icant calcifications. Mild hydronephrosis. No obstructing calculus is seen. LEFT KIDNEY AND URETER: No suspicious masses. Assessment limited by lack of IV contrast. Nonobstruc ting intrarenal calculus. No hydronephrosis or hydroureter. AORTA AND RETROPERITONEUM: No aneurysm. No retroperitoneal masses or adenopathy. BOWEL AND PERITONEAL CAVITY: Sigmoid diverticulosis. Mild thickening the wall of the sigmoid. No si gnificant stranding in the perisigmoid fat. APPENDIX: Surgically absent. PELVIS, BLADDER, AND ABDOMINAL WALL:No abnormal masses. No free fluid. Bladder normal. Prostatectomy . BONES: No significant findings. OTHER: A drainage catheter extends from the left lower quadrant of the abdominal wall into the lower pelvis. There is no free fluid in the pelvis. IMPRESSION: Pancreatic duct stent or drain. Mild right hydronephrosis with no obstructing calculus. Diverticulosis coli. There is mild thickening of the sigmoid which may indicate acute inflammation . COMMENT: Quality ID # [id number]: Final reports with documentation of one or more dose reduction techniques (e.g., Automated exposure control, adjustment of the mA and/or kV according to patient size, use of iterative reconstruction technique) TECHNICAL DOCUMENTATION: JOB ID: [id number] 2010 [employer]- All Rights Reserved Reading location - IP/workstation name: [email or web address]
== END ==
LOC: RAD 09:37
PROVIDERS: ATTEND Surgery
DX: K86.89 Other specified diseases of pancreas (principal)
CPT/HCPCS: 74176

== ENCOUNTER → 2019-08-11 | Outpatient (CLI) | payer MEDICARE, BC ==
--- NOTE | 2019-08-11 12:13 | RADIOLOGY REPORT (SQ) ---
EXAM DESCRIPTION: KUB/ABDOMEN (SINGLE VIEW) COMPLETED DATE/TIME: 08/11/2019 11:30 am REASON FOR STUDY: K83.9 DISEASE OF BILIARY TRACT, UNSPECIFIED K83.9 DISEASE OF BILIARY TRACT, UNSPE CIFIED COMPARISON: 01/15/2019 abdomen 07/30/2019 CT abdomen and pelvis NUMBER OF VIEWS: One view. TECHNIQUE: Supine radiographic image of the abdomen acquired. LIMITATIONS: None. FINDINGS: BOWEL GAS PATTERN: Normal bowel gas pattern. No dilated loops. CALCIFICATIONS: No suspicious calcifications. SOFT TISSUES: No gross mass or suggestion of organomegaly. HARDWARE: A catheter or stent is present in pancreatic duct. This shows no change compared to the CT from 07/30/2019. BONES: No acute fracture. No worrisome bone lesions. OTHER: No other significant finding. IMPRESSION: Pancreatic duct stent is unchanged. TECHNICAL DOCUMENTATION: JOB ID: [id number] 2010 [employer]- All Rights Reserved Reading location - IP/workstation name: [email or web address]
== END ==
LOC: RAD 11:13
PROVIDERS: ATTEND Internal Medicine
DX: K83.9 Disease of biliary tract, unspecified (principal)
CPT/HCPCS: 74018

== ENCOUNTER → 2019-09-17 | Outpatient (CLI) | payer MEDICARE, BC ==
--- NOTE | 2019-09-17 09:57 | RADIOLOGY REPORT (SQ) ---
EXAM DESCRIPTION: CT ABD/PELVIS ORAL ONLY IMAGES COMPLETED DATE/TIME: 09/17/2019 9:15 am REASON FOR STUDY: (K86.89)OTHER SPECIFIED DISEASES OF PANCREAS K86.89 OTHER SPECIFIED DISEASES OF P ANCREAS COMPARISON: CT abdomen pelvis 05/25/2019, 06/25/2019, 07/30/2019 TECHNIQUE: CT scan of the abdomen and pelvis performed without intravenous contrast. Patient drank oral contrast. Images reviewed with lung, soft tissue, and bone windows. Reconstructed coronal and sagittal MPR imag es reviewed. All images stored on PACS. All CT scanners at this facility use dose modulation, iterative reconstruction, and/or weight based d osing when appropriate to reduce radiation dose to as low as reasonably achievable (ALARA). [facility]: Dose Right [facility]: CareDose [facility]: Dose Right [facility]: Teradose 4D [facility]: [employer] RADIATION DOSE: CT Rad equipment meets quality standard of care and radiation dose reduction techniq ues were employed. CTDIvol: 7.6 mGy. DLP: 412 mGy-cm.mGy. LIMITATIONS: None. FINDINGS: The surgical drain tracking between the duodenum and aorta is unchanged in position near t he duodenum and pancreas, no air bubbles are identified. However, the drain courses down into the pe lvic cul-de-sac/ presacral space. There are several air bubbles along the catheter in the pelvis on axial images 67-74 which are new compared to CT exam 07/30/2019. Along the right gluteal region sciatic notch, several air bubbles are also present with surrounding i nflammatory change in the fat. This is new compared to 07/30/2019. Oral contrast seen throughout the gastrointestinal tract. No dilated loops worrisome for bowel obstr uction. There are prominent gastric folds along the fundus, lesser curvature, antrum. The duodenum bulb distends normally. 2nd portion of the duodenum, 3rd portion of the duodenum is dif fusely narrowed and not well opacified with oral contrast. Medial stricture adjacent to the surgical drain may be present on coronal reconstruction images 44-52. This is similar compared to CT 07/30/19 20 There are scattered colonic diverticuli without CT signs of diverticulitis. No free intraperitoneal air or fluid LOWER CHEST: No significant findings. No nodules or infiltrates. NON-CONTRASTED LIVER, SPLEEN, ADRENALS: Evaluation limited by lack of IV contrast. No identified sign ificant masses. PANCREAS: Endoscopically placed pancreatic drain along the pancreatic duct in good positioning, uncha nged from prior exams. No CT signs of acute pancreatitis. GALLBLADDER: Surgically absent RIGHT KIDNEY AND URETER: No suspicious masses. Assessment limited by lack of IV contrast. No signif icant calcifications. Stable mild prominence of the right renal pelvis. No hydroureter LEFT KIDNEY AND URETER: No suspicious masses. Assessment limited by lack of IV contrast. Left lower pole 2 cm cortical cyst. 5 mm left upper pole intrarenal nonobstructive stone No hydronephrosis or hydroureter. AORTA AND RETROPERITONEUM: No aneurysm. No retroperitoneal masses or adenopathy. BOWEL AND PERITONEAL CAVITY: As above APPENDIX: Not identified. No right lower quadrant inflammation PELVIS, BLADDER, AND ABDOMINAL WALL:Presacral drain with few new air bubbles on axial images 70 thr[address] gh 79. No free pelvic fluid. No adenopathy. Post prostatectomy. BONES: No significant findings. OTHER: No other significant finding. 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 Questi on sinus tract developing in this area Pancreatic drain in good positioning. No CT signs acute pancreatitis COMMENT: Quality ID # [id number]: Final reports with documentation of one or more dose reduction techniques (e.g., Automated exposure control, adjustment of the mA and/or kV according to patient size, use of iterative reconstruction technique) TECHNICAL DOCUMENTATION: JOB ID: [id number] 2010 [employer]- All Rights Reserved Reading location - IP/workstation name: [email or web address]
== END ==
LOC: RAD 09:01
PROVIDERS: ATTEND Surgery
DX: K86.89 Other specified diseases of pancreas (principal); K57.30 Diverticulosis of large intestine without perforation or abscess without bleeding
CPT/HCPCS: 74176

== ENCOUNTER → 2019-10-19 | Outpatient (CLI) | payer MEDICARE, BC ==
--- NOTE | 2019-10-19 11:33 | RADIOLOGY REPORT (SQ) ---
EXAM DESCRIPTION: KUB/ABDOMEN (SINGLE VIEW) IMAGES COMPLETED DATE/TIME: 10/19/2019 10:14 am REASON FOR STUDY: K83.9 DISEASE OF BILIARY TRACT, UNSPECIFIED K83.9 DISEASE OF BILIARY TRACT, UNSPE CIFIED COMPARISON: CT of the abdomen and pelvis without contrast from 09/17/2019. NUMBER OF VIEWS: One view. TECHNIQUE: Supine radiographic image of the abdomen acquired. LIMITATIONS: None. FINDINGS: BOWEL GAS PATTERN: Nonobstructive. CALCIFICATIONS: None. SOFT TISSUES: No abnormality. HARDWARE: Surgical clips projecting within the right upper quadrant and pelvis, plastic pancreatic du ct stent, and pelvic SUJEY drain. BONES: Spondylosis of the lumbar spine. OTHER: No other finding. IMPRESSION: Nonobstructive bowel gas pattern. Postoperative findings and drains as detailed above. TECHNICAL DOCUMENTATION: JOB ID: [id number] 2010 [employer]- All Rights Reserved Reading location - IP/workstation name: [email or web address]
== END ==
LOC: RAD 09:42
PROVIDERS: ATTEND Internal Medicine
DX: K83.9 Disease of biliary tract, unspecified (principal)
CPT/HCPCS: 74018

== ENCOUNTER → 2019-12-22 | Outpatient (CLI) | payer MEDICARE, BC ==
--- NOTE | 2019-12-22 16:23 | RADIOLOGY REPORT (SQ) ---
EXAM DESCRIPTION: CT ABD/PELVIS WITH IV ONLY IMAGES COMPLETED DATE/TIME: 12/22/2019 2:52 pm REASON FOR STUDY: K86.89 OTHER SPECIFIED DISEASES OF PANCREAS K86.89 OTHER SPECIFIED DISEASES OF PA NCREAS COMPARISON: CT abdomen pelvis 09/17/2019, 07/30/2019, 06/25/2019, 05/25/2019, 02/27/2019, 01/09/2019, 008 TECHNIQUE: CT scan of the abdomen and pelvis performed using helical scanning technique with dynamic intravenous contrast injection. No oral contrast. Images reviewed with lung, soft tissue, and bone windows. Reconstructed coronal and sagittal MPR images reviewed. Delayed images for evaluation of the urinary system also acquired. All images stored on PACS. All CT scanners at this facility use dose modulation, iterative reconstruction, and/or weight based d osing when appropriate to reduce radiation dose to as low as reasonably achievable (ALARA). [facility]: Dose Right [facility]: CareDose [facility]: Dose Right [facility]: Teradose 4D [facility]: [employer] CONTRAST TYPE AND DOSE: contrast/concentration: Isovue 350.00 mmol/ml; Total Contrast Delivered: 86. 0 ml; Total Saline Delivered: 69.0 ml RENAL FUNCTION: Creatinine 1.1 RADIATION DOSE: CT Rad equipment meets quality standard of care and radiation dose reduction techniq ues were employed. CTDIvol: 7.2 - 7.2 mGy. DLP: 798 mGy-cm.. LIMITATIONS: None. FINDINGS: LOWER CHEST: No significant findings. No nodules or infiltrates. LIVER: Normal size. No masses. No dilated ducts. SPLEEN: Normal size. No focal lesions. PANCREAS: Endoscopically placed pancreatic ductal drain is present, in good positioning on coronal i mage 42. No masses. No significant calcifications. No adjacent inflammation or peripancreatic fluid collections. Pancreatic duct not dilated. GALLBLADDER: Surgically absent ADRENAL GLANDS: No significant masses or asymmetry. RIGHT KIDNEY AND URETER: No solid masses. No significant calcifications. No hydronephrosis or hyd roureter. LEFT KIDNEY AND URETER: No solid masses. 2 cm left lower pole cortical cyst. 4 mm left upper pole i ntrarenal nonobstructive stone No hydronephrosis or hydroureter. AORTA AND VESSELS: No aneurysm. No dissection. Renal arteries, SMA, celiac without stenosis. RETROPERITONEUM: No retroperitoneal adenopathy, hemorrhage or masses. BOWEL AND PERITONEAL CAVITY: No masses or inflammatory changes. No free fluid or peritoneal masses. Descending and sigmoid colon diverticuli without CT signs of acute diverticulitis. Patient has a persistent presacral drain, with tubing exiting med abdomen and pelvis through the left lower quadrant. Along the tip of the drain, tiny air bubbles are present on axial images 68-72. Ad jacent 2 x 1 cm fluid collection on axial image 72. These findings are similar compared to 09/17/2019. APPENDIX: Surgically absent by history PELVIS: Clips post prostatectomy. Persistent presacral phlegmon with air bubbles and trace fluid, si milar compared to 09/17/2019. Urinary bladder unremarkable. Rectum grossly intact ABDOMINAL WALL: No masses. No hernias. BONES: No significant or acute findings. OTHER: No other significant finding. IMPRESSION: Pancreatic duct stent in good positioning Presacral drain in place with adjacent air bubbles and trace fluid, similar compared to 09/17/2019 TECHNICAL DOCUMENTATION: JOB ID: [id number] Quality ID # [id number]: Final reports with documentation of one or more dose reduction techniques (e.g., Au tomated exposure control, adjustment of the mA and/or kV according to patient size, use of iterative reconstruction technique) 2010 [employer]- All Rights Reserved Reading location - IP/workstation name: [email or web address]
== END ==
LOC: RAD 14:25
PROVIDERS: ATTEND Internal Medicine
DX: K86.89 Other specified diseases of pancreas (principal)
CPT/HCPCS: 74177; 82565

== ENCOUNTER → 2020-03-15 | Outpatient (CLI) | payer MEDICARE, BC ==
--- NOTE | 2020-03-15 14:17 | RADIOLOGY REPORT (SQ) ---
EXAM DESCRIPTION: CT ABD/PELVIS ORAL ONLY IMAGES COMPLETED DATE/TIME: 03/15/2020 12:51 pm REASON FOR STUDY: K86.89 OTHER SPECIFIED DISEASES OF PANCREAS K63.1 PERFORATION OF INTESTINE (NONTR AUMATIC) K86.89 OTHER SPECIFIED DISEASES OF PANCREAS COMPARISON: Multiple, most recent 09/17/2019. TECHNIQUE: CT scan of the abdomen and pelvis performed without intravenous contrast. Oral contrast was given. Images reviewed with lung, soft tissue, and bone windows. Reconstructed coronal and sagitt al MPR images reviewed. All images stored on PACS. All CT scanners at this facility use dose modulation, iterative reconstruction, and/or weight based d osing when appropriate to reduce radiation dose to as low as reasonably achievable (ALARA). [facility]: Dose Right [facility]: CareDose [facility]: Dose Right [facility]: Teradose 4D [facility]: [employer] RADIATION DOSE: CT Rad equipment meets quality standard of care and radiation dose reduction techniq ues were employed. CTDIvol: 11.9 mGy. DLP: 631 mGy-cm.mGy. LIMITATIONS: None. FINDINGS: LOWER CHEST: No significant findings. No nodules or infiltrates. NON-CONTRASTED LIVER, SPLEEN, ADRENALS: Evaluation limited by lack of IV contrast. No identified sign ificant masses. PANCREAS: Unchanged position of stent. GALLBLADDER: Surgically absent. RIGHT KIDNEY AND URETER: No suspicious masses. Assessment limited by lack of IV contrast. No signif icant calcifications. Stable chronic mild hydronephrosis and hydroureter. LEFT KIDNEY AND URETER: No suspicious masses. Assessment limited by lack of IV contrast. Renal calc mario measuring up to 5 mm. No hydronephrosis or hydroureter. AORTA AND RETROPERITONEUM: No aneurysm. No retroperitoneal masses or adenopathy. BOWEL AND PERITONEAL CAVITY: Diverticulosis descending and sigmoid colon. Unchanged presacral strand ing. Interval removal of the surgical drain. APPENDIX: Surgically absent. PELVIS, BLADDER, AND ABDOMINAL WALL:Prior prostatectomy. Abnormal presacral soft tissue with couple of tiny gas bubbles image 63. No significant residual fluid collection. Normal urinary bladder. No pelvic adenopathy. BONES: Nothing acute. OTHER: No other significant finding. IMPRESSION: 1. Chronic inflammatory changes in the pelvis status post interval removal of surgical drain. No sheri dence of residual significant gas fluid collection. 2. Stable pancreatic stent. 3. Stable chronic mild right hydronephrosis. COMMENT: Quality ID # 436: Final reports with documentation of one or more dose reduction techniques (e.g., Automated exposure control, adjustment of the mA and/or kV according to patient size, use of iterative reconstruction technique) TECHNICAL DOCUMENTATION: JOB ID: [id number] 2010 [employer]- All Rights Reserved Reading location - IP/workstation name: [email or web address]
== END ==
LOC: RAD 12:43
PROVIDERS: ATTEND Surgery
DX: K86.89 Other specified diseases of pancreas (principal)
CPT/HCPCS: 74176

== ENCOUNTER → 2020-03-18 | Outpatient (CLI) | payer MEDICARE, BC ==
[2020-03-18 13:29] LABS: ABSOLUTE EOSINOPHILS # (AUTO) 0.1 10^3/uL (0.0-0.6); ABSOLUTE LYMPHOCYTES (AUTO) 0.6 10^3/uL (0.5-4.7); ABSOLUTE MONOCYTES (AUTO) 0.5 10^3/uL (0.1-1.4); ABSOLUTE NEUT (AUTO) 3.9 10^3/uL (1.7-8.2); BASOPHILS % (AUTO) 0.5 % (0-2); EOSINOPHILS % (AUTO) 2.7 % (0-6); HEMATOCRIT 32.1 % (37.9-51.0); HEMOGLOBIN 10.7 g/dL (13.5-17.0); LYMPHOCYTES % (AUTO) 11.4 % (13-45); MEAN CORPUSCULAR HEMOGLOBIN 24.9 pg (27.0-33.4); MEAN CORPUSCULAR HGB CONC 33.4 g/dL (32.0-36.0); MEAN CORPUSCULAR VOLUME 75 fl (80-97); MONOCYTES % (AUTO) 10.3 % (3-13); PLATELET COUNT 353 10^3/uL (150-450); RED CELL DISTRIBUTION WIDTH 17.1 % (11.5-14.0); SEGMENTED NEUTROPHILS % (AUTO) 75.1 % (42-78); TOTAL CELLS COUNTED % (AUTO) 100 %; WHITE BLOOD COUNT 5.2 10^3/uL (4.0-10.5)
[2020-03-18 13:47] LABS: ALBUMIN 3.8 g/dL (3.5-5.0); ALKALINE PHOSPHATASE 84 U/L (38-126); ANION GAP 11 (5-19); ASPARTATE AMINO TRANSFERASE 21 U/L (17-59); BILIRUBIN,DIRECT 0.3 mg/dL (0.0-0.4); BILIRUBIN,TOTAL 0.5 mg/dL (0.2-1.3); BLOOD UREA NITROGEN 20 mg/dL (7-20); CALCIUM 9.5 mg/dL (8.4-10.2); CARBON DIOXIDE 26 mmol/L (22-30); CHLORIDE 101 mmol/L (98-107); GLUCOSE 97 mg/dL (75-110); POTASSIUM 4.6 mmol/L (3.6-5.0); TOTAL PROTEIN 7.5 g/dL (6.3-8.2)
== END ==
LOC: OD 12:17
PROVIDERS: ATTEND Surgery
DX: K63.1 Perforation of intestine (nontraumatic) (principal)
CPT/HCPCS: 36415; 80053; 85025

== ENCOUNTER → 2020-03-18 | Outpatient (CLI) | payer MEDICARE, BC ==
--- NOTE | 2020-03-18 15:14 | RADIOLOGY REPORT (SQ) ---
EXAM DESCRIPTION: CT ABD/PELVIS ORAL ONLY IMAGES COMPLETED DATE/TIME: 03/18/2020 12:50 pm REASON FOR STUDY: K63.1 PERFORATION OF INTESTINE (NONTRAUMATIC) K63.1 PERFORATION OF INTESTINE (NON TRAUMATIC) COMPARISON: 03/15/2020 CT TECHNIQUE: CT scan of the abdomen and pelvis performed without intravenous contrast. Patient was gi adamaris oral Contrast. Images reviewed with lung, soft tissue, and bone windows. Reconstructed coronal an d sagittal MPR images reviewed. All images stored on PACS. All CT scanners at this facility use dose modulation, iterative reconstruction, and/or weight based d osing when appropriate to reduce radiation dose to as low as reasonably achievable (ALARA). [facility]: Dose Right [facility]: CareDose [facility]: Dose Right [facility]: Teradose 4D [facility]: [employer] RADIATION DOSE: CT Rad equipment meets quality standard of care and radiation dose reduction techniq ues were employed. CTDIvol: 12.2 mGy. DLP: 646 mGy-cm.mGy. LIMITATIONS: None. FINDINGS: LOWER CHEST: Stable 4 mm right basilar pulmonary nodule. No acute findings. NON-CONTRASTED LIVER, SPLEEN, ADRENALS: Evaluation limited by lack of IV contrast. No identified sign ificant masses. PANCREAS: Pancreatic stent in expected location. No peripancreatic fluid or stranding. GALLBLADDER: Surgically absent. RIGHT KIDNEY AND URETER: No suspicious masses. Assessment limited by lack of IV contrast. No signif icant calcifications. Mildly worsened right-sided hydronephrosis compared to prior exam. LEFT KIDNEY AND URETER: No suspicious masses. Assessment limited by lack of IV contrast. Stable left renal cyst. Nonobstructing stone measuring 5 mm. No hydronephrosis or hydroureter. AORTA AND RETROPERITONEUM: Aortoiliac atherosclerosis without aneurysm. No retroperitoneal masses or adenopathy. BOWEL AND PERITONEAL CAVITY: No evidence of intestinal obstruction. No focal bowel wall thickening. No evidence of contrast extravasation. Contrast traversing to the level of the rectosigmoid colon. Persistent irregular presacral soft tissue which extends along the midline to the level of the iliac bifurcation. Scattered foci of likely extraluminal gas, stable and likely related to prior drain. No discrete well-formed collection. APPENDIX: Not completely visualized. PELVIS, BLADDER, AND ABDOMINAL WALL:Decompressed urinary bladder with circumferential wall thickening . Prior prostatectomy. Presacral soft tissue as above. No discrete collection. BONES: No acute bony abnormality. No suspicious lytic or blastic osseous lesions. Tract from prior left lower abdominal wall drain. No discrete subcutaneous mass. OTHER: No other significant finding. IMPRESSION: 1. Persistent presacral inflammatory changes and soft tissue density extending to the l evel of the iliac bifurcation, similar to prior CT. No discrete drainable collection although evalua tion limited without intravenous contrast. 2. Mildly worsened right-sided hydronephrosis to the level of the mid ureter. 3. Stable pancreatic stent. COMMENT: Quality ID # 436: Final reports with documentation of one or more dose reduction techniques (e.g., Automated exposure control, adjustment of the mA and/or kV according to patient size, use of iterative reconstruction technique) TECHNICAL DOCUMENTATION: JOB ID: [id number] 2010 [employer]- All Rights Reserved Reading location - IP/workstation name: [email or web address]
== END ==
LOC: RAD 12:35
PROVIDERS: ATTEND Surgery
DX: K63.1 Perforation of intestine (nontraumatic) (principal); N13.30 Unspecified hydronephrosis
CPT/HCPCS: 74176